=== PATIENT | female | born 1960 | race Caucasian/White ===

== ENCOUNTER 2017-06-14 17:52 | Emergency (ER) | payer BC ==
[~2017-06-14 17:52] MED LIST: ISOVUE-370 76%-LOCM 1 ML ONE
[2017-06-14 19:26] LABS: #Lymphocytes 1.7 thou/uL (1.20-3.40); #Monocytes 0.9 thou/uL (0.11-0.59); %Basophils 0.4 % (0.0-1.0); %Eosinophils 0.1 % (0.0-10.0); %Lymphocytes 14.3 % (21.0-51.0); %Monocytes 7.6 % (0.0-10.0); Hematocrit 40.7 % (36.0-47.0); Mean Platelet Volume 7.1 fL (7.4-10.4); Red Blood Cell (RBC) Count 4.29 mill/uL (4.20-5.40); White Blood Cell (WBC) Count 11.6 thou/uL (4.8-10.8)
[2017-06-14 19:49] LABS: ALT (SGPT) 9 U/L (8-55); AST (SGOT) 18 U/L (5-34); Alkaline Phosphatase 105 U/L (40-150); Anion Gap 13 mmol/L (10-20); BUN (Urea Nitrogen) 23 mg/dL (9.8-20.1); Bilirubin, Total 0.7 mg/dL (0.2-1.2); Calc. Creatinine Clearance 0 mL/min (70-130); Calcium 10.2 mg/dL (7.8-10.44); Carbon Dioxide 29 mmol/L (22-29); Chloride 104 mmol/L (98-107); Estimated GFR-MDRD 60; Globulin 2.8 g/dL (2.4-3.5)
--- NOTE | 2017-06-14 22:07 | ULT ---
RIGHT LOWER EXTREMITY VENOUS DUPLEX EXAM: 06/14/17 HISTORY: Patient is status post fall two weeks ago with edema and bruising and calf pain. Calf pain is new to day. Real time color doppler evaluation of the right lower extremity was performed from groin to calf. Th is includes evaluation of the common femoral, superficial and profunda femoral, saphenous, popliteal and trifurcation veins. This shows a patent deep venous system with normal compressibility and augm entation. In the calf region, there is a complex cystic collection measuring approximately 5 cm in l ength probably related to hematoma related to injury. IMPRESSION: No evidence of DVT. POS: [facility]
[2017-06-14 23:16] LABS: PTT 24.6 SEC (22.9-36.1); Prothrombin Time 12.8 SEC (12.0-14.7)
--- NOTE | 2017-06-15 08:41 | CT ---
PRELIMINARY REPORT/[facility]/EMERGENCY AFTER HOURS PROCEDURE: EXAM: CT Right Lower Extremity With Intravenous Contrast EXAM DATE/TIME: Exam ordered 06/15/2017 12:48 AM CLINICAL HISTORY: 57 years old, female; Injury or trauma; Fall; Initial encounter; Abrasion; Knee and lower leg and fo ot; Right; Patient HX: 57 y/o female, HX fibromyalgia, dyslipidemia, HTN, presents with right knee h ematoma S/P fall 2 weeks ago while on a cruise ship. Pt reports she fell down the last 2 steps and d irectly landed on right knee. Ambulatory after the fall and weight bearing, but large bruise has enl arged over the past 2 weeks. Pt is on abx that were called in by her doctor a few days ago. She has allergies to multiple antibiotics. ; Additional info: Iv contrast per ordering doctor TECHNIQUE: Axial computed tomography images of the right lower extremity with intravenous contrast. Coronal reformatted images were created and reviewed. COMPARISON: No relevant prior studies available. FINDINGS: Bones/joints: No fracture. No dislocation. Soft tissues: 5 cm collection of fluid in the prepatellar subcutaneous tissue without rim enhancemen t. This could be resolving hematoma, abscess, or seroma. 14 cm craniocaudal by 9 cm transverse by 2 cm anteroposterior fluid collection in the deep subcutaneous tissue of the anterior lower leg, without rim enhancement, which could be resolving hematoma, abscess, or seroma. No soft tissue gas. IMPRESSION: There are 2 fluid collections in the soft tissues of the lower extremity, one prepatellar, and one i n the anterior lower leg. Given the history of trauma and lack of rim enhancement, these most likely represent resolving hematomas; however, abscess cannot be excluded. Thank you for allowing us to participate in the care of your patient. Dictated and Authenticated by: Jasvir Amezquita MD 06/15/2017 1:34 AM Central Time ([place] \T\ [place]) FINAL REPORT RIGHT LOWER EXTREMITY CT: HISTORY: Trauma. COMPARISON: None. FINDINGS/IMPRESSION: Findings and impression are concordant with the preliminary report. There is focal hemorrhage withi n both the subcutaneous prepatellar bursa and the subcutaneous infrapatellar bursa. Abscess is felt less likely. Aspiration may be beneficial in this patient. In addition, there appears to be eithe r an ossified lateral tibial spine versus an old avulsion fracture which is well corticated. POS: [facility]
== END 2017-06-15 02:30 | disposition home or self-care (01) ==
LOC: ERS 17:52
DX: S80.01XA Contusion of right knee, initial encounter (principal); E78.5 Hyperlipidemia, unspecified; F32.9 Major depressive disorder, single episode, unspecified; I10 Essential (primary) hypertension; Z79.82 Long term (current) use of aspirin; Z79.891 Long term (current) use of opiate analgesic; Z79.899 Other long term (current) drug therapy; W10.9XXA Fall (on) (from) unspecified stairs and steps, initial encounter
CPT/HCPCS: 36415; 80053; 85025; 85610; 85730

== ENCOUNTER 2019-05-12 13:59 | Outpatient (CLI) | payer BC ==
--- NOTE | 2019-05-12 15:22 | BD ---
EXAM: Bone densitometry using DEXA HISTORY: 59 yo female. Screening for postmenopausal osteoporosis FINDINGS: L1--bone mineral density 0.814 g/sq cm; T score -1.6 ; Z score -0.5 L2--bone mineral density 0.800 g/sq cm; T score -2.1 ; Z score -0.8 L3--bone mineral density 0.810 g/sq cm; T score -2.5 ; Z score -1.2 L4--bone mineral density 0.848 g/sq cm; T score minus 1. ; Z score -0.6 Total L1-L4--bone mineral density 0.819 g/sq cm; T score -2.1 ; Z score -0.8 Left femoral neck--bone mineral density0.701; T score -1.3 ; Z score -0.1 Total proximal left femur--bone mineral density 0.929; T score -0.1 ; Z score 0.7 The 10 year fracture risk for a major osteoporotic fracture is 6.4% and for a hip fracture is 0.4%. IMPRESSION: Osteopenia
--- NOTE | 2019-05-12 16:32 | MMO ---
Bilateral MAMMO Bilat Diag DDI+JOHN. CLINICAL HISTORY: Patient is 59 years old and is seen for screening. VIEWS: The views performed were: bilateral craniocaudal with tomosynthesis and bilateral mediolateral oblique with tomosynthesis. FILMS COMPARED: The present examination has been compared to prior imaging studies performed at [facility] on 05/12/2019, and at [facility] on 05/17/2006, 06/02/2007 and 08/13/2008. This study has been interpreted with the assistance of computer-aided detection. MAMMOGRAM FINDINGS: There are scattered fibroglandular densities. 2.5 cm mass with pleomorphic calcifications upper outer right breast. Skin retraction. Ultrasound reveals hypoechoic mass at 10 oclock. Highly suspicious for malignancy. In the left breast, there are no suspicious masses, calcifications or areas of architectural distortion. IMPRESSION: FINDING IN THE RIGHT BREAST IS HIGHLY SUGGESTIVE OF MALIGNANCY. BIOPSY IS RECOMMENDED. THE RESULTS OF THIS EXAM WERE SENT TO THE PATIENT. ACR BI-RADS Category 5 - Highly suggestive of malignancy - appropriate action should be taken MAMMOGRAPHY NOTE: 1. A negative mammogram report should not delay a biopsy if a dominant of clinically suspicious mass is present. 2. Approximately 10% to 15% of breast cancers are not detected by mammography. 3. Adenosis and dense breasts may obscure an underlying neoplasm. Reported by: JOSH FRANCIS MD Electonically Signed: [id number]
--- NOTE | 2019-05-12 17:07 | ULT ---
ULTRASOUND RIGHT BREAST: 05/12/19 INDICATIONS: Ultrasound performed to assess a mass seen on mammogram. There is a hypoechoic mass 10 o'clock right breast which measures 1.4 to 2.0 cm. Findings are highly suspicious of malignancy. Recommend biopsy for confirmation of diagnosis. IMPRESSION: BIRADS 5: Highly Suggestive of Malignancy - Appropriate Action Should Be Taken Requires biopsy or surgical treatment Dr. Jose G Gonzalez paged for notification at time of dictation. POS: OFF
--- NOTE | 2019-05-13 11:34 | MMO ---
Right Breast MAMMO Unilat Diag DDI RT. CLINICAL HISTORY: Patient is 59 years old and is seen for diagnostic exam. The patient has no family history of breast cancer. The patient has no personal history of cancer. The patient has a history of right Ultrasound Guided Core Biopsy in April,. VIEWS: The views performed were: right craniocaudal and right mediolateral oblique. FILMS COMPARED: The present examination has been compared to prior imaging studies performed at [facility] on 05/12/2019, and at [facility] on 06/02/2007 and 08/13/2008. This study has been interpreted with the assistance of computer-aided detection. MAMMOGRAM FINDINGS: There are scattered fibroglandular densities. There is a new irregular mass with associated biopsy clip seen in the right breast. IMPRESSION: NEW MASS IN THE RIGHT BREAST IS HIGHLY SUGGESTIVE OF MALIGNANCY. BIOPSY IS RECOMMENDED. THE RESULTS OF THIS EXAM WERE SENT TO THE PATIENT. ACR BI-RADS Category 5 - Highly suggestive of malignancy - appropriate action should be taken MAMMOGRAPHY NOTE: 1. A negative mammogram report should not delay a biopsy if a dominant of clinically suspicious mass is present. 2. Approximately 10% to 15% of breast cancers are not detected by mammography. 3. Adenosis and dense breasts may obscure an underlying neoplasm. Reported by: CATALINA CASTILLO MD Electonically Signed: [id number]
--- NOTE | 2019-05-13 12:23 | ULT ---
Ultrasound-guided right breast mass biopsy INDICATION: Suspicious mass within the right breast 10 o'clock position. TECHNIQUE: Informed consent was obtained. Preprocedural ultrasound was performed of the right breast identifying a suspicious mass in the right breast 10 o'clock position 1 cm from the nipple. Site overlying this region was prepped and draped in usual sterile fashion. Buffered 1% lidocaine was admi nistered overlying subcutaneous tissues. A small incision was made. Under ultrasound guidance, five separate core biopsy samples were obtained of the mass lesion. A biopsy clip was placed within the ma ss. Pressure was held at the biopsy site following the procedure. Patient tolerated the biopsy without difficulty. IMPRESSION: BI-RADS category 5. Highly suggestive of malignancy-appropriate action should be taken. P atient is status post ultrasound guided core biopsy of the mass lesion. Awaiting pathology results Transcribed Date/Time: 05/13/2019 12:38 PM
== END 2019-05-12 14:00 | disposition home or self-care (01) ==
LOC: BICMAMMO 13:59
PROVIDERS: ATTEND Obstetrics & Gynecology
DX: N63.11 Unspecified lump in the right breast, upper outer quadrant (principal); M81.0 Age-related osteoporosis without current pathological fracture; M85.859 Other specified disorders of bone density and structure, unspecified thigh
CPT/HCPCS: 19083; 77063; 77066; 77067; 77080; G0279

== ENCOUNTER 2019-05-13 10:40 | Outpatient (CLI) | payer BC | END 2019-05-13 10:41 | disposition home or self-care (01) | LOC: BICULT 10:40 | PROVIDERS: ATTEND Obstetrics & Gynecology | DX: N64.59 Other signs and symptoms in breast (principal); R92.8 Other abnormal and inconclusive findings on diagnostic imaging of breast; C50.411 Malignant neoplasm of upper-outer quadrant of right female breast | CPT/HCPCS: 88305; 88341; 88342 ==

== ENCOUNTER 2019-06-02 20:30 | Outpatient (CLI) | payer BC | END 2019-06-02 20:31 | disposition home or self-care (01) | LOC: SLEEPLAB 20:30 | PROVIDERS: ATTEND Specialist | DX: G47.33 Obstructive sleep apnea (adult) (pediatric) (principal); R53.83 Other fatigue | CPT/HCPCS: 95811 ==

== ENCOUNTER 2019-07-02 07:46 | Outpatient (CLI) | payer BC ==
[2019-07-02 12:07] LABS: #Eosinphils 0.1 thou/uL (0.0-0.7); #Lymphocytes 1.2 thou/uL (1.20-3.40); #Monocytes 0.5 thou/uL (0.11-0.59); #Neutrophils 3.5 thou/uL (1.40-6.50); %Basophils 0.7 % (0.0-1.0); %Eosinophils 1.4 % (0.0-10.0); %Lymphocytes 22.9 % (21.0-51.0); %Monocytes 9.2 % (0.0-10.0); %Neutrophils 65.8 % (42.0-75.0); Hemoglobin 13.8 g/dL (12.0-16.0); Mean Corpuscular HGB CONC 33.8 g/dL (32.0-36.0); Mean Corpuscular Hemoglobin 30.4 pg (27.0-31.0); Mean Corpuscular Volume 90.1 fL (78.0-98.0); Platelet Count 263 thou/uL (130-400); RBC Distribution Width 12.6 % (11.5-14.5); Red Blood Cell (RBC) Count 4.54 mill/uL (4.20-5.40); White Blood Cell (WBC) Count 5.3 thou/uL (4.8-10.8)
[2019-07-02 12:35] LABS: ALT (SGPT) 11 U/L (8-55); AST (SGOT) 25 U/L (5-34); Albumin 4.4 g/dL (3.5-5.0); Alkaline Phosphatase 98 U/L (40-110); Anion Gap 13 mmol/L (10-20); BUN (Urea Nitrogen) 17 mg/dL (9.8-20.1); Bilirubin, Total 0.6 mg/dL (0.2-1.2); Calc. Creatinine Clearance 0 mL/min (70-130); Calcium 9.8 mg/dL (7.8-10.44); Carbon Dioxide 26 mmol/L (22-29); Chloride 105 mmol/L (98-107); Estimated GFR-MDRD 47; Globulin 2.4 g/dL (2.4-3.5); Glucose 98 mg/dL (70-105); Potassium 3.8 mmol/L (3.5-5.1); Protein, Total 6.8 g/dL (6.0-8.3); Sodium 140 mmol/L (136-145)
--- NOTE | 2019-07-02 17:33 | EKG ---
Test Reason : Blood Pressure : / mmHG Vent. Rate : 067 BPM Atrial Rate : 067 BPM P-R Int : 176 ms QRS Dur : 086 ms QT Int : 414 ms P-R-T Axes : 036 044 -07 degrees QTc Int : 437 ms Normal sinus rhythm Anterior infarct , age undetermined T wave abnormality, consider inferior ischemia Abnormal ECG When compared with ECG of 26-FEB-2016 10:21, (Unconfirmed) Anterior infarct is now Present T wave inversion now evident in Inferior leads Nonspecific T wave abnormality now evident in Anterior leads Confirmed by DR. Rajni WHIPPLE ([id number]) on 07/02/2019 5:33:22 PM Referred By: MARIEL Confirmed By:DR. Rajni WHIPPLE
== END 2019-07-02 07:47 | disposition home or self-care (01) ==
LOC: LABBT 07:46
PROVIDERS: ATTEND Surgery
DX: Z01.818 Encounter for other preprocedural examination (principal); C50.919 Malignant neoplasm of unspecified site of unspecified female breast
CPT/HCPCS: 80053; 85025; 93005; 93010

== ENCOUNTER 2019-07-02 08:11 | Outpatient (CLI) | payer BC ==
--- NOTE | 2019-07-02 10:10 | PET ---
Nuclear medicine FDG PET/CT: (Positron emission tomography and computed tomography) DATE: 07/02/2019 HISTORY: ICD-10: C 50.411 malignant neoplasm of the upper outer quadrant of right female breast. Metastatic adenocarcinoma. COMPARISON: None available. Order states "patient will hand carry disc of previous images to give to tech to give 2 radiologist" However, the patient did not bring the disc. TECHNIQUE: IV injection of F-18 fluorodeoxyglucose (FDG) dose: 10.9 mCi. PET scan and attenuation correction CT performed from skull base to proximal thighs. FINDINGS: SUV (standard uptake values) numbers given are maximum SUVs. QCLR used. Approximately 2.5 x 2 cm mass in right breast slightly lateral to the nipple has SUV 8.2. This could represent residual primary tumor or postsurgical changes. There are several enlarged right axillary lymph nodes. The most posterior lymph node has SUV 2.4. Slightly medial to that another lymph node has SUV 2.4. Right subpectoral lymph node has SUV 1.7. There are no other foci of abnormally increased uptake in the rest of the chest, neck, abdomen, pelvi s, or skeleton. No major pathology identified on nondiagnostic, attenuation correction CT images. IMPRESSION: 1) evidence for right breast cancer. 2) multiple enlarged right axillary lymph nodes. Maximum SUV is 2.4, below threshold of 3.0. Indeterm inate. 3) no evidence of distant metastasis.
== END 2019-07-02 08:12 | disposition home or self-care (01) ==
LOC: PET 08:11
PROVIDERS: ATTEND Internal Medicine Hematology & Oncology
DX: C50.411 Malignant neoplasm of upper-outer quadrant of right female breast (principal); R59.0 Localized enlarged lymph nodes
CPT/HCPCS: 78815; 80053; 85025; 93005; A9552

== ENCOUNTER 2019-07-08 06:10 | Day surgery (SDC) | payer BC ==
[2019-07-02 11:17] VITALS: BMI 39.9
[2019-07-08] MEDS ORDERED: Fentanyl 100 MCG/2 ML VIAL ONE (06:50)
[2019-07-08] MEDS ORDERED: Lidocaine 2% PF 5 ML VIAL ONE (06:52)
[2019-07-08] MEDS ORDERED: Bupivacaine HCl 0.5%/Epinephrine 1:200,000/PF 30 ml Vial ONE (06:52)
--- NOTE | 2019-07-08 08:52 | RAD ---
Chest AP view INDICATION: Mediport placement COMPARISON: Chest 2 views dated May 10, 2008 FINDINGS: Lungs:The lungs are clear Cardiac silhouette:The cardiomediastinal silhouette appears within normal limits. Pulmonary vasculature:Normal Pleural spaces:No pleural effusion or pneumothorax is demonstrated. Upper abdomen:No abnormality seen. Osseous structures: No acute osseous abnormality. Additional findings:There has been an interval ACDF involving C5-C7. There is a new left subclavian c hest wall port that projects in the expected position. IMPRESSION: New left subclavian chest wall port. No pneumothorax. No acute cardiopulmonary abnormalit y.
[2019-07-08] MEDS ORDERED: PROPOFOL 200 MG/20 ML VIAL ONE (09:33)
[2019-07-08] MEDS ORDERED: Lidocaine 1% PF 5 ML VIAL ONE (09:33)
[2019-07-08] MEDS ORDERED: Ondansetron PF 4 MG/2 ML Vial ONE (09:33)
--- NOTE | 2019-07-08 09:48 | HP ---
CHIEF COMPLAINT: Right breast cancer. HISTORY OF PRESENT ILLNESS: The patient is a 59-year-old female, who noticed a dimple in the upper outer right breast. Mammogram showed a suspicious 2.5-cm mass. She had a core biopsy showing infiltrating ductal carcinoma. No family history of breast cancer. She is here for MediPort placement. PAST MEDICAL HISTORY: Significant for seasonal allergies, hypertension, and arthritis. PAST SURGICAL HISTORY: Tonsillectomy, D and C, back surgery, and sinus surgery. MEDICATIONS: 1. EpiPen. 2. Tramadol. 3. Meloxicam. 4. Naltrexone. 5. Aspirin. 6. Verapamil. 7. Losartan. 8. Amlodipine. 9. Crestor. 10. Nefazodone. 11. Metaxalone. 12. Torsemide. 13. Cymbalta. FAMILY HISTORY: Hypertension. SOCIAL HISTORY: . No tobacco or alcohol. ALLERGIES: SHE HAS ALLERGIES TO CLINDAMYCIN, CIPRO, SULFA, TOBRAMYCIN, LASIX, LYRICA, STADOL, ERYTHROMYCIN, AND ADHESIVES. PHYSICAL EXAMINATION: VITAL SIGNS: Height 65, weight 239, and body mass index 39.8. GENERAL: Well-developed, well-nourished female, in no apparent distress. HEENT: Unremarkable. LUNGS: Clear. HEART: Regular rate and rhythm. There is bruising over the central right breast, dimpling of the nipple upper outer, vague mass palpable. No palpable lymph nodes. ABDOMEN: Soft and nontender. Good bowel sounds. No palpable masses or hernias. EXTREMITIES: Good pulses. No pedal edema. ASSESSMENT: Right breast cancer. PLAN: MediPort placement. CONSENT: I have discussed planned procedure as well as risk of bleeding, infection, pneumothorax. She understands and gives informed consent. Job ID: [id number]
--- NOTE | 2019-07-08 10:09 | OP ---
DATE OF PROCEDURE: 07/08/2019 PREOPERATIVE DIAGNOSIS: Right breast cancer. PROCEDURE PERFORMED: MediPort placement. INDICATIONS: A 59-year-old female with metastatic breast cancer, needs perioperative or adjuvant chemotherapy. FINDINGS: Very obese upper chest, placed in left subclavian. DESCRIPTION OF PROCEDURE: After informed consent was obtained, the patient was taken to the operating room, given general mask anesthesia. Her chest and neck were prepped and draped in usual fashion. Local anesthesia infiltrated subcutaneously and deep. An introducer needle was inserted in the left subclavian with good backflow of venous blood, J-wire threaded easily. Fluoroscopy showed the wire in the superior vena cava, skin and subcu anesthetized and a pocket was created on the upper chest wall. The tunneling device was used to tunnel the catheter between the 2 incisions. It was connected to the MediPort. The MediPort was then sutured to the chest wall with interrupted 2-0 Prolene suture. The system was flushed with heparinized saline. The catheter was cut. The Peel-Away introducer inserted over the wire. The wire was removed. The catheter inserted through the Peel-Away introducer. The Peel-Away introducer removed. Fluoroscopy showed good placement in the superior vena cava. The subcu was reapproximated with interrupted 3-0 Vicryl. The skin closed with a running subcuticular 4-0 Rapide. Dermabond applied. The port was accessed with a Abdi needle. Good backflow of venous blood flushed with heparinized saline and a sterile bandage applied as the Cancer Center had requested the port remained accessed. Job ID: [id number]
== END 2019-07-08 10:11 | disposition home or self-care (01) ==
LOC: SDC 06:10
PROVIDERS: ATTEND Surgery
PROC: 05H633Z Insertion of Infusion Device into Left Subclavian Vein, Percutaneous Approach (ICD-10-PCS; principal; 2019-07-08)
DX: C50.911 Malignant neoplasm of unspecified site of right female breast (principal); I10 Essential (primary) hypertension; M19.90 Unspecified osteoarthritis, unspecified site; Z79.82 Long term (current) use of aspirin; Z79.899 Other long term (current) drug therapy; Z88.1 Allergy status to other antibiotic agents; Z88.2 Allergy status to sulfonamides; Z88.5 Allergy status to narcotic agent; Z88.8 Allergy status to other drugs, medicaments and biological substances; Z91.048 Other nonmedicinal substance allergy status
CPT/HCPCS: 71045; 80053; 82248; 83615; 84100; 84550; C1788; J0670; J0690; J1642; J2001; J2405; J2704; J3010

== ENCOUNTER 2019-07-17 10:20 | Day surgery (SDC) | payer BC ==
[~2019-07-17 10:20] MED LIST changes: -ISOVUE-370 76%-LOCM 1 ML ONE; +PROPOFOL 200 MG/20 ML VIAL ONE
[2019-07-17] MEDS ORDERED: Bupivacaine 0.25% HCL 30 ML VIAL ONE (10:35)
[2019-07-17] MEDS ORDERED: Lidocaine 1% w/Epinephrine 1:100K 20 ML VIAL ONE (10:35)
[2019-07-17] MEDS ORDERED: Fentanyl 100 MCG/2 ML VIAL ONE (11:02)
[2019-07-17 11:15] LABS: Hemoglobin 12.8 g/dL (12.0-16.0); Mean Corpuscular HGB CONC 34.2 g/dL (32.0-36.0); Mean Corpuscular Hemoglobin 30.4 pg (27.0-31.0); Mean Corpuscular Volume 88.9 fL (78.0-98.0); Mean Platelet Volume 8.6 fL (7.4-10.4); Platelet Count 139 thou/uL (130-400); White Blood Cell (WBC) Count 14.7 thou/uL (4.8-10.8)
[2019-07-17 11:31] LABS: Band 23 % (5-11); Lymphocytes 2 % (21-51); MDiff Complete? YES; Metamyelocyte 8 % (0-0); Monocytes 6 % (0-10); Myelocyte 5 % (0-0); Neutrophil 54 % (42-75); Platelet Morphology Comment Appears Adequate; RBC Morphology Normal; Reactive Lymphocytes 2 % (0-10); Toxic Granulation SLIGHT
--- NOTE | 2019-07-17 14:52 | OP ---
DATE OF PROCEDURE: 07/17/2019 PREOPERATIVE DIAGNOSIS: Infected MediPort. PROCEDURE PERFORMED: MediPort removal. INDICATIONS: This is a 59-year-old female, who recently had a MediPort placed for chemotherapy for breast cancer. She has had progressive swelling, pain, redness, and leukocytosis. FINDINGS: About 10 mL of yellow purulent fluid, MediPort floating around in it. DESCRIPTION OF PROCEDURE: After informed consent was obtained, the patient was taken to the operating room and given general mask anesthesia, placed in the supine position. Her chest was prepped and draped in usual fashion. An incision was made through the previous incision releasing purulent fluid. This was sent for culture and sensitivity and Gram stain. The MediPort was found. The sutures were removed. The MediPort removed. The purulent fluid removed from the cavity. The area was irrigated. A 3-0 Vicryl suture was used to occlude the bleeding tract. Hemostasis was assured. The wound was packed with Betadine gauze and covered by sterile dry gauze. The patient tolerated the procedure well, transferred to Recovery in good condition. Sponge and needle count verified correct x2. Job ID: [id number]
== END 2019-07-17 15:05 | disposition home or self-care (01) ==
LOC: SDC 10:20
PROVIDERS: ATTEND Surgery
PROC: 0JPT3WZ Removal of Totally Implantable Vascular Access Device from Trunk Subcutaneous Tissue and Fascia, Percutaneous Approach (ICD-10-PCS; principal; 2019-07-17)
DX: T80.212A Local infection due to central venous catheter, initial encounter (principal); B95.61 Methicillin susceptible Staphylococcus aureus infection as the cause of diseases classified elsewhere; C50.919 Malignant neoplasm of unspecified site of unspecified female breast; J45.909 Unspecified asthma, uncomplicated; I10 Essential (primary) hypertension; M19.90 Unspecified osteoarthritis, unspecified site; Z86.73 Personal history of transient ischemic attack (TIA), and cerebral infarction without residual deficits; Z88.1 Allergy status to other antibiotic agents; Z88.2 Allergy status to sulfonamides; Z88.8 Allergy status to other drugs, medicaments and biological substances; Z91.048 Other nonmedicinal substance allergy status
CPT/HCPCS: 85025; 87070; 87077; 87186; 87205; J0690; J2704; J3010; S0020

== ENCOUNTER 2019-07-30 11:08 | Outpatient (CLI) | payer BC ==
--- NOTE | 2019-07-30 12:19 | CT ---
CT ANGIOGRAM CHEST: 07/30/2019 HISTORY: Shortness of breath. Upper chest and back pain with cough. COMPARISON: None. TECHNIQUE: Axial CT imaging at 2.5 mm intervals through the chest with IV contrast using CT angiogram protocol w ith coronal and sagittal 3D reformatted imaging. FINDINGS: There is a partially visualized wound within the superiorly imaged left chest wall, anterior to the l eft pectoralis musculature. The left axillary vein, the left subclavian vein, and the brachiocephalic vein appear expanded and are ill defined, concerning for extensive deep venous thromb osis. There is an enlarged subpectoral lymph node on the left, on image 21, measuring 1.4 cm. There are a few mildly enlarged axillary and subpectoral nodes on the right, measuring up to 1.0 cm and 1.3 cm, respectively. There are enlarged lymph nodes in the prevascular space measuring up to 1.0 cm. Enlarged right paratracheal lymph node noted, measuring 1.1 cm. The imaged upper abdomen appears grossly unremarkable. No pleural, pericardial, or mediastinal fluid is noted. There is a spiculated mass within the right breast on axial image 40, measuring 1.9 cm, consistent wi th the patient's history of right breast cancer. There is a filling defect within a segmental branch, supplying the superior segment of the left lower lobe, consistent with a nonocclusive acute pulmonary embolism. There is a nonspecific pleural-based mass-like opacity within the right upper lobe, measuring 1.2 cm in craniocaudal dimension, new when compared to a PET scan performed on 07/02/2019. The configuration of this abnormality makes malignancy a possibility but the timeframe when compared to t he recent PET scan and would be atypical. Thus this could potentially be on the basis of an infectious process. Short-term follow-up imaging of the chest following treatment is thus advised. There is a granuloma within the posterolateral lingula. Mild areas of posterior pleural thickening ar e noted within the left lower lobe. Review of the osseous structures demonstrates incompletely imaged cervical spine fusion hardware. IMPRESSION: 1. Findings suggesting a nonocclusive segmental pulmonary embolism supplying the superior segment of the left lower lobe. 2. Expansion of the brachiocephalic vein, left subclavian vein and left axillary vein, concerning for extensive deep venous thrombosis. 3. New nonspecific pleural-based lesion within the right lung apex. Configuration suggests the possib ility of malignancy versus infection. Please see above discussion. Short-term follow-up imaging of the chest following treatment advised. The findings related to DVT and pulmonary embolism were called to Dr. Coley at 12:18 p.m. on 2018. CODE CR CODE T Transcribed Date/Time: 07/30/2019 12:38 PM
--- NOTE | 2019-07-30 14:29 | ULT ---
LEFT UPPER EXTREMITY VENOUS DOPPLER ULTRASOUND: INDICATIONS: History of breast cancer and concern for DVT of the left upper extremity. COMPARISON: CTA of the chest dated 07/30/2019. TECHNIQUE: Hernandez-scale, color Doppler and spectral Doppler images were obtained of the left internal jugular vein , left axillary vein, left brachial vein, left basilic vein, left cephalic vein and left radial and ulnar veins. FINDINGS: Left subclavian vein was not assessed due to the presence of a large bandage overlying a port removal site. There is occlusive thrombus within the visualized left internal jugular vein, left axillary vein, proximal left brachial vein and left basilic vein. There is slow flow present within a dilated left cephalic vein without evidence of intraluminal thrombus. There is normal compression and flow within the left radial and ulnar veins. IMPRESSION: Occlusive thrombus within the left internal jugular vein, left axillary vein, proximal left brachial vein and left basilic vein. Findings were called to Dr. Coley's answering service at 2:25 p.m. on 07/30/2019. CODE CR Transcribed Date/Time: 07/30/2019 2:38 PM
[2019-07-30] MEDS ORDERED: Iopamidol 370 76% 100 ML VIAL ONE (14:54)
== END 2019-07-30 11:09 | disposition home or self-care (01) ==
LOC: CT 11:08 → ULT 11:09
PROVIDERS: ATTEND Internal Medicine Hematology & Oncology
DX: C50.411 Malignant neoplasm of upper-outer quadrant of right female breast (principal); M79.602 Pain in left arm; I82.90 Acute embolism and thrombosis of unspecified vein; R06.02 Shortness of breath; R60.9 Edema, unspecified; I26.99 Other pulmonary embolism without acute cor pulmonale; I87.8 Other specified disorders of veins
CPT/HCPCS: 71275; 80053; 82248; 83615; 84100; 84550; Q9967

== ENCOUNTER → 2019-11-23 | Day surgery (SDC) | payer BC ==
[~2019-11-23] MED LIST changes: +Heparin 1,000 UNITS/ML VIAL ONE; -PROPOFOL 200 MG/20 ML VIAL ONE
--- NOTE | 2019-11-23 11:02 | SPC ---
PROCEDURE: Ultrasound-guided venous access of the left upper extremity basilic and brachial veins with attempted PICC line placement. PROVIDED CLINICAL HISTORY: Right breast cancer. Patient needs central venous catheter in place for chemotherapy treatment. COMPARISON: None TECHNIQUE: After informed consent was obtained, the patient was placed on the angiography table in the supine po sition. Left upper extremity was meticulously prepped and draped in usual sterile fashion. An appropriate access site was determined with ultrasound guidance. Skin and subcutaneous tissues overly ing the left upper extremity basilic vein were infiltrated with buffered 1% lidocaine for local anesthesia. The left upper extremity basilic vein was accessed utilizing micropuncture technique. A 0 .018 inch guidewire was advanced, but the guidewire was unable to be advanced distal to the level of the axillary vein. As result, the skin and subcutaneous tissues overlying the left upper extremity brachial vein were infiltrated with buffered 1% lidocaine for local anesthesia. The left brachial vein was accessed utilizing ultrasound guidance and a 21-gauge needle. A 0.018 inch guidewire was adv anced to the level of the axillary vein. The guidewire was unable to be manipulated into the subclavian vein suggesting occlusion at the level of the left subclavian vein. Patient provides histo ry of prior left subclavian Mediport catheter and prior DVT in the left upper extremity as well as prior infection secondary to port placement. Inability to advance guidewire into the central veins was discussed with Dr. Coley. Given that the catheter was unable to be placed within the central veins, the guidewire was removed, and hemostasis was achieved with direct pressure. Dry sterile dressing was placed at puncture sites. The patient tolerated the procedure well and without immediate complication. IMPRESSION: 1. Findings most suggestive of occlusion of the left subclavian vein as a guidewire was unable to be manipulated into the central veins. Given that a guidewire and catheter were unable to be manipulated into the central veins for administration of chemotherapy, the guidewire was removed. Samir carey were discussed with Dr. Coley.
== END ==
LOC: SPEC 08:42
PROVIDERS: ATTEND Internal Medicine Hematology & Oncology
DX: C50.411 Malignant neoplasm of upper-outer quadrant of right female breast (principal); Z88.1 Allergy status to other antibiotic agents; Z88.2 Allergy status to sulfonamides; Z88.8 Allergy status to other drugs, medicaments and biological substances; Z91.048 Other nonmedicinal substance allergy status
CPT/HCPCS: 36569; C1751; J1644

== ENCOUNTER 2019-11-24 10:33 | Outpatient (CLI) | payer BC ==
--- NOTE | 2019-11-24 15:35 | PET ---
Radionucleotide PET scan with CT attenuation correction HISTORY: Malignant neoplasm upper outer quadrant right breast. Restaging. COMPARISON: 07/02/2019. FINDINGS: Physiologic uptake of radiotracer present throughout the enteric system and along each urin greg tract. Interval postoperative changes with right mastectomy and axillary lymph node dissection. Residual upt trupti at the axillary postoperative bed maximum SUV 3.2. No hypermetabolic adenopathy is evident. No abnormal activity of the mediastinum, left breast or axilla. The area of subpleural nodularity at the right lung apex on interval CT arteriogram chest has nearly completely resolved on the CT images. No abnormal uptake. Very mild uptake associated with shallow subcutaneous ill-defined areas of nodularity along the anter ior abdominal wall with the appearance of injection sites. Nondiagnostic CT attenuation correction images show evidence of healed granulomatous disease of the c hest. There is bovine origin of the great vessels at the aortic arch. Degenerative changes throughout the lumbar spine. Diverticula arise from the colon without adjacent inflammation. IMPRESSION : Status post right mastectomy with removal of the breast lesion and hypermetabolic axillary adenopathy .. No evidence of residual or recurrent neoplasm.
== END 2019-11-24 10:34 | disposition home or self-care (01) ==
LOC: PET 10:33
PROVIDERS: ATTEND Internal Medicine Hematology & Oncology
DX: C50.919 Malignant neoplasm of unspecified site of unspecified female breast (principal); R59.0 Localized enlarged lymph nodes; Z90.11 Acquired absence of right breast and nipple
CPT/HCPCS: 78815; A9552

== ENCOUNTER 2020-03-11 15:41 | Inpatient (IN) | payer BC, OTHER ==
[2020-03-11 16:15] LABS: #Lymphocytes 0.2 thou/uL (1.20-3.40); #Monocytes 0.1 thou/uL (0.11-0.59); #Neutrophils 6.4 thou/uL (1.40-6.50); %Eosinophils 0.2 % (0.0-10.0); %Lymphocytes 3.5 % (21.0-51.0); %Monocytes 1.9 % (0.0-10.0); %Neutrophils 94.4 % (42.0-75.0); Hemoglobin 13.8 g/dL (12.0-16.0); Mean Corpuscular HGB CONC 33.5 g/dL (32.0-36.0); Mean Corpuscular Hemoglobin 32.4 pg (27.0-31.0); Mean Corpuscular Volume 96.8 fL (78.0-98.0); RBC Distribution Width 13.7 % (11.5-14.5); Red Blood Cell (RBC) Count 4.26 mill/uL (4.20-5.40); White Blood Cell (WBC) Count 6.7 thou/uL (4.8-10.8)
[2020-03-11 16:30] LABS: ALT (SGPT) 12 U/L (8-55); AST (SGOT) 26 U/L (5-34); Albumin 3.5 g/dL (3.5-5.0); Alkaline Phosphatase 78 U/L (40-110); Anion Gap 13 mmol/L (10-20); BUN (Urea Nitrogen) 9 mg/dL (9.8-20.1); Bilirubin, Total 0.3 mg/dL (0.2-1.2); Calc. Creatinine Clearance 0 mL/min (70-130); Calcium 10.2 mg/dL (7.8-10.44); Carbon Dioxide 27 mmol/L (22-29); Chloride 100 mmol/L (98-107); Estimated GFR-MDRD 82; Globulin 3.1 g/dL (2.4-3.5); Glucose 141 mg/dL (70-105); Potassium 3.9 mmol/L (3.5-5.1); Protein, Total 6.6 g/dL (6.0-8.3); Sodium 136 mmol/L (136-145)
[2020-03-11 16:32] LABS: MDiff Complete? YES; Mean Platelet Volume 7.7 fL (7.4-10.4); Platelet Count 116 thou/uL (130-400); Platelet Morphology Comment Appears Decreased; Polychromasia SLIGHT = 2-3 cells (100X) (0-2/hpf)
--- NOTE | 2020-03-11 16:52 | RAD ---
EXAM: CHEST ONE VIEW: 03/11/20 HISTORY: Dyspnea, shortness of breath. Cough. COMPARISON: CT angiogram of chest, 03/10/20. Fairly extensive bilateral alveolar and ground glass opacity changes as well as some minimal linear c hanges noted in the left mid and lower lung zone and right lower lung zone. These changes appear pote ntially slightly more dense and more marked than on yesterday's CT scan. Findings are certainly consi stent with that of bilateral COVID pneumonia. Surgical clips in the right axilla. IMPRESSION: Evidence for bilateral COVID pneumonia. Possibly slightly more dense than on yesterday's study, a CT. POS: RRE
[2020-03-11] MEDS ORDERED: Cefepime 2 GM VIAL ONE (17:00)
[2020-03-11 17:05] LABS: CKMB 0.4 ng/mL (0-6.6)
[2020-03-11 17:20] LABS: SARS-CoV-2 NAA Rapid Test DETECTED (NotDetected)
[2020-03-11 17:36] LABS: Bacteria/HPF None Seen HPF (None Seen); Bilirubin Negative (Negative); Blood, Urine Negative (Negative); Clarity Extra Turbid (Clear); Glucose, Urine (Dipstick) 150 mg/dL (Negative); Ketone, Urine Negative (Negative); Leukocyte Negative Leu/uL (Negative); Nitrite Negative (Negative); Protein, Urine (Dipstick) 100 mg/dL (Neg-Trace); RBC/HPF 0-3 HPF (0-3); Specific Gravity, Urine 1.026 (1.002-1.036); Squamous Epithelial 0-3 HPF (0-3); Urobilinogen Normal mg/dL (Less than 2); WBC/HPF 0-3 HPF (0-3); pH, Urine 7.5 (5.0-9.0)
[2020-03-11] MEDS ORDERED: PROVENTIL INHALER 6.7 G (200 INHALATIONS) INH PRN (17:56)
[2020-03-11] MEDS ORDERED: Lidocaine 5% Patch TD PRN (17:56)
[2020-03-11] MEDS ORDERED: Mometasone 200 MCG/Formoterol 5 MCG 120 PUFF INHALER INH PRN (17:56)
[2020-03-11] MEDS ORDERED: Dexamethasone 4 MG TAB PO SCH (18:00)
[2020-03-11 18:06] LABS: Prothrombin Time 12.9 sec (12.0-14.7)
[2020-03-11 18:07] LABS: D-Dimer Test 3.26 *mcg/mL (0.27-0.43)
[2020-03-11 18:12] LABS: ALT (SGPT) 12 U/L (8-55); AST (SGOT) 29 U/L (5-34); Albumin 3.5 g/dL (3.5-5.0); Alkaline Phosphatase 81 U/L (40-110); Bilirubin, Direct 0.2 mg/dL (0.1-0.3); Bilirubin, Total 0.3 mg/dL (0.2-1.2); CRP (Inflammatory) 31.43 mg/dL (= or < 0.5)
[2020-03-11 19:59] LABS: Lactic Acid 1.1 mmol/L (0.5-2.2)
[2020-03-11 20:08] LABS: Troponin I 0.195 ng/mL (< 0.028)
--- NOTE | 2020-03-11 21:16 | HP ---
CHIEF COMPLAINT: Shortness of breath. HISTORY OF PRESENT ILLNESS: The patient is a 60-year-old female with past medical history of breast cancer, hypertension, hyperlipidemia, and fibromyalgia, who presented to the hospital with complaints of worsening shortness of breath over the past week. The patient also reported fever and chills. In the ER, rapid COVID test was positive. She was found to be saturating in the low 70s on room air. The patient was placed on high-flow nasal cannula to achieve adequate oxygen saturations. REVIEW OF SYSTEMS: Negative except as noted in HPI. PAST MEDICAL HISTORY: CVA, hypertension, PE, hyperlipidemia, fibromyalgia, and breast cancer. PAST SURGICAL HISTORY: Mastectomy, adenoidectomy, hysterectomy, tonsillectomy, and cervical disk surgery. SOCIAL HISTORY: The patient drinks occasionally. Denies illicit drug use or smoking. FAMILY HISTORY: Unremarkable and unrelated to her current presentation. PHYSICAL EXAMINATION: GENERAL: The patient is alert and oriented x3. She appears to be in respiratory distress. HEENT: Head is normocephalic and atraumatic. Extraocular muscles are intact. NECK: Supple. CHEST: Auscultation revealed crackles bilaterally. CARDIOVASCULAR: Revealed tachycardia with regular rhythm. ABDOMEN: Soft, nontender, and nondistended. NEUROLOGIC: Nonfocal. ASSESSMENT: 1. Acute respiratory failure with hypoxia. 2. COVID-19 pneumonia. 3. Hypertension. 4. Hyperlipidemia. 5. History of cerebrovascular accident. 6. History of pulmonary embolism. PLAN: The patient will be admitted to telemetry. She will be started on dexamethasone 6 mg orally daily and on remdesivir. Her LFTs and kidney function are within normal limits. This was discussed with Dr. Nickerson. The patient will also be started on anticoagulation with Eliquis 5 mg orally twice daily. Check D-dimer, INR, ferritin, and C-reactive protein. Job ID: [id number]
[2020-03-11 23:25] LABS: Troponin I 0.155 ng/mL (< 0.028)
[2020-03-12] MEDS: DULoxetine 60 MG CAP PO SCH ×3 (00:36→20:03)
[2020-03-12] MEDS: Rosuvastatin 20 MG TAB PO SCH ×2 (00:36→20:03)
[2020-03-12] MEDS: Apixaban 5 MG TAB PO SCH ×3 (00:36→20:03)
[2020-03-12] MEDS: traMADol HCl 50 MG TAB PO SCH ×2 (00:41→20:03)
[2020-03-12] MEDS: Losartan 25 MG TAB PO SCH ×2 (02:48→20:04)
[2020-03-12] MEDS: Torsemide 20 MG TAB PO SCH ×2 (02:48→20:03)
[2020-03-12 04:10] LABS: ALT (SGPT) 11 U/L (8-55); AST (SGOT) 25 U/L (5-34); Albumin 3.1 g/dL (3.5-5.0); Alkaline Phosphatase 71 U/L (40-110); Anion Gap 13 mmol/L (10-20); BUN (Urea Nitrogen) 9 mg/dL (9.8-20.1); Bilirubin, Direct 0.1 mg/dL (0.1-0.3); Bilirubin, Total 0.2 mg/dL (0.2-1.2); Calc. Creatinine Clearance 140 mL/min (70-130); Calcium 9.7 mg/dL (7.8-10.44); Carbon Dioxide 23 mmol/L (22-29); Chloride 104 mmol/L (98-107); Estimated GFR-MDRD 90; Glucose 187 mg/dL (70-105); Potassium 3.7 mmol/L (3.5-5.1); Sodium 136 mmol/L (136-145)
[2020-03-12 04:20] LABS: #Lymphocytes 0.1 thou/uL (1.20-3.40); #Monocytes 0.1 thou/uL (0.11-0.59); #Neutrophils 4.5 thou/uL (1.40-6.50); %Eosinophils 0.4 % (0.0-10.0); %Lymphocytes 2.4 % (21.0-51.0); %Monocytes 1.7 % (0.0-10.0); %Neutrophils 95.5 % (42.0-75.0); Hemoglobin 12.8 g/dL (12.0-16.0); Mean Corpuscular HGB CONC 33.2 g/dL (32.0-36.0); Mean Corpuscular Hemoglobin 32.2 pg (27.0-31.0); Mean Corpuscular Volume 96.9 fL (78.0-98.0); Mean Platelet Volume 7.6 fL (7.4-10.4); Platelet Count 103 thou/uL (130-400); RBC Distribution Width 13.6 % (11.5-14.5); Red Blood Cell (RBC) Count 3.96 mill/uL (4.20-5.40); White Blood Cell (WBC) Count 4.8 thou/uL (4.8-10.8)
[2020-03-12] MEDS ORDERED: REMDESIVIR (EUA) 200 MG in Sodium Chloride 0.9% 250 ML 210 ML IV SCH (08:00)
[2020-03-12] MEDS: Dexamethasone 4 MG TAB PO SCH (09:58)
[2020-03-12] MEDS: Cholecalciferol 1,000 UNITS (25 MCG) TAB PO SCH (09:59)
[2020-03-12] MEDS: Modafinil 100 MG TAB PO SCH ×2 (09:59→10:45)
[2020-03-12] MEDS: Multivitamin W/ Minerals 1 TAB PO SCH (10:00)
[2020-03-12] MEDS: Amlodipine 5 MG TAB PO SCH (10:00)
[2020-03-12] MEDS: Aspirin 81 mg Enteric Coated Tablet PO SCH (10:00)
--- NOTE | 2020-03-12 12:58 | PDOC.HOSPP ---
- Subjective Encounter Date: 03/12/20 Encounter Time: 11:45 Subjective: sob is better on oxygen no chest pain or palp - Objective Vital Signs & Weight: Vital Signs (12 hours) Temp Pulse Ox 03/12/20 08:00 99 03/12/20 04:00 99.6 F Weight Weight 216 lb 11.2 oz Most Recent Monitor Data Heart Rate from ECG 84 NIBP 177/106 NIBP BP-Mean 129 Respiration from ECG 24 SpO2 95 Result Diagrams: 03/12/20 03:22 03/12/20 03:22 Hospitalist ROS - Medication Medications: Active Medications Generic Name Dose Route Start Last Admin Trade Name Freq PRN Reason Stop Dose Admin Amlodipine Besylate 5 mg 03/12/20 09:00 03/12/20 10:00 Norvasc PO 5 mg DAILY IGGY Administration Apixaban 5 mg 03/11/20 21:00 03/12/20 10:00 Eliquis PO 5 mg BID IGGY Administration Aspirin 81 mg 03/12/20 09:00 03/12/20 10:00 Ecotrin PO 81 mg DAILY IGGY Administration Cholecalciferol 5,000 units 03/12/20 09:00 03/12/20 09:59 Vitamin D3 PO 5,000 units DAILY IGGY Administration Dexamethasone 6 mg 03/12/20 08:00 03/12/20 09:58 Decadron PO 6 mg QAM-WM IGGY Administration Duloxetine HCl 60 mg 03/11/20 21:00 03/12/20 10:00 Cymbalta PO 60 mg BID IGGY Administration Iron/Minerals/Multivitamins 1 tab 03/12/20 09:00 03/12/20 10:00 Theragran M PO 1 tab DAILY IGGY Administration Losartan Potassium 100 mg 03/11/20 21:00 03/12/20 02:48 Cozaar PO Not Given HS IGGY Modafinil 200 mg 03/12/20 09:00 03/12/20 10:45 Provigil PO Not Given DAILY IGGY Rosuvastatin Calcium 20 mg 03/11/20 21:00 03/12/20 00:36 Crestor PO 20 mg HS IGGY Administration Torsemide 20 mg 03/11/20 21:00 03/12/20 02:48 Demadex PO Not Given HS IGGY Tramadol HCl 100 mg 03/11/20 21:00 03/12/20 00:41 Ultram PO 100 mg HS IGGY Administration Verapamil HCl 240 mg 03/11/20 21:00 03/12/20 12:45 Calan Sr PO 240 mg HS IGGY Administration - Exam General Appearance: awake alert Eye: PERRL, anicteric sclera ENT: no oropharyngeal lesions, moist mucosa Neck: supple, no JVD Heart: RRR, no murmur Respiratory: no wheezes, no rales, rhonchi Gastrointestinal: soft, non-tender, non-distended, normal bowel sounds Extremities: no cyanosis, no edema Neurological: cranial nerve grossly intact, no focal deficits Psychiatric: normal affect, A&O x 3 Hosp A/P (1) Acute respiratory failure with hypoxia Code(s): J96.01 - ACUTE RESPIRATORY FAILURE WITH HYPOXIA Status: Acute (2) Pneumonia due to COVID-19 virus Code(s): U07.1 - COVID-19; J12.89 - OTHER VIRAL PNEUMONIA Status: Acute (3) H/O malignant neoplasm of breast Code(s): Z85.3 - PERSONAL HISTORY OF MALIGNANT NEOPLASM OF BREAST Status: Acute (4) Immunosuppressed status Code(s): D89.9 - DISORDER INVOLVING THE IMMUNE MECHANISM, UNSPECIFIED Status: Acute (5) DM type 2 (diabetes mellitus, type 2) Status: Chronic Qualifiers: Diabetes mellitus avionics electrical engineer insulin use: without detention use (6) Obesity (BMI 30-39.9) Code(s): E66.9 - OBESITY, UNSPECIFIED Status: Chronic (7) Dyslipidemia Code(s): E78.5 - HYPERLIPIDEMIA, UNSPECIFIED Status: Chronic (8) HTN (hypertension) Code(s): I10 - ESSENTIAL (PRIMARY) HYPERTENSION Status: Chronic Qualifiers: Hypertension type: essential hypertension Qualified Code(s): I10 - Essential (primary) hypertension - Plan is on high flow oxygen, dexamethasone, remdesivir, zithromax and cefepime continue eliquis, asp, crestor, cymbalta, cozaar, torsemide, verpamil, naltrexone and nefazodone finished her radiation treatment for right br cancer last ( and Vianca) prognosis guarded given her immunosuppresed status and multiple med issues along with polypharmacy hemostable
--- NOTE | 2020-03-12 19:13 | CON ---
DATE OF CONSULTATION: HISTORY OF PRESENT ILLNESS: Shanta Servin is a 60-year-old female, who was admitted with respiratory failure secondary to coronavirus pneumonia. She was seen yesterday at an urgent care. tested for the virus, when she was found to be very hypoxic and was transferred here. She is now in the MICU on high-flow 50 L, 50%, sats are 90%. Nonsmoker. On arrival, non-rebreather sats were 95% in the ER. Blood pressure was 160/105, temperature 101.4 axillary. She states she has never smoked. No prior history of TB, pneumonia, or bronchial asthma. was tested a week ago, which is negative. PAST MEDICAL HISTORY: Pertinent for breast cancer, received treatment a couple of months ago. History apparently of hypertension, depression, and sleep apnea apparently. PREVIOUS SURGERIES: UP3 surgery; mastectomy, right; hysterectomy; tonsillectomy; ablation; sinus surgery; previous CVA. HOME MEDICATIONS: Have included HFA inhaler, nefazodone 300 twice a day, Xopenex inhaler, naltrexone 50 a day, Symbicort inhaler, torsemide 20, Crestor 20, skelaxin, Losartan 100, amlodipine 5, Xarelto 10, anastrozole 1, Provigil 200, verapamil 240, Cymbalta 60, tramadol 100. REVIEW OF SYSTEMS: Otherwise, negative. PHYSICAL EXAMINATION: VITAL SIGNS: Sats 93% on a high-flow, blood pressure 180/100, pulse 130, respiratory rate 18. CHEST: No wheezing, no crackles. CARDIAC: Normal S1 and S2. No gallops. ABDOMEN: No masses. LABORATORY DATA: White count 4000 and platelet count is 103, probably post chemo. Lytes are normal. normal. X-ray shows bilateral infiltrates. CT shows the above described peripheral pneumonia. ASSESSMENT: Coronavirus positive bronchopneumonia, respiratory failure, breast cancer. I agree with remdesivir and started Zithromax, Maxipime, and steroids. She has multiple allergies; Cipro, clindamycin, erythromycin, Lasix, sulfa, and tobramycin. We will continue home medication. We will follow. Consultation note, 70 minutes, 50% in direct patient care. Job ID: [id number]
[2020-03-12] MEDS: Cefepime 1 GM in Sodium Chloride 0.9% 100 ML IVPB SCH (20:02)
[2020-03-12] MEDS: Azithromycin 500 MG in Sodium Chloride 0.9% 250 ML 250 ML IVPB SCH (21:47)
[2020-03-12] MEDS ORDERED: NEFAZODONE HCL PO SCH (23:00)
[2020-03-13 04:10] LABS: ALT (SGPT) 14 U/L (8-55); AST (SGOT) 29 U/L (5-34); Alkaline Phosphatase 71 U/L (40-110); Anion Gap 14 mmol/L (10-20); BUN (Urea Nitrogen) 16 mg/dL (9.8-20.1); Bilirubin, Direct 0.2 mg/dL (0.1-0.3); Bilirubin, Total 0.2 mg/dL (0.2-1.2); Calc. Creatinine Clearance 140 mL/min (70-130); Calcium 9.9 mg/dL (7.8-10.44); Carbon Dioxide 22 mmol/L (22-29); Chloride 105 mmol/L (98-107); Estimated GFR-MDRD 90; Glucose 195 mg/dL (70-105); Protein, Total 5.9 g/dL (6.0-8.3); Sodium 137 mmol/L (136-145)
[2020-03-13 05:30] LABS: Band 12 % (5-11); Hemoglobin 12.8 g/dL (12.0-16.0); Lymphocytes 3 % (21-51); MDiff Complete? YES; Mean Corpuscular HGB CONC 32.8 g/dL (32.0-36.0); Mean Corpuscular Hemoglobin 33.1 pg (27.0-31.0); Mean Platelet Volume 8.5 fL (7.4-10.4); Monocytes 1 % (0-10); Neutrophil 84 % (42-75); Platelet Count 110 thou/uL (130-400); Platelet Morphology Comment Appears Decreased; RBC Distribution Width 13.8 % (11.5-14.5); Red Blood Cell (RBC) Count 3.87 mill/uL (4.20-5.40); White Blood Cell (WBC) Count 4.8 thou/uL (4.8-10.8)
[2020-03-13] MEDS: Cefepime 1 GM in Sodium Chloride 0.9% 100 ML IVPB SCH ×2 (08:31→20:58)
[2020-03-13] MEDS: Aspirin 81 mg Enteric Coated Tablet PO SCH (08:32)
[2020-03-13] MEDS: Cholecalciferol 1,000 UNITS (25 MCG) TAB PO SCH (08:32)
[2020-03-13] MEDS: Multivitamin W/ Minerals 1 TAB PO SCH (08:32)
[2020-03-13] MEDS: DULoxetine 60 MG CAP PO SCH ×2 (08:32→20:59)
[2020-03-13] MEDS: Amlodipine 5 MG TAB PO SCH (08:33)
[2020-03-13] MEDS: Apixaban 5 MG TAB PO SCH ×2 (08:33→20:59)
[2020-03-13] MEDS: Dexamethasone 4 MG TAB PO SCH (08:42)
[2020-03-13] MEDS: REMDESIVIR (EUA) 100 MG in Sodium Chloride 0.9% 250 ML 230 ML IV SCH (09:30)
[2020-03-13] MEDS: NEFAZODONE HCL PO SCH ×2 (09:30→21:01)
[2020-03-13] MEDS: Modafinil 100 MG TAB PO SCH (09:30)
--- NOTE | 2020-03-13 11:32 | PDOC.HOSPP ---
- Subjective Encounter Date: 03/13/20 Encounter Time: 10:45 Subjective: no sob on high flow, is lying to lateral side no chest pain or palp feels better, is eating well - Objective Vital Signs & Weight: Vital Signs (12 hours) Temp 03/13/20 04:41 98.1 F Weight Weight 216 lb 11.2 oz Most Recent Monitor Data Heart Rate from ECG 61 NIBP 127/82 NIBP BP-Mean 97 Respiration from ECG 14 SpO2 98 I&O: 03/12/20 03/13/20 03/14/20 06:59 06:59 06:59 Output Total 1200 Balance -1200 Result Diagrams: 03/13/20 03:37 03/13/20 03:37 Hospitalist ROS - Medication Medications: Active Medications Generic Name Dose Route Start Last Admin Trade Name Freq PRN Reason Stop Dose Admin Amlodipine Besylate 5 mg 03/12/20 09:00 03/13/20 08:33 Norvasc PO 5 mg DAILY IGGY Administration Apixaban 5 mg 03/11/20 21:00 03/13/20 08:33 Eliquis PO 5 mg BID IGGY Administration Aspirin 81 mg 03/12/20 09:00 03/13/20 08:32 Ecotrin PO 81 mg DAILY IGGY Administration Cholecalciferol 5,000 units 03/12/20 09:00 03/13/20 08:32 Vitamin D3 PO 5,000 units DAILY IGGY Administration Duloxetine HCl 60 mg 03/11/20 21:00 03/13/20 08:32 Cymbalta PO 60 mg BID IGGY Administration REMDESIVIR (EUA) 100 mg/ 230 mls @ 230 mls/hr 03/13/20 09:00 03/13/20 09:30 Sodium Chloride IV 03/16/20 09:59 230 mls 0900 IGGY Administration Azithromycin 500 mg/ Sodium 250 mls @ 250 mls/hr 03/12/20 20:00 03/12/20 21: 47 Chloride IVPB 250 mls 2000 IGGY Administration Cefepime HCl 1 gm/ Sodium 100 mls @ 200 mls/hr 03/12/20 21:00 03/13/20 08:31 Chloride IVPB 100 mls Q12HR IGGY Administration Iron/Minerals/Multivitamins 1 tab 03/12/20 09:00 03/13/20 08:32 Theragran M PO 1 tab DAILY IGGY Administration Losartan Potassium 100 mg 07/17/20 21:00 03/12/20 20:04 Cozaar PO 100 mg HS IGGY Administration Modafinil 200 mg 03/12/20 09:00 03/13/20 09:30 Provigil PO 200 mg DAILY IGGY Administration (Nefazodone Hcl [ 300 each 03/13/20 09:00 03/13/20 09:30 Nefazodone Hcl] 150 PO 300 each Mg) Tab BID IGGY Administration Rosuvastatin Calcium 20 mg 03/11/20 21:00 03/12/20 20:03 Crestor PO 20 mg HS IGGY Administration Torsemide 20 mg 03/11/20 21:00 03/12/20 20:03 Demadex PO 20 mg HS IGGY Administration Tramadol HCl 100 mg 03/11/20 21:00 03/12/20 20:03 Ultram PO 100 mg HS IGGY Administration Verapamil HCl 240 mg 03/11/20 21:00 03/12/20 12:45 Calan Sr PO 240 mg HS IGGY Administration - Exam General Appearance: awake alert Eye: PERRL, anicteric sclera ENT: no oropharyngeal lesions, dry oral mucosa Neck: supple, no JVD Heart: RRR, no murmur Respiratory: no wheezes, no rales, rhonchi Gastrointestinal: soft, non-tender, non-distended, normal bowel sounds Extremities: no cyanosis, no edema Neurological: cranial nerve grossly intact, no focal deficits Psychiatric: normal affect, A&O x 3 Hosp A/P (1) Acute respiratory failure with hypoxia Code(s): J96.01 - ACUTE RESPIRATORY FAILURE WITH HYPOXIA Status: Acute (2) Pneumonia due to COVID-19 virus Code(s): U07.1 - COVID-19; J12.89 - OTHER VIRAL PNEUMONIA Status: Acute (3) H/O malignant neoplasm of breast Code(s): Z85.3 - PERSONAL HISTORY OF MALIGNANT NEOPLASM OF BREAST Status: Acute (4) Immunosuppressed status Code(s): D89.9 - DISORDER INVOLVING THE IMMUNE MECHANISM, UNSPECIFIED Status: Acute (5) DM type 2 (diabetes mellitus, type 2) Status: Chronic Qualifiers: Diabetes mellitus intermediate school teacher insulin use: without intermediate school teacher use (6) Obesity (BMI 30-39.9) Code(s): E66.9 - OBESITY, UNSPECIFIED Status: Chronic (7) Dyslipidemia Code(s): E78.5 - HYPERLIPIDEMIA, UNSPECIFIED Status: Chronic (8) HTN (hypertension) Code(s): I10 - ESSENTIAL (PRIMARY) HYPERTENSION Status: Chronic Qualifiers: Hypertension type: essential hypertension Qualified Code(s): I10 - Essential (primary) hypertension - Plan is on high flow oxygen, dexamethasone, remdesivir, zithromax and cefepime, may dc either zithromax or doxy if ok with pulmonary. continue eliquis, asp, crestor, cymbalta, cozaar, torsemide, verpamil, naltrexone and nefazodone finished her radiation treatment for right br cancer last ( and Vianca) prognosis guarded given her immunosuppresed status and multiple med issues along with polypharmacy hemostable may be a candidate for convalescent plasma given her immunosuppresed status?
[2020-03-13] MEDS: Azithromycin 500 MG in Sodium Chloride 0.9% 250 ML 250 ML IVPB SCH (20:58)
[2020-03-13] MEDS: methylPREDNISolone Sod Succ 40 MG VIAL IVP SCH (20:58)
[2020-03-13] MEDS: Torsemide 20 MG TAB PO SCH (20:58)
[2020-03-13] MEDS: Doxycycline 100 MG CAP PO SCH (20:59)
[2020-03-13] MEDS: Rosuvastatin 20 MG TAB PO SCH (20:59)
[2020-03-13] MEDS: Losartan 25 MG TAB PO SCH (21:00)
[2020-03-13] MEDS: traMADol HCl 50 MG TAB PO SCH (21:00)
[2020-03-14 04:24] LABS: #Lymphocytes 0.1 thou/uL (1.20-3.40); #Monocytes 0.1 thou/uL (0.11-0.59); #Neutrophils 3.2 thou/uL (1.40-6.50); %Eosinophils 0.1 % (0.0-10.0); %Lymphocytes 2.1 % (21.0-51.0); %Monocytes 2.6 % (0.0-10.0); %Neutrophils 95.3 % (42.0-75.0); Hemoglobin 11.7 g/dL (12.0-16.0); Mean Corpuscular HGB CONC 32.9 g/dL (32.0-36.0); Mean Corpuscular Hemoglobin 31.9 pg (27.0-31.0); Mean Platelet Volume 7.7 fL (7.4-10.4); Platelet Count 117 thou/uL (130-400); RBC Distribution Width 13.7 % (11.5-14.5); Red Blood Cell (RBC) Count 3.65 mill/uL (4.20-5.40); White Blood Cell (WBC) Count 3.4 thou/uL (4.8-10.8)
[2020-03-14 05:14] LABS: ALT (SGPT) 16 U/L (8-55); AST (SGOT) 30 U/L (5-34); Alkaline Phosphatase 68 U/L (40-110); Anion Gap 14 mmol/L (10-20); BUN (Urea Nitrogen) 24 mg/dL (9.8-20.1); Bilirubin, Direct 0.1 mg/dL (0.1-0.3); Bilirubin, Total Less than 0.2 mg/dL (0.2-1.2); Calc. Creatinine Clearance 124 mL/min (70-130); Calcium 9.6 mg/dL (7.8-10.44); Carbon Dioxide 20 mmol/L (22-29); Chloride 107 mmol/L (98-107); Estimated GFR-MDRD 78; Glucose 294 mg/dL (70-105); Protein, Total 5.6 g/dL (6.0-8.3); Sodium 137 mmol/L (136-145)
--- NOTE | 2020-03-14 07:54 | RAD ---
EXAM: Single view of the chest HISTORY: Pneumonia COMPARISON: 03/11/2020 FINDINGS: Single view of the chest shows a normal sized cardiomediastinal silhouette. There is near c omplete opacification of the left thorax which represents an infiltrate and collapse of the left lung. Degenerative changes are seen in the spine. IMPRESSION: Worsening of left-sided pneumonia
[2020-03-14] MEDS: Cholecalciferol 1,000 UNITS (25 MCG) TAB PO SCH (09:33)
[2020-03-14] MEDS: Multivitamin W/ Minerals 1 TAB PO SCH (09:34)
[2020-03-14] MEDS: Amlodipine 5 MG TAB PO SCH (09:34)
[2020-03-14] MEDS: DULoxetine 60 MG CAP PO SCH ×2 (09:34→20:47)
[2020-03-14] MEDS: Aspirin 81 mg Enteric Coated Tablet PO SCH (09:34)
[2020-03-14] MEDS: Doxycycline 100 MG CAP PO SCH ×2 (09:34→20:45)
[2020-03-14] MEDS: Cefepime 1 GM in Sodium Chloride 0.9% 100 ML IVPB SCH ×2 (09:36→20:44)
[2020-03-14] MEDS: methylPREDNISolone Sod Succ 40 MG VIAL IVP SCH ×2 (09:37→20:45)
[2020-03-14] MEDS: NEFAZODONE HCL PO SCH ×2 (09:39→20:48)
[2020-03-14] MEDS ORDERED: PROVENTIL INHALER 6.7 G (200 INHALATIONS) INH SCH (09:45)
[2020-03-14] MEDS: REMDESIVIR (EUA) 100 MG in Sodium Chloride 0.9% 250 ML 230 ML IV SCH (09:45)
[2020-03-14] MEDS: Apixaban 5 MG TAB PO SCH ×2 (09:46→20:47)
[2020-03-14] MEDS: Modafinil 100 MG TAB PO SCH (09:51)
--- NOTE | 2020-03-14 09:57 | PDOC.HOSPP ---
- Subjective Encounter Date: 03/14/20 Encounter Time: 11:00 Subjective: Patient without events overnight. Alternating needing high flow O2 and Bipap. - Objective Vital Signs & Weight: Vital Signs (12 hours) Temp Pulse Ox 03/14/20 04:00 98.0 F 03/14/20 02:00 99 03/14/20 01:45 99.2 F 03/14/20 01:00 99.0 F 03/14/20 00:50 99.2 F 03/13/20 23:26 98.2 F Weight Weight 216 lb 11.2 oz Most Recent Monitor Data Heart Rate from ECG 71 NIBP 113/74 NIBP BP-Mean 87 Respiration from ECG 23 SpO2 99 I&O: 03/13/20 03/14/20 03/15/20 06:59 06:59 06:59 Intake Total 1550 Output Total 1200 1300 Balance -1200 250 Result Diagrams: 03/14/20 03:22 03/14/20 03:22 Hospitalist ROS - Review of Systems Constitutional: denies: fever, chills Respiratory: reports: shortness of breath. denies: cough Cardiovascular: denies: chest pain - Medication Medications: Active Medications Generic Name Dose Route Start Last Admin Trade Name Freq PRN Reason Stop Dose Admin Amlodipine Besylate 5 mg 03/12/20 09:00 03/14/20 09:34 Norvasc PO 5 mg DAILY IGGY Administration Apixaban 5 mg 03/11/20 21:00 03/14/20 09:46 Eliquis PO 5 mg BID IGGY Administration Aspirin 81 mg 03/12/20 09:00 03/14/20 09:34 Ecotrin PO 81 mg DAILY IGGY Administration Cholecalciferol 5,000 units 03/12/20 09:00 03/14/20 09:33 Vitamin D3 PO 5,000 units DAILY IGGY Administration Doxycycline Hyclate 100 mg 03/13/20 21:00 03/14/20 09:34 Vibramycin PO 03/23/20 21:01 100 mg BID IGGY Administration Duloxetine HCl 60 mg 03/11/20 21:00 03/14/20 09:34 Cymbalta PO 60 mg BID IGGY Administration REMDESIVIR (EUA) 100 mg/ 230 mls @ 230 mls/hr 03/13/20 09:00 03/14/20 09:45 Sodium Chloride IV 03/16/20 09:59 230 mls 0900 IGGY Administration Azithromycin 500 mg/ Sodium 250 mls @ 250 mls/hr 03/12/20 20:00 03/13/20 20: 58 Chloride IVPB 250 mls 2000 IGGY Administration Cefepime HCl 1 gm/ Sodium 100 mls @ 200 mls/hr 03/12/20 21:00 03/14/20 09:36 Chloride IVPB 100 mls Q12HR IGGY Administration Iron/Minerals/Multivitamins 1 tab 03/12/20 09:00 03/14/20 09:34 Theragran M PO 1 tab DAILY IGGY Administration Losartan Potassium 100 mg 03/11/20 21:00 03/13/20 21:00 Cozaar PO 100 mg HS IGGY Administration Methylprednisolone Sodium Succinate 40 mg 03/13/20 21:00 03/14/20 09:37 Solu-Medrol IVP 40 mg BID IGGY Administration Modafinil 200 mg 03/12/20 09:00 03/14/20 09:51 Provigil PO 200 mg DAILY IGGY Administration (Nefazodone Hcl [ 300 each 03/13/20 09:00 03/14/20 09:39 Nefazodone Hcl] 150 PO 300 each Mg) Tab BID IGGY Administration Rosuvastatin Calcium 20 mg 03/11/20 21:00 03/13/20 20:59 Crestor PO 20 mg HS IGGY Administration Torsemide 20 mg 03/11/20 21:00 03/13/20 20:58 Demadex PO 20 mg HS IGGY Administration Tramadol HCl 100 mg 03/11/20 21:00 03/13/20 21:00 Ultram PO 100 mg HS IGGY Administration Verapamil HCl 240 mg 03/11/20 21:00 03/13/20 20:59 Calan Sr PO 240 mg HS IGGY Administration - Exam General Appearance: NAD, awake alert ENT: moist mucosa ENT - other findings: on High flow O2 Heart: RRR, no murmur, no gallops, no rubs Respiratory: CTAB, no wheezes, no rales, no ronchi Gastrointestinal: soft, non-tender, non-distended, normal bowel sounds Psychiatric: normal affect, normal behavior Hosp A/P (1) Pneumonia due to COVID-19 virus Code(s): U07.1 - COVID-19; J12.89 - OTHER VIRAL PNEUMONIA Status: Acute (2) Acute respiratory failure with hypoxia Code(s): J96.01 - ACUTE RESPIRATORY FAILURE WITH HYPOXIA Status: Acute (3) H/O malignant neoplasm of breast Code(s): Z85.3 - PERSONAL HISTORY OF MALIGNANT NEOPLASM OF BREAST Status: Acute (4) Immunosuppressed status Code(s): D89.9 - DISORDER INVOLVING THE IMMUNE MECHANISM, UNSPECIFIED Status: Acute (5) DM type 2 (diabetes mellitus, type 2) Status: Chronic Qualifiers: Diabetes mellitus alf insulin use: without alf use (6) Obesity (BMI 30-39.9) Code(s): E66.9 - OBESITY, UNSPECIFIED Status: Chronic (7) Dyslipidemia Code(s): E78.5 - HYPERLIPIDEMIA, UNSPECIFIED Status: Chronic (8) HTN (hypertension) Code(s): I10 - ESSENTIAL (PRIMARY) HYPERTENSION Status: Chronic Qualifiers: Hypertension type: essential hypertension Qualified Code(s): I10 - Essential (primary) hypertension - Plan is on high flow oxygen, dexamethasone, remdesivir, zithromax and cefepime, may dc either zithromax or doxy if ok with pulmonary. continue eliquis, asp, crestor, cymbalta, cozaar, torsemide, verpamil, naltrexone and nefazodone finished her radiation treatment for right br cancer last ( and Vianca) prognosis guarded given her immunosuppresed status and multiple med issues along with polypharmacy hemostable may be a candidate for convalescent plasma given her immunosuppresed status?
--- NOTE | 2020-03-14 10:14 | PRG ---
DATE OF SERVICE: 03/14/2020 OBJECTIVE: VITAL SIGNS: This morning, she is on high-flow 70%, sats are barely 87% to 88%, blood pressure 137/74, pulse 80. CHEST: Rhonchi and crackles, left greater than right. CARDIAC: Normal S1 and S2. No gallops. ABDOMEN: No masses. LABORATORY DATA: White count 3000, H and H of 11 and 35, platelet count is 117. Creatinine is normal. Lytes are normal. Glucose 294. X-ray shows opacification of left lung, question whether she has atelectatic changes. ASSESSMENT: Hernandez positive pneumonia, respiratory failure, breast cancer, left lung atelectasis. PLAN: Scheduled breathing treatments. She is on remdesivir. She received plasma, Eliquis, doxycycline, and Pepcid. Probably undergo CT of the chest tomorrow. We will follow. Job ID: [id number]
[2020-03-14] MEDS: Albuterol 200 PUFF (6.7GM INHALER) INH SCH ×2 (13:00→19:00)
[2020-03-14] MEDS: Mometasone 200 MCG/Formoterol 5 MCG 120 PUFF INHALER INH SCH (16:30)
[2020-03-14] MEDS: Azithromycin 500 MG in Sodium Chloride 0.9% 250 ML 250 ML IVPB SCH (20:44)
[2020-03-14] MEDS: Famotidine/PF 20 mg/2ml Vial SLOW IVP SCH (20:46)
[2020-03-14] MEDS: traMADol HCl 50 MG TAB PO SCH (20:47)
[2020-03-14] MEDS: Losartan 25 MG TAB PO SCH (20:47)
[2020-03-14] MEDS: Rosuvastatin 20 MG TAB PO SCH (20:47)
[2020-03-14] MEDS: Torsemide 20 MG TAB PO SCH (20:48)
[2020-03-15] MEDS: Albuterol 200 PUFF (6.7GM INHALER) INH SCH ×5 (02:52→23:59)
[2020-03-15 04:03] LABS: #Lymphocytes 0.1 thou/uL (1.20-3.40); #Monocytes 0.1 thou/uL (0.11-0.59); #Neutrophils 4.3 thou/uL (1.40-6.50); %Basophils 0.2 % (0.0-1.0); %Eosinophils 0.5 % (0.0-10.0); %Lymphocytes 1.5 % (21.0-51.0); %Monocytes 1.9 % (0.0-10.0); %Neutrophils 95.9 % (42.0-75.0); Hemoglobin 12.7 g/dL (12.0-16.0); Mean Corpuscular HGB CONC 34.4 g/dL (32.0-36.0); Mean Corpuscular Hemoglobin 33.5 pg (27.0-31.0); Mean Corpuscular Volume 97.4 fL (78.0-98.0); Mean Platelet Volume 7.7 fL (7.4-10.4); Platelet Count 125 thou/uL (130-400); RBC Distribution Width 13.5 % (11.5-14.5); Red Blood Cell (RBC) Count 3.79 mill/uL (4.20-5.40); White Blood Cell (WBC) Count 4.4 thou/uL (4.8-10.8)
[2020-03-15 04:52] LABS: ALT (SGPT) 15 U/L (8-55); AST (SGOT) 19 U/L (5-34); Alkaline Phosphatase 74 U/L (40-110); Anion Gap 13 mmol/L (10-20); BUN (Urea Nitrogen) 29 mg/dL (9.8-20.1); Bilirubin, Direct 0.1 mg/dL (0.1-0.3); Bilirubin, Total 0.2 mg/dL (0.2-1.2); Calc. Creatinine Clearance 108 mL/min (70-130); Calcium 9.8 mg/dL (7.8-10.44); Carbon Dioxide 22 mmol/L (22-29); Chloride 107 mmol/L (98-107); Estimated GFR-MDRD 67; Glucose 374 mg/dL (70-105); Protein, Total 5.6 g/dL (6.0-8.3); Sodium 138 mmol/L (136-145)
[2020-03-15] MEDS: Mometasone 200 MCG/Formoterol 5 MCG 120 PUFF INHALER INH SCH ×2 (06:20→18:43)
[2020-03-15] MEDS: Amlodipine 5 MG TAB PO SCH (09:58)
[2020-03-15] MEDS: Apixaban 5 MG TAB PO SCH ×2 (09:58→20:29)
[2020-03-15] MEDS: Aspirin 81 mg Enteric Coated Tablet PO SCH (09:59)
[2020-03-15] MEDS: Cefepime 1 GM in Sodium Chloride 0.9% 100 ML IVPB SCH ×2 (09:59→20:28)
[2020-03-15] MEDS: DULoxetine 60 MG CAP PO SCH ×2 (10:00→20:30)
[2020-03-15] MEDS: Doxycycline 100 MG CAP PO SCH ×2 (10:00→20:30)
[2020-03-15] MEDS: Multivitamin W/ Minerals 1 TAB PO SCH (10:00)
[2020-03-15] MEDS: Famotidine/PF 20 mg/2ml Vial SLOW IVP SCH ×2 (10:00→20:28)
[2020-03-15] MEDS: Cholecalciferol 1,000 UNITS (25 MCG) TAB PO SCH (10:00)
[2020-03-15] MEDS: methylPREDNISolone Sod Succ 40 MG VIAL IVP SCH ×2 (10:01→20:28)
[2020-03-15] MEDS: NEFAZODONE HCL PO SCH ×2 (10:03→20:30)
[2020-03-15] MEDS: Modafinil 100 MG TAB PO SCH (10:16)
--- NOTE | 2020-03-15 12:04 | PRG ---
DATE OF SERVICE: 03/15/2020 Shanta Servin is a 60-year-old female whose pulse is 53, blood pressure 101/75, saturations 90% . Chest decreased breath sounds. No wheezing. Cardiac normal S1, S2. No gallops. Left lung atelectasis, coronavirus positive pneumonia, COPD. She is on doxycycline, steroids, Provigil, verapamil. Repeat x-ray to assess whether she needs a CT. Continue supportive care. They may want to notify Oncology that she is in the hospital. Job ID: [id number]
[2020-03-15] MEDS: REMDESIVIR (EUA) 100 MG in Sodium Chloride 0.9% 250 ML 230 ML IV SCH (12:57)
--- NOTE | 2020-03-15 14:02 | PDOC.HOSPP ---
- Subjective Encounter Date: 03/15/20 Encounter Time: 11:00 Subjective: Patient with no change in SOB. Still on high flow O2 NC. - Objective Vital Signs & Weight: Vital Signs (12 hours) Temp Pulse Resp Pulse Ox 03/15/20 09:58 53 L 03/15/20 08:00 98.2 F 99 03/15/20 04:00 97.6 F 03/15/20 03:58 60 17 100 Weight Weight 216 lb 11.2 oz Most Recent Monitor Data Heart Rate from ECG 74 NIBP 144/101 NIBP BP-Mean 115 Respiration from ECG 22 SpO2 96 I&O: 03/14/20 03/15/20 03/16/20 06:59 06:59 06:59 Intake Total 1550 1070 950 Output Total 1300 1400 550 Balance 250 -330 400 Result Diagrams: 03/15/20 03:54 03/15/20 03:54 Additional Labs: Accuchecks 03/12/20 03/12/20 22:14 21:09 POC Glucose 205 H 215 H Hospitalist ROS - Review of Systems Constitutional: denies: fever, chills Respiratory: reports: shortness of breath. denies: cough Cardiovascular: denies: chest pain, palpitations Gastrointestinal: denies: nausea, vomiting, abdominal pain - Medication Medications: Active Medications Generic Name Dose Route Start Last Admin Trade Name Freq PRN Reason Stop Dose Admin Albuterol Sulfate 2 puff 03/14/20 13:00 03/15/20 10:17 Proventil Hfa INH 2 puff [id number] IGGY Administration Amlodipine Besylate 5 mg 03/12/20 09:00 03/15/20 09:58 Norvasc PO Not Given DAILY IGGY Apixaban 5 mg 03/11/20 21:00 03/15/20 09:58 Eliquis PO 5 mg BID IGGY Administration Aspirin 81 mg 03/12/20 09:00 03/15/20 09:59 Ecotrin PO 81 mg DAILY IGGY Administration Cholecalciferol 5,000 units 03/12/20 09:00 03/15/20 10:00 Vitamin D3 PO 5,000 units DAILY IGGY Administration Doxycycline Hyclate 100 mg 03/13/20 21:00 03/15/20 10:00 Vibramycin PO 03/23/20 21:01 100 mg BID IGGY Administration Duloxetine HCl 60 mg 03/11/20 21:00 03/15/20 10:00 Cymbalta PO 60 mg BID IGGY Administration Famotidine 20 mg 03/14/20 21:00 03/15/20 10:00 Pepcid SLOW IVP 20 mg BID IGGY Administration REMDESIVIR (EUA) 100 mg/ 230 mls @ 230 mls/hr 03/13/20 09:00 03/15/20 12:57 Sodium Chloride IV 03/16/20 09:59 230 mls 0900 IGGY Administration Azithromycin 500 mg/ Sodium 250 mls @ 250 mls/hr 03/12/20 20:00 03/14/20 20: 44 Chloride IVPB 250 mls 2000 IGGY Administration Cefepime HCl 1 gm/ Sodium 100 mls @ 200 mls/hr 03/12/20 21:00 03/15/20 09:59 Chloride IVPB 100 mls Q12HR IGGY Administration Iron/Minerals/Multivitamins 1 tab 03/12/20 09:00 03/15/20 10:00 Theragran M PO 1 tab DAILY IGGY Administration Losartan Potassium 100 mg 03/11/20 21:00 03/14/20 20:47 Cozaar PO 100 mg HS IGGY Administration Methylprednisolone Sodium Succinate 40 mg 03/13/20 21:00 03/15/20 10:01 Solu-Medrol IVP 40 mg BID IGGY Administration Modafinil 200 mg 03/12/20 09:00 03/15/20 10:16 Provigil PO 200 mg DAILY IGGY Administration Mometasone Furoate/Formoterol Fumar 2 puff 03/14/20 18:30 03/15/20 06:20 Dulera 200 Mcg/5 Mcg Inhaler INH 2 puff BID-RT IGGY Administration (Nefazodone Hcl [ 300 each 03/13/20 09:00 03/15/20 10:03 Nefazodone Hcl] 150 PO 300 each Mg) Tab BID IGGY Administration Rosuvastatin Calcium 20 mg 03/11/20 21:00 03/14/20 20:47 Crestor PO 20 mg HS IGGY Administration Torsemide 20 mg 03/11/20 21:00 03/14/20 20:48 Demadex PO Not Given HS IGGY Tramadol HCl 100 mg 03/11/20 21:00 03/14/20 20:47 Ultram PO 100 mg HS IGGY Administration Verapamil HCl 240 mg 03/11/20 21:00 03/14/20 20:46 Calan Sr PO 240 mg HS IGGY Administration - Exam General Appearance: NAD, awake alert ENT: moist mucosa Heart: RRR, no murmur, no gallops, no rubs Respiratory: CTAB, no wheezes, no rales, no ronchi Gastrointestinal: soft, non-tender, non-distended, normal bowel sounds Psychiatric: normal affect, normal behavior, A&O x 3 Hosp A/P (1) Pneumonia due to COVID-19 virus Code(s): U07.1 - COVID-19; J12.89 - OTHER VIRAL PNEUMONIA Status: Acute (2) Acute respiratory failure with hypoxia Code(s): J96.01 - ACUTE RESPIRATORY FAILURE WITH HYPOXIA Status: Acute (3) H/O malignant neoplasm of breast Code(s): Z85.3 - PERSONAL HISTORY OF MALIGNANT NEOPLASM OF BREAST Status: Acute (4) Immunosuppressed status Code(s): D89.9 - DISORDER INVOLVING THE IMMUNE MECHANISM, UNSPECIFIED Status: Acute (5) DM type 2 (diabetes mellitus, type 2) Status: Chronic Qualifiers: Diabetes mellitus nursing home insulin use: without nursing home use (6) Obesity (BMI 30-39.9) Code(s): E66.9 - OBESITY, UNSPECIFIED Status: Chronic (7) Dyslipidemia Code(s): E78.5 - HYPERLIPIDEMIA, UNSPECIFIED Status: Chronic (8) HTN (hypertension) Code(s): I10 - ESSENTIAL (PRIMARY) HYPERTENSION Status: Chronic Qualifiers: Hypertension type: essential hypertension Qualified Code(s): I10 - Essential (primary) hypertension - Plan is on high flow oxygen, dexamethasone, remdesivir, zithromax and cefepime, may dc either zithromax or doxy if ok with pulmonary. continue eliquis, asp, crestor, cymbalta, cozaar, torsemide, verpamil, naltrexone and nefazodone finished her radiation treatment for right br cancer last ( and Vianca) prognosis guarded given her immunosuppresed status and multiple med issues along with polypharmacy hemostable
[2020-03-15] MEDS: Azithromycin 500 MG in Sodium Chloride 0.9% 250 ML 250 ML IVPB SCH (20:28)
[2020-03-15] MEDS: Torsemide 20 MG TAB PO SCH (20:29)
[2020-03-15] MEDS: Rosuvastatin 20 MG TAB PO SCH (20:29)
[2020-03-15] MEDS: Losartan 25 MG TAB PO SCH (20:29)
[2020-03-15] MEDS: traMADol HCl 50 MG TAB PO SCH (20:30)
[2020-03-16 03:59] LABS: #Lymphocytes 0.1 thou/uL (1.20-3.40); #Monocytes 0.1 thou/uL (0.11-0.59); #Neutrophils 5.5 thou/uL (1.40-6.50); %Basophils 0.1 % (0.0-1.0); %Eosinophils 0.1 % (0.0-10.0); %Monocytes 1.7 % (0.0-10.0); %Neutrophils 97.1 % (42.0-75.0); Hemoglobin 12.8 g/dL (12.0-16.0); Mean Corpuscular HGB CONC 33.8 g/dL (32.0-36.0); Mean Corpuscular Hemoglobin 32.5 pg (27.0-31.0); Mean Corpuscular Volume 96.3 fL (78.0-98.0); Mean Platelet Volume 8.2 fL (7.4-10.4); Platelet Count 128 thou/uL (130-400); RBC Distribution Width 13.5 % (11.5-14.5); Red Blood Cell (RBC) Count 3.92 mill/uL (4.20-5.40); White Blood Cell (WBC) Count 5.7 thou/uL (4.8-10.8)
[2020-03-16 04:21] LABS: ALT (SGPT) 15 U/L (8-55); AST (SGOT) 17 U/L (5-34); Albumin 3.2 g/dL (3.5-5.0); Alkaline Phosphatase 91 U/L (40-110); Anion Gap 14 mmol/L (10-20); BUN (Urea Nitrogen) 30 mg/dL (9.8-20.1); Bilirubin, Direct 0.1 mg/dL (0.1-0.3); Bilirubin, Total 0.2 mg/dL (0.2-1.2); Calc. Creatinine Clearance 95 mL/min (70-130); Carbon Dioxide 22 mmol/L (22-29); Chloride 105 mmol/L (98-107); Estimated GFR-MDRD 57; Glucose 454 mg/dL (70-105); Protein, Total 5.7 g/dL (6.0-8.3); Sodium 137 mmol/L (136-145)
[2020-03-16] MEDS: Mometasone 200 MCG/Formoterol 5 MCG 120 PUFF INHALER INH SCH ×2 (05:54→20:51)
[2020-03-16] MEDS: Albuterol 200 PUFF (6.7GM INHALER) INH SCH ×3 (05:54→20:51)
--- NOTE | 2020-03-16 07:55 | RAD ---
EXAM: Single view of the chest HISTORY: Covid pneumonia COMPARISON: 03/14/2020 FINDINGS: Single view of the chest shows an enlarged but stable cardiomediastinal silhouette. Severe opacification of the left thorax is again seen. No pleural effusion is seen. The bones are unremarkable IMPRESSION: Left sided pneumonia
[2020-03-16] MEDS: Cholecalciferol 1,000 UNITS (25 MCG) TAB PO SCH (08:20)
[2020-03-16] MEDS: Amlodipine 5 MG TAB PO SCH (08:20)
[2020-03-16] MEDS: Apixaban 5 MG TAB PO SCH ×2 (08:20→20:50)
[2020-03-16] MEDS: Aspirin 81 mg Enteric Coated Tablet PO SCH (08:20)
[2020-03-16] MEDS: Multivitamin W/ Minerals 1 TAB PO SCH (08:21)
[2020-03-16] MEDS: NEFAZODONE HCL PO SCH ×2 (08:21→20:52)
[2020-03-16] MEDS: DULoxetine 60 MG CAP PO SCH ×2 (08:21→20:51)
[2020-03-16] MEDS: Doxycycline 100 MG CAP PO SCH ×2 (08:21→20:51)
--- NOTE | 2020-03-16 08:54 | PDOC.HOSPP ---
- Subjective Encounter Date: 03/16/20 Encounter Time: 11:00 Subjective: Patient with possibly mild improvement in her SOB. She is currently on BiPAP and it is making her breathing comfortable and keeping O2 sats up. - Objective Vital Signs & Weight: Vital Signs (12 hours) Temp Pulse Resp BP Pulse Ox 03/16/20 08:20 68 128/73 03/16/20 04:10 98.4 F 03/16/20 01:08 74 28 H 100 03/15/20 23:59 98.1 F Weight Weight 216 lb 11.2 oz Most Recent Monitor Data Heart Rate from ECG 66 NIBP 122/77 NIBP BP-Mean 92 Respiration from ECG 25 SpO2 97 I&O: 03/15/20 03/16/20 03/17/20 06:59 06:59 06:59 Intake Total 1070 2620 Output Total 1400 4100 Balance -330 -1480 Result Diagrams: 03/16/20 03:10 03/16/20 03:10 Hospitalist ROS - Review of Systems Constitutional: denies: fever, chills Respiratory: reports: shortness of breath. denies: cough Cardiovascular: denies: chest pain, palpitations Gastrointestinal: denies: nausea, vomiting, abdominal pain - Medication Medications: Active Medications Generic Name Dose Route Start Last Admin Trade Name Freq PRN Reason Stop Dose Admin Albuterol Sulfate 2 puff 03/14/20 13:00 03/16/20 05:54 Proventil Hfa INH 2 puff [id number] IGGY Administration Amlodipine Besylate 5 mg 03/12/20 09:00 03/16/20 08:20 Norvasc PO 5 mg DAILY IGGY Administration Apixaban 5 mg 03/11/20 21:00 03/16/20 08:20 Eliquis PO 5 mg BID IGGY Administration Aspirin 81 mg 03/12/20 09:00 03/16/20 08:20 Ecotrin PO 81 mg DAILY IGGY Administration Cholecalciferol 5,000 units 03/12/20 09:00 03/16/20 08:20 Vitamin D3 PO 5,000 units DAILY IGGY Administration Doxycycline Hyclate 100 mg 03/13/20 21:00 03/16/20 08:21 Vibramycin PO 03/23/20 21:01 100 mg BID IGGY Administration Duloxetine HCl 60 mg 03/11/20 21:00 03/16/20 08:21 Cymbalta PO 60 mg BID IGGY Administration Famotidine 20 mg 03/14/20 21:00 03/15/20 20:28 Pepcid SLOW IVP 20 mg BID IGGY Administration REMDESIVIR (EUA) 100 mg/ 230 mls @ 230 mls/hr 03/13/20 09:00 03/15/20 12:57 Sodium Chloride IV 03/16/20 09:59 230 mls 0900 IGGY Administration Azithromycin 500 mg/ Sodium 250 mls @ 250 mls/hr 03/12/20 20:00 03/15/20 20: 28 Chloride IVPB 250 mls 2000 IGGY Administration Cefepime HCl 1 gm/ Sodium 100 mls @ 200 mls/hr 03/12/20 21:00 03/15/20 20:28 Chloride IVPB 100 mls Q12HR IGGY Administration Iron/Minerals/Multivitamins 1 tab 03/12/20 09:00 03/16/20 08:21 Theragran M PO 1 tab DAILY IGGY Administration Losartan Potassium 100 mg 03/11/20 21:00 03/15/20 20:29 Cozaar PO 100 mg HS IGGY Administration Methylprednisolone Sodium Succinate 40 mg 03/13/20 21:00 03/15/20 20:28 Solu-Medrol IVP 40 mg BID IGGY Administration Modafinil 200 mg 03/12/20 09:00 03/15/20 10:16 Provigil PO 200 mg DAILY IGGY Administration Mometasone Furoate/Formoterol Fumar 2 puff 03/14/20 18:30 03/16/20 05:54 Dulera 200 Mcg/5 Mcg Inhaler INH 2 puff BID-RT IGGY Administration (Nefazodone Hcl [ 300 each 03/13/20 09:00 03/16/20 08:21 Nefazodone Hcl] 150 PO 300 each Mg) Tab BID IGGY Administration Rosuvastatin Calcium 20 mg 03/11/20 21:00 03/15/20 20:29 Crestor PO 20 mg HS IGGY Administration Torsemide 20 mg 03/11/20 21:00 03/15/20 20:29 Demadex PO Not Given HS IGGY Tramadol HCl 100 mg 03/11/20 21:00 03/15/20 20:30 Ultram PO 100 mg HS IGGY Administration Verapamil HCl 240 mg 03/11/20 21:00 03/15/20 20:29 Calan Sr PO 240 mg HS IGGY Administration - Exam General Appearance: NAD, awake alert ENT: moist mucosa ENT - other findings: on Bipap mask Heart: RRR, no murmur, no gallops, no rubs Respiratory: CTAB, no wheezes, no rales, no ronchi Gastrointestinal: soft, non-tender, non-distended, normal bowel sounds Psychiatric: normal affect, normal behavior, A&O x 3 Hosp A/P (1) Pneumonia due to COVID-19 virus Code(s): U07.1 - COVID-19; J12.89 - OTHER VIRAL PNEUMONIA Status: Acute (2) Acute respiratory failure with hypoxia Code(s): J96.01 - ACUTE RESPIRATORY FAILURE WITH HYPOXIA Status: Acute (3) H/O malignant neoplasm of breast Code(s): Z85.3 - PERSONAL HISTORY OF MALIGNANT NEOPLASM OF BREAST Status: Acute (4) Immunosuppressed status Code(s): D89.9 - DISORDER INVOLVING THE IMMUNE MECHANISM, UNSPECIFIED Status: Acute (5) DM type 2 (diabetes mellitus, type 2) Status: Chronic Qualifiers: Diabetes mellitus snf insulin use: without tank terminal gauger use (6) Obesity (BMI 30-39.9) Code(s): E66.9 - OBESITY, UNSPECIFIED Status: Chronic (7) Dyslipidemia Code(s): E78.5 - HYPERLIPIDEMIA, UNSPECIFIED Status: Chronic (8) HTN (hypertension) Code(s): I10 - ESSENTIAL (PRIMARY) HYPERTENSION Status: Chronic Qualifiers: Hypertension type: essential hypertension Qualified Code(s): I10 - Essential (primary) hypertension (9) Postmenopausal bleeding Code(s): N95.0 - POSTMENOPAUSAL BLEEDING Status: Acute - Plan is on high flow oxygen/ Bipap on and off, dexamethasone, remdesivir, zithromax and cefepime, may dc either zithromax or doxy if ok with pulmonary. continue eliquis, asp, crestor, cymbalta, cozaar, torsemide, verpamil, naltrexone and nefazodone finished her radiation treatment for right br cancer last before admit ( and Vianca) prognosis guarded given her immunosuppresed status and multiple med issues along with polypharmacy hemostable
[2020-03-16] MEDS: Modafinil 100 MG TAB PO SCH (09:50)
--- NOTE | 2020-03-16 10:45 | PRG ---
DATE OF SERVICE: SUBJECTIVE: Shanta Servin is a 60-year-old female, who is doing better. She is on high-flow. OBJECTIVE: VITAL SIGNS: respiratory rate 18 . She is off the BiPAP. LABORATORY DATA: X-ray looks much improved. Left-sided densities, infiltrates, improved. Lab is remarkable for glucose 454. ASSESSMENT AND PLAN: Respiratory failure, bennett positive pneumonia, breast cancer, blood sugars markedly elevated. I am going to decrease the steroids. Otherwise, we are going to continue present treatment. Hopefully, once we get her down to low-flow O2, she can be discharged home. In the meantime, continue antibiotics. She is to receive remdesivir and plasma. Job ID: [id number]
[2020-03-16] MEDS ORDERED: REMDESIVIR (EUA) 100 MG in Sodium Chloride 0.9% 250 ML 230 ML IV SCH (12:00)
--- NOTE | 2020-03-16 14:47 | RAD ---
EXAM: Single view of the chest HISTORY: Central line placement COMPARISON: 03/16/2020 at 5:37 AM FINDINGS: Single view of the chest shows an enlarged but stable cardiomediastinal silhouette. There is a right subclavian central venous catheter with its tip in the superior vena cava. No pneumothorax is seen. Stable opacity is seen in the left thorax. Degenerative and postsurgical calzada es are seen in the spine. IMPRESSION: Status post central line placement without evidence of complication.
[2020-03-16] MEDS: Cefepime 1 GM in Sodium Chloride 0.9% 100 ML IVPB SCH (15:56)
[2020-03-16] MEDS: methylPREDNISolone Sod Succ 40 MG VIAL IVP SCH ×2 (15:57→20:49)
[2020-03-16] MEDS: Famotidine/PF 20 mg/2ml Vial SLOW IVP SCH ×2 (15:57→20:50)
[2020-03-16] MEDS: REMDESIVIR (EUA) 100 MG in Sodium Chloride 0.9% 250 ML 230 ML IV SCH (15:58)
[2020-03-16] MEDS: Rosuvastatin 20 MG TAB PO SCH (20:50)
[2020-03-16] MEDS: Losartan 25 MG TAB PO SCH (20:50)
[2020-03-16] MEDS: traMADol HCl 50 MG TAB PO SCH (20:52)
[2020-03-16] MEDS: Torsemide 20 MG TAB PO SCH (20:52)
[2020-03-17] MEDS: Albuterol 200 PUFF (6.7GM INHALER) INH SCH ×4 (00:10→19:23)
[2020-03-17] MEDS: Mometasone 200 MCG/Formoterol 5 MCG 120 PUFF INHALER INH SCH ×2 (06:23→19:23)
[2020-03-17] MEDS ORDERED: Dextrose 50% Abboject 50 ML SYRINGE SLOW IVP PRN (08:46)
[2020-03-17] MEDS ORDERED: Dextrose 5% in Water 1,000 ML IV PRN (08:46)
--- NOTE | 2020-03-17 08:47 | PDOC.HOSPP ---
- Subjective Encounter Date: 03/17/20 Encounter Time: 11:00 Subjective: Patient feeling slightly better. Wearing Bipap when she sleeps only. - Objective Vital Signs & Weight: Vital Signs (12 hours) Temp Pulse Resp Pulse Ox 03/17/20 04:15 97.4 F L 03/17/20 00:10 97.4 F L 58 L 24 H 100 Weight Weight 216 lb 11.2 oz Most Recent Monitor Data Heart Rate from ECG 61 NIBP 125/74 NIBP BP-Mean 91 Respiration from ECG 0 SpO2 96 I&O: 03/16/20 03/17/20 03/18/20 06:59 06:59 06:59 Intake Total 2620 1350 Output Total 4100 2900 Balance -1480 -1550 Result Diagrams: 03/16/20 03:10 03/16/20 03:10 Hospitalist ROS - Review of Systems Constitutional: denies: fever, chills ENT: reports: throat pain Respiratory: reports: cough, shortness of breath, SOB with excertion Cardiovascular: denies: chest pain, palpitations Gastrointestinal: denies: nausea, vomiting, abdominal pain - Medication Medications: Active Medications Generic Name Dose Route Start Last Admin Trade Name Freq PRN Reason Stop Dose Admin Albuterol Sulfate 2 puff 03/14/20 13:00 03/17/20 06:23 Proventil Hfa INH 2 puff [id number] IGGY Administration Amlodipine Besylate 5 mg 03/12/20 09:00 03/16/20 08:20 Norvasc PO 5 mg DAILY IGGY Administration Apixaban 5 mg 03/11/20 21:00 03/16/20 20:50 Eliquis PO 5 mg BID IGGY Administration Aspirin 81 mg 03/12/20 09:00 03/16/20 08:20 Ecotrin PO 81 mg DAILY IGGY Administration Cholecalciferol 5,000 units 03/12/20 09:00 03/16/20 08:20 Vitamin D3 PO 5,000 units DAILY IGGY Administration Doxycycline Hyclate 100 mg 03/13/20 21:00 03/16/20 20:51 Vibramycin PO 03/23/20 21:01 100 mg BID IGGY Administration Duloxetine HCl 60 mg 03/11/20 21:00 03/16/20 20:51 Cymbalta PO 60 mg BID IGGY Administration Iron/Minerals/Multivitamins 1 tab 03/12/20 09:00 03/16/20 08:21 Theragran M PO 1 tab DAILY IGGY Administration Losartan Potassium 100 mg 03/11/20 21:00 03/16/20 20:50 Cozaar PO 100 mg HS IGGY Administration Methylprednisolone Sodium Succinate 40 mg 03/16/20 21:00 03/16/20 20:49 Solu-Medrol IVP 40 mg 2100 IGGY Administration Modafinil 200 mg 03/12/20 09:00 03/16/20 09:50 Provigil PO 200 mg DAILY IGGY Administration Mometasone Furoate/Formoterol Fumar 2 puff 03/14/20 18:30 03/17/20 06:23 Dulera 200 Mcg/5 Mcg Inhaler INH 2 puff BID-RT IGGY Administration (Nefazodone Hcl [ 300 each 03/13/20 09:00 03/16/20 20:52 Nefazodone Hcl] 150 PO 300 each Mg) Tab BID IGGY Administration Rosuvastatin Calcium 20 mg 03/11/20 21:00 03/16/20 20:50 Crestor PO 20 mg HS IGGY Administration Torsemide 20 mg 03/11/20 21:00 03/16/20 20:52 Demadex PO Not Given HS IGGY Tramadol HCl 100 mg 03/11/20 21:00 03/16/20 20:52 Ultram PO 100 mg HS GIGY Administration Verapamil HCl 240 mg 03/11/20 21:00 03/16/20 20:51 Calan Sr PO 240 mg HS IGGY Administration - Exam General Appearance: NAD, awake alert ENT: moist mucosa Heart: RRR, no murmur, no gallops, no rubs Respiratory: CTAB, no wheezes, no rales, no ronchi Gastrointestinal: soft, non-tender, non-distended, normal bowel sounds Psychiatric: normal affect, normal behavior, A&O x 3 Hosp A/P (1) Pneumonia due to COVID-19 virus Code(s): U07.1 - COVID-19; J12.89 - OTHER VIRAL PNEUMONIA Status: Acute (2) Acute respiratory failure with hypoxia Code(s): J96.01 - ACUTE RESPIRATORY FAILURE WITH HYPOXIA Status: Acute (3) H/O malignant neoplasm of breast Code(s): Z85.3 - PERSONAL HISTORY OF MALIGNANT NEOPLASM OF BREAST Status: Acute (4) Immunosuppressed status Code(s): D89.9 - DISORDER INVOLVING THE IMMUNE MECHANISM, UNSPECIFIED Status: Acute (5) DM type 2 (diabetes mellitus, type 2) Status: Chronic Qualifiers: Diabetes mellitus termite control service representative insulin use: without half-way use (6) Obesity (BMI 30-39.9) Code(s): E66.9 - OBESITY, UNSPECIFIED Status: Chronic (7) Dyslipidemia Code(s): E78.5 - HYPERLIPIDEMIA, UNSPECIFIED Status: Chronic (8) HTN (hypertension) Code(s): I10 - ESSENTIAL (PRIMARY) HYPERTENSION Status: Chronic Qualifiers: Hypertension type: essential hypertension Qualified Code(s): I10 - Essential (primary) hypertension (9) Postmenopausal bleeding Code(s): N95.0 - POSTMENOPAUSAL BLEEDING Status: Acute - Plan is on high flow oxygen/ Bipap on and off, finished remdesivir and convalescent plasma, weaning steroids, on doxycycline abx Blood sugars very elevated on the steroids, will add Lantus, SSI, FSBS qachs continue gela finished her radiation treatment for right br cancer last before admit ( and Vianca) prognosis guarded given her immunosuppresed status and multiple med issues along with polypharmacy hemostable
[2020-03-17] MEDS ORDERED: Insulin Glargine 10 UNITS in Pre-Filled Syringe 1 EACH SC SCH (09:00)
[2020-03-17] MEDS ORDERED: Insulin Glargine 20 UNITS in Pre-Filled Syringe 1 EACH SC SCH (09:00)
[2020-03-17] MEDS: Apixaban 5 MG TAB PO SCH ×2 (09:11→19:53)
[2020-03-17] MEDS: Cholecalciferol 1,000 UNITS (25 MCG) TAB PO SCH (09:11)
[2020-03-17] MEDS: DULoxetine 60 MG CAP PO SCH ×2 (09:11→19:52)
[2020-03-17] MEDS: Aspirin 81 mg Enteric Coated Tablet PO SCH (09:11)
[2020-03-17] MEDS: Famotidine 20 MG TAB PO SCH ×2 (09:12→19:53)
[2020-03-17] MEDS: Multivitamin W/ Minerals 1 TAB PO SCH (09:12)
[2020-03-17] MEDS: Doxycycline 100 MG CAP PO SCH ×2 (09:12→19:52)
[2020-03-17] MEDS: NEFAZODONE HCL PO SCH ×2 (09:12→19:54)
[2020-03-17] MEDS: Amlodipine 5 MG TAB PO SCH (09:12)
[2020-03-17] MEDS: Modafinil 100 MG TAB PO SCH (09:12)
--- NOTE | 2020-03-17 10:38 | OP ---
DATE OF PROCEDURE: 03/16/2020 PREOPERATIVE DIAGNOSES: 1. COVID illness. 2. Need of IV access. 3. Poor IV access. 4. History of mastectomy, right, and radiation therapy. POSTOPERATIVE DIAGNOSES: 1. COVID illness. 2. Need of IV access. 3. Poor IV access. 4. History of mastectomy, right, and radiation therapy. PROCEDURE PERFORMED: Right subclavian vein triple-lumen catheter. ANESTHESIA: 1% Xylocaine. DESCRIPTION OF PROCEDURE: With the patient at bedside in her room, COVID precautions undertaken, right paraclavicular area was prepared with ChloraPrep and draped in routine fashion. Trocar catheter cannulated in the subclavian vein, J-wire threaded, trocar catheter removed. Skin site enlarged sharply. Seldinger technique used to place a triple-lumen catheter, removing the J-wire, securing the catheter with 3-0 silk. Sterile dressing applied. Each port aspirated blood and flushed with saline solution. Job ID: [id number]
--- NOTE | 2020-03-17 11:13 | PRG ---
DATE OF SERVICE: SUBJECTIVE: Shanta Servin is a 60-year-old female, still on high-flow, still requiring BiPAP at nighttime. OBJECTIVE: VITAL SIGNS: Pulse is 61, blood pressure 120/75, sats are 93%, respirations 18. GENERAL: She is sitting on the side of the bed. CHEST: No wheezing. No crackles. CARDIAC: Normal S1, S2. No gallops. ABDOMEN: No masses. ASSESSMENT: 1. Breast carcinoma, mastectomy, radiation. 2. Coronavirus positive pneumonia, respiratory failure. X-ray is showing extensive left-sided infiltrate, though it has improved. PLAN: She received convalescent plasma. She remains on doxycycline, steroids. We will continue to follow. Job ID: [id number]
[2020-03-17] MEDS ORDERED: Cepastat Lozenges 1 LOZ PO PRN (11:15)
[2020-03-17] MEDS: HumaLOG 300 UNITS/3 ML VIAL SC PRN ×2 (17:41→19:54)
[2020-03-17] MEDS: methylPREDNISolone Sod Succ 40 MG VIAL IVP SCH (19:51)
[2020-03-17] MEDS: Losartan 25 MG TAB PO SCH (19:52)
[2020-03-17] MEDS: Torsemide 20 MG TAB PO SCH ×2 (19:52→20:42)
[2020-03-17] MEDS: Rosuvastatin 20 MG TAB PO SCH (19:52)
[2020-03-17] MEDS: traMADol HCl 50 MG TAB PO SCH (19:53)
[2020-03-18] MEDS: Albuterol 200 PUFF (6.7GM INHALER) INH SCH ×4 (01:32→20:53)
[2020-03-18 03:18] LABS: #Lymphocytes 0.1 thou/uL (1.20-3.40); #Monocytes 0.1 thou/uL (0.11-0.59); #Neutrophils 5.9 thou/uL (1.40-6.50); %Eosinophils 0.2 % (0.0-10.0); %Lymphocytes 0.9 % (21.0-51.0); %Monocytes 0.9 % (0.0-10.0); Hemoglobin 12.2 g/dL (12.0-16.0); Mean Corpuscular HGB CONC 34.1 g/dL (32.0-36.0); Mean Corpuscular Hemoglobin 32.6 pg (27.0-31.0); Mean Corpuscular Volume 95.6 fL (78.0-98.0); Mean Platelet Volume 8.3 fL (7.4-10.4); Platelet Count 118 thou/uL (130-400); RBC Distribution Width 13.4 % (11.5-14.5); Red Blood Cell (RBC) Count 3.74 mill/uL (4.20-5.40)
[2020-03-18 03:35] LABS: Anion Gap 10 mmol/L (10-20); BUN (Urea Nitrogen) 22 mg/dL (9.8-20.1); Calc. Creatinine Clearance 127 mL/min (70-130); Calcium 9.5 mg/dL (7.8-10.44); Carbon Dioxide 28 mmol/L (22-29); Chloride 102 mmol/L (98-107); Estimated GFR-MDRD 80; Glucose 345 mg/dL (70-105); Potassium 4.3 mmol/L (3.5-5.1); Sodium 136 mmol/L (136-145)
[2020-03-18 03:38] LABS: Hemoglobin A1c 7.1 % (4.0-6.0)
[2020-03-18] MEDS: HumaLOG 300 UNITS/3 ML VIAL SC PRN ×4 (05:48→20:54)
[2020-03-18] MEDS: Mometasone 200 MCG/Formoterol 5 MCG 120 PUFF INHALER INH SCH ×2 (06:03→20:26)
--- NOTE | 2020-03-18 07:52 | PDOC.HOSPP ---
- Subjective Encounter Date: 03/18/20 Encounter Time: 10:00 Subjective: Patient reports some improvement in breathing. Still using Bipap most of the time, though does well on the high flow NC while eating. - Objective Vital Signs & Weight: Vital Signs (12 hours) Temp Pulse Ox 03/18/20 03:08 97.9 F 03/18/20 01:00 100 03/18/20 00:00 97.8 F 03/17/20 20:13 98.7 F 03/17/20 20:00 94 L Weight Weight 216 lb 11.2 oz Most Recent Monitor Data Heart Rate from ECG 66 NIBP 121/79 NIBP BP-Mean 93 Respiration from ECG 20 SpO2 92 I&O: 03/17/20 03/18/20 03/19/20 06:59 06:59 06:59 Intake Total 1350 240 Output Total 2900 2400 Balance -1550 -2160 Result Diagrams: 03/18/20 03:00 03/18/20 03:00 Additional Labs: Accuchecks 03/18/20 03/17/20 03/17/20 05:59 20:08 17:47 POC Glucose 202 H 375 H 310 H 03/17/20 09:43 POC Glucose 300 H Hospitalist ROS - Review of Systems Constitutional: denies: fever, chills Respiratory: reports: cough, SOB with excertion. denies: shortness of breath Cardiovascular: denies: chest pain, palpitations Gastrointestinal: denies: nausea, vomiting - Medication Medications: Active Medications Generic Name Dose Route Start Last Admin Trade Name Freq PRN Reason Stop Dose Admin Albuterol Sulfate 2 puff 03/14/20 13:00 03/18/20 06:05 Proventil Hfa INH 2 puff [id number] IGGY Administration Amlodipine Besylate 5 mg 03/12/20 09:00 03/17/20 09:12 Norvasc PO 5 mg DAILY IGGY Administration Apixaban 5 mg 03/11/20 21:00 03/17/20 19:53 Eliquis PO 5 mg BID IGGY Administration Aspirin 81 mg 03/12/20 09:00 03/17/20 09:11 Ecotrin PO 81 mg DAILY IGGY Administration Cholecalciferol 5,000 units 03/12/20 09:00 03/17/20 09:11 Vitamin D3 PO 5,000 units DAILY IGGY Administration Doxycycline Hyclate 100 mg 03/13/20 21:00 03/17/20 19:52 Vibramycin PO 03/23/20 21:01 100 mg BID IGGY Administration Duloxetine HCl 60 mg 03/11/20 21:00 03/17/20 19:52 Cymbalta PO 60 mg BID IGGY Administration Famotidine 20 mg 03/17/20 09:00 03/17/20 19:53 Pepcid PO 20 mg BID IGGY Administration Insulin Glargine 10 units/ 0.1 mls @ 0 mls/hr 03/17/20 09:00 03/17/20 09:24 Miscellaneous Medication SC 0.1 mls QAM IGGY Administration Insulin Human Lispro 0 units 03/17/20 08:46 03/18/20 05:48 Humalog SC 3 unit .MILD SLIDING SCALE PRN Administration Mild Correctional Scale Insulin Human Lispro 0 units 03/17/20 08:46 03/17/20 19:54 Humalog SC 5 unit .BEDTIME SLIDING SC PRN Administration Bedtime Correctional Scale Iron/Minerals/Multivitamins 1 tab 03/12/20 09:00 03/17/20 09:12 Theragran M PO 1 tab DAILY IGGY Administration Losartan Potassium 100 mg 03/11/20 21:00 03/17/20 19:52 Cozaar PO 100 mg HS IGGY Administration Methylprednisolone Sodium Succinate 40 mg 03/16/20 21:00 03/17/20 19:51 Solu-Medrol IVP 40 mg 2100 IGGY Administration Modafinil 200 mg 03/12/20 09:00 03/17/20 09:12 Provigil PO 200 mg DAILY IGGY Administration Mometasone Furoate/Formoterol Fumar 2 puff 03/14/20 18:30 03/18/20 06:03 Dulera 200 Mcg/5 Mcg Inhaler INH 2 puff BID-RT IGGY Administration (Nefazodone Hcl [ 300 each 03/13/20 09:00 03/17/20 19:54 Nefazodone Hcl] 150 PO 300 each Mg) Tab BID IGGY Administration Rosuvastatin Calcium 20 mg 03/11/20 21:00 03/17/20 19:52 Crestor PO 20 mg HS IGGY Administration Torsemide 20 mg 03/11/20 21:00 03/17/20 20:42 Demadex PO Not Given HS IGGY Tramadol HCl 100 mg 03/11/20 21:00 03/17/20 19:53 Ultram PO 100 mg HS IGGY Administration Verapamil HCl 240 mg 03/11/20 21:00 03/17/20 19:53 Calan Sr PO 240 mg HS IGGY Administration - Exam General Appearance: NAD, awake alert ENT: moist mucosa Heart: RRR, no murmur, no gallops, no rubs Respiratory: CTAB, no wheezes, no rales, no ronchi Gastrointestinal: soft, non-tender, non-distended, normal bowel sounds Psychiatric: normal affect, normal behavior, A&O x 3 Hosp A/P (1) Pneumonia due to COVID-19 virus Code(s): U07.1 - COVID-19; J12.89 - OTHER VIRAL PNEUMONIA Status: Acute (2) Acute respiratory failure with hypoxia Code(s): J96.01 - ACUTE RESPIRATORY FAILURE WITH HYPOXIA Status: Acute (3) H/O malignant neoplasm of breast Code(s): Z85.3 - PERSONAL HISTORY OF MALIGNANT NEOPLASM OF BREAST Status: Acute (4) Immunosuppressed status Code(s): D89.9 - DISORDER INVOLVING THE IMMUNE MECHANISM, UNSPECIFIED Status: Acute (5) DM type 2 (diabetes mellitus, type 2) Status: Chronic Qualifiers: Diabetes mellitus shelter insulin use: without marine oil terminal superintendent use (6) Obesity (BMI 30-39.9) Code(s): E66.9 - OBESITY, UNSPECIFIED Status: Chronic (7) Dyslipidemia Code(s): E78.5 - HYPERLIPIDEMIA, UNSPECIFIED Status: Chronic (8) HTN (hypertension) Code(s): I10 - ESSENTIAL (PRIMARY) HYPERTENSION Status: Chronic Qualifiers: Hypertension type: essential hypertension Qualified Code(s): I10 - Essential (primary) hypertension (9) Postmenopausal bleeding Code(s): N95.0 - POSTMENOPAUSAL BLEEDING Status: Acute - Plan is on high flow oxygen/ Bipap on and off, finished remdesivir and convalescent plasma, weaning steroids, on doxycycline abx Blood sugars very elevated on the steroids, will add Lantus, SSI, FSBS qachs HbA1c 7.1. Patient likely has underlying undiagnosed diabetes mellitus. Will need to f/u with her PCP about this on discharge. Sajan ren finished her radiation treatment for right br cancer last thursday before admit ( and Vianca) prognosis guarded given her immunosuppresed status and multiple med issues along with polypharmacy hemostable
[2020-03-18] MEDS: DULoxetine 60 MG CAP PO SCH ×2 (09:18→20:28)
[2020-03-18] MEDS: Doxycycline 100 MG CAP PO SCH ×2 (09:18→20:28)
[2020-03-18] MEDS: Famotidine 20 MG TAB PO SCH ×2 (09:19→20:28)
[2020-03-18] MEDS: Cholecalciferol 1,000 UNITS (25 MCG) TAB PO SCH (09:19)
[2020-03-18] MEDS: Apixaban 5 MG TAB PO SCH ×2 (09:19→20:27)
[2020-03-18] MEDS: Aspirin 81 mg Enteric Coated Tablet PO SCH (09:19)
[2020-03-18] MEDS: Amlodipine 5 MG TAB PO SCH (09:19)
[2020-03-18] MEDS: Multivitamin W/ Minerals 1 TAB PO SCH (09:20)
[2020-03-18] MEDS: Insulin Glargine 15 UNITS in Pre-Filled Syringe 1 EACH SC SCH (09:20)
[2020-03-18] MEDS: Modafinil 100 MG TAB PO SCH (09:20)
[2020-03-18] MEDS: NEFAZODONE HCL PO SCH ×2 (09:23→20:29)
--- NOTE | 2020-03-18 09:41 | PRG ---
DATE OF SERVICE: SUBJECTIVE: This morning, she is better. She is less short of breath. OBJECTIVE: VITAL SIGNS: Temperature 98, pulse 56, blood pressure sats are 93%. CHEST: No wheezing. No crackles. CARDIAC: Normal S1, S2. No gallops. ABDOMEN: No masses. LABORATORY DATA: White count is normal. H and H unremarkable. Lytes unremarkable. ASSESSMENT AND PLAN: Hernandez positive pneumonia, respiratory failure, breast cancer. Once we are down to low-flow O2, she can be discharged home. In the meantime, continue present treatment. Job ID: [id number]
[2020-03-18] MEDS: Losartan 25 MG TAB PO SCH (20:28)
[2020-03-18] MEDS: methylPREDNISolone Sod Succ 40 MG VIAL IVP SCH (20:29)
[2020-03-18] MEDS: Rosuvastatin 20 MG TAB PO SCH (20:30)
[2020-03-18] MEDS: traMADol HCl 50 MG TAB PO SCH (20:30)
[2020-03-18] MEDS: Torsemide 20 MG TAB PO SCH (20:53)
[2020-03-19] MEDS: Albuterol 200 PUFF (6.7GM INHALER) INH SCH ×4 (02:00→18:05)
[2020-03-19] MEDS: Mometasone 200 MCG/Formoterol 5 MCG 120 PUFF INHALER INH SCH ×2 (06:05→18:05)
[2020-03-19] MEDS: HumaLOG 300 UNITS/3 ML VIAL SC PRN ×3 (06:14→20:30)
--- NOTE | 2020-03-19 08:14 | PDOC.HOSPP ---
- Subjective Encounter Date: 03/19/20 (f/u covid pneumonia) Encounter Time: 08:12 Subjective: Pt reports her breathing is comfortable on the bipap. Some cough that is productive. When off bipap, is on high flow oxygen. Denies n/v/abd pain. Reports passing flatus but no bm in a few days. - Objective Vital Signs & Weight: Vital Signs (12 hours) Temp 03/19/20 03:59 98.7 F 03/19/20 00:00 97.6 F Weight Weight 216 lb 11.2 oz Most Recent Monitor Data Heart Rate from ECG 70 NIBP 179/81 NIBP BP-Mean 113 Respiration from ECG 17 SpO2 92 I&O: 03/18/20 03/19/20 03/20/20 06:59 06:59 06:59 Intake Total 240 1090 Output Total 2400 900 Balance -2160 190 Result Diagrams: 03/19/20 13:45 03/19/20 09:28 Additional Labs: Accuchecks 03/19/20 03/18/20 03/18/20 06:15 20:43 15:50 POC Glucose 288 H 371 H 313 H 03/18/20 10:30 POC Glucose 244 H EKG Reviewed by me: Yes (tele- sinus 70's) Hospitalist ROS - Medication Medications: Active Medications Generic Name Dose Route Start Last Admin Trade Name Freq PRN Reason Stop Dose Admin Albuterol Sulfate 2 puff 03/14/20 13:00 03/19/20 06:05 Proventil Hfa INH 2 puff [id number] IGGY Administration Amlodipine Besylate 5 mg 03/12/20 09:00 03/18/20 09:19 Norvasc PO 5 mg DAILY IGGY Administration Apixaban 5 mg 03/11/20 21:00 03/18/20 20:27 Eliquis PO 5 mg BID IGGY Administration Aspirin 81 mg 03/12/20 09:00 03/18/20 09:19 Ecotrin PO 81 mg DAILY IGGY Administration Cholecalciferol 5,000 units 03/12/20 09:00 03/18/20 09:19 Vitamin D3 PO 5,000 units DAILY IGGY Administration Doxycycline Hyclate 100 mg 03/13/20 21:00 03/18/20 20:28 Vibramycin PO 03/23/20 21:01 100 mg BID IGGY Administration Duloxetine HCl 60 mg 03/11/20 21:00 03/18/20 20:28 Cymbalta PO 60 mg BID IGGY Administration Famotidine 20 mg 03/17/20 09:00 03/18/20 20:28 Pepcid PO 20 mg BID IGGY Administration Insulin Glargine 15 units/ 0.15 mls @ 0 mls/hr 03/18/20 09:00 03/18/20 09:20 Miscellaneous Medication SC 0.15 mls QAM IGGY Administration Insulin Human Lispro 0 units 03/17/20 08:46 03/19/20 06:14 Humalog SC 4 unit .MILD SLIDING SCALE PRN Administration Mild Correctional Scale Insulin Human Lispro 0 units 03/17/20 08:46 03/18/20 20:54 Humalog SC 5 unit .BEDTIME SLIDING SC PRN Administration Bedtime Correctional Scale Iron/Minerals/Multivitamins 1 tab 03/12/20 09:00 03/18/20 09:20 Theragran M PO 1 tab DAILY IGGY Administration Losartan Potassium 100 mg 03/11/20 21:00 03/18/20 20:28 Cozaar PO 100 mg HS IGGY Administration Methylprednisolone Sodium Succinate 40 mg 03/16/20 21:00 03/18/20 20:29 Solu-Medrol IVP 40 mg 2100 IGGY Administration Modafinil 200 mg 03/12/20 09:00 03/18/20 09:20 Provigil PO 200 mg DAILY IGGY Administration Mometasone Furoate/Formoterol Fumar 2 puff 03/14/20 18:30 03/19/20 06:05 Dulera 200 Mcg/5 Mcg Inhaler INH 2 puff BID-RT IGGY Administration (Nefazodone Hcl [ 300 each 03/13/20 09:00 03/18/20 20:29 Nefazodone Hcl] 150 PO 300 each Mg) Tab BID IGGY Administration Rosuvastatin Calcium 20 mg 03/11/20 21:00 03/18/20 20:30 Crestor PO 20 mg HS IGGY Administration Torsemide 20 mg 03/11/20 21:00 03/18/20 20:53 Demadex PO Not Given HS IGGY Tramadol HCl 100 mg 03/11/20 21:00 03/18/20 20:30 Ultram PO 100 mg HS IGGY Administration Verapamil HCl 240 mg 03/11/20 21:00 03/18/20 20:30 Calan Sr PO 240 mg HS IGGY Administration - Exam General Appearance: NAD Heart: RRR, no murmur Respiratory: no wheezes, no rales, no ronchi Respiratory - other findings: good air movement with bipap Gastrointestinal: soft, non-tender, non-distended, normal bowel sounds Extremities: no cyanosis, no clubbing, no edema Psychiatric: normal affect Hosp A/P (1) Pneumonia due to COVID-19 virus Code(s): U07.1 - COVID-19; J12.89 - OTHER VIRAL PNEUMONIA Status: Acute (2) Acute respiratory failure with hypoxia Code(s): J96.01 - ACUTE RESPIRATORY FAILURE WITH HYPOXIA Status: Acute (3) H/O malignant neoplasm of breast Code(s): Z85.3 - PERSONAL HISTORY OF MALIGNANT NEOPLASM OF BREAST Status: Chronic (4) DM type 2 (diabetes mellitus, type 2) Status: Chronic Qualifiers: Diabetes mellitus chcf insulin use: without configuration manager use (5) Dyslipidemia Code(s): E78.5 - HYPERLIPIDEMIA, UNSPECIFIED Status: Chronic (6) HTN (hypertension) Code(s): I10 - ESSENTIAL (PRIMARY) HYPERTENSION Status: Chronic Qualifiers: Hypertension type: essential hypertension Qualified Code(s): I10 - Essential (primary) hypertension - Plan ARF with hypoxia secondary to COVID pneumonia - appreciate Pulm management - on steroids, antibiotics, inhalers - HF and bipap prn -> wean as tolerated - recheck inflammatory markers today - to compare with March 11 DM - not optimally controlled - add lantus 10 units HS - continue AM lantus and SSI bp - well controlled add prn bowel meds - pt reports her current pattern of bm's is normal for her. dvt prophy - eliquis gi prophy - famotidine due to steroids pt remains at high risk in current condition reviewed plan of care with patient, no questions or further needs at end of eval.
[2020-03-19] MEDS ORDERED: Senokot S 8.6-50 MG TAB PO PRN (08:36)
[2020-03-19] MEDS ORDERED: Polyethylene Glycol 3350 17 GM Packet PO PRN (08:36)
[2020-03-19] MEDS: Apixaban 5 MG TAB PO SCH ×2 (09:08→20:27)
[2020-03-19] MEDS: Amlodipine 5 MG TAB PO SCH (09:08)
[2020-03-19] MEDS: Aspirin 81 mg Enteric Coated Tablet PO SCH (09:08)
[2020-03-19] MEDS: Cholecalciferol 1,000 UNITS (25 MCG) TAB PO SCH (09:08)
[2020-03-19] MEDS: DULoxetine 60 MG CAP PO SCH ×2 (09:09→20:27)
[2020-03-19] MEDS: Multivitamin W/ Minerals 1 TAB PO SCH (09:09)
[2020-03-19] MEDS: Insulin Glargine 15 UNITS in Pre-Filled Syringe 1 EACH SC SCH (09:09)
[2020-03-19] MEDS: Famotidine 20 MG TAB PO SCH ×2 (09:09→20:27)
[2020-03-19] MEDS: Modafinil 100 MG TAB PO SCH (09:09)
[2020-03-19] MEDS: Doxycycline 100 MG CAP PO SCH ×2 (09:09→20:27)
[2020-03-19] MEDS: NEFAZODONE HCL PO SCH ×2 (09:11→20:28)
[2020-03-19 10:01] LABS: Anion Gap 11 mmol/L (10-20); BUN (Urea Nitrogen) 20 mg/dL (9.8-20.1); Calc. Creatinine Clearance 136 mL/min (70-130); Calcium 9.8 mg/dL (7.8-10.44); Carbon Dioxide 28 mmol/L (22-29); Chloride 104 mmol/L (98-107); Estimated GFR-MDRD 87; Glucose 236 mg/dL (70-105); Potassium 4.1 mmol/L (3.5-5.1); Sodium 139 mmol/L (136-145)
--- NOTE | 2020-03-19 12:22 | PRG ---
DATE OF SERVICE: 03/19/2020 SUBJECTIVE: The patient is awake, alert, but continuing to need BiPAP and high-flow oxygen. OBJECTIVE: VITAL SIGNS: On exam, temperature 97.7, pulse 70, blood pressure 122/77, O2 saturation 91%. 24-hour intake 1900, output 900. HEENT: Unremarkable. NECK: No adenopathy or JVD. LUNGS: Inspiratory crackles. CARDIAC: S1, S2 regular. ABDOMEN: Soft. EXTREMITIES: No edema. LABORATORY DATA: Sodium 139, potassium 4.1, chloride 104, CO2 of 28, BUN 20, creatinine 0.6, and glucose 236. Ferritin is 594, which is slightly decreased compared to one week ago. C-reactive protein is 7.73, which is down significantly from one week ago. ASSESSMENT: 1. COVID-19 pneumonia with acute hypoxic respiratory failure. 2. Breast cancer. PLAN: 1. Continue slow attempts to wean off BiPAP and high-flow oxygen. 2. Continue anticoagulation, inhaled steroids, and IV steroids. Job ID: [id number]
[2020-03-19 14:00] LABS: #Lymphocytes 0.1 thou/uL (1.20-3.40); #Monocytes 0.1 thou/uL (0.11-0.59); #Neutrophils 7.1 thou/uL (1.40-6.50); %Eosinophils 0.1 % (0.0-10.0); %Lymphocytes 1.3 % (21.0-51.0); %Monocytes 0.9 % (0.0-10.0); %Neutrophils 97.6 % (42.0-75.0); Hemoglobin 12.7 g/dL (12.0-16.0); Mean Corpuscular HGB CONC 33.1 g/dL (32.0-36.0); Mean Corpuscular Hemoglobin 31.6 pg (27.0-31.0); Mean Corpuscular Volume 95.3 fL (78.0-98.0); Mean Platelet Volume 8.6 fL (7.4-10.4); Platelet Count 123 thou/uL (130-400); RBC Distribution Width 13.4 % (11.5-14.5); Red Blood Cell (RBC) Count 4.03 mill/uL (4.20-5.40); White Blood Cell (WBC) Count 7.3 thou/uL (4.8-10.8)
[2020-03-19] MEDS: methylPREDNISolone Sod Succ 40 MG VIAL IVP SCH (20:28)
[2020-03-19] MEDS: Losartan 25 MG TAB PO SCH (20:28)
[2020-03-19] MEDS: traMADol HCl 50 MG TAB PO SCH (20:29)
[2020-03-19] MEDS: Rosuvastatin 20 MG TAB PO SCH (20:29)
[2020-03-19] MEDS: Torsemide 20 MG TAB PO SCH (20:29)
[2020-03-19] MEDS ORDERED: Insulin Glargine 10 UNITS in Pre-Filled Syringe 1 EACH SC SCH (21:00)
[2020-03-20] MEDS: Albuterol 200 PUFF (6.7GM INHALER) INH SCH ×3 (02:46→18:36)
[2020-03-20] MEDS: Mometasone 200 MCG/Formoterol 5 MCG 120 PUFF INHALER INH SCH (06:10)
[2020-03-20] MEDS: HumaLOG 300 UNITS/3 ML VIAL SC PRN ×3 (06:31→18:37)
--- NOTE | 2020-03-20 08:36 | PDOC.HOSPP ---
- Subjective Encounter Date: 03/20/20 (f/u COVID pneumonia) Encounter Time: 08:34 Subjective: Pt reports feeling stronger yesterday than before - able to sit up without support. States her legs feel weak, breathing is more comfortable. She has an area of muscle pain on her back - chronic intermittent issue. She denies any other new sx. - Objective Vital Signs & Weight: Vital Signs (12 hours) Temp Pulse Ox 03/20/20 07:51 93 L 03/20/20 04:00 98.0 F 03/20/20 00:00 98.3 F Weight Weight 216 lb 11.2 oz Most Recent Monitor Data Heart Rate from ECG 70 NIBP 117/82 NIBP BP-Mean 93 Respiration from ECG 16 SpO2 93 I&O: 03/19/20 03/20/20 03/21/20 06:59 06:59 06:59 Intake Total 1090 960 Output Total 900 3200 Balance 190 -2240 Result Diagrams: 03/19/20 13:45 03/19/20 09:28 Additional Labs: Accuchecks 03/20/20 03/19/20 03/19/20 06:18 20:41 17:04 POC Glucose 374 H 315 H 248 H EKG Reviewed by me: Yes (tele - sinus, no alarms) Hospitalist ROS - Medication Medications: Active Medications Generic Name Dose Route Start Last Admin Trade Name Freq PRN Reason Stop Dose Admin Albuterol Sulfate 2 puff 03/14/20 13:00 03/20/20 06:10 Proventil Hfa INH 2 puff [id number] IGGY Administration Amlodipine Besylate 5 mg 03/12/20 09:00 03/19/20 09:08 Norvasc PO 5 mg DAILY IGGY Administration Apixaban 5 mg 03/11/20 21:00 03/19/20 20:27 Eliquis PO 5 mg BID IGGY Administration Aspirin 81 mg 03/12/20 09:00 03/19/20 09:08 Ecotrin PO 81 mg DAILY IGGY Administration Cholecalciferol 5,000 units 03/12/20 09:00 03/19/20 09:08 Vitamin D3 PO 5,000 units DAILY IGGY Administration Doxycycline Hyclate 100 mg 03/13/20 21:00 03/19/20 20:27 Vibramycin PO 03/23/20 21:01 100 mg BID IGGY Administration Duloxetine HCl 60 mg 03/11/20 21:00 03/19/20 20:27 Cymbalta PO 60 mg BID IGGY Administration Famotidine 20 mg 03/17/20 09:00 03/19/20 20:27 Pepcid PO 20 mg BID IGGY Administration Insulin Glargine 10 units/ 0.1 mls @ 0 mls/hr 03/19/20 21:00 03/19/20 21:51 Miscellaneous Medication SC 0.1 mls HS IGGY Administration Insulin Human Lispro 0 units 03/17/20 08:46 03/20/20 06:31 Humalog SC 6 unit .MILD SLIDING SCALE PRN Administration Mild Correctional Scale Insulin Human Lispro 0 units 03/17/20 08:46 03/19/20 20:30 Humalog SC 4 unit .BEDTIME SLIDING SC PRN Administration Bedtime Correctional Scale Iron/Minerals/Multivitamins 1 tab 03/12/20 09:00 03/19/20 09:09 Theragran M PO 1 tab DAILY IGGY Administration Losartan Potassium 100 mg 03/11/20 21:00 03/19/20 20:28 Cozaar PO 100 mg HS IGGY Administration Methylprednisolone Sodium Succinate 40 mg 03/16/20 21:00 03/19/20 20:28 Solu-Medrol IVP 40 mg 2100 IGGY Administration Modafinil 200 mg 03/12/20 09:00 03/19/20 09:09 Provigil PO 200 mg DAILY IGGY Administration Mometasone Furoate/Formoterol Fumar 2 puff 03/14/20 18:30 03/20/20 06:10 Dulera 200 Mcg/5 Mcg Inhaler INH 2 puff BID-RT IGGY Administration (Nefazodone Hcl [ 300 each 03/13/20 09:00 03/19/20 20:28 Nefazodone Hcl] 150 PO 300 each Mg) Tab BID IGGY Administration Rosuvastatin Calcium 20 mg 03/11/20 21:00 03/19/20 20:29 Crestor PO 20 mg HS IGGY Administration Torsemide 20 mg 03/11/20 21:00 03/19/20 20:29 Demadex PO 20 mg HS IGGY Administration Tramadol HCl 100 mg 03/11/20 21:00 03/19/20 20:29 Ultram PO 100 mg HS IGGY Administration Verapamil HCl 240 mg 03/11/20 21:00 07/25/20 20:29 Calan Sr PO 240 mg HS IGGY Administration - Exam General Appearance: NAD Heart: RRR, no murmur Respiratory: no wheezes, no rales, no ronchi Respiratory - other findings: good air movement with bipap on Gastrointestinal: soft, non-tender, non-distended, normal bowel sounds Extremities: no cyanosis, no clubbing, no edema Psychiatric: normal affect Hosp A/P (1) Pneumonia due to COVID-19 virus Code(s): U07.1 - COVID-19; J12.89 - OTHER VIRAL PNEUMONIA Status: Acute (2) Acute respiratory failure with hypoxia Code(s): J96.01 - ACUTE RESPIRATORY FAILURE WITH HYPOXIA Status: Acute (3) H/O malignant neoplasm of breast Code(s): Z85.3 - PERSONAL HISTORY OF MALIGNANT NEOPLASM OF BREAST Status: Chronic (4) DM type 2 (diabetes mellitus, type 2) Status: Chronic Qualifiers: Diabetes mellitus retirement insulin use: without manager of warehouse use (5) Dyslipidemia Code(s): E78.5 - HYPERLIPIDEMIA, UNSPECIFIED Status: Chronic (6) HTN (hypertension) Code(s): I10 - ESSENTIAL (PRIMARY) HYPERTENSION Status: Chronic Qualifiers: Hypertension type: essential hypertension Qualified Code(s): I10 - Essential (primary) hypertension - Plan ARF with hypoxia secondary to COVID pneumonia - appreciate Pulm management - on steroids, antibiotics, inhalers - HF and bipap prn -> wean as tolerated - inflammatory markers checked yesterday - ferritin and CRP are lower, d-dimer is higher DM - not optimally controlled - lantus 10 units added last night. Will increase AM lantus to 25 units bp - well controlled continue prn bowel meds - pt reports her current pattern of bm's is normal for her. PT/OT consults to work on strength - placed yesterday, RN to confirm they will see the patient today. dvt prophy - eliquis gi prophy - famotidine due to steroids pt remains at high risk in current condition reviewed plan of care with patient, no questions or further needs at end of eval.
[2020-03-20] MEDS: Amlodipine 5 MG TAB PO SCH (10:07)
[2020-03-20] MEDS: Cholecalciferol 1,000 UNITS (25 MCG) TAB PO SCH (10:08)
[2020-03-20] MEDS: Apixaban 5 MG TAB PO SCH ×2 (10:08→20:24)
[2020-03-20] MEDS: Aspirin 81 mg Enteric Coated Tablet PO SCH (10:08)
[2020-03-20] MEDS: Multivitamin W/ Minerals 1 TAB PO SCH (10:09)
[2020-03-20] MEDS: Insulin Glargine 25 UNITS in Pre-Filled Syringe 1 EACH SC SCH (10:09)
[2020-03-20] MEDS: DULoxetine 60 MG CAP PO SCH ×2 (10:09→20:24)
[2020-03-20] MEDS: Modafinil 100 MG TAB PO SCH (10:09)
[2020-03-20] MEDS: Doxycycline 100 MG CAP PO SCH ×2 (10:09→20:24)
[2020-03-20] MEDS: Famotidine 20 MG TAB PO SCH ×2 (10:09→20:25)
[2020-03-20] MEDS: NEFAZODONE HCL PO SCH ×2 (10:10→20:27)
--- NOTE | 2020-03-20 12:11 | PRG ---
DATE OF SERVICE: 03/20/2020 SUBJECTIVE: Ms. Servin continues to require high-flow nasal cannula alternating with BiPAP. She is in very good spirits. OBJECTIVE: GENERAL: On exam, temperature is 98, pulse 82, blood pressure 115/75. 24-hour intake 960, output 3200. HEENT: Unremarkable. NECK: No JVD. LUNGS: Respiratory crackles. CARDIAC: S1 and S2. Regular. ABDOMEN: Soft. EXTREMITIES: No edema. LABORATORY DATA: Blood sugars are running in the 200s to 300s. ASSESSMENT: 1. COVID-19 pneumonia with acute hypoxic respiratory failure. 2. Elevated blood sugars secondary to steroids. 3. Breast cancer. PLAN: 1. Continue the high-flow oxygen alternating with BiPAP. 2. Continue low-dose steroids. 3. Continue anticoagulation. Job ID: [id number]
[2020-03-20] MEDS: Rosuvastatin 20 MG TAB PO SCH (20:24)
[2020-03-20] MEDS: Losartan 25 MG TAB PO SCH (20:25)
[2020-03-20] MEDS: traMADol HCl 50 MG TAB PO SCH (20:26)
[2020-03-20] MEDS: Insulin Glargine 20 UNITS in Pre-Filled Syringe SC SCH (20:27)
[2020-03-20] MEDS: methylPREDNISolone Sod Succ 40 MG VIAL IVP SCH (20:27)
[2020-03-21] MEDS: Torsemide 20 MG TAB PO SCH ×2 (01:23→21:07)
[2020-03-21] MEDS: Albuterol 200 PUFF (6.7GM INHALER) INH SCH ×5 (01:42→18:21)
[2020-03-21] MEDS: Mometasone 200 MCG/Formoterol 5 MCG 120 PUFF INHALER INH SCH ×3 (01:42→18:21)
[2020-03-21] MEDS: HumaLOG 300 UNITS/3 ML VIAL SC PRN ×2 (06:22→14:14)
[2020-03-21 07:02] LABS: Anion Gap 10 mmol/L (10-20); BUN (Urea Nitrogen) 24 mg/dL (9.8-20.1); Calc. Creatinine Clearance 138 mL/min (70-130); Calcium 9.8 mg/dL (7.8-10.44); Carbon Dioxide 33 mmol/L (22-29); Chloride 99 mmol/L (98-107); Estimated GFR-MDRD 89; Glucose 282 mg/dL (70-105); Sodium 138 mmol/L (136-145)
--- NOTE | 2020-03-21 09:37 | PRG ---
DATE OF SERVICE: 03/21/2020 OBJECTIVE: VITAL SIGNS: This morning temperature 98, blood pressure 121/79, saturations are 90%, respirations 18. She is afebrile. She has been on high-flow most of the time. CHEST: No wheezing. No crackles. CARDIAC: Normal S1 and S2. No gallops. ABDOMEN: No masses. IMPRESSION: Respiratory failure, bennett positive pneumonia, breast cancer. PLAN: Decrease oxygen requirement. However, switch over to some low-dose prednisone. Hopefully, once saturation remains adequate, she can be discharged home. We will follow. Job ID: [id number]
[2020-03-21] MEDS: Doxycycline 100 MG CAP PO SCH ×2 (10:34→21:05)
[2020-03-21] MEDS: Cholecalciferol 1,000 UNITS (25 MCG) TAB PO SCH (10:34)
[2020-03-21] MEDS: Famotidine 20 MG TAB PO SCH ×2 (10:34→21:05)
[2020-03-21] MEDS: Apixaban 5 MG TAB PO SCH ×2 (10:35→21:06)
[2020-03-21] MEDS: Multivitamin W/ Minerals 1 TAB PO SCH (10:35)
[2020-03-21] MEDS: Amlodipine 5 MG TAB PO SCH (10:35)
[2020-03-21] MEDS: Insulin Glargine 25 UNITS in Pre-Filled Syringe 1 EACH SC SCH (10:35)
[2020-03-21] MEDS: DULoxetine 60 MG CAP PO SCH ×2 (10:35→21:05)
[2020-03-21] MEDS: Aspirin 81 mg Enteric Coated Tablet PO SCH (10:35)
[2020-03-21] MEDS: NEFAZODONE HCL PO SCH ×2 (10:36→21:07)
[2020-03-21] MEDS: Modafinil 100 MG TAB PO SCH (10:36)
--- NOTE | 2020-03-21 17:30 | PDOC.HOSPP ---
- Subjective Encounter Date: 03/21/20 (f/u resp failure) Encounter Time: 17:26 Subjective: Ms. Servin has been hospitalized since March 11 for covid pneumonia. She has been managed with a course of remdesivir, and is currently on antibiotics, steroids, bipap'high flow oxygen. Pt is without complaints - reports she was sitting up for about 4 hours with high flow oxygen on. SHe is back in bed with bipap. She denies any n/v/abd pain. She denies any chest pain or new concerns. - Objective Vital Signs & Weight: Vital Signs (12 hours) Pulse Pulse Ox 03/21/20 15:42 97 03/21/20 10:35 82 Weight Weight 216 lb 11.2 oz Most Recent Monitor Data Heart Rate from ECG 57 NIBP 121/79 NIBP BP-Mean 93 Respiration from ECG 17 SpO2 97 I&O: 03/20/20 03/21/20 03/22/20 06:59 06:59 06:59 Intake Total 960 480 Output Total 3200 1000 Balance -2240 -520 Result Diagrams: 03/19/20 13:45 03/21/20 06:10 Additional Labs: Accuchecks 03/21/20 03/21/20 03/20/20 13:32 06:15 20:38 POC Glucose 249 H 294 H 305 H 03/20/20 17:56 POC Glucose 264 H Hospitalist ROS - Medication Medications: Active Medications Generic Name Dose Route Start Last Admin Trade Name Freq PRN Reason Stop Dose Admin Albuterol Sulfate 2 puff 03/14/20 13:00 03/21/20 14:15 Proventil Hfa INH 2 puff [id number] IGGY Administration Amlodipine Besylate 5 mg 03/12/20 09:00 03/21/20 10:35 Norvasc PO 5 mg DAILY IGGY Administration Apixaban 5 mg 03/11/20 21:00 03/21/20 10:35 Eliquis PO 5 mg BID IGGY Administration Aspirin 81 mg 03/12/20 09:00 03/21/20 10:35 Ecotrin PO 81 mg DAILY IGGY Administration Cholecalciferol 5,000 units 03/12/20 09:00 03/21/20 10:34 Vitamin D3 PO 5,000 units DAILY IGGY Administration Doxycycline Hyclate 100 mg 03/13/20 21:00 03/21/20 10:34 Vibramycin PO 03/23/20 21:01 100 mg BID IGGY Administration Duloxetine HCl 60 mg 03/11/20 21:00 03/21/20 10:35 Cymbalta PO 60 mg BID IGGY Administration Famotidine 20 mg 03/17/20 09:00 03/21/20 10:34 Pepcid PO 20 mg BID IGGY Administration Insulin Glargine 25 units/ 0.25 mls @ 0 mls/hr 03/20/20 09:00 03/21/20 10:35 Miscellaneous Medication SC 0.25 mls QAM IGGY Administration Insulin Glargine 20 units/ 0.2 mls @ 0 mls/hr 03/20/20 21:00 03/20/20 20:27 Miscellaneous Medication SC 0.2 mls HS IGGY Administration Insulin Human Lispro 0 units 03/17/20 08:46 03/21/20 14:14 Humalog SC 3 unit .MILD SLIDING SCALE PRN Administration Mild Correctional Scale Insulin Human Lispro 0 units 03/17/20 08:46 03/19/20 20:30 Humalog SC 4 unit .BEDTIME SLIDING SC PRN Administration Bedtime Correctional Scale Iron/Minerals/Multivitamins 1 tab 03/12/20 09:00 03/21/20 10:35 Theragran M PO 1 tab DAILY IGGY Administration Losartan Potassium 100 mg 03/11/20 21:00 03/20/20 20:25 Cozaar PO 100 mg HS IGGY Administration Modafinil 200 mg 03/12/20 09:00 03/21/20 10:36 Provigil PO 200 mg DAILY IGGY Administration Mometasone Furoate/Formoterol Fumar 2 puff 03/14/20 18:30 03/21/20 06:21 Dulera 200 Mcg/5 Mcg Inhaler INH 2 puff BID-RT IGGY Administration (Nefazodone Hcl [ 300 each 03/13/20 09:00 03/21/20 10:36 Nefazodone Hcl] 150 PO 300 each Mg) Tab BID IGGY Administration Rosuvastatin Calcium 20 mg 03/11/20 21:00 03/20/20 20:24 Crestor PO 20 mg HS IGGY Administration Torsemide 20 mg 03/11/20 21:00 03/21/20 01:23 Demadex PO Not Given HS IGGY Tramadol HCl 100 mg 03/11/20 21:00 03/20/20 20:26 Ultram PO 100 mg HS IGGY Administration Verapamil HCl 240 mg 03/11/20 21:00 03/20/20 20:25 Calan Sr PO 240 mg HS IGGY Administration - Exam General Appearance: NAD Heart: RRR, no murmur Respiratory: no wheezes, no rales, no ronchi Respiratory - other findings: good air movement with bipap in place Gastrointestinal: soft, non-tender, non-distended, normal bowel sounds Extremities: no cyanosis, no clubbing, no edema Psychiatric: normal affect Hosp A/P (1) Pneumonia due to COVID-19 virus Code(s): U07.1 - COVID-19; J12.89 - OTHER VIRAL PNEUMONIA Status: Acute (2) Acute respiratory failure with hypoxia Code(s): J96.01 - ACUTE RESPIRATORY FAILURE WITH HYPOXIA Status: Acute (3) H/O malignant neoplasm of breast Code(s): Z85.3 - PERSONAL HISTORY OF MALIGNANT NEOPLASM OF BREAST Status: Chronic (4) DM type 2 (diabetes mellitus, type 2) Status: Chronic Qualifiers: Diabetes mellitus skilled nursing insulin use: without skilled nursing use (5) Dyslipidemia Code(s): E78.5 - HYPERLIPIDEMIA, UNSPECIFIED Status: Chronic (6) HTN (hypertension) Code(s): I10 - ESSENTIAL (PRIMARY) HYPERTENSION Status: Chronic Qualifiers: Hypertension type: essential hypertension Qualified Code(s): I10 - Essential (primary) hypertension - Plan ARF with hypoxia secondary to COVID pneumonia - appreciate Pulm management - on antibiotics and inhalers, steroids changed to prednisone starting tomorrow - HF and bipap prn -> wean as tolerated - inflammatory markers checked 2 days ago - ferritin/crp lower, d-dimer higher DM - not optimally controlled - with lowered and additional lantus started last night, will hold on additional changes. Blood sugars improved today and are in the 200's. Continue to titrate medications bp - well controlled - some lower bp's overnight. Will lower the amlodipine and add hold parameters. continue prn bowel meds PT/OT dvt prophy - eliquis gi prophy - famotidine due to steroids pt remains at high risk in current condition reviewed plan of care with patient, no questions or further needs at end of eval.
[2020-03-21] MEDS: Nystatin 500,000 UNITS/5 ML UDCUP SSW SCH (21:05)
[2020-03-21] MEDS: Insulin Glargine 20 UNITS in Pre-Filled Syringe SC SCH (21:05)
[2020-03-21] MEDS: Rosuvastatin 20 MG TAB PO SCH (21:05)
[2020-03-21] MEDS: traMADol HCl 50 MG TAB PO SCH (21:06)
[2020-03-21] MEDS: Losartan 25 MG TAB PO SCH (21:06)
[2020-03-22] MEDS: Albuterol 200 PUFF (6.7GM INHALER) INH SCH ×4 (00:48→19:48)
--- NOTE | 2020-03-22 08:01 | RAD ---
EXAM: Single view of the chest HISTORY: Covid positive COMPARISON: 03/16/2020 FINDINGS: Single view of the chest shows an enlarged but stable cardiomediastinal silhouette. The ce ntral line is unchanged in position. Foot. Bibasilar infiltrates. This appears worse in the left lung compared to the prior radiograph. The bones are unremarkable IMPRESSION: Worsening multifocal infiltrates
[2020-03-22] MEDS: Insulin Glargine 25 UNITS in Pre-Filled Syringe 1 EACH SC SCH (10:01)
[2020-03-22] MEDS: Cholecalciferol 1,000 UNITS (25 MCG) TAB PO SCH (10:03)
[2020-03-22] MEDS: DULoxetine 60 MG CAP PO SCH ×2 (10:03→19:49)
[2020-03-22] MEDS: Doxycycline 100 MG CAP PO SCH ×2 (10:03→19:48)
[2020-03-22] MEDS: Aspirin 81 mg Enteric Coated Tablet PO SCH (10:06)
[2020-03-22] MEDS: Apixaban 5 MG TAB PO SCH ×2 (10:06→19:50)
[2020-03-22] MEDS: predniSONE 20 MG TAB PO SCH (10:06)
[2020-03-22] MEDS: NEFAZODONE HCL PO SCH ×2 (10:07→19:50)
[2020-03-22] MEDS: Nystatin 500,000 UNITS/5 ML UDCUP SSW SCH ×4 (10:07→19:49)
[2020-03-22] MEDS: Multivitamin W/ Minerals 1 TAB PO SCH (10:07)
[2020-03-22] MEDS: Famotidine 20 MG TAB PO SCH ×2 (10:07→19:49)
[2020-03-22] MEDS: Mometasone 200 MCG/Formoterol 5 MCG 120 PUFF INHALER INH SCH ×2 (10:20→17:46)
[2020-03-22] MEDS: Modafinil 100 MG TAB PO SCH (10:20)
--- NOTE | 2020-03-22 11:29 | PRG ---
DATE OF SERVICE: 03/22/2020 SUBJECTIVE: Shanta Servin remains in the MICU. She is still short of breath. She is requiring her BiPAP treatment. OBJECTIVE: VITAL SIGNS: Temperature 97, blood pressure 94/64, pulse 80, and respirations 18. CHEST: Mild crackles. CARDIAC: Normal S1 and S2. No gallops. ABDOMEN: No masses. LABORATORY DATA: X-ray still shows extensive left-sided infiltrate. IMPRESSION AND PLAN: Respiratory failure, bennett positive pneumonia, breast cancer. Trying to downsize her oxygen requirements, surgically discharge home and we will continue steroids and doxycycline. PT. Job ID: [id number]
[2020-03-22 12:17] LABS: Anion Gap 14 mmol/L (10-20); BUN (Urea Nitrogen) 17 mg/dL (9.8-20.1); CRP (Inflammatory) 16.07 mg/dL (= or < 0.5); Calc. Creatinine Clearance 132 mL/min (70-130); Calcium 9.3 mg/dL (7.8-10.44); Carbon Dioxide 27 mmol/L (22-29); Chloride 102 mmol/L (98-107); Estimated GFR-MDRD 84; Glucose 252 mg/dL (70-105); Potassium 3.6 mmol/L (3.5-5.1); Sodium 139 mmol/L (136-145)
--- NOTE | 2020-03-22 16:06 | PDOC.HOSPP ---
- Subjective Encounter Date: 03/22/20 Subjective: The patient is complaining of worsening shortness of breath. - Objective Vital Signs & Weight: Vital Signs (12 hours) Temp Pulse Ox 03/22/20 11:00 98.2 F 03/22/20 08:00 94 L Weight Admit Weight 216 lb 11.2 oz Weight 216 lb 11.2 oz Most Recent Monitor Data Heart Rate from ECG 112 NIBP 120/74 NIBP BP-Mean 89 Respiration from ECG 18 SpO2 87 I&O: 03/21/20 03/22/20 03/23/20 06:59 06:59 06:59 Intake Total 480 1220 Output Total 1000 Balance -520 1220 Result Diagrams: 03/19/20 13:45 03/22/20 11:43 Additional Labs: Accuchecks 03/22/20 03/21/20 03/21/20 09:16 21:53 17:45 POC Glucose 147 H 323 H 266 H Hospitalist ROS - Medication Medications: Active Medications Generic Name Dose Route Start Last Admin Trade Name Freq PRN Reason Stop Dose Admin Albuterol Sulfate 2 puff 03/14/20 13:00 03/22/20 14:23 Proventil Hfa INH 2 puff [id number] IGGY Administration Apixaban 5 mg 03/11/20 21:00 03/22/20 10:06 Eliquis PO 5 mg BID IGGY Administration Aspirin 81 mg 03/12/20 09:00 03/22/20 10:06 Ecotrin PO 81 mg DAILY IGGY Administration Cholecalciferol 5,000 units 03/12/20 09:00 03/22/20 10:03 Vitamin D3 PO 5,000 units DAILY IGGY Administration Doxycycline Hyclate 100 mg 03/13/20 21:00 03/22/20 10:03 Vibramycin PO 03/23/20 21:01 100 mg BID IGGY Administration Duloxetine HCl 60 mg 03/11/20 21:00 03/22/20 10:03 Cymbalta PO 60 mg BID IGGY Administration Famotidine 20 mg 03/17/20 09:00 03/22/20 10:07 Pepcid PO 20 mg BID IGGY Administration Insulin Glargine 25 units/ 0.25 mls @ 0 mls/hr 03/20/20 09:00 03/22/20 10:01 Miscellaneous Medication SC 0.25 mls QAM IGGY Administration Insulin Glargine 20 units/ 0.2 mls @ 0 mls/hr 03/20/20 21:00 03/21/20 21:05 Miscellaneous Medication SC 0.2 mls HS IGGY Administration Insulin Human Lispro 0 units 03/17/20 08:46 03/21/20 14:14 Humalog SC 3 unit .MILD SLIDING SCALE PRN Administration Mild Correctional Scale Insulin Human Lispro 0 units 03/17/20 08:46 03/19/20 20:30 Humalog SC 4 unit .BEDTIME SLIDING SC PRN Administration Bedtime Correctional Scale Iron/Minerals/Multivitamins 1 tab 03/12/20 09:00 03/22/20 10:07 Theragran M PO 1 tab DAILY IGGY Administration Losartan Potassium 100 mg 03/11/20 21:00 03/21/20 21:06 Cozaar PO 100 mg HS IGGY Administration Modafinil 200 mg 03/12/20 09:00 03/22/20 10:20 Provigil PO 200 mg DAILY IGGY Administration Mometasone Furoate/Formoterol Fumar 2 puff 03/14/20 18:30 03/22/20 10:20 Dulera 200 Mcg/5 Mcg Inhaler INH 2 puff BID-RT IGGY Administration Nystatin 500,000 units 03/21/20 21:00 03/22/20 14:24 Mycostatin SSW 500,000 units QID IGGY Administration (Nefazodone Hcl [ 300 each 03/13/20 09:00 03/22/20 10:07 Nefazodone Hcl] 150 PO 300 each Mg) Tab BID IGGY Administration Prednisone 20 mg 03/22/20 08:00 03/22/20 10:06 Prednisone PO 20 mg QAM-WM IGGY Administration Rosuvastatin Calcium 20 mg 03/11/20 21:00 03/21/20 21:05 Crestor PO 20 mg HS IGGY Administration Torsemide 20 mg 03/11/20 21:00 03/21/20 21:07 Demadex PO Not Given HS IGGY Verapamil HCl 240 mg 03/11/20 21:00 03/21/20 21:06 Calan Sr PO 240 mg HS IGGY Administration - Exam General Appearance: awake alert ENT: normocephalic atraumatic Heart - other findings: Regular tachycardia Respiratory: normal chest expansion, tachypneic Neurological: cranial nerve grossly intact, no focal deficits Hosp A/P - Plan Hosp A/P (1) Pneumonia due to COVID-19 virus Code(s): U07.1 - COVID-19; J12.89 - OTHER VIRAL PNEUMONIA Status: Acute (2) Acute respiratory failure with hypoxia Code(s): J96.01 - ACUTE RESPIRATORY FAILURE WITH HYPOXIA Status: Acute (3) H/O malignant neoplasm of breast Code(s): Z85.3 - PERSONAL HISTORY OF MALIGNANT NEOPLASM OF BREAST Status: Chronic (4) DM type 2 (diabetes mellitus, type 2) Status: Chronic Qualifiers: Diabetes mellitus alf insulin use: without alf use (5) Dyslipidemia Code(s): E78.5 - HYPERLIPIDEMIA, UNSPECIFIED Status: Chronic (6) HTN (hypertension) Code(s): I10 - ESSENTIAL (PRIMARY) HYPERTENSION Status: Chronic Qualifiers: Hypertension type: essential hypertension Qualified Code(s): I10 - Essential (primary) hypertension - Plan 03/21: ARF with hypoxia secondary to COVID pneumonia - appreciate Pulm management - on antibiotics and inhalers, steroids changed to prednisone starting tomorrow - HF and bipap prn -> wean as tolerated - inflammatory markers checked 2 days ago - ferritin/crp lower, d-dimer higher DM - not optimally controlled - with lowered and additional lantus started last night, will hold on additional changes. Blood sugars improved today and are in the 200's. Continue to titrate medications bp - well controlled - some lower bp's overnight. Will lower the amlodipine and add hold parameters. continue prn bowel meds PT/OT dvt prophy - eliquis gi prophy - famotidine due to steroids pt remains at high risk in current condition reviewed plan of care with patient, no questions or further needs at end of eval. 03/22: Patient remains hypoxic. She is currently requiring FiO2 of 60% to achieve saturation in the low 90s. Chest x-ray showing worsening bilateral infiltrates. Continue bronchodilators, antibiotics, and steroids. Pulmonology on board.
[2020-03-22] MEDS: HumaLOG 300 UNITS/3 ML VIAL SC PRN (17:43)
[2020-03-22] MEDS: Insulin Glargine 20 UNITS in Pre-Filled Syringe SC SCH (19:48)
[2020-03-22] MEDS: Losartan 25 MG TAB PO SCH (19:49)
[2020-03-22] MEDS: Rosuvastatin 20 MG TAB PO SCH (19:49)
[2020-03-22] MEDS: Torsemide 20 MG TAB PO SCH (19:50)
[2020-03-23] MEDS: Albuterol 200 PUFF (6.7GM INHALER) INH SCH ×4 (00:23→21:10)
[2020-03-23 04:50] LABS: #Lymphocytes 0.1 thou/uL (1.20-3.40); #Monocytes 0.1 thou/uL (0.11-0.59); #Neutrophils 6.5 thou/uL (1.40-6.50); %Eosinophils 0.3 % (0.0-10.0); %Lymphocytes 1.4 % (21.0-51.0); %Monocytes 1.1 % (0.0-10.0); %Neutrophils 97.2 % (42.0-75.0); Hemoglobin 11.7 g/dL (12.0-16.0); Mean Corpuscular HGB CONC 32.2 g/dL (32.0-36.0); Mean Corpuscular Hemoglobin 30.8 pg (27.0-31.0); Mean Corpuscular Volume 95.7 fL (78.0-98.0); Platelet Count 123 thou/uL (130-400); RBC Distribution Width 13.3 % (11.5-14.5); Red Blood Cell (RBC) Count 3.79 mill/uL (4.20-5.40); White Blood Cell (WBC) Count 6.7 thou/uL (4.8-10.8)
[2020-03-23 05:05] LABS: Anion Gap 10 mmol/L (10-20); BUN (Urea Nitrogen) 15 mg/dL (9.8-20.1); Calc. Creatinine Clearance 157 mL/min (70-130); Calcium 9.3 mg/dL (7.8-10.44); Carbon Dioxide 28 mmol/L (22-29); Chloride 104 mmol/L (98-107); Estimated GFR-MDRD Greater than 90; Glucose 173 mg/dL (70-105); Potassium 3.7 mmol/L (3.5-5.1); Sodium 138 mmol/L (136-145)
[2020-03-23] MEDS: Mometasone 200 MCG/Formoterol 5 MCG 120 PUFF INHALER INH SCH ×2 (06:26→21:10)
--- NOTE | 2020-03-23 09:22 | PRG ---
DATE OF SERVICE: 03/23/2020 SUBJECTIVE: Shanta Servin remains in the ICU. OBJECTIVE: VITAL SIGNS: High-flow sats are , blood pressure 110/70, and pulse rate 80. CHEST: Crackle, rhonchi. CARDIAC: Normal S1 and S2. ABDOMEN: No mass. LABORATORY DATA: White count 6000, the left shift. D-dimer is elevated. C-reactive protein is 16. IMPRESSION: Coronavirus positive pneumonia with persistent left-sided infiltrate. PLAN: I am going to add gram-negative antibiotic for presumed hospital-acquired infection. Otherwise, continue steroids, supportive care. Job ID: [id number]
[2020-03-23] MEDS: Modafinil 100 MG TAB PO SCH (10:28)
[2020-03-23] MEDS: Multivitamin W/ Minerals 1 TAB PO SCH (10:29)
[2020-03-23] MEDS: Doxycycline 100 MG CAP PO SCH ×2 (10:30→21:11)
[2020-03-23] MEDS: Cholecalciferol 1,000 UNITS (25 MCG) TAB PO SCH (10:30)
[2020-03-23] MEDS: Nystatin 500,000 UNITS/5 ML UDCUP SSW SCH ×4 (10:31→21:11)
[2020-03-23] MEDS: predniSONE 20 MG TAB PO SCH (10:31)
[2020-03-23] MEDS: Aspirin 81 mg Enteric Coated Tablet PO SCH (10:31)
[2020-03-23] MEDS: Famotidine 20 MG TAB PO SCH ×2 (10:31→21:11)
[2020-03-23] MEDS: Apixaban 5 MG TAB PO SCH ×2 (10:31→21:12)
[2020-03-23] MEDS: DULoxetine 60 MG CAP PO SCH ×2 (10:31→21:11)
[2020-03-23] MEDS: Insulin Glargine 25 UNITS in Pre-Filled Syringe 1 EACH SC SCH (10:33)
[2020-03-23] MEDS: NEFAZODONE HCL PO SCH ×2 (10:33→21:10)
--- NOTE | 2020-03-23 13:39 | PDOC.HOSPP ---
- Subjective Encounter Date: 03/23/20 Subjective: The patient is still complaining of shortness of breath and cough. She is requiring the same amount of oxygen as yesterday. She stated that she was able to mobilize more in the bed today. She is requesting to work with physical therapy. - Objective Vital Signs & Weight: Vital Signs (12 hours) Temp 03/23/20 10:00 98.3 F 03/23/20 04:00 98.3 F Weight Admit Weight 216 lb 11.2 oz Weight 216 lb 11.2 oz Most Recent Monitor Data Heart Rate from ECG 98 NIBP 110/69 NIBP BP-Mean 82 Respiration from ECG 35 SpO2 94 I&O: 03/22/20 03/23/20 03/24/20 06:59 06:59 06:59 Intake Total 1220 1440 Output Total 1050 Balance 1220 390 Result Diagrams: 03/23/20 04:25 03/23/20 04:25 Additional Labs: Accuchecks 03/23/20 03/22/20 03/22/20 06:36 19:59 16:08 POC Glucose 132 H 264 H 228 H Hospitalist ROS - Medication Medications: Active Medications Generic Name Dose Route Start Last Admin Trade Name Freq PRN Reason Stop Dose Admin Albuterol Sulfate 2 puff 03/14/20 13:00 03/23/20 06:26 Proventil Hfa INH 2 puff [id number] IGGY Administration Apixaban 5 mg 03/11/20 21:00 03/23/20 10:31 Eliquis PO 5 mg BID IGGY Administration Aspirin 81 mg 03/12/20 09:00 03/23/20 10:31 Ecotrin PO 81 mg DAILY IGGY Administration Cholecalciferol 5,000 units 03/12/20 09:00 03/23/20 10:30 Vitamin D3 PO 5,000 units DAILY IGGY Administration Doxycycline Hyclate 100 mg 03/13/20 21:00 03/23/20 10:30 Vibramycin PO 03/23/20 21:01 100 mg BID IGGY Administration Duloxetine HCl 60 mg 03/11/20 21:00 03/23/20 10:31 Cymbalta PO 60 mg BID IGGY Administration Famotidine 20 mg 03/17/20 09:00 03/23/20 10:31 Pepcid PO 20 mg BID IGGY Administration Insulin Glargine 25 units/ 0.25 mls @ 0 mls/hr 03/20/20 09:00 03/23/20 10:33 Miscellaneous Medication SC 0.25 mls QAM IGGY Administration Insulin Glargine 20 units/ 0.2 mls @ 0 mls/hr 03/20/20 21:00 03/22/20 19:48 Miscellaneous Medication SC 0.2 mls HS IGGY Administration Insulin Human Lispro 0 units 03/17/20 08:46 03/22/20 17:43 Humalog SC 3 unit .MILD SLIDING SCALE PRN Administration Mild Correctional Scale Insulin Human Lispro 0 units 03/17/20 08:46 03/19/20 20:30 Humalog SC 4 unit .BEDTIME SLIDING SC PRN Administration Bedtime Correctional Scale Iron/Minerals/Multivitamins 1 tab 03/12/20 09:00 03/23/20 10:29 Theragran M PO 1 tab DAILY IGGY Administration Losartan Potassium 100 mg 03/11/20 21:00 03/22/20 19:49 Cozaar PO 100 mg HS IGGY Administration Modafinil 200 mg 03/12/20 09:00 03/23/20 10:28 Provigil PO 200 mg DAILY IGGY Administration Mometasone Furoate/Formoterol Fumar 2 puff 03/14/20 18:30 03/23/20 06:26 Dulera 200 Mcg/5 Mcg Inhaler INH 2 puff BID-RT IGGY Administration Nystatin 500,000 units 03/21/20 21:00 03/23/20 10:31 Mycostatin SSW 500,000 units QID IGGY Administration (Nefazodone Hcl [ 300 each 03/13/20 09:00 03/23/20 10:33 Nefazodone Hcl] 150 PO 300 each Mg) Tab BID IGGY Administration Prednisone 20 mg 03/22/20 08:00 03/23/20 10:31 Prednisone PO 20 mg QAM-WM IGGY Administration Rosuvastatin Calcium 20 mg 03/11/20 21:00 03/22/20 19:49 Crestor PO 20 mg HS IGGY Administration Sodium Chloride 10 ml 03/23/20 09:00 03/23/20 10:31 Flush - Normal Saline IVF 10 ml Q12HR IGGY Administration Torsemide 20 mg 03/11/20 21:00 03/22/20 19:50 Demadex PO Not Given HS IGGY Verapamil HCl 240 mg 03/11/20 21:00 03/22/20 19:49 Calan Sr PO 240 mg HS IGGY Administration - Exam General Appearance: awake alert ENT: normocephalic atraumatic Neck: supple Heart: RRR Respiratory: normal chest expansion, no tachypnea Extremities: no cyanosis Neurological: cranial nerve grossly intact, no focal deficits Hosp A/P - Plan Hosp A/P (1) Pneumonia due to COVID-19 virus Code(s): U07.1 - COVID-19; J12.89 - OTHER VIRAL PNEUMONIA Status: Acute (2) Acute respiratory failure with hypoxia Code(s): J96.01 - ACUTE RESPIRATORY FAILURE WITH HYPOXIA Status: Acute (3) H/O malignant neoplasm of breast Code(s): Z85.3 - PERSONAL HISTORY OF MALIGNANT NEOPLASM OF BREAST Status: Chronic (4) DM type 2 (diabetes mellitus, type 2) Status: Chronic Qualifiers: Diabetes mellitus long term care phlebotomist insulin use: without shelter use (5) Dyslipidemia Code(s): E78.5 - HYPERLIPIDEMIA, UNSPECIFIED Status: Chronic (6) HTN (hypertension) Code(s): I10 - ESSENTIAL (PRIMARY) HYPERTENSION Status: Chronic Qualifiers: Hypertension type: essential hypertension Qualified Code(s): I10 - Essential (primary) hypertension - Plan 03/21: ARF with hypoxia secondary to COVID pneumonia - appreciate Pulm management - on antibiotics and inhalers, steroids changed to prednisone starting tomorrow - HF and bipap prn -> wean as tolerated - inflammatory markers checked 2 days ago - ferritin/crp lower, d-dimer higher DM - not optimally controlled - with lowered and additional lantus started last night, will hold on additional changes. Blood sugars improved today and are in the 200's. Continue to titrate medications bp - well controlled - some lower bp's overnight. Will lower the amlodipine and add hold parameters. continue prn bowel meds PT/OT dvt prophy - eliquis gi prophy - famotidine due to steroids pt remains at high risk in current condition reviewed plan of care with patient, no questions or further needs at end of eval. 03/22: Patient remains hypoxic. She is currently requiring FiO2 of 60% to achieve saturation in the low 90s. Chest x-ray showing worsening bilateral infiltrates. Continue bronchodilators, antibiotics, and steroids. Pulmonology on board. 03/23: Continue supplemental oxygen with high flow nasal cannula and BiPAP as needed. Broad-spectrum antibiotics added by pulmonology to follow for suspected bacterial infection given the worsening infiltrates on chest x-ray. Otherwise continue corticosteroids and nebulizer treatments. PT and OT evaluation and treatment.
[2020-03-23] MEDS ORDERED: Meropenem 1 GM in Sodium Chloride 0.9% 100 ML IVPB SCH (14:00)
[2020-03-23] MEDS: MEROPENEM 1 GM/50 ML 1 GM in Premix Bag 1 BAG IVPB SCH ×2 (17:32→22:00)
[2020-03-23] MEDS: Rosuvastatin 20 MG TAB PO SCH (21:11)
[2020-03-23] MEDS: Losartan 25 MG TAB PO SCH (21:11)
[2020-03-23] MEDS: Torsemide 20 MG TAB PO SCH (21:13)
[2020-03-23] MEDS: Insulin Glargine 20 UNITS in Pre-Filled Syringe SC SCH (21:13)
[2020-03-24] MEDS: MEROPENEM 1 GM/50 ML 1 GM in Premix Bag 1 BAG IVPB SCH ×3 (00:52→17:06)
[2020-03-24] MEDS: Albuterol 200 PUFF (6.7GM INHALER) INH SCH ×4 (01:27→17:09)
[2020-03-24 03:39] LABS: #Lymphocytes 0.2 thou/uL (1.20-3.40); #Neutrophils 7.2 thou/uL (1.40-6.50); %Eosinophils 0.3 % (0.0-10.0); %Monocytes 0.4 % (0.0-10.0); %Neutrophils 97.3 % (42.0-75.0); Hemoglobin 12.9 g/dL (12.0-16.0); Mean Corpuscular Hemoglobin 31.2 pg (27.0-31.0); Mean Corpuscular Volume 94.7 fL (78.0-98.0); Mean Platelet Volume 8.7 fL (7.4-10.4); Platelet Count 156 thou/uL (130-400); RBC Distribution Width 13.6 % (11.5-14.5); Red Blood Cell (RBC) Count 4.12 mill/uL (4.20-5.40); White Blood Cell (WBC) Count 7.4 thou/uL (4.8-10.8)
[2020-03-24 04:01] LABS: Anion Gap 13 mmol/L (10-20); BUN (Urea Nitrogen) 14 mg/dL (9.8-20.1); Calc. Creatinine Clearance 149 mL/min (70-130); Calcium 10.3 mg/dL (7.8-10.44); Carbon Dioxide 33 mmol/L (22-29); Chloride 98 mmol/L (98-107); Estimated GFR-MDRD Greater than 90; Glucose 130 mg/dL (70-105); Potassium 3.1 mmol/L (3.5-5.1); Sodium 141 mmol/L (136-145)
[2020-03-24] MEDS: Mometasone 200 MCG/Formoterol 5 MCG 120 PUFF INHALER INH SCH ×2 (07:00→17:07)
[2020-03-24] MEDS: Insulin Glargine 25 UNITS in Pre-Filled Syringe 1 EACH SC SCH (08:55)
[2020-03-24] MEDS: Modafinil 100 MG TAB PO SCH (08:55)
[2020-03-24] MEDS: Famotidine 20 MG TAB PO SCH ×2 (08:56→20:54)
[2020-03-24] MEDS: Apixaban 5 MG TAB PO SCH ×2 (08:56→20:54)
[2020-03-24] MEDS: Multivitamin W/ Minerals 1 TAB PO SCH (08:56)
[2020-03-24] MEDS: Cholecalciferol 1,000 UNITS (25 MCG) TAB PO SCH (08:56)
[2020-03-24] MEDS: Aspirin 81 mg Enteric Coated Tablet PO SCH (08:57)
[2020-03-24] MEDS: DULoxetine 60 MG CAP PO SCH ×2 (08:57→20:54)
[2020-03-24] MEDS: NEFAZODONE HCL PO SCH ×2 (08:57→20:55)
[2020-03-24] MEDS: predniSONE 20 MG TAB PO SCH (08:57)
[2020-03-24] MEDS: Nystatin 500,000 UNITS/5 ML UDCUP SSW SCH ×4 (08:57→20:55)
--- NOTE | 2020-03-24 09:57 | PRG ---
DATE OF SERVICE: 03/24/2020 SUBJECTIVE: This morning, she is on high-flow. She is awake, responsive. FiO2 of 65%, flow rate is 60. OBJECTIVE: VITAL SIGNS: Sats are %, blood pressure 118/81, pulse , respiratory rate 18. CHEST: Rhonchi, crackles. CARDIAC: Normal S1. ABDOMEN: No masses. ASSESSMENT: I added meropenem yesterday because of the persistent left-sided infiltrate. Hernandez positive pneumonia, breast cancer, and respiratory failure. PLAN: Day 13 in the hospital. Continue present treatment, steroids. Hopefully, once able to downsize her O2, we may be able to send her home. She has underlying sleep apnea, on CPAP at nighttime. Job ID: [id number]
[2020-03-24] MEDS: Losartan 25 MG TAB PO SCH (20:54)
[2020-03-24] MEDS: Torsemide 20 MG TAB PO SCH (20:54)
[2020-03-24] MEDS: Rosuvastatin 20 MG TAB PO SCH (20:55)
[2020-03-24] MEDS: Insulin Glargine 20 UNITS in Pre-Filled Syringe SC SCH (20:55)
--- NOTE | 2020-03-24 21:18 | PDOC.HOSPP ---
- Subjective Encounter Date: 03/24/20 Subjective: The patient still complaining of shortness of breath and cough. Her oxygen requirement did not change since yesterday. - Objective Vital Signs & Weight: Vital Signs (12 hours) Temp 03/24/20 15:37 96.9 F L 03/24/20 12:00 98.7 F Weight Admit Weight 216 lb 11.2 oz Weight 201 lb 11.2 oz Most Recent Monitor Data Heart Rate from ECG 108 NIBP 104/74 NIBP BP-Mean 84 Respiration from ECG 26 SpO2 92 I&O: 03/23/20 03/24/20 03/25/20 06:59 06:59 06:59 Intake Total 1440 600 790 Output Total 1050 3150 550 Balance 390 -2550 240 Result Diagrams: 03/24/20 03:30 03/24/20 03:30 Additional Labs: Accuchecks 03/24/20 03/24/20 03/24/20 17:11 11:41 06:09 POC Glucose 154 H 185 H 87 03/23/20 21:25 POC Glucose 168 H Hospitalist ROS - Medication Medications: Active Medications Generic Name Dose Route Start Last Admin Trade Name Freq PRN Reason Stop Dose Admin Albuterol Sulfate 2 puff 03/14/20 13:00 03/24/20 17:09 Proventil Hfa INH 2 puff [id number] IGGY Administration Apixaban 5 mg 03/11/20 21:00 03/24/20 20:54 Eliquis PO 5 mg BID IGGY Administration Aspirin 81 mg 03/12/20 09:00 03/24/20 08:57 Ecotrin PO 81 mg DAILY IGGY Administration Cholecalciferol 5,000 units 03/12/20 09:00 03/24/20 08:56 Vitamin D3 PO 5,000 units DAILY IGGY Administration Duloxetine HCl 60 mg 03/11/20 21:00 03/24/20 20:54 Cymbalta PO 60 mg BID IGGY Administration Famotidine 20 mg 03/17/20 09:00 03/24/20 20:54 Pepcid PO 20 mg BID IGGY Administration Insulin Glargine 25 units/ 0.25 mls @ 0 mls/hr 03/20/20 09:00 03/24/20 08:55 Miscellaneous Medication SC 0.25 mls QAM IGGY Administration Insulin Glargine 20 units/ 0.2 mls @ 0 mls/hr 03/20/20 21:00 03/24/20 20:55 Miscellaneous Medication SC 0.2 mls HS IGGY Administration Meropenem 1 gm/ Device 50 mls @ 100 mls/hr 03/24/20 01:00 03/24/20 17:06 IVPB 50 mls 0100,0900,1700 IGGY Administration Insulin Human Lispro 0 units 03/17/20 08:46 03/22/20 17:43 Humalog SC 3 unit .MILD SLIDING SCALE PRN Administration Mild Correctional Scale Insulin Human Lispro 0 units 03/17/20 08:46 03/19/20 20:30 Humalog SC 4 unit .BEDTIME SLIDING SC PRN Administration Bedtime Correctional Scale Iron/Minerals/Multivitamins 1 tab 03/12/20 09:00 03/24/20 08:56 Theragran M PO 1 tab DAILY IGGY Administration Losartan Potassium 100 mg 03/11/20 21:00 03/24/20 20:54 Cozaar PO 100 mg HS IGGY Administration Modafinil 200 mg 03/12/20 09:00 03/24/20 08:55 Provigil PO 200 mg DAILY IGGY Administration Mometasone Furoate/Formoterol Fumar 2 puff 03/14/20 18:30 03/24/20 17:07 Dulera 200 Mcg/5 Mcg Inhaler INH 2 puff BID-RT IGGY Administration Nystatin 500,000 units 03/21/20 21:00 03/24/20 20:55 Mycostatin SSW 500,000 units QID IGGY Administration (Nefazodone Hcl [ 300 each 03/13/20 09:00 03/24/20 20:55 Nefazodone Hcl] 150 PO 300 each Mg) Tab BID IGGY Administration Prednisone 20 mg 03/22/20 08:00 03/24/20 08:57 Prednisone PO 20 mg QAM-WM IGGY Administration Rosuvastatin Calcium 20 mg 03/11/20 21:00 03/24/20 20:55 Crestor PO 20 mg HS IGGY Administration Sodium Chloride 10 ml 03/23/20 09:00 03/24/20 20:56 Flush - Normal Saline IVF 10 ml Q12HR IGGY Administration Torsemide 20 mg 03/11/20 21:00 03/24/20 20:54 Demadex PO 20 mg HS GIGY Administration Verapamil HCl 240 mg 03/11/20 21:00 03/24/20 20:54 Calan Sr PO 240 mg HS IGGY Administration - Exam General Appearance: awake alert ENT: normocephalic atraumatic Neck: supple Respiratory: normal chest expansion, no tachypnea Gastrointestinal: soft Neurological: cranial nerve grossly intact, no focal deficits Hosp A/P - Plan Hosp A/P (1) Pneumonia due to COVID-19 virus Code(s): U07.1 - COVID-19; J12.89 - OTHER VIRAL PNEUMONIA Status: Acute (2) Acute respiratory failure with hypoxia Code(s): J96.01 - ACUTE RESPIRATORY FAILURE WITH HYPOXIA Status: Acute (3) H/O malignant neoplasm of breast Code(s): Z85.3 - PERSONAL HISTORY OF MALIGNANT NEOPLASM OF BREAST Status: Chronic (4) DM type 2 (diabetes mellitus, type 2) Status: Chronic Qualifiers: Diabetes mellitus joint terminal attack controller insulin use: without joint terminal attack controller use (5) Dyslipidemia Code(s): E78.5 - HYPERLIPIDEMIA, UNSPECIFIED Status: Chronic (6) HTN (hypertension) Code(s): I10 - ESSENTIAL (PRIMARY) HYPERTENSION Status: Chronic Qualifiers: Hypertension type: essential hypertension Qualified Code(s): I10 - Essential (primary) hypertension - Plan 03/21: ARF with hypoxia secondary to COVID pneumonia - appreciate Pulm management - on antibiotics and inhalers, steroids changed to prednisone starting tomorrow - HF and bipap prn -> wean as tolerated - inflammatory markers checked 2 days ago - ferritin/crp lower, d-dimer higher DM - not optimally controlled - with lowered and additional lantus started last night, will hold on additional changes. Blood sugars improved today and are in the 200's. Continue to titrate medications bp - well controlled - some lower bp's overnight. Will lower the amlodipine and add hold parameters. continue prn bowel meds PT/OT dvt prophy - eliquis gi prophy - famotidine due to steroids pt remains at high risk in current condition reviewed plan of care with patient, no questions or further needs at end of eval. 03/22: Patient remains hypoxic. She is currently requiring FiO2 of 60% to achieve saturation in the low 90s. Chest x-ray showing worsening bilateral infiltrates. Continue bronchodilators, antibiotics, and steroids. Pulmonology on board. 03/23: Continue supplemental oxygen with high flow nasal cannula and BiPAP as needed. Broad-spectrum antibiotics added by pulmonology to follow for suspected bacterial infection given the worsening infiltrates on chest x-ray. Otherwise continue corticosteroids and nebulizer treatments. PT and OT evaluation and treatment. 03/24: The patient reported worsening shortness of breath earlier this morning that has improved through the day. She is still requiring a lot of oxygen. We will continue to try to wean her off high flow nasal cannula as tolerated. She is motivated to work with PT today. Remains on corticosteroids and antibiotics. Pulmonology following.
[2020-03-25] MEDS: MEROPENEM 1 GM/50 ML 1 GM in Premix Bag 1 BAG IVPB SCH ×3 (00:19→17:32)
[2020-03-25] MEDS: Albuterol 200 PUFF (6.7GM INHALER) INH SCH ×4 (00:20→17:33)
[2020-03-25] MEDS: Mometasone 200 MCG/Formoterol 5 MCG 120 PUFF INHALER INH SCH ×2 (06:10→17:32)
[2020-03-25] MEDS: Insulin Glargine 25 UNITS in Pre-Filled Syringe 1 EACH SC SCH (09:19)
[2020-03-25] MEDS: Nystatin 500,000 UNITS/5 ML UDCUP SSW SCH ×4 (09:19→20:38)
[2020-03-25] MEDS: Cholecalciferol 1,000 UNITS (25 MCG) TAB PO SCH (09:20)
[2020-03-25] MEDS: DULoxetine 60 MG CAP PO SCH ×2 (09:20→20:40)
[2020-03-25] MEDS: Famotidine 20 MG TAB PO SCH ×2 (09:21→20:39)
[2020-03-25] MEDS: predniSONE 20 MG TAB PO SCH (09:21)
[2020-03-25] MEDS: Multivitamin W/ Minerals 1 TAB PO SCH (09:21)
[2020-03-25] MEDS: Aspirin 81 mg Enteric Coated Tablet PO SCH (09:21)
[2020-03-25] MEDS: Apixaban 5 MG TAB PO SCH ×2 (09:21→20:42)
[2020-03-25] MEDS: NEFAZODONE HCL PO SCH ×2 (09:22→20:41)
[2020-03-25] MEDS: Modafinil 100 MG TAB PO SCH (09:25)
--- NOTE | 2020-03-25 10:13 | PRG ---
DATE OF SERVICE: SUBJECTIVE: This morning, she is awake, alert, and responsive. She is on high-flow, sats are 98% at nighttime. She is on home BiPAP. OBJECTIVE: VITAL SIGNS: Pulse 98, blood pressure 95/68, respiratory rate 18. CHEST: No wheezing. No crackles. CARDIAC: Normal S1, S2. ABDOMEN: No masses. IMPRESSION: 1. Respiratory failure. 2. Breast cancer, metastatic. 3. Hernandez positive pneumonia. I have added meropenem to her regime since she was having worsening pulmonary infiltrates. Her white count is only 7000 though. Her chemistry profile was unremarkable. Glucose 128. Continue prednisone. Continue antibiotics, supportive care. We will follow. Job ID: [id number]
[2020-03-25] MEDS: HumaLOG 300 UNITS/3 ML VIAL SC PRN (17:34)
--- NOTE | 2020-03-25 18:38 | PDOC.HOSPP ---
- Subjective Encounter Date: 03/25/20 Subjective: 60 years old female admitted to the hospital for pneumonia and hypoxia due to COVID-19. The patient's respiratory status appears to be worsening. She is requiring over 70% FiO2 to maintain saturations of 90 to 92%. She is complaining of productive cough and shortness of breath. - Objective Vital Signs & Weight: Vital Signs (12 hours) Temp Pulse Ox 03/25/20 12:00 98.5 F 03/25/20 08:00 98.4 F 03/25/20 07:35 94 L Weight Admit Weight 216 lb 11.2 oz Weight 199 lb 12.8 oz Most Recent Monitor Data Heart Rate from ECG 90 NIBP 82/64 NIBP BP-Mean 70 Respiration from ECG 28 SpO2 95 I&O: 03/24/20 03/25/20 03/26/20 06:59 06:59 06:59 Intake Total 600 1140 Output Total 3150 1850 Balance -2550 -710 Result Diagrams: 03/24/20 03:30 03/24/20 03:30 Additional Labs: Accuchecks 03/25/20 03/25/20 03/24/20 13:06 05:43 21:06 POC Glucose 289 H 128 H 276 H 03/24/20 17:11 POC Glucose 154 H Hospitalist ROS - Medication Medications: Active Medications Generic Name Dose Route Start Last Admin Trade Name Freq PRN Reason Stop Dose Admin Albuterol Sulfate 2 puff 03/14/20 13:00 03/25/20 17:33 Proventil Hfa INH 2 puff [id number] IGGY Administration Apixaban 5 mg 03/11/20 21:00 03/25/20 09:21 Eliquis PO 5 mg BID IGGY Administration Aspirin 81 mg 03/12/20 09:00 03/25/20 09:21 Ecotrin PO 81 mg DAILY IGGY Administration Cholecalciferol 5,000 units 03/12/20 09:00 03/25/20 09:20 Vitamin D3 PO 5,000 units DAILY IGGY Administration Duloxetine HCl 60 mg 03/11/20 21:00 03/25/20 09:20 Cymbalta PO 60 mg BID IGGY Administration Famotidine 20 mg 03/17/20 09:00 03/25/20 09:21 Pepcid PO 20 mg BID IGGY Administration Insulin Glargine 25 units/ 0.25 mls @ 0 mls/hr 03/20/20 09:00 03/25/20 09:19 Miscellaneous Medication SC 0.25 mls QAM IGGY Administration Insulin Glargine 20 units/ 0.2 mls @ 0 mls/hr 03/20/20 21:00 03/24/20 20:55 Miscellaneous Medication SC 0.2 mls HS IGGY Administration Meropenem 1 gm/ Device 50 mls @ 100 mls/hr 03/24/20 01:00 03/25/20 17:32 IVPB 50 mls 0100,0900,1700 IGGY Administration Insulin Human Lispro 0 units 03/17/20 08:46 03/25/20 17:34 Humalog SC 3 unit .MILD SLIDING SCALE PRN Administration Mild Correctional Scale Insulin Human Lispro 0 units 03/17/20 08:46 03/19/20 20:30 Humalog SC 4 unit .BEDTIME SLIDING SC PRN Administration Bedtime Correctional Scale Iron/Minerals/Multivitamins 1 tab 03/12/20 09:00 03/25/20 09:21 Theragran M PO 1 tab DAILY IGGY Administration Losartan Potassium 100 mg 03/11/20 21:00 03/24/20 20:54 Cozaar PO 100 mg HS IGGY Administration Modafinil 200 mg 03/12/20 09:00 03/25/20 09:25 Provigil PO 200 mg DAILY IGGY Administration Mometasone Furoate/Formoterol Fumar 2 puff 03/14/20 18:30 03/25/20 17:32 Dulera 200 Mcg/5 Mcg Inhaler INH 2 puff BID-RT IGGY Administration Nystatin 500,000 units 03/21/20 21:00 03/25/20 17:32 Mycostatin SSW 500,000 units QID IGGY Administration (Nefazodone Hcl [ 300 each 03/13/20 09:00 03/25/20 09:22 Nefazodone Hcl] 150 PO 300 each Mg) Tab BID IGGY Administration Prednisone 20 mg 03/22/20 08:00 03/25/20 09:21 Prednisone PO 20 mg QAM-WM IGGY Administration Rosuvastatin Calcium 20 mg 03/11/20 21:00 03/24/20 20:55 Crestor PO 20 mg HS IGGY Administration Sodium Chloride 10 ml 03/23/20 09:00 07/31/20 09:19 Flush - Normal Saline IVF 10 ml Q12HR IGGY Administration Torsemide 20 mg 03/11/20 21:00 03/24/20 20:54 Demadex PO 20 mg HS IGGY Administration Verapamil HCl 240 mg 03/11/20 21:00 03/24/20 20:54 Calan Sr PO 240 mg HS IGGY Administration - Exam General Appearance: awake alert, ill appearing ENT: normocephalic atraumatic Neck: supple, no JVD Heart: RRR Respiratory: normal chest expansion, tachypneic Neurological: cranial nerve grossly intact, no focal deficits Hosp A/P - Plan Hosp A/P (1) Pneumonia due to COVID-19 virus Code(s): U07.1 - COVID-19; J12.89 - OTHER VIRAL PNEUMONIA Status: Acute (2) Acute respiratory failure with hypoxia Code(s): J96.01 - ACUTE RESPIRATORY FAILURE WITH HYPOXIA Status: Acute (3) H/O malignant neoplasm of breast Code(s): Z85.3 - PERSONAL HISTORY OF MALIGNANT NEOPLASM OF BREAST Status: Chronic (4) DM type 2 (diabetes mellitus, type 2) Status: Chronic Qualifiers: Diabetes mellitus halfway insulin use: without long term care social worker use (5) Dyslipidemia Code(s): E78.5 - HYPERLIPIDEMIA, UNSPECIFIED Status: Chronic (6) HTN (hypertension) Code(s): I10 - ESSENTIAL (PRIMARY) HYPERTENSION Status: Chronic Qualifiers: Hypertension type: essential hypertension Qualified Code(s): I10 - Essential (primary) hypertension - Plan The patient with multiple comorbidities leading to severe COVID-19 infection. Worsening shortness of breath and increased oxygen requirement. She is on corticosteroids and antibiotics. Continue to titrate high flow nasal cannula to achieve oxygen saturation of 90% or greater. She is on Eliquis for anticoagulation. Pulmonology following.
[2020-03-25] MEDS: Rosuvastatin 20 MG TAB PO SCH (20:39)
[2020-03-25] MEDS: Losartan 25 MG TAB PO SCH (20:39)
[2020-03-25] MEDS: Torsemide 20 MG TAB PO SCH (20:39)
[2020-03-25] MEDS: Insulin Glargine 20 UNITS in Pre-Filled Syringe SC SCH (20:41)
[2020-03-26] MEDS: MEROPENEM 1 GM/50 ML 1 GM in Premix Bag 1 BAG IVPB SCH ×3 (00:26→17:02)
[2020-03-26] MEDS: Albuterol 200 PUFF (6.7GM INHALER) INH SCH ×4 (00:26→17:03)
[2020-03-26] MEDS: Mometasone 200 MCG/Formoterol 5 MCG 120 PUFF INHALER INH SCH ×2 (08:28→17:02)
[2020-03-26] MEDS: Aspirin 81 mg Enteric Coated Tablet PO SCH (08:28)
[2020-03-26] MEDS: Modafinil 100 MG TAB PO SCH (08:28)
[2020-03-26] MEDS: Insulin Glargine 25 UNITS in Pre-Filled Syringe 1 EACH SC SCH (08:29)
[2020-03-26] MEDS: Cholecalciferol 1,000 UNITS (25 MCG) TAB PO SCH (08:29)
[2020-03-26] MEDS: Nystatin 500,000 UNITS/5 ML UDCUP SSW SCH ×4 (08:32→19:59)
[2020-03-26] MEDS: Apixaban 5 MG TAB PO SCH ×2 (08:33→20:00)
[2020-03-26] MEDS: DULoxetine 60 MG CAP PO SCH ×2 (08:33→20:00)
[2020-03-26] MEDS: predniSONE 20 MG TAB PO SCH (08:33)
[2020-03-26] MEDS: Multivitamin W/ Minerals 1 TAB PO SCH (08:33)
[2020-03-26] MEDS: Famotidine 20 MG TAB PO SCH ×2 (08:34→20:00)
[2020-03-26] MEDS: NEFAZODONE HCL PO SCH ×2 (08:35→20:00)
[2020-03-26] MEDS ORDERED: Loperamide HCl 2 MG CAP PO PRN (09:01)
[2020-03-26] MEDS ORDERED: Bisacodyl 10 MG SUPP PR PRN (09:01)
[2020-03-26] MEDS ORDERED: Ondansetron PF 4 MG/2 ML Vial IVP PRN (09:01)
[2020-03-26] MEDS ORDERED: Metoclopramide HCl 10 MG/2 ML VIAL IVP PRN (09:01)
[2020-03-26] MEDS ORDERED: Calcium Carbonate 500 MG ChewTAB PO PRN (09:01)
[2020-03-26] MEDS ORDERED: Ondansetron ODT 4 MG TAB PO PRN (09:01)
[2020-03-26] MEDS ORDERED: Sodium Chloride 0.65% Nasal 44 ML BOT EA NARE PRN (09:01)
[2020-03-26] MEDS ORDERED: Loratadine 10 MG TAB PO PRN (09:01)
[2020-03-26] MEDS: Benzonatate 100 MG CAP PO PRN ×2 (10:22→20:19)
[2020-03-26] MEDS: Anastrozole 1 MG TAB PO SCH (10:22)
--- NOTE | 2020-03-26 12:34 | PDOC.HOSPP ---
- Subjective Encounter Date: 03/26/20 Encounter Time: 10:00 Subjective: Patient seen and examined bedside today, patient is on high flow oxygen, patient is not able to talk in full sentence without getting cough, - Objective Vital Signs & Weight: Vital Signs (12 hours) Temp Pulse Ox 03/26/20 12:00 98.8 F 03/26/20 08:00 98.7 F 03/26/20 07:30 92 L 03/26/20 04:00 98.7 F Weight Admit Weight 216 lb 11.2 oz Weight 198 lb 14.4 oz Most Recent Monitor Data Heart Rate from ECG 96 NIBP 109/78 NIBP BP-Mean 88 Respiration from ECG 26 SpO2 91 I&O: 03/25/20 03/26/20 03/27/20 06:59 06:59 06:59 Intake Total 1140 1280 Output Total 1850 1600 Balance -710 -320 Result Diagrams: 03/24/20 03:30 03/24/20 03:30 Additional Labs: Accuchecks 03/26/20 03/25/20 03/25/20 05:16 20:52 17:50 POC Glucose 119 H 170 H 226 H 03/25/20 13:06 POC Glucose 289 H Radiology Reviewed by me: Yes (All radiological investigations reviewed) EKG Reviewed by me: Yes Hospitalist ROS - Review of Systems Constitutional: reports: weakness, malaise. denies: fever, chills, sweats, other ENT: denies: ear pain, ear discharge, nose pain, nose discharge, nose congestion , mouth pain, mouth swelling, throat pain, throat swelling, other Respiratory: reports: cough, shortness of breath, SOB with excertion. denies: dry, hemoptysis, pleuritic pain, sputum, wheezing, other Cardiovascular: denies: chest pain, palpitations, orthopnea, paroxysmal noc. dyspnea, edema, light headedness, other Gastrointestinal: denies: nausea, vomiting, abdominal pain, diarrhea, constipation, melena, hematochezia, other Genitourinary: denies: dysuria, frequency, incontinence, hematuria, retention, other Musculoskeletal: denies: neck pain, shoulder pain, arm pain, back pain, hand pain, leg pain, foot pain, other Skin: denies: rash, lesions, isaak, bruising, other - Medication Medications: Active Medications Generic Name Dose Route Start Last Admin Trade Name Freq PRN Reason Stop Dose Admin Albuterol Sulfate 2 puff 03/14/20 13:00 03/26/20 11:52 Proventil Hfa INH 2 puff [id number] IGGY Administration Anastrozole 1 mg 03/26/20 09:00 03/26/20 10:22 Arimidex PO 1 mg DAILY IGGY Administration Apixaban 5 mg 03/11/20 21:00 03/26/20 08:33 Eliquis PO 5 mg BID IGGY Administration Aspirin 81 mg 03/12/20 09:00 03/26/20 08:28 Ecotrin PO 81 mg DAILY IGGY Administration Benzonatate 100 mg 03/26/20 09:01 03/26/20 10:22 Tessalon PO 100 mg Q6H PRN Administration Cough Cholecalciferol 5,000 units 03/12/20 09:00 03/26/20 08:29 Vitamin D3 PO 5,000 units DAILY IGGY Administration Duloxetine HCl 60 mg 03/11/20 21:00 03/26/20 08:33 Cymbalta PO 60 mg BID IGGY Administration Famotidine 20 mg 03/17/20 09:00 03/26/20 08:34 Pepcid PO 20 mg BID IGGY Administration Insulin Glargine 25 units/ 0.25 mls @ 0 mls/hr 03/20/20 09:00 03/26/20 08:29 Miscellaneous Medication SC 0.25 mls QAM IGGY Administration Insulin Glargine 20 units/ 0.2 mls @ 0 mls/hr 03/20/20 21:00 03/25/20 20:41 Miscellaneous Medication SC 0.2 mls HS IGGY Administration Meropenem 1 gm/ Device 50 mls @ 100 mls/hr 03/24/20 01:00 03/26/20 08:34 IVPB 50 mls 0100,0900,1700 IGGY Administration Insulin Human Lispro 0 units 03/17/20 08:46 03/19/20 20:30 Humalog SC 4 unit .BEDTIME SLIDING SC PRN Administration Bedtime Correctional Scale Iron/Minerals/Multivitamins 1 tab 03/12/20 09:00 03/26/20 08:33 Theragran M PO 1 tab DAILY IGGY Administration Losartan Potassium 100 mg 03/11/20 21:00 03/25/20 20:39 Cozaar PO 100 mg HS IGGY Administration Modafinil 200 mg 03/12/20 09:00 03/26/20 08:28 Provigil PO 200 mg DAILY IGGY Administration Mometasone Furoate/Formoterol Fumar 2 puff 03/14/20 18:30 03/26/20 08:28 Dulera 200 Mcg/5 Mcg Inhaler INH 2 puff BID-RT IGGY Administration Nystatin 500,000 units 03/21/20 21:00 03/26/20 11:52 Mycostatin SSW 500,000 units QID IGGY Administration (Nefazodone Hcl [ 300 each 03/13/20 09:00 03/26/20 08:35 Nefazodone Hcl] 150 PO 300 each Mg) Tab BID IGGY Administration Prednisone 20 mg 03/22/20 08:00 03/26/20 08:33 Prednisone PO 20 mg QAM-WM IGGY Administration Rosuvastatin Calcium 20 mg 03/11/20 21:00 03/25/20 20:39 Crestor PO 20 mg HS IGGY Administration Sodium Chloride 10 ml 03/23/20 09:00 03/26/20 08:35 Flush - Normal Saline IVF 10 ml Q12HR IGGY Administration Sodium Chloride 10 ml 03/23/20 08:52 03/26/20 00:26 Flush - Normal Saline IVF 10 ml PRN PRN Administration Saline Flush Torsemide 20 mg 03/11/20 21:00 03/25/20 20:39 Demadex PO 20 mg HS IGGY Administration Verapamil HCl 240 mg 03/11/20 21:00 03/25/20 20:39 Calan Sr PO 240 mg HS IGGY Administration - Exam General Appearance: NAD, awake alert Eye: PERRL, anicteric sclera ENT: normocephalic atraumatic, no oropharyngeal lesions Neck: supple, symmetric, no JVD, no thyromegaly Heart: RRR, no murmur, no gallops, no rubs Respiratory: tachypneic Respiratory - other findings: Coarse breath sounds at base, reduced air entry at base, Gastrointestinal: soft, non-tender, non-distended, normal bowel sounds Gastrointestinal - other findings: Obesity noted Extremities: no cyanosis, no clubbing, no edema Skin: normal turgor, no lesions Neurological: no focal deficits Musculoskeletal: normal tone, normal strength Psychiatric: normal affect, normal behavior Hosp A/P - Plan old records reviewed/req, continue antibiotics, respiratory therapy Assessment Acute respiratory failure with hypoxia due to COVID-19 infection Viral pneumonia due to COVID-19 infection COVID-19 infection Thrombocytopenia and leukopenia due to COVID-19 infection improved Obesity with BMI 33 Hypertension Asthma/COPD Anxiety and depression Chronic anticoagulation Dyslipidemia History of right breast cancer History of pulmonary embolism Plan Patient is still requiring high flow oxygen and BiPAP, Continue empiric meropenem Blood sugars are controlled with current dose of Lantus Continue Eliquis Continue medication as ordered Tomorrow we will repeat labs including inflammatory marker
--- NOTE | 2020-03-26 14:44 | PRG ---
DATE OF SERVICE: 03/26/2020 SUBJECTIVE: Shanta Servin was on BiPAP when seen by me this morning. There has been no change overall in her clinical condition. We will continue to alternate between BiPAP and high-flow. Oximetry is in the low 90s with FiO2 in the 70% range. OBJECTIVE: VITAL SIGNS: heart rate is 100. LUNGS: Unchanged. HEART: Unchanged. ABDOMEN: Unchanged. IMPRESSION: COVID pneumonia. PLAN: Continue supportive care. Job ID: [id number]
[2020-03-26] MEDS: Rosuvastatin 20 MG TAB PO SCH (20:00)
[2020-03-26] MEDS: Torsemide 20 MG TAB PO SCH (20:00)
[2020-03-26] MEDS: Insulin Glargine 20 UNITS in Pre-Filled Syringe SC SCH (20:01)
[2020-03-27] MEDS: MEROPENEM 1 GM/50 ML 1 GM in Premix Bag 1 BAG IVPB SCH ×3 (01:13→17:17)
[2020-03-27] MEDS: Diabetic Tussin 200 MG/10 ML UDCUP PO PRN ×2 (01:50→09:40)
[2020-03-27] MEDS ORDERED: Fentanyl 100 MCG/2 ML VIAL SLOW IVP PRN (01:56)
[2020-03-27] MEDS ORDERED: Lorazepam 2 MG/ML VIAL SLOW IVP PRN (02:05)
[2020-03-27] MEDS: Albuterol 200 PUFF (6.7GM INHALER) INH SCH ×4 (02:48→17:18)
[2020-03-27 03:43] LABS: #Eosinphils 0.1 thou/uL (0.0-0.7); #Lymphocytes 0.2 thou/uL (1.20-3.40); #Monocytes 0.2 thou/uL (0.11-0.59); #Neutrophils 9.9 thou/uL (1.40-6.50); %Basophils 0.1 % (0.0-1.0); %Eosinophils 0.5 % (0.0-10.0); %Lymphocytes 1.9 % (21.0-51.0); %Monocytes 1.8 % (0.0-10.0); %Neutrophils 95.6 % (42.0-75.0); Hemoglobin 14.1 g/dL (12.0-16.0); Mean Corpuscular HGB CONC 32.9 g/dL (32.0-36.0); Mean Corpuscular Hemoglobin 30.9 pg (27.0-31.0); Mean Corpuscular Volume 94.1 fL (78.0-98.0); Mean Platelet Volume 8.6 fL (7.4-10.4); Platelet Count 245 thou/uL (130-400); RBC Distribution Width 13.4 % (11.5-14.5); Red Blood Cell (RBC) Count 4.56 mill/uL (4.20-5.40); White Blood Cell (WBC) Count 10.4 thou/uL (4.8-10.8)
[2020-03-27 04:11] LABS: ALT (SGPT) 36 U/L (8-55); AST (SGOT) 46 U/L (5-34); Alkaline Phosphatase 140 U/L (40-110); BUN (Urea Nitrogen) 26 mg/dL (9.8-20.1); Bilirubin, Total 0.5 mg/dL (0.2-1.2); CRP (Inflammatory) 27.52 mg/dL (= or < 0.5); Calc. Creatinine Clearance 103 mL/min (70-130); Calcium 10.3 mg/dL (7.8-10.44); Estimated GFR-MDRD 69; Globulin 4.1 g/dL (2.4-3.5); Glucose 140 mg/dL (70-105); Protein, Total 7.1 g/dL (6.0-8.3)
[2020-03-27 04:27] LABS: Chloride 92 mmol/L (98-107); Sodium 140 mmol/L (136-145)
[2020-03-27 04:30] LABS: Anion Gap 18 mmol/L (10-20); Carbon Dioxide 33 mmol/L (22-29)
[2020-03-27 04:37] LABS: Potassium 2.8 mmol/L (3.5-5.1)
[2020-03-27] MEDS ORDERED: Electrolyte Replacement Protoc 1 EACH EACH IVPB PRN (04:54)
[2020-03-27] MEDS: Potassium Chloride 40 MEQ in Sodium Chloride 0.9% 250 ML 250 ML IVPB SCH ×2 (05:24→09:51)
[2020-03-27] MEDS: Morphine 2 MG/ML VIAL SLOW IVP PRN ×2 (05:27→23:18)
[2020-03-27] MEDS: Mometasone 200 MCG/Formoterol 5 MCG 120 PUFF INHALER INH SCH ×2 (05:52→17:18)
[2020-03-27] MEDS ORDERED: Magnesium 2 GM/50 ML 2 GM in Premix Bag 1 BAG IVPB SCH (08:00)
[2020-03-27] MEDS ORDERED: Potassium Chloride 20 MEQ TAB PO SCH ×2 (08:00→09:15)
[2020-03-27] MEDS ORDERED: Electrolyte Replacement Protocol FS PRN (08:00)
[2020-03-27] MEDS: Nystatin 500,000 UNITS/5 ML UDCUP SSW SCH ×4 (09:38→20:18)
[2020-03-27] MEDS: Multivitamin W/ Minerals 1 TAB PO SCH (09:38)
[2020-03-27] MEDS: Anastrozole 1 MG TAB PO SCH (09:38)
[2020-03-27] MEDS: Apixaban 5 MG TAB PO SCH ×2 (09:38→20:18)
[2020-03-27] MEDS: DULoxetine 60 MG CAP PO SCH ×2 (09:38→20:18)
[2020-03-27] MEDS: predniSONE 20 MG TAB PO SCH (09:39)
[2020-03-27] MEDS: Cholecalciferol 1,000 UNITS (25 MCG) TAB PO SCH (09:39)
[2020-03-27] MEDS: Modafinil 100 MG TAB PO SCH (09:39)
[2020-03-27] MEDS: Insulin Glargine 25 UNITS in Pre-Filled Syringe 1 EACH SC SCH (09:40)
[2020-03-27] MEDS: Aspirin 81 mg Enteric Coated Tablet PO SCH (09:40)
[2020-03-27] MEDS: Famotidine 20 MG TAB PO SCH ×2 (09:40→20:18)
[2020-03-27] MEDS: NEFAZODONE HCL PO SCH ×2 (09:41→20:19)
[2020-03-27] MEDS: Benzonatate 100 MG CAP PO PRN ×2 (10:30→20:18)
--- NOTE | 2020-03-27 12:17 | PDOC.HOSPP ---
- Subjective Encounter Date: 03/27/20 Encounter Time: 10:00 Subjective: This morning patient is on BiPAP, patient is still short of breath, no fever, patient has dry cough while talking. - Objective Vital Signs & Weight: Vital Signs (12 hours) Pulse Ox 03/27/20 07:35 96 03/27/20 04:31 92 L Weight Admit Weight 216 lb 11.2 oz Weight 200 lb 1 oz Most Recent Monitor Data Heart Rate from ECG 102 NIBP 112/66 NIBP BP-Mean 81 Respiration from ECG 20 SpO2 98 I&O: 03/26/20 03/27/20 03/28/20 06:59 06:59 06:59 Intake Total 1280 1040 Output Total 1600 1800 Balance -320 -760 Result Diagrams: 03/27/20 03:30 03/27/20 03:30 Additional Labs: Accuchecks 03/27/20 03/26/20 03/26/20 05:36 20:12 12:01 POC Glucose 116 H 252 H 92 EKG Reviewed by me: Yes Hospitalist ROS - Review of Systems Constitutional: reports: weakness, malaise ENT: denies: ear pain, ear discharge, nose pain, nose discharge, nose congestion , mouth pain, mouth swelling, throat pain, throat swelling, other Respiratory: reports: cough, dry, shortness of breath, SOB with excertion. denies: hemoptysis, pleuritic pain, sputum, wheezing, other Cardiovascular: denies: chest pain, palpitations, orthopnea, paroxysmal noc. dyspnea, edema, light headedness, other Gastrointestinal: denies: nausea, vomiting, abdominal pain, diarrhea, constipation, melena, hematochezia, other Genitourinary: denies: dysuria, frequency, incontinence, hematuria, retention, other Musculoskeletal: denies: neck pain, shoulder pain, arm pain, back pain, hand pain, leg pain, foot pain, other - Medication Medications: Active Medications Generic Name Dose Route Start Last Admin Trade Name Freq PRN Reason Stop Dose Admin Albuterol Sulfate 2 puff 03/14/20 13:00 03/27/20 09:35 Proventil Hfa INH 2 puff [id number] IGGY Administration Anastrozole 1 mg 03/26/20 09:00 03/27/20 09:38 Arimidex PO 1 mg DAILY IGGY Administration Apixaban 5 mg 03/11/20 21:00 03/27/20 09:38 Eliquis PO 5 mg BID IGGY Administration Aspirin 81 mg 03/12/20 09:00 03/27/20 09:40 Ecotrin PO 81 mg DAILY IGGY Administration Benzonatate 100 mg 03/26/20 09:01 03/26/20 20:19 Tessalon PO 100 mg Q6H PRN Administration Cough Cholecalciferol 5,000 units 03/12/20 09:00 03/27/20 09:39 Vitamin D3 PO 5,000 units DAILY IGGY Administration Duloxetine HCl 60 mg 03/11/20 21:00 03/27/20 09:38 Cymbalta PO 60 mg BID IGGY Administration Famotidine 20 mg 03/17/20 09:00 03/27/20 09:40 Pepcid PO 20 mg BID IGGY Administration Fentanyl 25 mcg 03/27/20 01:56 03/27/20 02:00 Sublimaze SLOW IVP 03/28/20 01:57 25 mcg ONE PRN Administration Moderate Pain (4-6) Guaifenesin 200 mg 03/26/20 09:01 03/27/20 09:40 Robitussin Sf PO 200 mg Q4H PRN Administration Cough Insulin Glargine 25 units/ 0.25 mls @ 0 mls/hr 03/20/20 09:00 03/27/20 09:40 Miscellaneous Medication SC 0.25 mls QAM IGGY Administration Insulin Glargine 20 units/ 0.2 mls @ 0 mls/hr 03/20/20 21:00 03/26/20 20:01 Miscellaneous Medication SC 0.2 mls HS IGGY Administration Meropenem 1 gm/ Device 50 mls @ 100 mls/hr 03/24/20 01:00 03/27/20 09:38 IVPB 50 mls 0100,0900,1700 IGGY Administration Potassium Chloride 40 meq/ 270 mls @ 67.5 mls/hr 03/27/20 05:00 03/27/20 09: 51 Sodium Chloride IVPB 03/27/20 12:59 270 mls Q4H IGGY Administration Insulin Human Lispro 0 units 03/17/20 08:46 03/19/20 20:30 Humalog SC 4 unit .BEDTIME SLIDING SC PRN Administration Bedtime Correctional Scale Iron/Minerals/Multivitamins 1 tab 03/12/20 09:00 03/27/20 09:38 Theragran M PO 1 tab DAILY IGGY Administration Lorazepam 1 mg 03/27/20 02:05 03/27/20 02:16 Ativan SLOW IVP 03/28/20 02:06 1 mg ONE PRN Administration Anxiety/Agitation Modafinil 200 mg 03/12/20 09:00 03/27/20 09:39 Provigil PO 200 mg DAILY IGGY Administration Mometasone Furoate/Formoterol Fumar 2 puff 03/14/20 18:30 03/27/20 05:52 Dulera 200 Mcg/5 Mcg Inhaler INH Not Given BID-RT IGGY Morphine Sulfate 2 mg 03/27/20 04:34 03/27/20 05:27 Morphine SLOW IVP 2 mg Q4H PRN Administration Anxiety Nystatin 500,000 units 03/21/20 21:00 03/27/20 09:38 Mycostatin SSW 500,000 units QID IGGY Administration (Nefazodone Hcl [ 300 each 03/13/20 09:00 03/27/20 09:41 Nefazodone Hcl] 150 PO 300 each Mg) Tab BID IGGY Administration Prednisone 20 mg 03/22/20 08:00 03/27/20 09:39 Prednisone PO 20 mg QAM-WM IGGY Administration Rosuvastatin Calcium 20 mg 03/11/20 21:00 03/26/20 20:00 Crestor PO 20 mg HS IGGY Administration Sodium Chloride 10 ml 03/23/20 09:00 03/27/20 09:41 Flush - Normal Saline IVF 10 ml Q12HR IGGY Administration Sodium Chloride 10 ml 03/23/20 08:52 03/26/20 00:26 Flush - Normal Saline IVF 10 ml PRN PRN Administration Saline Flush Torsemide 20 mg 03/11/20 21:00 03/26/20 20:00 Demadex PO 20 mg HS IGGY Administration - Exam General Appearance: NAD, awake alert Eye: PERRL, anicteric sclera ENT: normocephalic atraumatic, no oropharyngeal lesions Neck: supple, symmetric, no JVD Heart: RRR, no murmur, no gallops Respiratory: no wheezes, no rales, no ronchi Respiratory - other findings: Coarse breath sounds at base Gastrointestinal: soft, non-tender, non-distended, normal bowel sounds Extremities: no cyanosis, no clubbing Skin: normal turgor, no lesions Neurological: no focal deficits Musculoskeletal: normal tone, normal strength Psychiatric: normal affect, normal behavior Hosp A/P - Plan old records reviewed/req, continue antibiotics, respiratory therapy Assessment Acute respiratory failure with hypoxia due to COVID-19 infection Viral pneumonia due to COVID-19 infection COVID-19 infection Thrombocytopenia and leukopenia due to COVID-19 infection improved Obesity with BMI 33 Hypertension Asthma/COPD Anxiety and depression Chronic anticoagulation Dyslipidemia History of right breast cancer History of pulmonary embolism Plan We will repeat chest x-ray tomorrow Continue BiPAP oxygen as tolerated Continue meropenem Today we will replace potassium We will repeat labs tomorrow Continue Eliquis As patient does not have any improvement over last several days we will ask pulmonology if there is any role of repeat convalescent plasma
[2020-03-27] MEDS: Torsemide 20 MG TAB PO SCH (20:18)
[2020-03-27] MEDS: Rosuvastatin 20 MG TAB PO SCH (20:18)
[2020-03-27] MEDS: Insulin Glargine 20 UNITS in Pre-Filled Syringe SC SCH (20:19)
[2020-03-28] MEDS: MEROPENEM 1 GM/50 ML 1 GM in Premix Bag 1 BAG IVPB SCH ×3 (01:20→16:39)
[2020-03-28] MEDS: Albuterol 200 PUFF (6.7GM INHALER) INH SCH ×4 (01:21→20:52)
[2020-03-28] MEDS: Morphine 2 MG/ML VIAL SLOW IVP PRN ×2 (03:38→11:31)
[2020-03-28 03:59] LABS: #Lymphocytes 0.2 thou/uL (1.20-3.40); #Monocytes 0.2 thou/uL (0.11-0.59); #Neutrophils 9.1 thou/uL (1.40-6.50); %Eosinophils 0.5 % (0.0-10.0); %Lymphocytes 2.1 % (21.0-51.0); %Monocytes 2.2 % (0.0-10.0); %Neutrophils 95.3 % (42.0-75.0); Hemoglobin 12.5 g/dL (12.0-16.0); Mean Corpuscular HGB CONC 33.3 g/dL (32.0-36.0); Mean Corpuscular Hemoglobin 31.5 pg (27.0-31.0); Mean Corpuscular Volume 94.5 fL (78.0-98.0); Mean Platelet Volume 8.2 fL (7.4-10.4); Platelet Count 243 thou/uL (130-400); RBC Distribution Width 13.6 % (11.5-14.5); Red Blood Cell (RBC) Count 3.97 mill/uL (4.20-5.40); White Blood Cell (WBC) Count 9.5 thou/uL (4.8-10.8)
[2020-03-28 04:11] LABS: Phosphorus 2.5 mg/dL (2.3-4.7)
[2020-03-28] MEDS: Benzonatate 100 MG CAP PO PRN ×3 (04:22→20:59)
[2020-03-28 04:25] LABS: ALT (SGPT) 34 U/L (8-55); AST (SGOT) 44 U/L (5-34); Albumin 2.9 g/dL (3.5-5.0); Alkaline Phosphatase 127 U/L (40-110); BUN (Urea Nitrogen) 24 mg/dL (9.8-20.1); Bilirubin, Total 0.3 mg/dL (0.2-1.2); Calc. Creatinine Clearance 126 mL/min (70-130); Calcium 10.1 mg/dL (7.8-10.44); Estimated GFR-MDRD 87; Globulin 3.8 g/dL (2.4-3.5); Glucose 72 mg/dL (70-105); Magnesium 2.3 mg/dL (1.6-2.6); Protein, Total 6.7 g/dL (6.0-8.3)
[2020-03-28 04:36] LABS: Anion Gap 18 mmol/L (10-20); Carbon Dioxide 33 mmol/L (22-29); Chloride 93 mmol/L (98-107); Potassium 3.1 mmol/L (3.5-5.1); Sodium 141 mmol/L (136-145)
[2020-03-28] MEDS ORDERED: Potassium Chloride 20 MEQ TAB PO SCH ×2 (04:45→06:45)
[2020-03-28] MEDS: Mometasone 200 MCG/Formoterol 5 MCG 120 PUFF INHALER INH SCH ×2 (05:30→18:23)
--- NOTE | 2020-03-28 06:28 | PRG ---
DATE OF SERVICE: 03/27/2020 SUBJECTIVE: Shanta continues on BiPAP. Her hemodynamics remain stable. OBJECTIVE: LUNGS: Unchanged. HEART: Unchanged. ABDOMEN: Unchanged. LABORATORY DATA: White count is 10.4, hemoglobin 14.1, and platelets 245. Electrolytes are unremarkable. ASSESSMENT AND PLAN: She is 2 weeks into her hospitalization. Inflammatory markers are still markedly elevated. Continue supportive care. Job ID: [id number]
--- NOTE | 2020-03-28 08:21 | RAD ---
RADIOGRAPH CHEST 1 VIEW: DATE: 03/28/2020 TIME: 5:07 AM HISTORY: 60 year old female COVID-19 positive. Follow-up infiltrates COMPARISON: 03/22/2020 FINDINGS: Severe alveolar infiltrates throughout the left lung, except for relative sparing of left apex. Dense opacification of right lung base and mid lung field appears worse with shallower inspiration on the current study compared to previous. Entire right upper lobe is relatively spared. No pneumothorax . Right subclavian central venous catheter remains. Multiple right axillary surgical clips are again noted. ACDF hardware in C-spine. Allowing for significant inspirational differences, there is p robably no major interval change. IMPRESSION: Severe left-sided infiltrates consistent with pneumonia, no major interval change
[2020-03-28] MEDS: Famotidine 20 MG TAB PO SCH ×2 (11:20→20:52)
[2020-03-28] MEDS: DULoxetine 60 MG CAP PO SCH ×2 (11:20→20:52)
[2020-03-28] MEDS: Apixaban 5 MG TAB PO SCH ×2 (11:20→20:52)
[2020-03-28] MEDS: Aspirin 81 mg Enteric Coated Tablet PO SCH (11:20)
[2020-03-28] MEDS: Multivitamin W/ Minerals 1 TAB PO SCH (11:20)
[2020-03-28] MEDS: Cholecalciferol 1,000 UNITS (25 MCG) TAB PO SCH (11:21)
[2020-03-28] MEDS: Modafinil 100 MG TAB PO SCH (11:21)
[2020-03-28] MEDS: Anastrozole 1 MG TAB PO SCH (11:21)
[2020-03-28] MEDS: Insulin Glargine 25 UNITS in Pre-Filled Syringe 1 EACH SC SCH (11:22)
[2020-03-28] MEDS: Nystatin 500,000 UNITS/5 ML UDCUP SSW SCH ×4 (11:22→20:51)
[2020-03-28] MEDS: NEFAZODONE HCL PO SCH ×2 (11:22→20:56)
--- NOTE | 2020-03-28 11:29 | PRG ---
DATE OF SERVICE: 03/28/2020 SUBJECTIVE: Shanta Servin is a 60-year-old female who is progressively getting worse. She is still on high-flow, FiO2 68%, 60 rate, OBJECTIVE: VITAL SIGNS: Sats 93%, blood pressure 139/59, pulse 84, respirations 24. CHEST: No wheezing. No crackles. CARDIAC: Normal S1, S2. No gallops. ABDOMEN: No masses. LABORATORY DATA: D-dimer is decreased. Lytes were improved. Her white count is down. X-ray still shows impressive left-sided infiltrate. ASSESSMENT: Respiratory failure, coronavirus positive pneumonia, history of breast cancer, and history of sleep apnea. PLAN: At this stage not much to offer. She is still on steroids, antibiotics. Supportive care. Prognosis remains guarded. Job ID: [id number]
--- NOTE | 2020-03-28 11:30 | PDOC.HOSPP ---
- Subjective Encounter Date: 03/28/20 Encounter Time: 09:50 Subjective: Patient is still on high flow oxygen, no overnight event, no new complaint, - Objective Vital Signs & Weight: Vital Signs (12 hours) Pulse Resp Pulse Ox 03/28/20 05:30 89 24 H 93 L 03/28/20 04:27 92 L 03/28/20 04:22 94 L 03/28/20 03:03 95 03/28/20 02:46 95 Weight Admit Weight 216 lb 11.2 oz Weight 196 lb 2 oz Most Recent Monitor Data Heart Rate from ECG 108 NIBP 115/89 NIBP BP-Mean 97 Respiration from ECG 24 SpO2 88 I&O: 03/27/20 03/28/20 03/29/20 06:59 06:59 06:59 Intake Total 1040 1350 Output Total 1800 1800 Balance -760 -450 Result Diagrams: 03/28/20 03:30 03/28/20 03:30 Additional Labs: Accuchecks 03/28/20 03/27/20 03/27/20 05:19 20:31 18:17 POC Glucose 71 172 H 141 H 03/27/20 11:24 POC Glucose 95 Radiology Reviewed by me: Yes (Chest x-ray reviewed) EKG Reviewed by me: Yes Hospitalist ROS - Review of Systems Constitutional: reports: weakness. denies: fever, chills, sweats, malaise, other ENT: denies: ear pain, ear discharge, nose pain, nose discharge, nose congestion , mouth pain, mouth swelling, throat pain, throat swelling, other Respiratory: reports: cough, shortness of breath, SOB with excertion. denies: dry, hemoptysis, pleuritic pain, sputum, wheezing, other Cardiovascular: denies: chest pain, palpitations, orthopnea, paroxysmal noc. dyspnea, edema, light headedness, other Gastrointestinal: denies: nausea, vomiting, abdominal pain, diarrhea, constipation, melena, hematochezia, other Genitourinary: denies: dysuria, frequency, incontinence, hematuria, retention, other Musculoskeletal: denies: neck pain, shoulder pain, arm pain, back pain, hand pain, leg pain, foot pain, other - Medication Medications: Active Medications Generic Name Dose Route Start Last Admin Trade Name Freq PRN Reason Stop Dose Admin Albuterol Sulfate 2 puff 03/14/20 13:00 03/28/20 11:22 Proventil Hfa INH 2 puff [id number] IGGY Administration Anastrozole 1 mg 03/26/20 09:00 03/28/20 11:21 Arimidex PO 1 mg DAILY IGGY Administration Apixaban 5 mg 03/11/20 21:00 03/28/20 11:20 Eliquis PO 5 mg BID IGGY Administration Aspirin 81 mg 03/12/20 09:00 03/28/20 11:20 Ecotrin PO 81 mg DAILY IGGY Administration Benzonatate 100 mg 03/26/20 09:01 03/28/20 04:22 Tessalon PO 100 mg Q6H PRN Administration Cough Cholecalciferol 5,000 units 03/12/20 09:00 03/28/20 11:21 Vitamin D3 PO 5,000 units DAILY IGGY Administration Duloxetine HCl 60 mg 03/11/20 21:00 03/28/20 11:20 Cymbalta PO 60 mg BID IGGY Administration Famotidine 20 mg 03/17/20 09:00 03/28/20 11:20 Pepcid PO 20 mg BID IGGY Administration Guaifenesin 200 mg 03/26/20 09:01 03/27/20 09:40 Robitussin Sf PO 200 mg Q4H PRN Administration Cough Insulin Glargine 25 units/ 0.25 mls @ 0 mls/hr 03/20/20 09:00 03/28/20 11:22 Miscellaneous Medication SC 0.25 mls QAM IGGY Administration Insulin Glargine 20 units/ 0.2 mls @ 0 mls/hr 03/20/20 21:00 03/27/20 20:19 Miscellaneous Medication SC 0.2 mls HS IGGY Administration Meropenem 1 gm/ Device 50 mls @ 100 mls/hr 03/24/20 01:00 03/28/20 11:21 IVPB 50 mls 0100,0900,1700 IGGY Administration Insulin Human Lispro 0 units 03/17/20 08:46 03/19/20 20:30 Humalog SC 4 unit .BEDTIME SLIDING SC PRN Administration Bedtime Correctional Scale Iron/Minerals/Multivitamins 1 tab 03/12/20 09:00 03/28/20 11:20 Theragran M PO 1 tab DAILY IGGY Administration Modafinil 200 mg 03/12/20 09:00 03/28/20 11:21 Provigil PO 200 mg DAILY IGGY Administration Mometasone Furoate/Formoterol Fumar 2 puff 03/14/20 18:30 03/28/20 05:30 Dulera 200 Mcg/5 Mcg Inhaler INH 2 puff BID-RT IGGY Administration Morphine Sulfate 2 mg 03/27/20 04:34 03/28/20 03:38 Morphine SLOW IVP 2 mg Q4H PRN Administration Anxiety Nystatin 500,000 units 03/21/20 21:00 03/28/20 11:22 Mycostatin SSW 500,000 units QID IGGY Administration (Nefazodone Hcl [ 300 each 03/13/20 09:00 03/28/20 11:22 Nefazodone Hcl] 150 PO 300 each Mg) Tab BID IGGY Administration Prednisone 20 mg 03/22/20 08:00 03/27/20 09:39 Prednisone PO 20 mg QAM-WM IGGY Administration Rosuvastatin Calcium 20 mg 03/11/20 21:00 03/27/20 20:18 Crestor PO 20 mg HS IGGY Administration Sodium Chloride 10 ml 03/23/20 09:00 03/28/20 11:22 Flush - Normal Saline IVF 10 ml Q12HR IGGY Administration Sodium Chloride 10 ml 03/23/20 08:52 03/27/20 23:19 Flush - Normal Saline IVF 10 ml PRN PRN Administration Saline Flush Torsemide 20 mg 03/11/20 21:00 03/27/20 20:18 Demadex PO 20 mg HS IGGY Administration - Exam General Appearance: NAD, awake alert Eye: PERRL, anicteric sclera ENT: normocephalic atraumatic, no oropharyngeal lesions Neck: supple, symmetric, no JVD Heart: RRR, no murmur, no gallops, no rubs Respiratory: no wheezes, no ronchi Respiratory - other findings: Few basilar rales noted predominantly on the left side Gastrointestinal: soft, non-tender, non-distended, normal bowel sounds Extremities: no cyanosis, no clubbing Skin: normal turgor, no lesions Neurological: no focal deficits Musculoskeletal: normal tone, normal strength Psychiatric: normal affect, normal behavior Hosp A/P - Plan old records reviewed/req, continue antibiotics, respiratory therapy Assessment Acute respiratory failure with hypoxia due to COVID-19 infection Viral pneumonia due to COVID-19 infection COVID-19 infection Thrombocytopenia and leukopenia due to COVID-19 infection improved Obesity with BMI 33 Hypertension Asthma/COPD Anxiety and depression Chronic anticoagulation Dyslipidemia History of right breast cancer History of pulmonary embolism Plan Chest x-ray reviewed and still has severe infiltration on the left side, continue meropenem Continue BiPAP as tolerated Wean off oxygen as tolerated Potassium replaced Continue Eliquis
[2020-03-28] MEDS: predniSONE 20 MG TAB PO SCH (11:31)
[2020-03-28] MEDS: Rosuvastatin 20 MG TAB PO SCH (20:52)
[2020-03-28] MEDS: Torsemide 20 MG TAB PO SCH (20:53)
[2020-03-28] MEDS: Insulin Glargine 20 UNITS in Pre-Filled Syringe SC SCH (20:54)
[2020-03-29] MEDS: MEROPENEM 1 GM/50 ML 1 GM in Premix Bag 1 BAG IVPB SCH ×2 (00:06→09:26)
[2020-03-29] MEDS: Albuterol 200 PUFF (6.7GM INHALER) INH SCH ×3 (00:09→14:32)
[2020-03-29] MEDS: Benzonatate 100 MG CAP PO PRN (04:24)
[2020-03-29] MEDS: Mometasone 200 MCG/Formoterol 5 MCG 120 PUFF INHALER INH SCH ×2 (06:28→23:12)
[2020-03-29] MEDS: Modafinil 100 MG TAB PO SCH (08:19)
[2020-03-29] MEDS: NEFAZODONE HCL PO SCH ×2 (09:23→19:39)
[2020-03-29] MEDS: Nystatin 500,000 UNITS/5 ML UDCUP SSW SCH ×4 (09:24→19:38)
[2020-03-29] MEDS: predniSONE 20 MG TAB PO SCH (09:24)
[2020-03-29] MEDS: Anastrozole 1 MG TAB PO SCH (09:24)
[2020-03-29] MEDS: Apixaban 5 MG TAB PO SCH ×2 (09:24→19:38)
[2020-03-29] MEDS: Cholecalciferol 1,000 UNITS (25 MCG) TAB PO SCH (09:24)
[2020-03-29] MEDS: Aspirin 81 mg Enteric Coated Tablet PO SCH (09:25)
[2020-03-29] MEDS: Insulin Glargine 25 UNITS in Pre-Filled Syringe 1 EACH SC SCH (09:25)
[2020-03-29] MEDS: Famotidine 20 MG TAB PO SCH ×2 (09:25→19:38)
[2020-03-29] MEDS: Multivitamin W/ Minerals 1 TAB PO SCH (09:25)
[2020-03-29] MEDS: DULoxetine 60 MG CAP PO SCH ×2 (09:30→19:38)
--- NOTE | 2020-03-29 10:33 | PDOC.HOSPP ---
- Subjective Encounter Date: 03/29/20 Encounter Time: 09:40 Subjective: Patient seen and examined bedside today, no overnight event, no new complaint, overall patient is doing better, - Objective Vital Signs & Weight: Vital Signs (12 hours) Temp Pulse Ox 03/29/20 08:14 92 L 03/29/20 08:00 93 L 03/29/20 06:20 98.2 F 03/29/20 05:45 98.5 F 03/29/20 04:00 98.7 F 03/29/20 00:00 98.1 F Weight Admit Weight 216 lb 11.2 oz Weight 199 lb Most Recent Monitor Data Heart Rate from ECG 97 NIBP 113/83 NIBP BP-Mean 93 Respiration from ECG 19 SpO2 86 I&O: 03/28/20 03/29/20 03/30/20 06:59 06:59 06:59 Intake Total 1350 1040 Output Total 1800 1600 Balance -450 -560 Result Diagrams: 03/28/20 03:30 03/28/20 03:30 Additional Labs: Accuchecks 03/29/20 03/28/20 03/28/20 06:02 21:08 11:46 POC Glucose 106 248 H 120 H EKG Reviewed by me: Yes Hospitalist ROS - Review of Systems Constitutional: reports: weakness. denies: fever, chills, sweats, malaise, other Respiratory: reports: cough, shortness of breath. denies: dry, hemoptysis, SOB with excertion, pleuritic pain, sputum, wheezing, other Cardiovascular: denies: chest pain, palpitations, orthopnea, paroxysmal noc. dyspnea, edema, light headedness, other Gastrointestinal: denies: nausea, vomiting, abdominal pain, diarrhea, constipation, melena, hematochezia, other Genitourinary: denies: dysuria, frequency, incontinence, hematuria, retention, other Musculoskeletal: denies: neck pain, shoulder pain, arm pain, back pain, hand pain, leg pain, foot pain, other - Medication Medications: Active Medications Generic Name Dose Route Start Last Admin Trade Name Freq PRN Reason Stop Dose Admin Albuterol Sulfate 2 puff 03/14/20 13:00 03/29/20 06:28 Proventil Hfa INH Not Given [id number] IGGY Anastrozole 1 mg 03/26/20 09:00 03/29/20 09:24 Arimidex PO 1 mg DAILY IGGY Administration Apixaban 5 mg 03/11/20 21:00 03/29/20 09:24 Eliquis PO 5 mg BID IGGY Administration Aspirin 81 mg 03/12/20 09:00 03/29/20 09:25 Ecotrin PO 81 mg DAILY IGGY Administration Benzonatate 100 mg 03/26/20 09:01 03/29/20 04:24 Tessalon PO 100 mg Q6H PRN Administration Cough Cholecalciferol 5,000 units 03/12/20 09:00 03/29/20 09:24 Vitamin D3 PO 5,000 units DAILY IGGY Administration Duloxetine HCl 60 mg 03/11/20 21:00 03/29/20 09:30 Cymbalta PO 60 mg BID IGGY Administration Famotidine 20 mg 03/17/20 09:00 03/29/20 09:25 Pepcid PO 20 mg BID IGGY Administration Guaifenesin 200 mg 03/26/20 09:01 03/27/20 09:40 Robitussin Sf PO 200 mg Q4H PRN Administration Cough Insulin Glargine 25 units/ 0.25 mls @ 0 mls/hr 03/20/20 09:00 03/29/20 09:25 Miscellaneous Medication SC 0.25 mls QAM IGGY Administration Insulin Glargine 20 units/ 0.2 mls @ 0 mls/hr 03/20/20 21:00 03/28/20 20:54 Miscellaneous Medication SC 0.2 mls HS IGGY Administration Meropenem 1 gm/ Device 50 mls @ 100 mls/hr 03/24/20 01:00 03/29/20 09:26 IVPB 50 mls 0100,0900,1700 IGGY Administration Insulin Human Lispro 0 units 03/17/20 08:46 03/19/20 20:30 Humalog SC 4 unit .BEDTIME SLIDING SC PRN Administration Bedtime Correctional Scale Iron/Minerals/Multivitamins 1 tab 03/12/20 09:00 03/29/20 09:25 Theragran M PO 1 tab DAILY IGGY Administration Modafinil 200 mg 03/12/20 09:00 03/29/20 08:19 Provigil PO Not Given DAILY [facility] Mometasone Furoate/Formoterol Fumar 2 puff 03/14/20 18:30 03/29/20 06:28 Dulera 200 Mcg/5 Mcg Inhaler INH Not Given BID-RT IGGY Morphine Sulfate 2 mg 03/27/20 04:34 03/28/20 11:31 Morphine SLOW IVP 2 mg Q4H PRN Administration Anxiety Nystatin 500,000 units 03/21/20 21:00 03/29/20 09:24 Mycostatin SSW 500,000 units QID IGGY Administration (Nefazodone Hcl [ 300 each 03/13/20 09:00 03/29/20 09:23 Nefazodone Hcl] 150 PO 300 each Mg) Tab BID IGGY Administration Prednisone 20 mg 03/22/20 08:00 03/29/20 09:24 Prednisone PO 20 mg QAM-WM IGGY Administration Rosuvastatin Calcium 20 mg 03/11/20 21:00 03/28/20 20:52 Crestor PO 20 mg HS IGGY Administration Sodium Chloride 10 ml 03/23/20 09:00 03/29/20 09:25 Flush - Normal Saline IVF 10 ml Q12HR IGGY Administration Sodium Chloride 10 ml 03/23/20 08:52 03/27/20 23:19 Flush - Normal Saline IVF 10 ml PRN PRN Administration Saline Flush - Exam General Appearance: NAD, awake alert Eye: PERRL, anicteric sclera ENT: normocephalic atraumatic, no oropharyngeal lesions Neck: supple, symmetric, no JVD, no thyromegaly Heart: RRR, no murmur, no gallops, no rubs Respiratory: no wheezes, no rales, no ronchi Respiratory - other findings: Reduced air entry at bases Gastrointestinal: soft, non-tender, non-distended, normal bowel sounds Extremities: no cyanosis, no clubbing Skin: normal turgor, no lesions Neurological: no focal deficits Musculoskeletal: normal tone, normal strength Psychiatric: normal affect, normal behavior Hosp A/P - Plan old records reviewed/req, continue antibiotics, respiratory therapy Assessment Acute respiratory failure with hypoxia due to COVID-19 infection Viral pneumonia due to COVID-19 infection COVID-19 infection Thrombocytopenia and leukopenia due to COVID-19 infection improved Obesity with BMI 33 Hypertension Asthma/COPD Anxiety and depression Chronic anticoagulation Dyslipidemia History of right breast cancer History of pulmonary embolism Plan Patient has received a convalescent plasma Continue meropenem Continue BiPAP as needed Wean off oxygen as tolerated Continue Eliquis
--- NOTE | 2020-03-29 10:33 | PRG ---
DATE OF SERVICE: 03/29/2020 SUBJECTIVE: A 60-year-old female remains in the MICU on high-flow rate of 60, 80%, sats are 92%, blood pressure 108/88, respiratory rate 18. CHEST: Without crackles or rhonchi. CARDIAC: Normal S1. No gallops. ABDOMEN: No mass. ASSESSMENT: Hernandez positive pneumonia, bilateral bronchopneumonia, breast cancer status post radiation and chemo. PLAN: She has a second bag of convalescent plasma. She is on broad-spectrum antibiotics, steroids. Supportive care. PT. Continue to follow. Concerned the condition not getting much better. One-half hour of critical time. Job ID: [id number]
[2020-03-29] MEDS ORDERED: PROPOFOL 200 MG/20 ML VIAL ONE (11:43)
[2020-03-29] MEDS ORDERED: Succinylcholine Chloride 20 MG/ML 10 ml SYRINGE FS ONE (11:43)
[2020-03-29] MEDS: Morphine 2 MG/ML VIAL SLOW IVP PRN (13:15)
[2020-03-29 13:21] LABS: Actual Bicarbonate (HCO3a) 32.9 mEq/L (22-28); Base Excess (BEa) 8.8 mEq/L (-2.0 to +3.0); CO2 Tension 42.9 mmHg (35.0-45.0); Calcium, Ionized (arterial) 1.28 mmol/L (1.12-1.30); Carboxyhemoglobin (COHb) 0.4 gm% (0.0-3.0); Hemoglobin (Hb) 15.4 g/dL (12.0-16.0); Potassium - ABG Lab 3.72 mmol/L (3.70-5.30)
[2020-03-29 13:25] LABS: O2 Tension (PaO2), arterial 34.9 mmHg (80.0-100.0); Puncture Site LRA
[2020-03-29 13:26] LABS: ALV-art Gradient 624.475 (0-20)
[2020-03-29] MEDS ORDERED: Lorazepam 2 MG/ML VIAL ONE (13:32)
--- NOTE | 2020-03-29 13:42 | RAD ---
EXAM: CHEST ONE VIEW: 03/29/20 HISTORY: Shortness of breath. COMPARISON: 03/28/20. FINDINGS: Again noted are extensive alveolar and ground glass opacity changes in both lungs, more prominent in the left lung and also in the right lower lobe, evidence for overall stable bilateral COVID pneumonia . IMPRESSION: Evidence for stable bilateral COVID pneumonia, worse in the left lung than the right. Continued short term follow-up. POS: OFF
[2020-03-29] MEDS ORDERED: Vecuronium Bromide 20 MG VIAL IV PRN (13:52)
[2020-03-29] MEDS ORDERED: Morphine 2 MG/ML VIAL SLOW IVP PRN (13:58)
[2020-03-29] MEDS ORDERED: DISCONTINUE PREVIOUS NARCOTIC PAIN MEDICATIONS AND BENZODIAZEPINES FS SCH (13:58)
[2020-03-29] MEDS ORDERED: Fentanyl BOLUS 250 ML IVPB PRN (13:58)
[2020-03-29] MEDS ORDERED: Propofol BOLUS 1,000 MG/100 ML VIAL IV PRN (13:58)
[2020-03-29] MEDS ORDERED: Ventilator Sedation Protocol 1 EACH FS SCH (14:00)
[2020-03-29] MEDS ORDERED: Lorazepam 2 MG/ML VIAL SLOW IVP SCH (14:00)
[2020-03-29] MEDS ORDERED: Propofol 1,000 MG/100 ML VIAL IV ONE (14:10)
[2020-03-29 14:19] LABS: SARS-CoV-2 MS2 Positive; SARS-CoV-2 N Gene Positive; SARS-CoV-2 S Gene Positive; SARS-CoV-2 by NAA DETECTED (NotDetected); SARS-CoV-2 orf1ab Positive
--- NOTE | 2020-03-29 14:26 | PDOC.PALPN ---
Palliative Progress Note - Subjective On Bipap, respiratory distress. Attempted to discuss with patient and . Subsequent intubation. Unable to fully address ROS secondary to respiratory compromise and increase in lethargy - Objective Vital Signs: Vital Signs - Most Recent Temp Pulse Resp BP Pulse Ox 97.9 F 89 24 H 102/77 92 L 03/29/20 12:00 03/28/20 05:30 03/28/20 05:30 03/28/20 14:45 03/29/20 08:14 - Physical Exam Constitutional: ill appearing, moderate distress HEENT: EOMI, moist MMs, sclera anicteric Respiratory: accessory muscle use, diminished lung sound, labored respirations Deviation from normal: Tachycardic Gastrointestinal: soft, non-tender, positive bowel sounds Deviation from normal: obese Genitourinary: incontinent Deviation from normal: Mottled extremitites Neurology: moves all 4 limbs Deviation from normal: cool, pallor Psychiatric: A&O x 3 Deviation from normal: However as assessment and conversation progressed became lethargic - Assessment (1) Palliative care encounter Code(s): Z51.5 - ENCOUNTER FOR PALLIATIVE CARE Current Visit: Yes Status: Acute (2) Acute respiratory failure with hypoxia Code(s): J96.01 - ACUTE RESPIRATORY FAILURE WITH HYPOXIA Current Visit: Yes Status: Acute (3) Pneumonia due to COVID-19 virus Code(s): U07.1 - COVID-19; J12.89 - OTHER VIRAL PNEUMONIA Current Visit: Yes Status: Acute (4) H/O malignant neoplasm of breast Code(s): Z85.3 - PERSONAL HISTORY OF MALIGNANT NEOPLASM OF BREAST Current Visit: Yes Status: Chronic (5) Obesity (BMI 30-39.9) Code(s): E66.9 - OBESITY, UNSPECIFIED Current Visit: Yes Status: Chronic - Plan Plan: Lengthy conversation with patient and via phone. Reviewed respiratory decline. Patient initially expressed she did not desire to be intubated, however wanted her to be in agreement. Patient became lethargic and not longer decisional, elected to seek intubation with hopes of meaningful recovery. Emotional support offered. Ativan for increase in anxiety. Spiritual care consult place, communicated with [place]. Communicated with Dr Reynoso. [35] minutes spent on this encounter with >50% of the time in counseling and coordination of care. - ROS Non Response: due to mental status
--- NOTE | 2020-03-29 14:26 | PRG ---
DATE OF SERVICE: 03/29/2020 SUBJECTIVE: This is a one-half hour of critical care time on this 60-year-old female, who this afternoon became progressively worse. At 1316 hours today, her PO2 was 34, pCO2 was 42, pH 7.50, on a BiPAP 100%. X-ray shows bilateral infiltrates worsening, very hypoxic very anxious. I spoke to her at length, who is unclear whether she wants to be intubated. We went into check with the patient in the room. We told that she needs to be intubated. She is 60 years old. I spoke to her oncologist yesterday, who thinks the breast cancer is in remission. Therefore, we are going to intubate her, in prone position. Continue steroids, broad-spectrum antibiotics. The patient is agreed to be intubated. OBJECTIVE: VITAL SIGNS: Pulse was 120, saturations were 78 on 100%, respirations 30. CHEST: Rhonchi and crackles. No wheezing. CARDIAC: Sinus tach. ABDOMEN: Soft. IMPRESSION: Progressive respiratory failure, bennett positive pneumonia, history of breast cancer in remission, major anxiety. She will be intubated, will be proning, on steroids and antibiotics. Supportive care. Prognosis is guarded. I told the we will give her several days before we make any additional decisions regarding her care. This is one-half hour of critical time. Job ID: [id number]
[2020-03-29] MEDS ORDERED: Vecuronium 10 MG VIAL ONE ×3 (14:55→22:46)
--- NOTE | 2020-03-29 14:55 | RAD ---
CHEST 1 VIEW: HISTORY: Intubated patient. COMPARISON: Radiograph same day. FINDINGS: The patient is rotated to the left. Endotracheal tube tip is above the level of the clavicles. Multifocal airspace opacities are similar. Enteric tube tip below the diaphragm out of the field of view. Right subclavian central venous catheter tip projects over the right atrium. IMPRESSION: Satisfactory location of the endotracheal tube. POS: [facility]
[2020-03-29 15:03] LABS: Actual Bicarbonate (HCO3a) 27.6 mEq/L (22-28); Base Excess (BEa) 5.6 mEq/L (-2.0 to +3.0); Calcium, Ionized (arterial) 1.19 mmol/L (1.12-1.30); Carboxyhemoglobin (COHb) 0.1 gm% (0.0-3.0); Hemoglobin (Hb) 14.1 g/dL (12.0-16.0)
[2020-03-29 15:04] LABS: O2 Tension (PaO2), arterial 53.5 mmHg (80.0-100.0); pH, Arterial 7.55 (7.35-7.45)
[2020-03-29] MEDS: fentaNYL Citrate/PF 2,000 MCG in Sodium Chloride 0.9% 60 ML IV SCH (16:57)
[2020-03-29] MEDS: Propofol 1,000 MG/100 ML VIAL IV PRN (17:09)
[2020-03-29] MEDS: methylPREDNISolone Sod Succ/PF 125 MG/2 ML VIAL IVP SCH ×2 (17:10→22:49)
[2020-03-29] MEDS: Meropenem 1 GM in Sodium Chloride 0.9% 100 ML IVPB SCH ×2 (17:10→22:48)
[2020-03-29] MEDS: Rosuvastatin 20 MG TAB PO SCH (19:38)
[2020-03-29] MEDS: Insulin Glargine 20 UNITS in Pre-Filled Syringe SC SCH (21:44)
[2020-03-29] MEDS ORDERED: Sterile Water 0 ML ONE (22:16)
[2020-03-30] MEDS: Vecuronium 10 MG VIAL IV PRN ×4 (01:57→22:25)
[2020-03-30] MEDS: Propofol 1,000 MG/100 ML VIAL IV PRN ×5 (01:59→23:57)
[2020-03-30] MEDS: methylPREDNISolone Sod Succ/PF 125 MG/2 ML VIAL IVP SCH ×4 (04:52→22:25)
[2020-03-30 05:18] LABS: #Lymphocytes 0.1 thou/uL (1.20-3.40); #Monocytes 0.1 thou/uL (0.11-0.59); #Neutrophils 9.1 thou/uL (1.40-6.50); %Basophils 0.2 % (0.0-1.0); %Eosinophils 0.5 % (0.0-10.0); %Lymphocytes 1.2 % (21.0-51.0); %Monocytes 0.9 % (0.0-10.0); %Neutrophils 97.3 % (42.0-75.0); Hemoglobin 12.6 g/dL (12.0-16.0); Mean Corpuscular HGB CONC 31.5 g/dL (32.0-36.0); Mean Corpuscular Hemoglobin 30.1 pg (27.0-31.0); Mean Corpuscular Volume 95.5 fL (78.0-98.0); Mean Platelet Volume 8.2 fL (7.4-10.4); Platelet Count 257 thou/uL (130-400); RBC Distribution Width 13.6 % (11.5-14.5); Red Blood Cell (RBC) Count 4.18 mill/uL (4.20-5.40); White Blood Cell (WBC) Count 9.4 thou/uL (4.8-10.8)
[2020-03-30 05:33] LABS: Anion Gap 12 mmol/L (10-20); BUN (Urea Nitrogen) 35 mg/dL (9.8-20.1); Calc. Creatinine Clearance 120 mL/min (70-130); Calcium 9.9 mg/dL (7.8-10.44); Carbon Dioxide 34 mmol/L (22-29); Chloride 96 mmol/L (98-107); Estimated GFR-MDRD 84; Glucose 208 mg/dL (70-105); Potassium 3.7 mmol/L (3.5-5.1); Sodium 138 mmol/L (136-145)
[2020-03-30] MEDS: Mometasone 200 MCG/Formoterol 5 MCG 120 PUFF INHALER INH SCH ×2 (07:40→18:31)
[2020-03-30 07:46] LABS: Actual Bicarbonate (HCO3a) 32.4 mEq/L (22-28); Base Excess (BEa) 6.8 mEq/L (-2.0 to +3.0); Calcium, Ionized (arterial) 1.33 mmol/L (1.12-1.30); Carboxyhemoglobin (COHb) 0.1 gm% (0.0-3.0); Hemoglobin (Hb) 13.9 g/dL (12.0-16.0); O2 Tension (PaO2), arterial 111.3 mmHg (80.0-100.0); Potassium - ABG Lab 3.71 mmol/L (3.70-5.30); pH, Arterial 7.43 (7.35-7.45)
[2020-03-30 07:52] LABS: Puncture Site RRAD
--- NOTE | 2020-03-30 07:53 | RAD ---
EXAM: Single view of the chest HISTORY: Ventilated patient with respiratory failure COMPARISON: 03/29/2020 FINDINGS: Single view of the chest shows a normal sized cardiomediastinal silhouette. The lines and tubes are unchanged in position. There are stable multifocal infiltrates in the lungs. Degenerative and postsurgical changes are seen in the spine. IMPRESSION: Stable multifocal pneumonia
[2020-03-30] MEDS: Famotidine 20 MG TAB PO SCH ×2 (08:12→21:20)
[2020-03-30] MEDS: Aspirin 81 mg Enteric Coated Tablet PO SCH (08:12)
[2020-03-30] MEDS: Multivitamin W/ Minerals 1 TAB PO SCH (08:12)
[2020-03-30] MEDS: DULoxetine 60 MG CAP PO SCH ×2 (08:12→21:21)
[2020-03-30] MEDS: Meropenem 1 GM in Sodium Chloride 0.9% 100 ML IVPB SCH (08:14)
[2020-03-30] MEDS: Insulin Glargine 25 UNITS in Pre-Filled Syringe 1 EACH SC SCH (08:14)
[2020-03-30] MEDS: Anastrozole 1 MG TAB PO SCH (08:20)
[2020-03-30] MEDS: Nystatin 500,000 UNITS/5 ML UDCUP SSW SCH ×5 (08:20→21:19)
[2020-03-30] MEDS: Cholecalciferol 1,000 UNITS (25 MCG) TAB PO SCH (08:20)
[2020-03-30] MEDS: Apixaban 5 MG TAB PO SCH ×2 (08:20→21:19)
[2020-03-30] MEDS: NEFAZODONE HCL PO SCH ×2 (08:22→21:21)
[2020-03-30] MEDS: Modafinil 100 MG TAB PO SCH (09:21)
--- NOTE | 2020-03-30 10:27 | PRG ---
DATE OF SERVICE: 03/30/2020 SUBJECTIVE: A 60-year-old female, who was intubated yesterday. Progressive respiratory failure, vented, sedated, paralyzed in prone position. OBJECTIVE: VITAL SIGNS: Pulse 82, blood pressure 109/78, sats 90%, respiratory rate 18, I's and O's consistently even. CHEST: No wheezing. No crackles. CARDIAC: Normal S1, S2. No gallops. ABDOMEN: No masses. LABORATORY DATA: White count 9,000, H and H 12 and 39, platelet count 57. PO2 of 111, pCO2 of 50, pH 7.43, rate of 28, 80% bilevel. Lytes are normal. Bicarb is 34. Her BNP was only 44.6 yesterday. ASSESSMENT: Respiratory failure, bennett positive pneumonia, history of breast cancer in remission, hypercoagulable state. She is on Eliquis, nutrition, PT, supportive care. We will continue prone position for 16 hours, supine position for 8 hours. Over the next several days until she improves otherwise, neb treatment, supportive care, PT, broad-spectrum antibiotics. She received a second dose of convalescent plasma. Prognosis remains guarded. One-half hour of critical time. Job ID: [id number]
[2020-03-30] MEDS: Sodium Chloride 0.9% 1,000 ML IV SCH ×3 (11:15→18:00)
[2020-03-30] MEDS: HumaLOG 300 UNITS/3 ML VIAL SC PRN ×5 (13:06→22:20)
[2020-03-30] MEDS: Lorazepam 2 MG/ML VIAL SLOW IVP PRN (14:53)
[2020-03-30] MEDS: MEROPENEM 1 GM/50 ML 1 GM in Premix Bag 1 BAG IVPB SCH ×2 (16:16→23:58)
--- NOTE | 2020-03-30 17:34 | PDOC.EVN ---
Event Note - Event Note Event Note: Non billable note only, limited visitation secondary to PPE shortage. Intubated , sedated, in prone position. COVID PNA. On appropriate medical therapy. Intubated 03/29/2020. Prognosis guarded.
[2020-03-30] MEDS: Rosuvastatin 20 MG TAB PO SCH (21:19)
[2020-03-30] MEDS: Insulin Glargine 20 UNITS in Pre-Filled Syringe SC SCH (21:22)
[2020-03-30] MEDS ORDERED: Sterile Water 0 ML ONE (22:24)
[2020-03-30] MEDS ORDERED: Sterile Water 10 ML ONE (22:27)
[2020-03-31 04:22] LABS: #Lymphocytes 0.2 thou/uL (1.20-3.40); #Monocytes 0.1 thou/uL (0.11-0.59); #Neutrophils 9.9 thou/uL (1.40-6.50); %Eosinophils 0.3 % (0.0-10.0); %Lymphocytes 1.8 % (21.0-51.0); %Monocytes 1.3 % (0.0-10.0); %Neutrophils 96.6 % (42.0-75.0); Hemoglobin 11.9 g/dL (12.0-16.0); Mean Corpuscular HGB CONC 32.8 g/dL (32.0-36.0); Mean Corpuscular Hemoglobin 30.9 pg (27.0-31.0); Mean Corpuscular Volume 94.1 fL (78.0-98.0); Mean Platelet Volume 8.2 fL (7.4-10.4); Platelet Count 235 thou/uL (130-400); RBC Distribution Width 13.4 % (11.5-14.5); Red Blood Cell (RBC) Count 3.85 mill/uL (4.20-5.40); White Blood Cell (WBC) Count 10.3 thou/uL (4.8-10.8)
[2020-03-31 04:37] LABS: Anion Gap 9 mmol/L (10-20); BUN (Urea Nitrogen) 29 mg/dL (9.8-20.1); Calc. Creatinine Clearance 124 mL/min (70-130); Calcium 10.2 mg/dL (7.8-10.44); Carbon Dioxide 35 mmol/L (22-29); Chloride 97 mmol/L (98-107); Estimated GFR-MDRD 87; Glucose 209 mg/dL (70-105); Potassium 3.6 mmol/L (3.5-5.1); Sodium 137 mmol/L (136-145)
[2020-03-31] MEDS: Propofol 1,000 MG/100 ML VIAL IV PRN ×4 (05:38→16:48)
[2020-03-31] MEDS: methylPREDNISolone Sod Succ/PF 125 MG/2 ML VIAL IVP SCH ×4 (05:39→23:04)
[2020-03-31] MEDS: Sodium Chloride 0.9% 1,000 ML IV SCH ×2 (06:07→08:44)
[2020-03-31] MEDS: Lorazepam 2 MG/ML VIAL SLOW IVP PRN ×2 (06:11→08:42)
[2020-03-31] MEDS: Mometasone 200 MCG/Formoterol 5 MCG 120 PUFF INHALER INH SCH ×2 (07:26→19:34)
[2020-03-31 08:18] LABS: Actual Bicarbonate (HCO3a) 27.6 mEq/L (22-28); Analyzer IN Cardio OR; Base Excess (BEa) 3.6 mEq/L (-2.0 to +3.0); CO2 Tension 39.4 mmHg (35.0-45.0); Calcium, Ionized (arterial) 1.33 mmol/L (1.12-1.30); Carboxyhemoglobin (COHb) 1.2 gm% (0.0-3.0); Hemoglobin (Hb) 14.3 g/dL (12.0-16.0); O2 Tension (PaO2), arterial 77.4 mmHg (80.0-100.0); Potassium - ABG Lab 3.62 mmol/L (3.70-5.30); pH, Arterial 7.46 (7.35-7.45)
--- NOTE | 2020-03-31 08:18 | PDOC.PALPN ---
Palliative Progress Note - Subjective Proned, intubated, sedated. - Objective Vital Signs: Vital Signs - Most Recent Temp Pulse Resp BP Pulse Ox 97.5 F L 70 16 104/79 94 L 03/30/20 20:00 03/31/20 07:27 03/31/20 06:00 03/31/20 07:27 03/31/20 00:38 - Physical Exam Constitutional: ill appearing HEENT: moist MMs, sclera anicteric Respiratory: no wheezing, diminished lung sound Deviation from normal: mechanical ventilation Cardiovascular: RRR Gastrointestinal: incontinent Deviation from normal: obese Genitourinary: carrillo catheter Musculoskeletal: edema present, diffuse muscle atrophy Neurology: no focal deficits Deviation from normal: sedated Skin: no lesions, no rash Deviation from normal: mottled lower extremities Deviation from normal: encephalopathic, sedated - Assessment (1) Palliative care encounter Code(s): Z51.5 - ENCOUNTER FOR PALLIATIVE CARE Current Visit: Yes Status: Acute (2) Acute respiratory failure with hypoxia Code(s): J96.01 - ACUTE RESPIRATORY FAILURE WITH HYPOXIA Current Visit: Yes Status: Acute (3) Pneumonia due to COVID-19 virus Code(s): U07.1 - COVID-19; J12.89 - OTHER VIRAL PNEUMONIA Current Visit: Yes Status: Acute (4) H/O malignant neoplasm of breast Code(s): Z85.3 - PERSONAL HISTORY OF MALIGNANT NEOPLASM OF BREAST Current Visit: Yes Status: Chronic (5) Obesity (BMI 30-39.9) Code(s): E66.9 - OBESITY, UNSPECIFIED Current Visit: Yes Status: Chronic - Plan Plan: Palliative care continues to provide supportive care. Communicated with patient , reviewed need for intubation. Initiated conversation in relation to revisiting DNAR status, in the event aggressive cardiac measures would be indicated while intubated. Will continue to have conversations in relation to status, prognosis, and revisit Goal of Care and resuscitation status depending on patient response to therapies and treatments. Emotional support and therapeutic listening to . Spiritual care also seeing. [25] minutes spent on this encounter with >50% of the time in counseling and coordination of care. - ROS Non Response: due to endotracheal tube, due to mental status
[2020-03-31 08:32] LABS: Puncture Site LR
[2020-03-31] MEDS: Aspirin 81 mg Enteric Coated Tablet PO SCH (08:41)
[2020-03-31] MEDS: DULoxetine 60 MG CAP PO SCH ×2 (08:41→20:35)
[2020-03-31] MEDS: Nystatin 500,000 UNITS/5 ML UDCUP SSW SCH ×4 (08:41→20:34)
[2020-03-31] MEDS: Insulin Glargine 25 UNITS in Pre-Filled Syringe 1 EACH SC SCH (08:41)
[2020-03-31] MEDS: Multivitamin W/ Minerals 1 TAB PO SCH (08:41)
[2020-03-31] MEDS: Apixaban 5 MG TAB PO SCH ×2 (08:42→20:35)
[2020-03-31] MEDS: Famotidine 20 MG TAB PO SCH ×2 (08:42→20:34)
[2020-03-31] MEDS: Anastrozole 1 MG TAB PO SCH (08:42)
[2020-03-31] MEDS: Cholecalciferol 1,000 UNITS (25 MCG) TAB PO SCH (08:42)
[2020-03-31] MEDS: MEROPENEM 1 GM/50 ML 1 GM in Premix Bag 1 BAG IVPB SCH ×2 (08:44→16:50)
[2020-03-31] MEDS: NEFAZODONE HCL PO SCH ×2 (08:45→20:34)
--- NOTE | 2020-03-31 09:13 | RAD ---
PORTABLE CHEST: Date: 03/31/2020 HISTORY: COVID-positive pneumonia follow-up. COMPARISON: Prior day's study. FINDINGS: Endotracheal and NG tubes are in satisfactory position. NG tubes are in satisfactory position. Right subclavian line is unchanged in position. Parenchymal infiltrates are stable. IMPRESSION: Stable exam. POS: OFF
[2020-03-31] MEDS: Modafinil 100 MG TAB PO SCH (10:24)
--- NOTE | 2020-03-31 13:30 | PRG ---
DATE OF SERVICE: 03/31/2020 SUBJECTIVE: Shanta Servin this morning, remains intubated in the vent, prone position. OBJECTIVE: VITAL SIGNS: Pulse 80, blood pressure 130/80, saturations are 98% on a PEEP of 10, 70%, respiratory rate 16. Her I's and O's have been even. CHEST: No wheezing. No crackles. CARDIAC: Normal S1 and S2. No gallops. ABDOMEN: No masses. LABORATORY DATA: White count 10,000, H and H are 11.9 and 36, platelet count is normal. PO2 of 77, pCO2 of 39, pH 7.46. Creatinine and BUN are normal. Glucose 209. ASSESSMENT: 1. Respiratory failure. 2. Hernandez positive pneumonia. 3. History of breast cancer. 4. Deconditioning. PLAN: I will discontinue the prone position today. Continue all supportive care, PT, nutrition, antibiotics, steroids. CRITICAL CARE TIME: One-half hour of critical care time. Job ID: [id number]
[2020-03-31] MEDS: Vecuronium 10 MG VIAL IV PRN ×2 (13:31→23:04)
--- NOTE | 2020-03-31 14:38 | PDOC.EVN ---
Event Note - Event Note Event Note: Non billable note only. Patient seen from distance to preserve PPE supplies. Called patients , time was given for questions, all answered in detail. Add Infectious disease consultation. Reviewed medications, agree with current therapy. Continue Eliquis, steroids, and antibiotics for maximum medical therapy. Prognosis guarded.
[2020-03-31] MEDS: HumaLOG 300 UNITS/3 ML VIAL SC PRN ×2 (17:45→21:25)
[2020-03-31] MEDS: Insulin Glargine 20 UNITS in Pre-Filled Syringe SC SCH (20:34)
[2020-03-31] MEDS: Rosuvastatin 20 MG TAB PO SCH (20:35)
[2020-04-01] MEDS: MEROPENEM 1 GM/50 ML 1 GM in Premix Bag 1 BAG IVPB SCH ×3 (00:14→16:43)
[2020-04-01] MEDS: fentaNYL Citrate/PF 2,000 MCG in Sodium Chloride 0.9% 60 ML IV SCH ×2 (00:15→18:19)
[2020-04-01] MEDS: Sodium Chloride 0.9% 1,000 ML IV SCH ×3 (02:19→22:48)
[2020-04-01] MEDS: Propofol 1,000 MG/100 ML VIAL IV PRN ×4 (02:23→22:18)
[2020-04-01] MEDS: Lorazepam 2 MG/ML VIAL SLOW IVP PRN (04:04)
[2020-04-01 04:33] LABS: #Lymphocytes 0.2 thou/uL (1.20-3.40); #Monocytes 0.2 thou/uL (0.11-0.59); #Neutrophils 10.2 thou/uL (1.40-6.50); %Eosinophils 0.4 % (0.0-10.0); %Lymphocytes 1.6 % (21.0-51.0); Hemoglobin 11.7 g/dL (12.0-16.0); Mean Corpuscular HGB CONC 32.9 g/dL (32.0-36.0); Mean Corpuscular Hemoglobin 30.9 pg (27.0-31.0); Mean Corpuscular Volume 94.1 fL (78.0-98.0); Mean Platelet Volume 8.5 fL (7.4-10.4); Platelet Count 223 thou/uL (130-400); RBC Distribution Width 13.2 % (11.5-14.5); Red Blood Cell (RBC) Count 3.78 mill/uL (4.20-5.40); White Blood Cell (WBC) Count 10.7 thou/uL (4.8-10.8)
[2020-04-01 04:51] LABS: Anion Gap 11 mmol/L (10-20); BUN (Urea Nitrogen) 28 mg/dL (9.8-20.1); Calc. Creatinine Clearance 131 mL/min (70-130); Calcium 10.1 mg/dL (7.8-10.44); Carbon Dioxide 32 mmol/L (22-29); Chloride 97 mmol/L (98-107); Estimated GFR-MDRD 89; Glucose 228 mg/dL (70-105); Potassium 3.8 mmol/L (3.5-5.1); Sodium 136 mmol/L (136-145)
[2020-04-01] MEDS: methylPREDNISolone Sod Succ/PF 125 MG/2 ML VIAL IVP SCH ×3 (05:23→18:19)
[2020-04-01] MEDS: HumaLOG 300 UNITS/3 ML VIAL SC PRN ×4 (05:30→21:36)
[2020-04-01] MEDS: Mometasone 200 MCG/Formoterol 5 MCG 120 PUFF INHALER INH SCH ×2 (07:08→19:04)
[2020-04-01 07:47] LABS: Actual Bicarbonate (HCO3a) 29.3 mEq/L (22-28); Analyzer IN Cardio ER; Base Excess (BEa) 4.6 mEq/L (-2.0 to +3.0); CO2 Tension 43.4 mmHg (35.0-45.0); Calcium, Ionized (arterial) 1.34 mmol/L (1.12-1.30); Carboxyhemoglobin (COHb) 0.3 gm% (0.0-3.0); Hemoglobin (Hb) 14.1 g/dL (12.0-16.0); O2 Tension (PaO2), arterial 73.4 mmHg (80.0-100.0); Potassium - ABG Lab 3.82 mmol/L (3.70-5.30); pH, Arterial 7.45 (7.35-7.45)
--- NOTE | 2020-04-01 07:50 | RAD ---
EXAM: Single view of the chest HISTORY: Ventilated patient with respiratory failure COMPARISON: 03/31/2020 FINDINGS: Single view of the chest shows a normal sized cardiomediastinal silhouette. The lines and tubes are unchanged in position. Stable multifocal infiltrates are seen in the lungs. The bones are unremarkable IMPRESSION: Stable multifocal pneumonia
[2020-04-01 08:14] LABS: Puncture Site RBRACH
[2020-04-01] MEDS ORDERED: Budesonide 0.25 MG/2 ML NEB ONE (09:03)
[2020-04-01] MEDS: Anastrozole 1 MG TAB PO SCH (09:10)
[2020-04-01] MEDS: Nystatin 500,000 UNITS/5 ML UDCUP SSW SCH ×4 (09:10→20:56)
[2020-04-01] MEDS: Multivitamin W/ Minerals 1 TAB PO SCH (09:11)
[2020-04-01] MEDS: DULoxetine 60 MG CAP PO SCH ×2 (09:11→20:56)
[2020-04-01] MEDS: Insulin Glargine 25 UNITS in Pre-Filled Syringe 1 EACH SC SCH (09:11)
[2020-04-01] MEDS: Apixaban 5 MG TAB PO SCH ×2 (09:11→20:55)
[2020-04-01] MEDS: Famotidine 20 MG TAB PO SCH ×2 (09:11→20:56)
[2020-04-01] MEDS: NEFAZODONE HCL PO SCH ×2 (09:12→20:58)
[2020-04-01] MEDS: Aspirin 81 mg Enteric Coated Tablet PO SCH (09:46)
[2020-04-01] MEDS: Cholecalciferol 1,000 UNITS (25 MCG) TAB PO SCH (09:46)
[2020-04-01] MEDS: Modafinil 100 MG TAB PO SCH (09:48)
--- NOTE | 2020-04-01 09:48 | PRG ---
DATE OF SERVICE: 04/01/2020 HISTORY: A 60-year-old female, who remains in the ICU, intubated in the vent. She is somewhat better. No longer during the prone position. PHYSICAL EXAMINATION: VITAL SIGNS: Pulse 87, blood pressure 180/80, saturations 90% on 40% and PEEP of 10. I's and O's have been consistently even. CHEST: No wheezing. No crackles. CARDIAC: Normal S1 and S2. LABORATORY DATA: Unremarkable. PO2 of 73 and pCO2 . Lytes are normal. Renal function still looks good. X-ray still looks bilateral infiltrates, left greater than right. ASSESSMENT: Respiratory failure, acute respiratory distress syndrome, bennett positive pneumonia, history of breast cancer in apparently remission, probably superimposed hospital pneumonia, though cultures are negative. Continue anticoagulation, antibiotic, and steroids. Start decreasing steroids in the next several days. Minimize sedation. One-half hour of critical care time. Job ID: [id number]
--- NOTE | 2020-04-01 11:41 | CON ---
DATE OF CONSULTATION: 04/01/2020 REASON FOR CONSULTATION: COVID pneumonia. HISTORY OF PRESENT ILLNESS: A 60-year-old patient, who has a history of hyperlipidemia, hypertension, breast cancer in remission, and prior CVA, who was admitted on March 11 because of worsening dyspnea, cough, and fever. She had been sick for about one week before the admission, but the symptoms worsened three or four days prior to the admitting date. She had some pleuritic chest pain, not much sputum production. The initial findings included BP 160/105, pulse 122, respirations 40, temperature 101.4, and O2 saturations were 94. On the exam, the patient appeared unwell, in distress. She was alert and oriented. The lung exam showed clear to auscultation lung sounds. Heart exam showed tachycardia, but no other findings of significance. The abdomen was nontender and not distended. Initial findings; white cell count 6.7, hemoglobin 13.8, platelets 116,000, and 94% neutrophils. D-dimer was 3.26. Initial chemistry demonstrated a sodium 136 and creatinine 0.73. Liver profile was normal. Albumin 3.5. Urinalysis was essentially normal except for some proteinuria. She had a COVID RNA PCR positive on March 11. Initial imaging from March 11 demonstrated extensive bilateral alveolar and ground-glass opacity changes and similar findings on CT scan as well. She was given cefepime, inhalers, mometasone/formoterol, Decadron, Remdesivir, and Eliquis. Among other medications, she was given torsemide as well. She was managed with high- flow nasal cannula O2 until March 29 and after that, she had to be intubated and has been intubated since. Just completed Remdesivir and at the moment, she is receiving inhalers, Eliquis, Dulcolax, Tessalon, dextrose, fentanyl, and sedatives. She is now in a prone position. She is receiving a flow of 60 L/minute of oxygen and she has a PEEP of 10 and she is maintaining O2 saturations ranging from 94 to 100. The latest chest x-ray demonstrated diffuse bilateral infiltrates, more prominent on the left side, but also present on the right side. The is interested in trying this new experimental product, which we discussed below and I think that is the main intent of the consult to see if I can offer any other alternates to management including this new experimental product. She has not had diarrhea. She has Gallego catheter in place. PAST MEDICAL HISTORY: Includes 1. Breast cancer in remission. She had a PET scan done in October 2019 and that showed no evidence of residual or recurrent neoplasm. 2. History of hypertension. 3. Hyperlipidemia. 4. Prior CVA. 5. Fibromyalgia. 6. Pulmonary embolism. PAST SURGICAL HISTORY: 1. Mastectomy. 2. Adenoidectomy. 3. Hysterectomy. 4. Tonsillectomy. 5. Cervical disk surgery. SOCIAL HISTORY: She is a never smoker. . FAMILY HISTORY: Noncontributory. MEDICATIONS: Medications had been listed above. PHYSICAL EXAMINATION: CURRENT VITAL SIGNS: T-max is 98.2, BP was 86/66, heart rate 86, respiratory rate 21, and O2 saturation 96 with a FiO2 of 40. The delivery method is mechanical ventilator. SKIN: Shows an area of blistering under the chin in the anterior neck area. There is no evidence of inflammatory changes. The base of the area is pink and there are no abnormalities. She has a right-sided subclavian central line catheter with no inflammatory changes noticeable. Gallego catheter. HEENT: The pupils are mildly constricted as expected. Orotracheal intubation. LUNGS: Symmetric coarse breath sounds. HEART: S1 and S2. Regular rate. No S3 or S4. ABDOMEN: Soft, not distended or tender. No ascites. No bladder distention. EXTREMITIES: Extremities seem to be well perfused. Pulses 1+ in dorsalis pedis. Some edema in the extremities. No joint inflammatory activity noted. The exam is not feasible due to sedation. LABORATORY DATA: The latest values and labs, the white cell count is 5.7, hemoglobin 12.8, platelets 120, and 97% neutrophils. The D-dimer went up to 14 on March 19 and now is down to 2.89. The last pH of 7.46, pCO2 of 39, and pO2 of 77 and the last chemistry profile demonstrated sodium 136, creatinine 0.68, CO2 of 32, glucose 194, and calcium 10.1. The last C-reactive protein was 27 on March 27. The last ferritin was 2500 on March 27. Urinalysis normal. Microbiology with 2 sets of blood cultures on admission, which are no growth in 5 days. Urine culture, no growth at 48 hours on admission as well. ASSESSMENT: 1. Hypertension and breast cancer in remission after mastectomy and treatment. Last PET scan was in October this year with no recurrent disease noticeable. 2. COVID-19 infection. This is 26th day following the onset of symptoms, she has been treated with Remdesivir and Decadron and has required mechanical ventilation for the past many days, prone positioning. She has diffuse bilateral pulmonary infiltrates. The O2 requirements had decreased somewhat of late down from 60 to 40. She has been diuresed as well. DISCUSSION: The patient has reached the phase where there is not any more viral replication. The longest viral replication has been identified even in the very sick patients at 21 days following the onset of symptoms. So right now, we are dealing with the aftermath of the whole process with diffuse alveolar damage, angiogenesis, microthrombi, and possibly some element of fibrosis as well has been identified frequently in those severe cases. Some patients develop so much lung parenchymal destruction that they have required lung transplantation particularly young once. There is a new experimental medication, which is an analogue of vasoactive intestinal peptide, which two different companies are using, two different products of the same, naturally existing protein or peptide to administer to patient's with ARDS associated with COVID. This product has been used in ARDS or tried in ARDS in the past with an inconsistent results. The idea is because the VIP or vasoactive intestinal peptide affects the type 2 pneumocytes and potentially it could increase production of surfactant that might improve the ventilatory results of those patients with severe illness. It has been administered to a number of patients. There are two or three trials ongoing. One has enrolled about 160 patients and the other about 200 patients and the expected time of completion of trial is at the end of the year. It has also been used in an expanded protocol regimen for the patients that are not eligible to participate in the trials and there has been some excitement because of some anecdotal reports of "miracle cures" associated with this administration. We have always to be very careful with anecdotal reports and I cannot overemphasize the fact that numerous products have been tried over the decades or centuries in an anecdotal circumstance, which have been proven not to be effective later on when proper randomized control trials were implemented, the results showed that actually there was no efficacy. I am willing to try to contact the company to try to obtain the drug and evidently if she were to participate in the study, only one of the studies would probably allow her to be admitted, the other one she is too sick for the study. I think that she would be randomized, so would not necessarily be receiving the active product since the comparatory is standard care and that might be an issue with the patient's . I am not in favor of administering experimental medications, but I would not oppose trying to in view of the critical nature of this process in this lady and the fact that the mortality rate at this stage is higher than the 50%. The other issue is the high doses of corticosteroids. We will probably encourage tapering/decreasing that dosage to decrease the risk of infectious complications associated with the high-dose corticosteroids in these patients. She will be at risk for further nosocomial complications including line infection, pneumonia, and thromboembolism and she is already on proper management for those possible complications. Job ID: [id number] MTDD
--- NOTE | 2020-04-01 12:26 | PDOC.EVN ---
Event Note - Event Note Event Note: Non billable note only. Seen from a distance to preserve PPE. ID consult, recommendations appreciated. Pulm/ CC consult, recommendations appreciated. Medications and labs reviewed. On appropriate maximum medical therapy. Will continue to follow and aid as able.
[2020-04-01] MEDS: Insulin Glargine 20 UNITS in Pre-Filled Syringe SC SCH (20:54)
[2020-04-01] MEDS: Rosuvastatin 20 MG TAB PO SCH (20:55)
[2020-04-02] MEDS: MEROPENEM 1 GM/50 ML 1 GM in Premix Bag 1 BAG IVPB SCH ×4 (00:46→19:52)
[2020-04-02] MEDS: methylPREDNISolone Sod Succ/PF 125 MG/2 ML VIAL IVP SCH ×3 (00:47→13:22)
[2020-04-02] MEDS: Propofol 1,000 MG/100 ML VIAL IV PRN ×3 (05:17→19:47)
[2020-04-02] MEDS: HumaLOG 300 UNITS/3 ML VIAL SC PRN ×3 (05:41→22:15)
[2020-04-02 05:48] LABS: #Eosinphils 0.1 thou/uL (0.0-0.7); #Lymphocytes 0.2 thou/uL (1.20-3.40); #Monocytes 0.2 thou/uL (0.11-0.59); #Neutrophils 8.9 thou/uL (1.40-6.50); %Basophils 0.1 % (0.0-1.0); %Eosinophils 0.5 % (0.0-10.0); %Lymphocytes 1.7 % (21.0-51.0); %Monocytes 1.8 % (0.0-10.0); %Neutrophils 95.9 % (42.0-75.0); Hemoglobin 10.9 g/dL (12.0-16.0); Mean Corpuscular Hemoglobin 31.1 pg (27.0-31.0); Mean Corpuscular Volume 94.1 fL (78.0-98.0); Mean Platelet Volume 8.4 fL (7.4-10.4); Platelet Count 195 thou/uL (130-400); RBC Distribution Width 13.2 % (11.5-14.5); Red Blood Cell (RBC) Count 3.51 mill/uL (4.20-5.40); White Blood Cell (WBC) Count 9.3 thou/uL (4.8-10.8)
[2020-04-02 06:20] LABS: Anion Gap 8 mmol/L (10-20); BUN (Urea Nitrogen) 32 mg/dL (9.8-20.1); Calc. Creatinine Clearance 133 mL/min (70-130); Calcium 9.9 mg/dL (7.8-10.44); Carbon Dioxide 33 mmol/L (22-29); Chloride 100 mmol/L (98-107); Estimated GFR-MDRD 90; Glucose 235 mg/dL (70-105); Potassium 4.5 mmol/L (3.5-5.1); Sodium 136 mmol/L (136-145)
[2020-04-02] MEDS: Mometasone 200 MCG/Formoterol 5 MCG 120 PUFF INHALER INH SCH ×2 (07:01→18:42)
[2020-04-02 07:33] LABS: Actual Bicarbonate (HCO3a) 28.2 mEq/L (22-28); Base Excess (BEa) 2.6 mEq/L (-2.0 to +3.0); CO2 Tension 47.7 mmHg (35.0-45.0); Calcium, Ionized (arterial) 1.36 mmol/L (1.12-1.30); Carboxyhemoglobin (COHb) 0.3 gm% (0.0-3.0); Hemoglobin (Hb) 12.9 g/dL (12.0-16.0); O2 Tension (PaO2), arterial 64.4 mmHg (80.0-100.0); Potassium - ABG Lab 4.45 mmol/L (3.70-5.30); pH, Arterial 7.39 (7.35-7.45)
[2020-04-02 07:49] LABS: Puncture Site RBRACH
[2020-04-02 07:50] LABS: ALV-art Gradient 161.175 (0-20)
[2020-04-02] MEDS: DULoxetine 60 MG CAP PO SCH ×2 (11:23→19:48)
[2020-04-02] MEDS: Famotidine 20 MG TAB PO SCH ×2 (11:23→19:48)
[2020-04-02] MEDS: Aspirin 81 mg Enteric Coated Tablet PO SCH (11:23)
[2020-04-02] MEDS: Anastrozole 1 MG TAB PO SCH (11:23)
[2020-04-02] MEDS: Nystatin 500,000 UNITS/5 ML UDCUP SSW SCH ×4 (11:23→19:48)
[2020-04-02] MEDS: Multivitamin W/ Minerals 1 TAB PO SCH (11:24)
[2020-04-02] MEDS: Cholecalciferol 1,000 UNITS (25 MCG) TAB PO SCH (11:24)
[2020-04-02] MEDS: NEFAZODONE HCL PO SCH ×2 (11:24→19:49)
[2020-04-02] MEDS: Apixaban 5 MG TAB PO SCH ×2 (11:24→19:48)
[2020-04-02] MEDS: Insulin Glargine 25 UNITS in Pre-Filled Syringe 1 EACH SC SCH (11:24)
[2020-04-02] MEDS: Modafinil 100 MG TAB PO SCH (11:56)
--- NOTE | 2020-04-02 13:08 | PDOC.EVN ---
Event Note - Event Note Event Note: Non billable note. Seen from a distance to preserve PPE. On vent, sedated. Reviewed labs and imaging. Appreciate recommendations from specialists. Agree with plan of care. Will continue to follow and aid as able.
[2020-04-02] MEDS: fentaNYL Citrate/PF 2,000 MCG in Sodium Chloride 0.9% 60 ML IV SCH (13:57)
[2020-04-02] MEDS: Lorazepam 2 MG/ML VIAL SLOW IVP PRN (14:34)
--- NOTE | 2020-04-02 14:59 | PRG ---
DATE OF SERVICE: 04/02/2020 HISTORY OF PRESENT ILLNESS: She remains ventilator dependent for her COVID pneumonia. Settings this morning had included rate of 10, tidal volume 450, and oxygen 40%. I have reduced the rate from 10 to 8. We are in a very slow phase of wean. PHYSICAL EXAMINATION: VITAL SIGNS: Blood pressure 114/73, heart rate 64, saturation 99%, respiratory rate 19. GENERAL: She remains sedated and agitated when her sedation is lessened. LUNGS: Show rhonchi bilaterally. There is no wheezing. HEART: Regular rate and rhythm. ABDOMEN: Soft without organomegaly. Bowel sounds are normal. EXTREMITIES: She has trace to 1+ pretibial edema. LABORATORY DATA: White count 9300, hemoglobin is 10.9 with hematocrit 33, and platelet count 195,000. Electrolytes include sodium 136, potassium 4.5, chloride 100, CO2 of 33, BUN 32, creatinine 0.7. Blood gas; pH 7.39, CO2 of 48, PO2 of 92, bicarbonate 28. Chest x-ray shows bilateral patchy consolidations. IMPRESSION: COVID pneumonia, ventilator dependent. PLAN: We will continue current support with gradual weaning of rate and FiO2 as tolerated. At this point, she is making very, very slow progress and hopefully will continue to do so. The length of continued intubation is difficult to project. She may ultimately require tracheostomy. Critical care 30 minutes. Job ID: [id number]
[2020-04-02] MEDS: Sodium Chloride 0.9% 1,000 ML IV SCH (18:30)
[2020-04-02] MEDS: methylPREDNISolone Sod Succ 40 MG VIAL IVP SCH (18:30)
[2020-04-02] MEDS: Insulin Glargine 20 UNITS in Pre-Filled Syringe SC SCH (19:40)
[2020-04-02] MEDS: Rosuvastatin 20 MG TAB PO SCH (19:48)
[2020-04-03] MEDS: Lorazepam 2 MG/ML VIAL SLOW IVP PRN ×4 (00:43→21:12)
[2020-04-03] MEDS: methylPREDNISolone Sod Succ 40 MG VIAL IVP SCH ×5 (00:43→21:11)
[2020-04-03] MEDS: Propofol 1,000 MG/100 ML VIAL IV PRN ×4 (02:40→21:54)
[2020-04-03] MEDS: MEROPENEM 1 GM/50 ML 1 GM in Premix Bag 1 BAG IVPB SCH ×3 (04:16→21:10)
[2020-04-03] MEDS: HumaLOG 300 UNITS/3 ML VIAL SC PRN ×4 (04:35→21:53)
[2020-04-03 04:40] LABS: #Lymphocytes 0.1 thou/uL (1.20-3.40); #Monocytes 0.2 thou/uL (0.11-0.59); #Neutrophils 7.2 thou/uL (1.40-6.50); %Eosinophils 0.4 % (0.0-10.0); %Lymphocytes 1.8 % (21.0-51.0); %Monocytes 2.1 % (0.0-10.0); %Neutrophils 95.6 % (42.0-75.0); Hemoglobin 10.8 g/dL (12.0-16.0); Mean Corpuscular HGB CONC 33.2 g/dL (32.0-36.0); Mean Corpuscular Hemoglobin 31.1 pg (27.0-31.0); Mean Corpuscular Volume 93.7 fL (78.0-98.0); Mean Platelet Volume 8.3 fL (7.4-10.4); Platelet Count 178 thou/uL (130-400); RBC Distribution Width 13.2 % (11.5-14.5); Red Blood Cell (RBC) Count 3.48 mill/uL (4.20-5.40); White Blood Cell (WBC) Count 7.5 thou/uL (4.8-10.8)
[2020-04-03 05:03] LABS: Anion Gap 8 mmol/L (10-20); BUN (Urea Nitrogen) 29 mg/dL (9.8-20.1); Calc. Creatinine Clearance 156 mL/min (70-130); Calcium 9.6 mg/dL (7.8-10.44); Carbon Dioxide 33 mmol/L (22-29); Chloride 100 mmol/L (98-107); Estimated GFR-MDRD Greater than 90; Glucose 223 mg/dL (70-105); Potassium 4.6 mmol/L (3.5-5.1); Sodium 136 mmol/L (136-145)
[2020-04-03] MEDS: fentaNYL Citrate/PF 2,000 MCG in Sodium Chloride 0.9% 60 ML IV SCH ×2 (07:00→23:35)
[2020-04-03] MEDS: Mometasone 200 MCG/Formoterol 5 MCG 120 PUFF INHALER INH SCH ×2 (07:17→18:52)
[2020-04-03 07:18] LABS: Actual Bicarbonate (HCO3a) 27.6 mEq/L (22-28); Base Excess (BEa) 3.1 mEq/L (-2.0 to +3.0); CO2 Tension 42.2 mmHg (35.0-45.0); Calcium, Ionized (arterial) 1.37 mmol/L (1.12-1.30); Carboxyhemoglobin (COHb) 0.3 gm% (0.0-3.0); Hemoglobin (Hb) 12.9 g/dL (12.0-16.0); Potassium - ABG Lab 4.98 mmol/L (3.70-5.30); pH, Arterial 7.43 (7.35-7.45)
[2020-04-03 07:22] LABS: O2 Tension (PaO2), arterial 59.8 mmHg (80.0-100.0)
[2020-04-03 07:23] LABS: Puncture Site RBRACH
[2020-04-03] MEDS: Famotidine 20 MG TAB PO SCH ×2 (08:32→21:10)
[2020-04-03] MEDS: Aspirin 81 mg Enteric Coated Tablet PO SCH (08:32)
[2020-04-03] MEDS: DULoxetine 60 MG CAP PO SCH ×2 (08:32→21:10)
[2020-04-03] MEDS: Multivitamin W/ Minerals 1 TAB PO SCH (08:32)
[2020-04-03] MEDS: Cholecalciferol 1,000 UNITS (25 MCG) TAB PO SCH (08:35)
[2020-04-03] MEDS: Apixaban 5 MG TAB PO SCH ×2 (08:38→21:18)
[2020-04-03] MEDS: Anastrozole 1 MG TAB PO SCH (08:38)
[2020-04-03] MEDS: Nystatin 500,000 UNITS/5 ML UDCUP SSW SCH ×4 (08:38→21:10)
[2020-04-03] MEDS: NEFAZODONE HCL PO SCH ×2 (08:59→21:10)
[2020-04-03] MEDS: Insulin Glargine 25 UNITS in Pre-Filled Syringe 1 EACH SC SCH (08:59)
[2020-04-03] MEDS: Modafinil 100 MG TAB PO SCH (09:16)
--- NOTE | 2020-04-03 09:20 | PRG ---
DATE OF SERVICE: 04/03/2020 SUBJECTIVE: Ms. Servin continues to receive ventilatory support. Her current settings include a rate of 8, tidal volume 450, PEEP of 9, and FiO2 of 0.4. She is tolerating this well. Hemodynamically, she is stable. PHYSICAL EXAMINATION: VITAL SIGNS: Blood pressure 125/87, heart rate 61, saturations 97% on ventilator with FiO2 40%. HEENT: Negative. LUNGS: Show bilateral coarse rhonchi without wheezes. Her spontaneous volumes approximately 350. HEART: Regular rate and rhythm. ABDOMEN: Soft. There is no organomegaly. Bowel sounds are normal. EXTREMITIES: She has 1+ edema. LABORATORY DATA: White count 7500, hemoglobin is 10.8 with hematocrit of 32.6, and platelet count of 178,000. Blood gas today includes pH 7.43, CO2 42, PO2 of 60, and bicarbonate 24. Electrolytes include sodium 136, potassium 4.6, chloride 100, CO2 is 33, BUN 29, and creatinine 0.6. Chest x-ray is not obtained today. IMPRESSION: COVID pneumonia with associated respiratory failure. PLAN: She will continue with ventilatory support at current levels. If things look a little better this afternoon, we might consider a reduction in her rate; however, her tolerance is difficult to assess. Critical care 30 minutes. Job ID: [id number]
--- NOTE | 2020-04-03 11:50 | PDOC.EVN ---
Event Note - Event Note Event Note: Non billable note. Seen from a distance to preserve PPE. Overall clinically about the same. Intubated, sedated. Reviewed labs, imaging, and notes from other providers. Agree with current plan of care. Will continue to follow and aid as able.
[2020-04-03] MEDS: Sodium Chloride 0.9% 1,000 ML IV SCH (17:07)
[2020-04-03] MEDS: Rosuvastatin 20 MG TAB PO SCH (21:18)
[2020-04-03] MEDS: Insulin Glargine 20 UNITS in Pre-Filled Syringe SC SCH (21:52)
[2020-04-04 05:43] LABS: #Lymphocytes 0.1 thou/uL (1.20-3.40); #Monocytes 0.2 thou/uL (0.11-0.59); #Neutrophils 6.8 thou/uL (1.40-6.50); %Basophils 0.4 % (0.0-1.0); %Eosinophils 0.6 % (0.0-10.0); %Monocytes 3.2 % (0.0-10.0); %Neutrophils 93.9 % (42.0-75.0); Hemoglobin 10.9 g/dL (12.0-16.0); Mean Corpuscular HGB CONC 32.3 g/dL (32.0-36.0); Mean Corpuscular Hemoglobin 30.5 pg (27.0-31.0); Mean Corpuscular Volume 94.4 fL (78.0-98.0); Platelet Count 162 thou/uL (130-400); RBC Distribution Width 13.3 % (11.5-14.5); Red Blood Cell (RBC) Count 3.56 mill/uL (4.20-5.40); White Blood Cell (WBC) Count 7.2 thou/uL (4.8-10.8)
[2020-04-04] MEDS: methylPREDNISolone Sod Succ 40 MG VIAL IVP SCH ×2 (06:03→20:42)
[2020-04-04] MEDS: MEROPENEM 1 GM/50 ML 1 GM in Premix Bag 1 BAG IVPB SCH ×3 (06:03→20:41)
[2020-04-04 06:05] LABS: Anion Gap 6 mmol/L (10-20); BUN (Urea Nitrogen) 26 mg/dL (9.8-20.1); Calc. Creatinine Clearance 174 mL/min (70-130); Calcium 9.2 mg/dL (7.8-10.44); Carbon Dioxide 33 mmol/L (22-29); Chloride 101 mmol/L (98-107); Estimated GFR-MDRD Greater than 90; Glucose 233 mg/dL (70-105); Potassium 4.9 mmol/L (3.5-5.1); Sodium 135 mmol/L (136-145)
[2020-04-04 07:11] LABS: Actual Bicarbonate (HCO3a) 30.7 mEq/L (22-28); Base Excess (BEa) 5.6 mEq/L (-2.0 to +3.0); CO2 Tension 46.9 mmHg (35.0-45.0); Calcium, Ionized (arterial) 1.35 mmol/L (1.12-1.30); Carboxyhemoglobin (COHb) 0.3 gm% (0.0-3.0); Hemoglobin (Hb) 12.6 g/dL (12.0-16.0); O2 Tension (PaO2), arterial 65.2 mmHg (80.0-100.0); Potassium - ABG Lab 4.71 mmol/L (3.70-5.30); pH, Arterial 7.43 (7.35-7.45)
[2020-04-04 07:12] LABS: Puncture Site RRA
[2020-04-04 07:13] LABS: ALV-art Gradient 161.375 (0-20)
[2020-04-04] MEDS: Mometasone 200 MCG/Formoterol 5 MCG 120 PUFF INHALER INH SCH ×2 (07:13→18:47)
[2020-04-04] MEDS: Apixaban 5 MG TAB PO SCH ×2 (08:48→20:40)
[2020-04-04] MEDS: Nystatin 500,000 UNITS/5 ML UDCUP SSW SCH ×4 (08:48→20:40)
[2020-04-04] MEDS: Cholecalciferol 1,000 UNITS (25 MCG) TAB PO SCH (08:48)
[2020-04-04] MEDS: Lorazepam 2 MG/ML VIAL SLOW IVP PRN ×2 (08:48→18:56)
[2020-04-04] MEDS: Aspirin 81 mg Enteric Coated Tablet PO SCH (08:49)
[2020-04-04] MEDS: Famotidine 20 MG TAB PO SCH ×2 (08:49→20:39)
[2020-04-04] MEDS: DULoxetine 60 MG CAP PO SCH ×2 (08:49→20:39)
[2020-04-04] MEDS: Anastrozole 1 MG TAB PO SCH (08:49)
[2020-04-04] MEDS: Insulin Glargine 25 UNITS in Pre-Filled Syringe 1 EACH SC SCH (08:49)
[2020-04-04] MEDS: Multivitamin W/ Minerals 1 TAB PO SCH (08:51)
[2020-04-04] MEDS: NEFAZODONE HCL PO SCH ×2 (08:52→20:43)
[2020-04-04] MEDS: Modafinil 100 MG TAB PO SCH (09:07)
--- NOTE | 2020-04-04 09:27 | RAD ---
EXAM: Single view of the chest HISTORY: Ventilated patient with respiratory failure COMPARISON: 04/01/2020 FINDINGS: Single view of the chest shows a normal sized cardiomediastinal silhouette. The lines and tubes are unchanged in position. Stable multifocal opacities are seen in the lungs. No pleural effusion is seen. Hardware is seen in the cervical spine. IMPRESSION: Stable multifocal pneumonia
[2020-04-04] MEDS: Sodium Chloride 0.9% 1,000 ML IV SCH (09:30)
[2020-04-04] MEDS: HumaLOG 300 UNITS/3 ML VIAL SC PRN ×5 (09:45→22:27)
--- NOTE | 2020-04-04 09:52 | PRG ---
DATE OF SERVICE: 04/04/2020 SUBJECTIVE: A 60-year-old female remains intubated in the vent, sedated. OBJECTIVE: VITAL SIGNS: Pulse 76, blood pressure 100/76, sats are 96%, and respirations 17. I's and O's have been consistently positive. CHEST: No wheezing or crackles. CARDIAC: Normal S1 and S2. No gallops. ABDOMEN: No masses. LABORATORY DATA: White count 7000. PO2 of 65, pCO2 of 46, pH 7.43, rate of 8. Lytes are normal. ASSESSMENT: Hernandez positive pneumonia, prolonged hospitalization, breast cancer. Minimize sedation. Continue nutrition, PT. We will try weaning. She remains calm. This is a one-half hour of critical care time. Job ID: [id number]
--- NOTE | 2020-04-04 11:10 | PDOC.EVN ---
Event Note - Event Note Event Note: Nonbillable note only. Seen from a distance to preserve PPE. Chest x-ray with persistent bilateral pneumonia. Pulmonology is trying weaning trials. Slow progress for covert pneumonia. Overall agree with current care and management.
[2020-04-04] MEDS: Propofol 1,000 MG/100 ML VIAL IV PRN (16:36)
--- NOTE | 2020-04-04 17:50 | PRG ---
DATE OF SERVICE: SUBJECTIVE: Ms. Servin is in the ICU intubated. She is sedated. OBJECTIVE: VITAL SIGNS: Her FiO2 is 40% and she is saturating on 96 and she has been afebrile. BP is 130/80. HEENT: The pupils are constricted, sclerae white. LUNGS: Symmetric air entry. Somewhat coarse breath sounds, particularly on the left side. HEART: S1 and S2, regular rate. ABDOMEN: Soft, not distended or tender and has indwelling Gallego catheter. I's and O's have been on positive side for the past 3 or 4 days. Her weight has gone up respectively from 216 to 224 pounds. LABORATORY DATA: White cell count 7.2, hemoglobin 10.9, platelets 162. D-dimer 2.89 which is improved and sodium 135, creatinine 0.56. Her last ferritin was measured March 27, it was 2500 and CRP last measurement was March 27 as well was 27. ASSESSMENT AND DISCUSSION: Hypertension, breast cancer in remission after mastectomy and treatment, COVID-19 infection severe with requirement for intubation. This is her 29th day of illness, so at this point in time she does not have any more viable replicating virus or just dealing with the aftermath of the infection. I spoke with her regarding Aviptadil. I have not yet been contacted by the company, hoping to have a chance of administering the medication to Ms. Servin, but right now she seems to be stabilizing if not improved and the main issue is at this stage of the game, we will start dealing with the fibrosis which in some patients makes it impossible to extubate them. Luckily, she has not had any renal consequences and the heart function seems to be okay. Job ID: [id number]
[2020-04-04] MEDS: fentaNYL Citrate/PF 2,000 MCG in Sodium Chloride 0.9% 60 ML IV SCH (18:04)
[2020-04-04] MEDS: Insulin Glargine 20 UNITS in Pre-Filled Syringe SC SCH (20:40)
[2020-04-04] MEDS: Rosuvastatin 20 MG TAB PO SCH (20:43)
[2020-04-05] MEDS: Propofol 1,000 MG/100 ML VIAL IV PRN ×3 (00:18→18:00)
[2020-04-05] MEDS: HumaLOG 300 UNITS/3 ML VIAL SC PRN ×2 (03:56→10:55)
[2020-04-05 04:22] LABS: #Lymphocytes 0.2 thou/uL (1.20-3.40); #Monocytes 0.2 thou/uL (0.11-0.59); #Neutrophils 8.6 thou/uL (1.40-6.50); %Basophils 0.1 % (0.0-1.0); %Eosinophils 0.4 % (0.0-10.0); %Monocytes 2.1 % (0.0-10.0); %Neutrophils 95.4 % (42.0-75.0); Hemoglobin 11.9 g/dL (12.0-16.0); Mean Corpuscular HGB CONC 33.3 g/dL (32.0-36.0); Mean Corpuscular Hemoglobin 31.4 pg (27.0-31.0); Mean Corpuscular Volume 94.2 fL (78.0-98.0); Mean Platelet Volume 8.5 fL (7.4-10.4); Platelet Count 174 thou/uL (130-400); RBC Distribution Width 13.5 % (11.5-14.5); Red Blood Cell (RBC) Count 3.79 mill/uL (4.20-5.40)
[2020-04-05 05:00] LABS: Anion Gap 10 mmol/L (10-20); BUN (Urea Nitrogen) 26 mg/dL (9.8-20.1); Calc. Creatinine Clearance 163 mL/min (70-130); Calcium 9.3 mg/dL (7.8-10.44); Carbon Dioxide 32 mmol/L (22-29); Chloride 99 mmol/L (98-107); Estimated GFR-MDRD Greater than 90; Glucose 249 mg/dL (70-105); Potassium 4.7 mmol/L (3.5-5.1); Sodium 136 mmol/L (136-145)
[2020-04-05] MEDS: MEROPENEM 1 GM/50 ML 1 GM in Premix Bag 1 BAG IVPB SCH ×3 (05:47→21:48)
[2020-04-05] MEDS: Sodium Chloride 0.9% 1,000 ML IV SCH (05:48)
[2020-04-05 07:27] LABS: Actual Bicarbonate (HCO3a) 30.2 mEq/L (22-28); Base Excess (BEa) 5.2 mEq/L (-2.0 to +3.0); Calcium, Ionized (arterial) 1.31 mmol/L (1.12-1.30); Carboxyhemoglobin (COHb) 0.3 gm% (0.0-3.0); Hemoglobin (Hb) 11.7 g/dL (12.0-16.0); O2 Tension (PaO2), arterial 77.6 mmHg (80.0-100.0); Potassium - ABG Lab 4.55 mmol/L (3.70-5.30); pH, Arterial 7.44 (7.35-7.45)
[2020-04-05] MEDS: Lorazepam 2 MG/ML VIAL SLOW IVP PRN ×2 (07:28→12:32)
[2020-04-05 07:32] LABS: Puncture Site RRA
[2020-04-05] MEDS: Mometasone 200 MCG/Formoterol 5 MCG 120 PUFF INHALER INH SCH ×2 (07:35→19:00)
[2020-04-05] MEDS: risperiDONE 0.25 MG TAB PO SCH ×2 (09:49→21:53)
[2020-04-05] MEDS: Anastrozole 1 MG TAB PO SCH (09:49)
[2020-04-05] MEDS: Apixaban 5 MG TAB PO SCH ×2 (09:49→22:29)
[2020-04-05] MEDS: Cholecalciferol 1,000 UNITS (25 MCG) TAB PO SCH (09:49)
[2020-04-05] MEDS: Insulin Glargine 25 UNITS in Pre-Filled Syringe 1 EACH SC SCH (09:50)
[2020-04-05] MEDS: Nystatin 500,000 UNITS/5 ML UDCUP SSW SCH ×4 (09:50→21:47)
[2020-04-05] MEDS: Multivitamin W/ Minerals 1 TAB PO SCH (09:50)
[2020-04-05] MEDS: methylPREDNISolone Sod Succ 40 MG VIAL IVP SCH ×2 (09:50→21:54)
[2020-04-05] MEDS: DULoxetine 60 MG CAP PO SCH ×2 (09:50→21:47)
[2020-04-05] MEDS: Famotidine 20 MG TAB PO SCH ×2 (09:50→21:47)
[2020-04-05] MEDS: Aspirin 81 mg Enteric Coated Tablet PO SCH (09:50)
--- NOTE | 2020-04-05 11:11 | PDOC.EVN ---
Event Note - Event Note Event Note: Non billable note. Seen from a distance to preserve PPE. Reviewed labs, imaging, and notes from specialist. Patient on maximum medical therapy for COVID PNA. Agree with overall medical management.
--- NOTE | 2020-04-05 11:28 | PRG ---
DATE OF SERVICE: 04/05/2020 SUBJECTIVE: We tried to decrease her sedation yesterday, became very agitated. OBJECTIVE: VITAL SIGNS: Pulse is 79, 40%, sats are 99%, blood pressure 119/79. CHEST: No wheezing, no crackles. CARDIAC: Normal S1, S2. No masses. LABORATORY DATA: White count 9000, PO2 of 77, pCO2 of 46, pH of 7.44, rate of 8, 40%, tidal volume 450, PEEP of 9. Lytes are normal. ferritin is 1369, bicarb is 32. ASSESSMENT: Acute on chronic respiratory failure, bennett positive pneumonia, status post convalescent plasma x2, steroids, antibiotics on board. PLAN: I have added some risperidone to decrease agitation. Once we can do this, hopefully we can start weaning the vent. In the meantime, nutrition, PT, supportive care. One-half of critical care time. Job ID: [id number]
[2020-04-05] MEDS: fentaNYL Citrate/PF 2,000 MCG in Sodium Chloride 0.9% 60 ML IV SCH (12:48)
[2020-04-05] MEDS: NEFAZODONE HCL PO SCH (21:47)
[2020-04-05] MEDS: Rosuvastatin 20 MG TAB PO SCH (21:47)
[2020-04-05] MEDS: Insulin Glargine 20 UNITS in Pre-Filled Syringe SC SCH (21:48)
[2020-04-06] MEDS: Lorazepam 2 MG/ML VIAL SLOW IVP PRN ×3 (00:43→15:52)
[2020-04-06] MEDS: Sodium Chloride 0.9% 1,000 ML IV SCH ×2 (01:40→21:05)
[2020-04-06] MEDS: HumaLOG 300 UNITS/3 ML VIAL SC PRN (03:40)
[2020-04-06 04:00] LABS: #Lymphocytes 0.1 thou/uL (1.20-3.40); #Monocytes 0.2 thou/uL (0.11-0.59); #Neutrophils 6.9 thou/uL (1.40-6.50); %Eosinophils 0.4 % (0.0-10.0); %Lymphocytes 1.8 % (21.0-51.0); %Monocytes 2.3 % (0.0-10.0); %Neutrophils 95.5 % (42.0-75.0); Hemoglobin 10.8 g/dL (12.0-16.0); Mean Corpuscular HGB CONC 33.9 g/dL (32.0-36.0); Mean Corpuscular Volume 94.4 fL (78.0-98.0); Mean Platelet Volume 8.1 fL (7.4-10.4); Platelet Count 144 thou/uL (130-400); RBC Distribution Width 13.7 % (11.5-14.5); Red Blood Cell (RBC) Count 3.38 mill/uL (4.20-5.40); White Blood Cell (WBC) Count 7.3 thou/uL (4.8-10.8)
[2020-04-06 04:19] LABS: Anion Gap 8 mmol/L (10-20); BUN (Urea Nitrogen) 22 mg/dL (9.8-20.1); Calc. Creatinine Clearance 188 mL/min (70-130); Calcium 9.2 mg/dL (7.8-10.44); Carbon Dioxide 34 mmol/L (22-29); Chloride 99 mmol/L (98-107); Estimated GFR-MDRD Greater than 90; Glucose 205 mg/dL (70-105); Potassium 4.4 mmol/L (3.5-5.1); Sodium 137 mmol/L (136-145)
[2020-04-06] MEDS: Propofol 1,000 MG/100 ML VIAL IV PRN ×3 (05:12→15:55)
[2020-04-06] MEDS: MEROPENEM 1 GM/50 ML 1 GM in Premix Bag 1 BAG IVPB SCH ×3 (05:12→21:03)
[2020-04-06] MEDS: fentaNYL Citrate/PF 2,000 MCG in Sodium Chloride 0.9% 60 ML IV SCH (07:26)
[2020-04-06 08:30] LABS: Base Excess (BEa) 5.9 mEq/L (-2.0 to +3.0); CO2 Tension 47.1 mmHg (35.0-45.0); Calcium, Ionized (arterial) 1.31 mmol/L (1.12-1.30); Carboxyhemoglobin (COHb) 0.3 gm% (0.0-3.0); Hemoglobin (Hb) 11.4 g/dL (12.0-16.0); O2 Tension (PaO2), arterial 75.4 mmHg (80.0-100.0); Potassium - ABG Lab 4.42 mmol/L (3.70-5.30); pH, Arterial 7.44 (7.35-7.45)
[2020-04-06] MEDS: Mometasone 200 MCG/Formoterol 5 MCG 120 PUFF INHALER INH SCH (08:51)
--- NOTE | 2020-04-06 09:21 | PRG ---
DATE OF SERVICE: 04/06/2020 SUBJECTIVE: Shanta Servin this morning remains intubated in the vent, sedated. OBJECTIVE: VITAL SIGNS: Her temperature is 97, respirations at 12, sats are 90% on 40% FiO2, PEEP of 9, blood pressure 110/84. I's and O's have been consistently positive. CHEST: No wheezing. No crackles. CARDIAC: Normal S1, S2. No gallops. ABDOMEN: No masses. LABORATORY DATA: Unremarkable. White count is normal. Her last C-reactive protein was down to 1.8. IMPRESSION: Respiratory failure, coronavirus positive pneumonia, underlying sleep apnea, obesity, history of breast cancer, and metabolic encephalopathy. Try to minimize sedation if possible. Start weaning the vent if she tolerates it. One-half hour of critical care time. Job ID: [id number]
[2020-04-06] MEDS: Insulin Glargine 25 UNITS in Pre-Filled Syringe 1 EACH SC SCH (09:27)
[2020-04-06] MEDS: methylPREDNISolone Sod Succ 40 MG VIAL IVP SCH ×2 (09:27→21:04)
[2020-04-06] MEDS: Aspirin 81 mg Enteric Coated Tablet PO SCH (09:27)
[2020-04-06] MEDS: Famotidine 20 MG TAB PO SCH ×2 (09:28→21:04)
[2020-04-06] MEDS: DULoxetine 60 MG CAP PO SCH ×2 (09:28→21:04)
[2020-04-06] MEDS: Cholecalciferol 1,000 UNITS (25 MCG) TAB PO SCH (09:28)
[2020-04-06] MEDS: Multivitamin W/ Minerals 1 TAB PO SCH (09:28)
[2020-04-06] MEDS: Apixaban 5 MG TAB PO SCH ×2 (09:29→21:04)
[2020-04-06] MEDS: Anastrozole 1 MG TAB PO SCH (09:29)
[2020-04-06] MEDS: Nystatin 500,000 UNITS/5 ML UDCUP SSW SCH ×4 (09:29→21:04)
[2020-04-06] MEDS: risperiDONE 0.25 MG TAB PO SCH ×2 (09:32→21:04)
[2020-04-06] MEDS: NEFAZODONE HCL PO SCH ×2 (09:33→21:06)
[2020-04-06 11:44] LABS: Puncture Site LRA
[2020-04-06 11:45] LABS: ALV-art Gradient 186.575 (0-20)
--- NOTE | 2020-04-06 15:12 | PDOC.PALPN ---
Palliative Progress Note - Subjective Intubated, sedated. Restless - Objective Vital Signs: Vital Signs - Most Recent Temp Pulse Resp BP Pulse Ox 97.8 F 99 13 112/75 94 L 04/06/20 04:00 04/06/20 14:34 04/06/20 14:31 04/06/20 14:34 04/06/20 14:31 - Physical Exam Constitutional: encephalitic, ill appearing HEENT: moist MMs, sclera anicteric Respiratory: no wheezing, diminished lung sound Deviation from normal: mechanical ventilation via ET Cardiovascular: RRR Deviation from normal: Tachycardic Gastrointestinal: soft, non-tender Deviation from normal: Obese Genitourinary: carrillo catheter Musculoskeletal: edema present Neurology: no focal deficits Skin: cap refill <2 seconds Deviation from normal: Encephalopathic, resltess intermittantly - Assessment (1) Palliative care encounter Code(s): Z51.5 - ENCOUNTER FOR PALLIATIVE CARE Current Visit: Yes Status: Acute (2) Acute respiratory failure with hypoxia Code(s): J96.01 - ACUTE RESPIRATORY FAILURE WITH HYPOXIA Current Visit: Yes Status: Acute (3) Pneumonia due to COVID-19 virus Code(s): U07.1 - COVID-19; J12.89 - OTHER VIRAL PNEUMONIA Current Visit: Yes Status: Acute (4) H/O malignant neoplasm of breast Code(s): Z85.3 - PERSONAL HISTORY OF MALIGNANT NEOPLASM OF BREAST Current Visit: Yes Status: Chronic (5) Obesity (BMI 30-39.9) Code(s): E66.9 - OBESITY, UNSPECIFIED Current Visit: Yes Status: Chronic - Plan Plan: Palliative Care continues supportive care for . Emotional support and therapeutic listening. Education in relation to disease process of Covid paired with multiple morbidities. Mr Servin remains hopeful as she "just rang" the jennings from finishing chemo. Will continue to support and revisit Goal of Care with hopes of successful extubation so Mrs Servin can make decisions for her Goals Please also refer to fishing rod assembler notes in note section. [20] minutes spent on this encounter with >50% of the time in counseling and coordination of care. - ROS Non Response: due to endotracheal tube, due to mental status
--- NOTE | 2020-04-06 15:52 | PDOC.EVN ---
Event Note - Event Note Event Note: Seen from a distance to preserve PPE Remains intubated/ sedated Overall agree with medical management, appreciate recommendations from specialists Labs/ imaging reviewed
[2020-04-06] MEDS: Insulin Glargine 20 UNITS in Pre-Filled Syringe SC SCH (21:03)
[2020-04-06] MEDS: Rosuvastatin 20 MG TAB PO SCH (21:04)
[2020-04-07] MEDS: Mometasone 200 MCG/Formoterol 5 MCG 120 PUFF INHALER INH SCH ×3 (00:03→18:57)
[2020-04-07] MEDS: Propofol 1,000 MG/100 ML VIAL IV PRN ×2 (00:35→15:36)
[2020-04-07] MEDS: fentaNYL Citrate/PF 2,000 MCG in Sodium Chloride 0.9% 60 ML IV SCH (03:46)
[2020-04-07] MEDS: MEROPENEM 1 GM/50 ML 1 GM in Premix Bag 1 BAG IVPB SCH ×3 (04:47→20:26)
[2020-04-07 04:49] LABS: #Lymphocytes 0.2 thou/uL (1.20-3.40); #Monocytes 0.2 thou/uL (0.11-0.59); #Neutrophils 6.3 thou/uL (1.40-6.50); %Eosinophils 0.4 % (0.0-10.0); %Lymphocytes 2.9 % (21.0-51.0); %Monocytes 2.3 % (0.0-10.0); %Neutrophils 94.4 % (42.0-75.0); Hemoglobin 10.8 g/dL (12.0-16.0); Mean Corpuscular HGB CONC 33.5 g/dL (32.0-36.0); Mean Corpuscular Hemoglobin 31.8 pg (27.0-31.0); Mean Corpuscular Volume 94.8 fL (78.0-98.0); Mean Platelet Volume 8.6 fL (7.4-10.4); Platelet Count 142 thou/uL (130-400); RBC Distribution Width 13.9 % (11.5-14.5); White Blood Cell (WBC) Count 6.7 thou/uL (4.8-10.8)
[2020-04-07 04:59] LABS: Anion Gap 8 mmol/L (10-20); BUN (Urea Nitrogen) 21 mg/dL (9.8-20.1); Calc. Creatinine Clearance 183 mL/min (70-130); Calcium 9.2 mg/dL (7.8-10.44); Carbon Dioxide 34 mmol/L (22-29); Chloride 98 mmol/L (98-107); Estimated GFR-MDRD Greater than 90; Glucose 235 mg/dL (70-105); Potassium 4.4 mmol/L (3.5-5.1); Sodium 136 mmol/L (136-145)
[2020-04-07] MEDS: HumaLOG 300 UNITS/3 ML VIAL SC PRN ×2 (05:01→18:00)
[2020-04-07] MEDS: Lorazepam 2 MG/ML VIAL SLOW IVP PRN ×2 (05:01→19:04)
[2020-04-07 07:46] LABS: Actual Bicarbonate (HCO3a) 31.2 mEq/L (22-28); Base Excess (BEa) 6.6 mEq/L (-2.0 to +3.0); CO2 Tension 44.2 mmHg (35.0-45.0); Calcium, Ionized (arterial) 1.31 mmol/L (1.12-1.30); Carboxyhemoglobin (COHb) 0.3 gm% (0.0-3.0); Hemoglobin (Hb) 13.4 g/dL (12.0-16.0); Potassium - ABG Lab 4.22 mmol/L (3.70-5.30); pH, Arterial 7.47 (7.35-7.45)
[2020-04-07 07:50] LABS: O2 Tension (PaO2), arterial 59.8 mmHg (80.0-100.0)
[2020-04-07 07:51] LABS: Puncture Site LRA
[2020-04-07] MEDS: DULoxetine 60 MG CAP PO SCH ×2 (08:44→20:27)
[2020-04-07] MEDS: Multivitamin W/ Minerals 1 TAB PO SCH (08:44)
[2020-04-07] MEDS: Famotidine 20 MG TAB PO SCH ×2 (08:44→20:27)
[2020-04-07] MEDS: Aspirin 81 mg Enteric Coated Tablet PO SCH (08:44)
[2020-04-07] MEDS: methylPREDNISolone Sod Succ 40 MG VIAL IVP SCH ×2 (08:45→20:26)
[2020-04-07] MEDS: Insulin Glargine 25 UNITS in Pre-Filled Syringe 1 EACH SC SCH (08:45)
[2020-04-07] MEDS: Nystatin 500,000 UNITS/5 ML UDCUP SSW SCH ×4 (08:47→20:35)
[2020-04-07] MEDS: NEFAZODONE HCL PO SCH ×2 (08:48→20:26)
[2020-04-07] MEDS: Apixaban 5 MG TAB PO SCH ×2 (08:54→20:27)
[2020-04-07] MEDS: Cholecalciferol 1,000 UNITS (25 MCG) TAB PO SCH (08:55)
[2020-04-07] MEDS: Anastrozole 1 MG TAB PO SCH (08:55)
[2020-04-07] MEDS: risperiDONE 0.25 MG TAB PO SCH ×2 (08:59→20:27)
--- NOTE | 2020-04-07 11:18 | PRG ---
DATE OF SERVICE: 04/07/2020 SUBJECTIVE: Shanta Servin this morning remains intubated on the vent, sedated. She remains very agitated. OBJECTIVE: VITAL SIGNS: Pulse 90, blood pressure 124/60, saturations are 98%, respiratory rate 13. I's and O's have been consistently positive. CHEST: No wheezing. No crackles. CARDIAC: Normal S1, S2. ABDOMEN: No masses. LABORATORY DATA: White count 6, H and H 10 and 32, platelet count 142. Electrolytes are normal. Glucose 185. PO2 was 59, pCO2 44, pH 7.47. IMPRESSION: 1. Respiratory failure. 2. Hernandez positive pneumonia. 3. History of breast cancer. 4. Metabolic encephalopathy. 5. Underlying sleep apnea. PLAN: I am going to start Precedex. She is already on risperidone and Cymbalta. Slow weaning. Otherwise, she is going to need a trach and a PEG if wants all supportive care. CRITICAL CARE TIME: One-half hour of critical time. Job ID: [id number]
--- NOTE | 2020-04-07 13:02 | PDOC.EVN ---
Event Note - Event Note Event Note: Seen from a distance to preserve PPE. Slow vent weaning. She gets agitated at times, we are trying Precedex. Reviewed labs and imaging. Agree with plan of care, recommendations appreciated from specialists. She is on appropriate maximum medical therapy.
[2020-04-07] MEDS: Sodium Chloride 0.9% 1,000 ML IV SCH (20:25)
[2020-04-07] MEDS: Insulin Glargine 20 UNITS in Pre-Filled Syringe SC SCH (20:26)
[2020-04-07] MEDS: Rosuvastatin 20 MG TAB PO SCH (20:27)
[2020-04-08] MEDS: Propofol 1,000 MG/100 ML VIAL IV PRN ×4 (01:58→20:52)
[2020-04-08] MEDS: Lorazepam 2 MG/ML VIAL SLOW IVP PRN ×4 (03:55→20:34)
[2020-04-08] MEDS: MEROPENEM 1 GM/50 ML 1 GM in Premix Bag 1 BAG IVPB SCH (03:55)
[2020-04-08 04:19] LABS: #Lymphocytes 0.2 thou/uL (1.20-3.40); #Monocytes 0.2 thou/uL (0.11-0.59); #Neutrophils 8.6 thou/uL (1.40-6.50); %Eosinophils 0.4 % (0.0-10.0); %Lymphocytes 2.5 % (21.0-51.0); %Monocytes 2.5 % (0.0-10.0); %Neutrophils 94.5 % (42.0-75.0); Hemoglobin 12.4 g/dL (12.0-16.0); Mean Corpuscular Volume 94.3 fL (78.0-98.0); Mean Platelet Volume 8.3 fL (7.4-10.4); Platelet Count 142 thou/uL (130-400); RBC Distribution Width 14.1 % (11.5-14.5); Red Blood Cell (RBC) Count 3.86 mill/uL (4.20-5.40); White Blood Cell (WBC) Count 9.1 thou/uL (4.8-10.8)
[2020-04-08] MEDS: fentaNYL Citrate/PF 2,000 MCG in Sodium Chloride 0.9% 60 ML IV SCH (04:26)
[2020-04-08 04:37] LABS: Anion Gap 10 mmol/L (10-20); BUN (Urea Nitrogen) 20 mg/dL (9.8-20.1); Calc. Creatinine Clearance 189 mL/min (70-130); Calcium 9.5 mg/dL (7.8-10.44); Carbon Dioxide 34 mmol/L (22-29); Chloride 99 mmol/L (98-107); Estimated GFR-MDRD Greater than 90; Glucose 172 mg/dL (70-105); Potassium 4.1 mmol/L (3.5-5.1); Sodium 139 mmol/L (136-145)
[2020-04-08 07:06] LABS: Actual Bicarbonate (HCO3a) 33.6 mEq/L (22-28); Base Excess (BEa) 9.5 mEq/L (-2.0 to +3.0); CO2 Tension 43.9 mmHg (35.0-45.0); Calcium, Ionized (arterial) 1.27 mmol/L (1.12-1.30); Carboxyhemoglobin (COHb) 0.3 gm% (0.0-3.0); Hemoglobin (Hb) 11.5 g/dL (12.0-16.0); O2 Tension (PaO2), arterial 64.7 mmHg (80.0-100.0); Potassium - ABG Lab 4.19 mmol/L (3.70-5.30)
[2020-04-08 07:17] LABS: ALV-art Gradient 165.625 (0-20); Puncture Site RRAD
[2020-04-08] MEDS: Mometasone 200 MCG/Formoterol 5 MCG 120 PUFF INHALER INH SCH ×2 (07:18→19:16)
[2020-04-08] MEDS: methylPREDNISolone Sod Succ 40 MG VIAL IVP SCH ×2 (07:40→20:33)
[2020-04-08] MEDS: NEFAZODONE HCL PO SCH ×2 (07:40→20:33)
[2020-04-08] MEDS: Aspirin 81 mg Enteric Coated Tablet PO SCH (07:41)
[2020-04-08] MEDS: Cholecalciferol 1,000 UNITS (25 MCG) TAB PO SCH (07:42)
[2020-04-08] MEDS: Anastrozole 1 MG TAB PO SCH (07:43)
[2020-04-08] MEDS: risperiDONE 0.25 MG TAB PO SCH ×2 (07:43→20:35)
[2020-04-08] MEDS: Famotidine 20 MG TAB PO SCH ×2 (07:43→20:34)
[2020-04-08] MEDS: DULoxetine 60 MG CAP PO SCH ×2 (07:43→20:34)
[2020-04-08] MEDS: Multivitamin W/ Minerals 1 TAB PO SCH (07:43)
[2020-04-08] MEDS: Apixaban 5 MG TAB PO SCH ×2 (07:44→20:35)
[2020-04-08] MEDS ORDERED: ALPRAZolam 0.5 MG TAB PO SCH (09:30)
[2020-04-08] MEDS: HumaLOG 300 UNITS/3 ML VIAL SC PRN ×4 (09:30→21:05)
[2020-04-08] MEDS ORDERED: cloNIDine 0.1 MG TAB PO SCH (09:45)
[2020-04-08] MEDS: Insulin Glargine 25 UNITS in Pre-Filled Syringe 1 EACH SC SCH (09:49)
[2020-04-08] MEDS: Nystatin 500,000 UNITS/5 ML UDCUP SSW SCH ×4 (09:50→20:34)
--- NOTE | 2020-04-08 09:51 | PRG ---
DATE OF SERVICE: SUBJECTIVE: Shanta Servin remains in the ICU agitated, on the vent. She is on Demadex, Diprivan, and fentanyl along with risperidone 0.5 twice a day, Cymbalta 60 twice a day. Every time the sedation is decreased, she is very agitated, blood pressure goes up. OBJECTIVE: VITAL SIGNS: This morning, pulse 118, blood pressure 174/90, sats are 99%, respirations 14. CHEST: Decreased breath sounds. No wheezing. CARDIAC: Normal S1, S2. No gallops. ABDOMEN: No masses. LABORATORY DATA: White count 9000, H and H 12 and 36. PO2 of 64, pCO2 of rate of 14, 40%. Tidal volume 450, bicarb is 34. ASSESSMENT AND PLAN: Acute on chronic respiratory failure. History of breast cancer. Abnormal x-ray. She has received two rounds of plasma convalescent, steroids, antibiotics. Slow wean. wants all trach. His number is in the charge. Call him before she gets trach. I am going to give low-dose Diamox. If not weanable by next week, she is going to require a trach as per the 's wishes and eventually placement. I would re-swab her on Saturday. One-half hour of critical care time. Job ID: [id number]
[2020-04-08] MEDS: AcetaZOLAMIDE 250 MG TAB PO SCH (10:20)
[2020-04-08] MEDS: Sodium Chloride 0.9% 1,000 ML IV SCH (13:19)
--- NOTE | 2020-04-08 13:41 | PDOC.EVN ---
Event Note - Event Note Event Note: Seen from a distance to preserve PPE. Restless. Requires PRN medications to keep her calm on the vent. Not much clinical improvement with her lungs. On maximum medical therapy, appreciate recommendations from specialist. Agree with current plan of care.
[2020-04-08] MEDS: ALPRAZolam 0.5 MG TAB PO SCH ×2 (14:34→20:34)
[2020-04-08] MEDS ORDERED: Morphine 2 MG/ML VIAL SLOW IVP PRN (14:55)
[2020-04-08] MEDS ORDERED: Fentanyl BOLUS 250 ML IVPB PRN (14:56)
[2020-04-08] MEDS: hydrALAZINE 20 MG/ML VIAL SLOW IVP PRN (16:16)
--- NOTE | 2020-04-08 16:45 | PDOC.PALFU ---
Palliative Care Follow-up Note Patient to come to hospital 04/10 at 10am to see his and review plan of care, discussing Goal of Care. Communicated with Dr Berumen, Dr Reynoso, [employer] CC[employer], and Spiritual Care.
[2020-04-08] MEDS: Rosuvastatin 20 MG TAB PO SCH (20:35)
[2020-04-08] MEDS: Insulin Glargine 20 UNITS in Pre-Filled Syringe SC SCH (20:35)
[2020-04-08] MEDS: cloNIDine 0.1 MG TAB PO SCH (20:35)
[2020-04-09] MEDS: Propofol 1,000 MG/100 ML VIAL IV PRN ×3 (03:13→20:22)
[2020-04-09 03:51] LABS: #Lymphocytes 0.2 thou/uL (1.20-3.40); #Monocytes 0.2 thou/uL (0.11-0.59); #Neutrophils 5.8 thou/uL (1.40-6.50); %Eosinophils 0.2 % (0.0-10.0); %Lymphocytes 3.4 % (21.0-51.0); %Monocytes 2.6 % (0.0-10.0); %Neutrophils 93.7 % (42.0-75.0); Hemoglobin 10.7 g/dL (12.0-16.0); Mean Corpuscular Hemoglobin 31.7 pg (27.0-31.0); Mean Corpuscular Volume 93.3 fL (78.0-98.0); Mean Platelet Volume 8.4 fL (7.4-10.4); Platelet Count 128 thou/uL (130-400); Red Blood Cell (RBC) Count 3.36 mill/uL (4.20-5.40); White Blood Cell (WBC) Count 6.2 thou/uL (4.8-10.8)
[2020-04-09 04:12] LABS: Anion Gap 9 mmol/L (10-20); BUN (Urea Nitrogen) 20 mg/dL (9.8-20.1); Calc. Creatinine Clearance 197 mL/min (70-130); Calcium 8.9 mg/dL (7.8-10.44); Carbon Dioxide 32 mmol/L (22-29); Chloride 103 mmol/L (98-107); Estimated GFR-MDRD Greater than 90; Glucose 169 mg/dL (70-105); Potassium 3.3 mmol/L (3.5-5.1); Sodium 141 mmol/L (136-145)
[2020-04-09] MEDS ORDERED: Potassium Chloride 40 MEQ in Premix Bag 1 BAG IVPB SCH (04:30)
[2020-04-09] MEDS: HumaLOG 300 UNITS/3 ML VIAL SC PRN ×3 (05:25→21:17)
[2020-04-09] MEDS ORDERED: Potassium Chloride 20 MEQ TAB PO SCH (06:45)
[2020-04-09] MEDS: Mometasone 200 MCG/Formoterol 5 MCG 120 PUFF INHALER INH SCH ×2 (06:49→18:53)
[2020-04-09 07:20] LABS: Actual Bicarbonate (HCO3a) 29.5 mEq/L (22-28); Base Excess (BEa) 5.7 mEq/L (-2.0 to +3.0); Calcium, Ionized (arterial) 1.31 mmol/L (1.12-1.30); Carboxyhemoglobin (COHb) 0.3 gm% (0.0-3.0); Hemoglobin (Hb) 11.9 g/dL (12.0-16.0); O2 Tension (PaO2), arterial 71.8 mmHg (80.0-100.0); Potassium - ABG Lab 3.68 mmol/L (3.70-5.30); pH, Arterial 7.49 (7.35-7.45)
[2020-04-09 07:32] LABS: Puncture Site RRAD
[2020-04-09] MEDS: Nystatin 500,000 UNITS/5 ML UDCUP SSW SCH ×4 (08:00→20:24)
[2020-04-09] MEDS: Cholecalciferol 1,000 UNITS (25 MCG) TAB PO SCH (08:00)
[2020-04-09] MEDS: risperiDONE 0.25 MG TAB PO SCH ×2 (08:01→20:24)
[2020-04-09] MEDS: AcetaZOLAMIDE 250 MG TAB PO SCH (08:01)
[2020-04-09] MEDS: Apixaban 5 MG TAB PO SCH ×2 (08:01→20:24)
[2020-04-09] MEDS: Anastrozole 1 MG TAB PO SCH (08:01)
[2020-04-09] MEDS: DULoxetine 60 MG CAP PO SCH ×2 (08:02→20:23)
[2020-04-09] MEDS: Multivitamin W/ Minerals 1 TAB PO SCH (08:02)
[2020-04-09] MEDS: cloNIDine 0.1 MG TAB PO SCH ×2 (08:02→20:24)
[2020-04-09] MEDS: Famotidine 20 MG TAB PO SCH ×2 (08:02→20:23)
[2020-04-09] MEDS: Aspirin 81 mg Enteric Coated Tablet PO SCH (08:02)
[2020-04-09] MEDS: ALPRAZolam 0.5 MG TAB PO SCH ×3 (08:02→20:23)
[2020-04-09] MEDS: methylPREDNISolone Sod Succ 40 MG VIAL IVP SCH ×2 (08:03→20:23)
[2020-04-09] MEDS: Lorazepam 2 MG/ML VIAL SLOW IVP PRN ×4 (08:03→20:23)
[2020-04-09] MEDS: NEFAZODONE HCL PO SCH ×2 (08:04→20:21)
[2020-04-09] MEDS: fentaNYL Citrate/PF 2,000 MCG in Sodium Chloride 0.9% 60 ML IV SCH (08:11)
--- NOTE | 2020-04-09 09:03 | RAD ---
Exam: Chest one view HISTORY:Respiratory distress. Ventilated patient. Comparison: 04/04/2020 FINDINGS: Cardiac silhouette:Cardiomegaly Lines and tubes: Stable endotracheal tube, nasogastric tube and right-sided subclavian vascular ana maria ter Aorta: Unremarkable Pulmonary vessels: Normal Costophrenic angles: Clear LUNGS: Chronic lung parenchymal changes with superimposed interstitial and alveolar opacities. Pneumothorax: None Osseous abnormalities: None IMPRESSION: No significant interval change. Persistent multi focal interstitial and alveolar opacitie s. Multifocal pneumonia.
[2020-04-09] MEDS: Insulin Glargine 25 UNITS in Pre-Filled Syringe 1 EACH SC SCH (10:49)
[2020-04-09] MEDS: Sodium Chloride 0.9% 1,000 ML IV SCH (10:50)
--- NOTE | 2020-04-09 15:21 | PRG ---
DATE OF SERVICE: 04/09/2020 OBJECTIVE: VITAL SIGNS: Blood pressure is 164/92, heart rates in the 40s, respiratory rates in the teens. LUNGS: Unchanged. HEART: Unchanged. ABDOMEN: Unchanged. LABORATORY DATA: White count 6.2, hemoglobin 10.7, platelets 128. Sodium 141, potassium 3.3, chloride 103, bicarb 32, BUN 20, creatinine 0.51. PH of 7.9, CO2 of 40, PO2 of 71. Chest radiograph shows bilateral interstitial alveolar infiltrates. IMPRESSION: COVID pneumonia. She is 29 days into this hospitalization. She presented on the 11 of March with her initial diagnosis of COVID. It is highly unlikely that she is no longer infectious. Tracheostomy is being considered. Job ID: [id number]
[2020-04-09] MEDS: Rosuvastatin 20 MG TAB PO SCH (20:24)
[2020-04-09] MEDS: Insulin Glargine 20 UNITS in Pre-Filled Syringe SC SCH (20:24)
--- NOTE | 2020-04-09 20:30 | PDOC.HOSPP ---
- Subjective Subjective: Patient was seen examined at bedside. Discussed with nursing staff. Plan for family meeting next Saturday at 10 to address goal of care, possible tracheotomy - Objective Vital Signs & Weight: Vital Signs (12 hours) Temp Pulse Resp BP Pulse Ox 04/09/20 20:24 173/142 H 04/09/20 20:00 13 04/09/20 18:53 51 L 13 99 04/09/20 18:51 51 L 13 99 04/09/20 18:00 12 04/09/20 16:00 14 04/09/20 15:00 97.7 F 04/09/20 14:00 15 04/09/20 12:00 10 L 04/09/20 11:00 97.8 F 04/09/20 10:35 60 04/09/20 10:00 13 Weight Admit Weight 216 lb 11.2 oz Weight 231 lb 4.238 oz Most Recent Monitor Data Heart Rate from ECG 85 NIBP 179/121 NIBP BP-Mean 140 Respiration from ECG 13 SpO2 95 I&O: 04/08/20 04/09/20 04/10/20 06:59 06:59 06:59 Intake Total 2997.6 3012 1467 Output Total 1175 1940 1050 Balance 1822.6 1072 417 Result Diagrams: 04/09/20 03:25 04/09/20 03:25 Additional Labs: Accuchecks 04/09/20 04/09/20 04/08/20 15:22 10:58 20:47 POC Glucose 229 H 257 H 229 H 04/08/20 16:25 POC Glucose 193 H Radiology Reviewed by me: Yes EKG Reviewed by me: Yes Hospitalist ROS - Medication Medications: Active Medications Generic Name Dose Route Start Last Admin Trade Name Freq PRN Reason Stop Dose Admin Acetazolamide 250 mg 04/08/20 09:00 04/09/20 08:01 Diamox PO 250 mg DAILY IGGY Administration Albuterol/Ipratropium 3 ml 03/29/20 19:00 04/09/20 18:51 Duoneb NEB 3 ml [id number] IGGY Administration Alprazolam 0.5 mg 04/08/20 15:00 04/09/20 20:23 Xanax PO 0.5 mg TID IGGY Administration Anastrozole 1 mg 03/26/20 09:00 04/09/20 08:01 Arimidex PO 1 mg DAILY IGGY Administration Apixaban 5 mg 03/11/20 21:00 04/09/20 20:24 Eliquis PO 5 mg BID IGGY Administration Aspirin 81 mg 03/12/20 09:00 04/09/20 08:02 Ecotrin PO 81 mg DAILY IGGY Administration Benzonatate 100 mg 03/26/20 09:01 03/29/20 04:24 Tessalon PO 100 mg Q6H PRN Administration Cough Cholecalciferol 5,000 units 03/12/20 09:00 04/09/20 08:00 Vitamin D3 PO 5,000 units DAILY IGGY Administration Clonidine 0.1 mg 04/08/20 21:00 04/09/20 20:24 Catapres PO 0.1 mg BID IGGY Administration Duloxetine HCl 60 mg 03/11/20 21:00 04/09/20 20:23 Cymbalta PO 60 mg BID IGGY Administration Famotidine 20 mg 03/17/20 09:00 04/09/20 20:23 Pepcid PO 20 mg BID IGGY Administration Guaifenesin 200 mg 03/26/20 09:01 03/27/20 09:40 Robitussin Sf PO 200 mg Q4H PRN Administration Cough Hydralazine HCl 10 mg 03/26/20 09:01 04/08/20 16:16 Apresoline SLOW IVP 10 mg Q4H PRN Administration SBP > 180 and HR < 70 Insulin Glargine 25 units/ 0.25 mls @ 0 mls/hr 03/20/20 09:00 04/09/20 10:49 Miscellaneous Medication SC 0.25 mls QAM IGGY Administration Insulin Glargine 20 units/ 0.2 mls @ 0 mls/hr 03/20/20 21:00 04/09/20 20:24 Miscellaneous Medication SC 0.2 mls HS IGGY Administration Sodium Chloride 1,000 mls @ 50 mls/hr 03/30/20 10:00 04/09/20 10:50 Normal Saline 0.9% IV 1,000 mls .Q20H IGGY Administration Dexmedetomidine HCl 400 mcg/ 100 mls @ 0 mls/hr 04/07/20 09:45 04/09/20 05:25 Sodium Chloride IVPB 100 mls INF IGGY Administration Protocol Per Protocol Fentanyl Citrate 2,000 mcg/ 100 mls @ 0 mls/hr 04/08/20 15:00 04/09/20 08:11 Sodium Chloride IV 05/08/20 15:01 100 mls INF IGGY Administration Protocol Per Protocol Insulin Human Lispro 0 units 03/17/20 08:46 04/04/20 22:27 Humalog SC 2 unit .BEDTIME SLIDING SC PRN Administration Bedtime Correctional Scale Insulin Human Lispro 0 units 03/26/20 09:01 04/09/20 16:25 Humalog SC 4 unit .MODERATE SLIDING SC PRN Administration Moderate Correctional Scale Iron/Minerals/Multivitamins 1 tab 03/12/20 09:00 04/09/20 08:02 Theragran M PO 1 tab DAILY IGGY Administration Lorazepam 2 mg 04/08/20 18:12 04/09/20 20:23 Ativan SLOW IVP 2 mg Q1H PRN Administration Breakthrough agitation Methylprednisolone Sodium Succinate 40 mg 04/04/20 21:00 04/09/20 20:23 Solu-Medrol IVP 40 mg BID IGGY Administration Metoclopramide HCl 5 mg 03/26/20 09:01 04/09/20 13:41 Reglan IVP 5 mg Q4H PRN Administration Nausea Mometasone Furoate/Formoterol Fumar 2 puff 03/14/20 18:30 04/09/20 18:53 Dulera 200 Mcg/5 Mcg Inhaler INH 2 puff BID-RT IGGY Administration Nystatin 500,000 units 03/21/20 21:00 04/09/20 20:24 Mycostatin SSW 500,000 units QID IGGY Administration (Nefazodone Hcl [ 300 each 03/13/20 09:00 04/09/20 20:21 Nefazodone Hcl] 150 PO 300 each Mg) Tab BID IGGY Administration Polyethylene Glycol 17 gm 03/19/20 08:36 04/07/20 03:46 Miralax PO 17 gm DAILYPRN PRN Administration Constipation Propofol 1,000 mg 03/29/20 13:58 04/09/20 20:22 Diprivan IV 04/28/20 13:58 1,000 mg INF PRN Administration TO ACHIEVE GOAL RASS Protocol Propofol 20 mg 03/29/20 13:58 03/29/20 14:50 Diprivan Bolus IV 04/28/20 13:58 20 mg Q5MIN PRN Administration BREAKTHROUGH AGITATION Risperidone 0.5 mg 04/05/20 09:00 04/09/20 20:24 Risperidone PO 0.5 mg BID IGGY Administration Rosuvastatin Calcium 20 mg 03/11/20 21:00 04/09/20 20:24 Crestor PO 20 mg HS IGGY Administration Sodium Chloride 10 ml 03/23/20 09:00 04/09/20 20:25 Flush - Normal Saline IVF 10 ml Q12HR IGGY Administration Sodium Chloride 10 ml 03/23/20 08:52 03/27/20 23:19 Flush - Normal Saline IVF 10 ml PRN PRN Administration Saline Flush Hosp A/P - Plan - Exam General Appearance: NAD, intubated Eye: PERRL, anicteric sclera ENT: normocephalic atraumatic, no oropharyngeal lesions Neck: supple, symmetric, no JVD, no thyromegaly Heart: RRR, no murmur, no gallops, no rubs Respiratory: no wheezes, no rales, no ronchi Respiratory - other findings: Reduced air entry at bases Gastrointestinal: soft, non-tender, non-distended, normal bowel sounds Extremities: no cyanosis, no clubbing Skin: normal turgor, no lesions Neurological: sedated Musculoskeletal: normal tone, normal strength Assessment/Plan Acute respiratory failure with hypoxia due to COVID-19 infection - remains on ventilator Viral pneumonia due to COVID-19 infection COVID-19 infection -status post Remdesivir, convalescence plasma Thrombocytopenia and leukopenia due to COVID-19 infection improved Obesity with BMI 33 Hypertension Asthma/COPD Anxiety and depression Chronic anticoagulation Dyslipidemia History of right breast cancer History of pulmonary embolism - on Eliquis 04/09/20 Patient remains on mechanical support. She is now s/p Remdesivir convalescent plasma treatment. She is currently on IV steroid, and she also completed course of IV antibiotic. Repeat chest x-ray still showed persistent multifocal pneumonia. She is being considered for possible tracheotomy as she is now into her 29 days of hospital course without significant clinical improvement from her respiratory status. Cont mgt as per Miniature Model Maker. Appreciate Dr. Everett 's help. Family meeting planned next Saturday to discuss the goals of care. Cont supportive cares.
[2020-04-10] MEDS: Lorazepam 2 MG/ML VIAL SLOW IVP PRN ×3 (04:14→16:23)
[2020-04-10 04:15] LABS: #Lymphocytes 0.3 thou/uL (1.20-3.40); #Monocytes 0.2 thou/uL (0.11-0.59); #Neutrophils 5.8 thou/uL (1.40-6.50); %Basophils 0.1 % (0.0-1.0); %Eosinophils 0.2 % (0.0-10.0); %Lymphocytes 4.3 % (21.0-51.0); %Monocytes 3.6 % (0.0-10.0); %Neutrophils 91.9 % (42.0-75.0); Hemoglobin 10.5 g/dL (12.0-16.0); Mean Corpuscular HGB CONC 33.5 g/dL (32.0-36.0); Mean Corpuscular Hemoglobin 31.5 pg (27.0-31.0); Mean Platelet Volume 8.6 fL (7.4-10.4); Platelet Count 125 thou/uL (130-400); RBC Distribution Width 14.2 % (11.5-14.5); Red Blood Cell (RBC) Count 3.34 mill/uL (4.20-5.40); White Blood Cell (WBC) Count 6.3 thou/uL (4.8-10.8)
[2020-04-10 04:39] LABS: Anion Gap 10 mmol/L (10-20); BUN (Urea Nitrogen) 20 mg/dL (9.8-20.1); Calc. Creatinine Clearance 213 mL/min (70-130); Calcium 8.9 mg/dL (7.8-10.44); Carbon Dioxide 29 mmol/L (22-29); Chloride 106 mmol/L (98-107); Estimated GFR-MDRD Greater than 90; Glucose 155 mg/dL (70-105); Potassium 3.8 mmol/L (3.5-5.1); Sodium 141 mmol/L (136-145)
[2020-04-10] MEDS: HumaLOG 300 UNITS/3 ML VIAL SC PRN (05:03)
[2020-04-10] MEDS: Propofol 1,000 MG/100 ML VIAL IV PRN ×3 (05:03→20:26)
[2020-04-10] MEDS: Sodium Chloride 0.9% 1,000 ML IV SCH (05:03)
[2020-04-10] MEDS: Mometasone 200 MCG/Formoterol 5 MCG 120 PUFF INHALER INH SCH ×2 (07:00→19:03)
[2020-04-10 07:29] LABS: Actual Bicarbonate (HCO3a) 29.2 mEq/L (22-28); Base Excess (BEa) 4.3 mEq/L (-2.0 to +3.0); CO2 Tension 45.1 mmHg (35.0-45.0); Calcium, Ionized (arterial) 1.35 mmol/L (1.12-1.30); Carboxyhemoglobin (COHb) 0.3 gm% (0.0-3.0); Hemoglobin (Hb) 11.3 g/dL (12.0-16.0); O2 Tension (PaO2), arterial 93.8 mmHg (80.0-100.0); Potassium - ABG Lab 3.78 mmol/L (3.70-5.30); pH, Arterial 7.43 (7.35-7.45)
[2020-04-10 07:53] LABS: Puncture Site RRAD
[2020-04-10 07:54] LABS: ALV-art Gradient 135.025 (0-20)
[2020-04-10] MEDS: Aspirin 81 mg Enteric Coated Tablet PO SCH (08:19)
[2020-04-10] MEDS: ALPRAZolam 0.5 MG TAB PO SCH ×3 (08:19→20:32)
[2020-04-10] MEDS: cloNIDine 0.1 MG TAB PO SCH ×2 (08:19→20:33)
[2020-04-10] MEDS: Anastrozole 1 MG TAB PO SCH (08:20)
[2020-04-10] MEDS: Apixaban 5 MG TAB PO SCH ×2 (08:20→20:33)
[2020-04-10] MEDS: Cholecalciferol 1,000 UNITS (25 MCG) TAB PO SCH (08:20)
[2020-04-10] MEDS: DULoxetine 60 MG CAP PO SCH ×2 (08:20→20:32)
[2020-04-10] MEDS: Famotidine 20 MG TAB PO SCH ×2 (08:20→20:32)
[2020-04-10] MEDS: AcetaZOLAMIDE 250 MG TAB PO SCH (08:20)
[2020-04-10] MEDS: Multivitamin W/ Minerals 1 TAB PO SCH (08:20)
[2020-04-10] MEDS: NEFAZODONE HCL PO SCH ×2 (08:21→21:32)
[2020-04-10] MEDS: Nystatin 500,000 UNITS/5 ML UDCUP SSW SCH ×4 (08:21→20:33)
[2020-04-10] MEDS: methylPREDNISolone Sod Succ 40 MG VIAL IVP SCH ×2 (08:21→20:31)
[2020-04-10] MEDS: risperiDONE 0.25 MG TAB PO SCH ×2 (08:28→20:34)
[2020-04-10] MEDS: Insulin Glargine 25 UNITS in Pre-Filled Syringe 1 EACH SC SCH (08:28)
[2020-04-10] MEDS: fentaNYL Citrate/PF 2,000 MCG in Sodium Chloride 0.9% 60 ML IV SCH (08:37)
--- NOTE | 2020-04-10 15:32 | PRG ---
DATE OF SERVICE: 04/10/2020 SUBJECTIVE: Ms. Servin remains mechanically ventilated. OBJECTIVE: VITAL SIGNS: Heart rates in the 60s, respiratory rates in the teens, blood pressure 152/101. LUNGS: Coarse equal breath sounds. HEART: Regular rhythm. ABDOMEN: Soft. LABORATORY DATA: White count 6.3, hemoglobin 10.5, platelets 125. Electrolytes are normal. Creatinine is 0.47. Chest x-ray is essentially unchanged. IMPRESSION: COVID pneumonia. She has been in the hospital now 30 days. Her isolation can be discontinued. She is very tachypneic. We will decrease ventilatory support. Tracheostomy is probably the next step. Job ID: [id number]
--- NOTE | 2020-04-10 18:31 | PDOC.HOSPP ---
- Subjective Subjective: no significant changes. d/w nursing staff. remains intubated, but decr ventilatory support - Objective Vital Signs & Weight: Vital Signs (12 hours) Temp Pulse Resp BP Pulse Ox 04/10/20 14:37 113 H 04/10/20 14:00 21 H 04/10/20 13:32 67 11 L 99 04/10/20 12:00 98.6 F 18 04/10/20 10:22 119 H 04/10/20 10:00 11 L 04/10/20 08:19 195/109 H 04/10/20 08:00 97.4 F L 17 99 04/10/20 07:52 126 H Weight Admit Weight 216 lb 11.2 oz Weight 233 lb 14.567 oz Most Recent Monitor Data Heart Rate from ECG 115 NIBP 194/119 NIBP BP-Mean 144 Respiration from ECG 27 SpO2 97 I&O: 04/09/20 04/10/20 04/11/20 06:59 06:59 06:59 Intake Total 3012 2293.9 216 Output Total 1940 1885 1080 Balance 1072 408.9 -864 Result Diagrams: 04/10/20 03:40 04/10/20 03:40 Additional Labs: Accuchecks 04/10/20 04/10/20 04/09/20 16:57 12:07 20:39 POC Glucose 111 H 125 H 203 H Hospitalist ROS - Medication Medications: Active Medications Generic Name Dose Route Start Last Admin Trade Name Freq PRN Reason Stop Dose Admin Acetazolamide 250 mg 04/08/20 09:00 04/10/20 08:20 Diamox PO 250 mg DAILY IGGY Administration Albuterol/Ipratropium 3 ml 03/29/20 19:00 04/10/20 13:32 Duoneb NEB 3 ml [id number] IGGY Administration Alprazolam 0.5 mg 04/08/20 15:00 04/10/20 15:20 Xanax PO 0.5 mg TID IGGY Administration Anastrozole 1 mg 03/26/20 09:00 04/10/20 08:20 Arimidex PO 1 mg DAILY IGGY Administration Apixaban 5 mg 03/11/20 21:00 04/10/20 08:20 Eliquis PO 5 mg BID IGGY Administration Aspirin 81 mg 03/12/20 09:00 04/10/20 08:19 Ecotrin PO 81 mg DAILY IGGY Administration Benzonatate 100 mg 03/26/20 09:01 03/29/20 04:24 Tessalon PO 100 mg Q6H PRN Administration Cough Cholecalciferol 5,000 units 03/12/20 09:00 04/10/20 08:20 Vitamin D3 PO 5,000 units DAILY IGGY Administration Clonidine 0.1 mg 04/08/20 21:00 04/10/20 08:19 Catapres PO 0.1 mg BID IGGY Administration Duloxetine HCl 60 mg 03/11/20 21:00 04/10/20 08:20 Cymbalta PO 60 mg BID IGGY Administration Famotidine 20 mg 03/17/20 09:00 04/10/20 08:20 Pepcid PO 20 mg BID IGGY Administration Guaifenesin 200 mg 03/26/20 09:01 03/27/20 09:40 Robitussin Sf PO 200 mg Q4H PRN Administration Cough Hydralazine HCl 10 mg 03/26/20 09:01 04/08/20 16:16 Apresoline SLOW IVP 10 mg Q4H PRN Administration SBP > 180 and HR < 70 Insulin Glargine 25 units/ 0.25 mls @ 0 mls/hr 03/20/20 09:00 04/10/20 08:28 Miscellaneous Medication SC 0.25 mls QAM IGGY Administration Insulin Glargine 20 units/ 0.2 mls @ 0 mls/hr 03/20/20 21:00 04/09/20 20:24 Miscellaneous Medication SC 0.2 mls HS IGGY Administration Sodium Chloride 1,000 mls @ 50 mls/hr 03/30/20 10:00 04/10/20 05:03 Normal Saline 0.9% IV 1,000 mls .Q20H IGGY Administration Dexmedetomidine HCl 400 mcg/ 100 mls @ 0 mls/hr 04/07/20 09:45 04/10/20 16:22 Sodium Chloride IVPB 100 mls INF IGGY Administration Protocol Per Protocol Fentanyl Citrate 2,000 mcg/ 100 mls @ 0 mls/hr 04/08/20 15:00 04/10/20 08:37 Sodium Chloride IV 05/08/20 15:01 100 mls INF IGGY Administration Protocol Per Protocol Insulin Human Lispro 0 units 03/17/20 08:46 04/04/20 22:27 Humalog SC 2 unit .BEDTIME SLIDING SC PRN Administration Bedtime Correctional Scale Insulin Human Lispro 0 units 03/26/20 09:01 04/10/20 05:03 Humalog SC 2 unit .MODERATE SLIDING SC PRN Administration Moderate Correctional Scale Iron/Minerals/Multivitamins 1 tab 03/12/20 09:00 04/10/20 08:20 Theragran M PO 1 tab DAILY IGGY Administration Lorazepam 2 mg 04/08/20 18:12 04/10/20 16:23 Ativan SLOW IVP 2 mg Q1H PRN Administration Breakthrough agitation Methylprednisolone Sodium Succinate 40 mg 04/04/20 21:00 04/10/20 08:21 Solu-Medrol IVP 40 mg BID IGGY Administration Metoclopramide HCl 5 mg 03/26/20 09:01 04/09/20 13:41 Reglan IVP 5 mg Q4H PRN Administration Nausea Mometasone Furoate/Formoterol Fumar 2 puff 03/14/20 18:30 04/10/20 07:00 Dulera 200 Mcg/5 Mcg Inhaler INH 2 puff BID-RT IGGY Administration Nystatin 500,000 units 03/21/20 21:00 04/10/20 16:22 Mycostatin SSW 500,000 units QID IGGY Administration (Nefazodone Hcl [ 300 each 03/13/20 09:00 04/10/20 08:21 Nefazodone Hcl] 150 PO 300 each Mg) Tab BID IGGY Administration Polyethylene Glycol 17 gm 03/19/20 08:36 04/07/20 03:46 Miralax PO 17 gm DAILYPRN PRN Administration Constipation Propofol 1,000 mg 03/29/20 13:58 04/10/20 12:18 Diprivan IV 04/28/20 13:58 1,000 mg INF PRN Administration TO ACHIEVE GOAL RASS Protocol Propofol 20 mg 03/29/20 13:58 03/29/20 14:50 Diprivan Bolus IV 04/28/20 13:58 20 mg Q5MIN PRN Administration BREAKTHROUGH AGITATION Risperidone 0.5 mg 04/05/20 09:00 04/10/20 08:28 Risperidone PO 0.5 mg BID IGGY Administration Rosuvastatin Calcium 20 mg 03/11/20 21:00 04/09/20 20:24 Crestor PO 20 mg HS IGGY Administration Sodium Chloride 10 ml 03/23/20 09:00 04/10/20 08:22 Flush - Normal Saline IVF 10 ml Q12HR IGGY Administration Sodium Chloride 10 ml 03/23/20 08:52 03/27/20 23:19 Flush - Normal Saline IVF 10 ml PRN PRN Administration Saline Flush Hosp A/P - Plan - Exam General Appearance: NAD, intubated Eye: PERRL, anicteric sclera ENT: normocephalic atraumatic, no oropharyngeal lesions Neck: supple, symmetric, no JVD, no thyromegaly Heart: RRR, no murmur, no gallops, no rubs Respiratory: no wheezes, no rales, no ronchi Respiratory - other findings: Reduced air entry at bases Gastrointestinal: soft, non-tender, non-distended, normal bowel sounds Extremities: no cyanosis, no clubbing Skin: normal turgor, no lesions Neurological: sedated Musculoskeletal: normal tone, normal strength Assessment/Plan #Acute respiratory failure with hypoxia due to COVID-19 infection - remains on ventilator #Viral pneumonia due to COVID-19 infection #COVID-19 infection -status post Remdesivir, convalescence plasma #Thrombocytopenia and leukopenia due to COVID-19 infection improved #Obesity with BMI 33 #Hypertension #Asthma/COPD #Anxiety and depression #Chronic anticoagulation #Dyslipidemia #History of right breast cancer #History of pulmonary embolism - on Eliquis 04/10/20 Patient remained on mechanical ventilation, but decreased ventilatory support. Possible tracheostomy as next step per architecture intern. Cont current mgt as per Dr. Everett 04/09/20 Patient remains on mechanical support. She is now s/p Remdesivir convalescent plasma treatment. She is currently on IV steroid, and she also completed course of IV antibiotic. Repeat chest x-ray still showed persistent multifocal pneumonia. She is being considered for possible tracheotomy as she is now into her 29 days of hospital course without significant clinical improvement from her respiratory status. Cont mgt as per Capacitor Inspector. Appreciate Dr. Everett 's help. Family meeting planned next Saturday to discuss the goals of care. Cont supportive cares.
[2020-04-10] MEDS: Insulin Glargine 20 UNITS in Pre-Filled Syringe SC SCH (20:30)
[2020-04-10] MEDS: Rosuvastatin 20 MG TAB PO SCH (20:33)
[2020-04-11] MEDS: Sodium Chloride 0.9% 1,000 ML IV SCH ×2 (03:06→21:41)
[2020-04-11 04:32] LABS: #Lymphocytes 0.3 thou/uL (1.20-3.40); #Monocytes 0.1 thou/uL (0.11-0.59); #Neutrophils 8.4 thou/uL (1.40-6.50); %Basophils 0.5 % (0.0-1.0); %Eosinophils 0.2 % (0.0-10.0); %Monocytes 1.5 % (0.0-10.0); %Neutrophils 94.8 % (42.0-75.0); Hemoglobin 12.1 g/dL (12.0-16.0); Mean Corpuscular HGB CONC 33.8 g/dL (32.0-36.0); Mean Corpuscular Hemoglobin 31.8 pg (27.0-31.0); Mean Corpuscular Volume 94.1 fL (78.0-98.0); Mean Platelet Volume 8.5 fL (7.4-10.4); Platelet Count 130 thou/uL (130-400); RBC Distribution Width 14.8 % (11.5-14.5); White Blood Cell (WBC) Count 8.9 thou/uL (4.8-10.8)
[2020-04-11 04:42] LABS: Anion Gap 9 mmol/L (10-20); BUN (Urea Nitrogen) 21 mg/dL (9.8-20.1); Calc. Creatinine Clearance 188 mL/min (70-130); Calcium 9.2 mg/dL (7.8-10.44); Carbon Dioxide 30 mmol/L (22-29); Chloride 106 mmol/L (98-107); Estimated GFR-MDRD Greater than 90; Glucose 121 mg/dL (70-105); Potassium 3.8 mmol/L (3.5-5.1); Sodium 141 mmol/L (136-145)
[2020-04-11] MEDS: Propofol 1,000 MG/100 ML VIAL IV PRN ×3 (05:34→21:25)
[2020-04-11] MEDS: Mometasone 200 MCG/Formoterol 5 MCG 120 PUFF INHALER INH SCH ×2 (07:43→18:46)
[2020-04-11 08:29] LABS: Actual Bicarbonate (HCO3a) 26.3 mEq/L (22-28); Analyzer IN Cardio ER; Carboxyhemoglobin (COHb) 0.5 gm% (0.0-3.0); Hemoglobin (Hb) 11.4 g/dL (12.0-16.0); Potassium - ABG Lab 3.74 mmol/L (3.70-5.30); pH, Arterial 7.44 (7.35-7.45)
--- NOTE | 2020-04-11 08:39 | PRG ---
DATE OF SERVICE: 04/11/2020 SUBJECTIVE: Shanta Servin remains stable. OBJECTIVE: VITAL SIGNS: Heart rates in the 50s, blood pressure 147/92, respiratory rates in the teens, oximetry is 98. FiO2 is 40. LUNGS: Clear anteriorly HEART: Regular rate and rhythm. ABDOMEN: Soft. EXTREMITIES: Without edema. LABORATORY DATA: White count 8.9, hemoglobin 12.1, platelets 130. Sodium 141, potassium 3.8, chloride 106, bicarb 30, BUN 21, creatinine 0.54. IMPRESSION: COVID pneumonia. She is 31 days into her hospitalization. She did not do well with spontaneous breathing trial. She will need a trach and a PEG. Her anticoagulants need to be held for this and restarted afterwards, probably do not need to continue to do daily blood gases on her at this point. Consult has been placed for General Surgery. Job ID: [id number]
[2020-04-11] MEDS: methylPREDNISolone Sod Succ 40 MG VIAL IVP SCH ×2 (08:56→21:15)
[2020-04-11] MEDS: Cholecalciferol 1,000 UNITS (25 MCG) TAB PO SCH (08:57)
[2020-04-11 08:58] LABS: O2 Tension (PaO2), arterial 59.6 mmHg (80.0-100.0); Puncture Site LR
[2020-04-11] MEDS: Multivitamin W/ Minerals 1 TAB PO SCH (08:58)
[2020-04-11] MEDS: cloNIDine 0.1 MG TAB PO SCH ×2 (08:58→21:15)
[2020-04-11] MEDS: ALPRAZolam 0.5 MG TAB PO SCH ×3 (08:58→21:16)
[2020-04-11] MEDS: AcetaZOLAMIDE 250 MG TAB PO SCH (08:58)
[2020-04-11] MEDS: DULoxetine 60 MG CAP PO SCH ×2 (08:58→21:16)
[2020-04-11] MEDS: Aspirin 81 mg Enteric Coated Tablet PO SCH (08:59)
[2020-04-11] MEDS: Anastrozole 1 MG TAB PO SCH (08:59)
[2020-04-11] MEDS: Nystatin 500,000 UNITS/5 ML UDCUP SSW SCH ×4 (08:59→21:19)
[2020-04-11] MEDS: Famotidine 20 MG TAB PO SCH ×2 (08:59→21:15)
[2020-04-11] MEDS: NEFAZODONE HCL PO SCH ×2 (09:00→21:18)
[2020-04-11] MEDS: Insulin Glargine 25 UNITS in Pre-Filled Syringe 1 EACH SC SCH (09:04)
[2020-04-11] MEDS: risperiDONE 0.25 MG TAB PO SCH ×2 (09:04→21:15)
[2020-04-11] MEDS: HumaLOG 300 UNITS/3 ML VIAL SC PRN (10:47)
--- NOTE | 2020-04-11 14:49 | PDOC.PALPN ---
Palliative Progress Note - Subjective Mechanical ventilation, restless intermittently, does not open eyes. to bedside - Objective Vital Signs: Vital Signs - Most Recent Temp Pulse Resp BP Pulse Ox 97.9 F 130 H 32 H 163/106 H 93 L 04/11/20 12:00 04/11/20 14:37 04/11/20 14:00 04/11/20 14:37 04/11/20 12:00 - Physical Exam Constitutional: encephalitic, ill appearing HEENT: moist MMs Respiratory: no wheezing, diminished lung sound Deviation from normal: mechanical ventilation Cardiovascular: RRR Deviation from normal: intermittant tachycardia Gastrointestinal: soft, non-tender, incontinent Deviation from normal: obese Genitourinary: carrillo catheter Musculoskeletal: no cyanosis, no clubbing Deviation from normal: sedated Skin: cap refill <2 seconds, fragile Deviation from normal: sedated - Assessment (1) Palliative care encounter Code(s): Z51.5 - ENCOUNTER FOR PALLIATIVE CARE Current Visit: Yes Status: Acute (2) Acute respiratory failure with hypoxia Code(s): J96.01 - ACUTE RESPIRATORY FAILURE WITH HYPOXIA Current Visit: Yes Status: Acute (3) Pneumonia due to COVID-19 virus Code(s): U07.1 - COVID-19; J12.89 - OTHER VIRAL PNEUMONIA Current Visit: Yes Status: Acute (4) H/O malignant neoplasm of breast Code(s): Z85.3 - PERSONAL HISTORY OF MALIGNANT NEOPLASM OF BREAST Current Visit: Yes Status: Chronic (5) Obesity (BMI 30-39.9) Code(s): E66.9 - OBESITY, UNSPECIFIED Current Visit: Yes Status: Chronic - Plan Plan: to bedside. Discussed recent completion of chemo therapy for his week prior to presentation to the hospital, his current support system including his page for his on [place], his johnny and belief she will be healed. Significant johnny. Agreeable for Trach/Peg to achieve meaningful recovery. Did discuss complications and possible delays in recovery as well as rehab post Trach/Peg at [facility] prior to returning to home setting. Emotional support therapeutic listening. Communicated with Dr Hyatt [35] minutes spent on this encounter with >50% of the time in counseling and coordination of care. - ROS Non Response: due to endotracheal tube, due to mental status
--- NOTE | 2020-04-11 17:33 | PRG ---
DATE OF SERVICE: 04/11/2020 SUBJECTIVE: The patient is without major changes. She has been afebrile. She has become more tachycardic and hypertensive, more tachypneic than before. FiO2 at 40 and O2 saturations at 93, and the exam shows symmetric air entry. S1 and S2, regular rate. Abdomen is soft. LABORATORY DATA: White cell count is 8.9, hemoglobin 12, platelets 130. Creatinine 0.54. ASSESSMENT AND DISCUSSION: Hypertension; breast cancer, in remission after mastectomy and treatment; COVID-19 infection, severe within mechanical ventilation requirement. This is the 36th day of illness and is not going to be able to be extubated, so a tracheostomy and gastrostomy will be required. Consultation has been placed for Surgical intervention. Job ID: [id number]
--- NOTE | 2020-04-11 19:20 | PDOC.HOSPP ---
- Subjective Subjective: pt was seen and examined. I had a long discussion and pt's , plan is to proceed with trach and peg as pt is unable to extubate. d/w palliative team. appreciate their help - Objective Vital Signs & Weight: Vital Signs (12 hours) Temp Pulse Resp BP Pulse Ox 04/11/20 18:18 82 173/113 H 04/11/20 16:00 97.7 F 15 04/11/20 14:37 130 H 163/106 H 04/11/20 14:00 32 H 04/11/20 12:00 97.9 F 131 H 20 93 L 04/11/20 11:23 116 H 164/92 H 04/11/20 10:00 22 H 04/11/20 08:58 195/121 H 04/11/20 08:00 97.8 F 20 04/11/20 07:43 53 L 17 98 04/11/20 07:37 82 147/92 H 04/11/20 07:23 99 Weight Admit Weight 216 lb 11.2 oz Weight 231 lb 0.711 oz Most Recent Monitor Data Heart Rate from ECG 111 NIBP 187/108 NIBP BP-Mean 134 Respiration from ECG 15 SpO2 95 I&O: 04/10/20 04/11/20 04/12/20 06:59 06:59 06:59 Intake Total 2293.9 3382.6 150 Output Total 1885 2370 2550 Balance 408.9 1012.6 -2400 Result Diagrams: 04/11/20 03:50 04/11/20 03:50 Additional Labs: Accuchecks 04/11/20 04/11/20 04/10/20 17:56 10:49 20:30 POC Glucose 116 H 156 H 118 H Hospitalist ROS - Medication Medications: Active Medications Generic Name Dose Route Start Last Admin Trade Name Freq PRN Reason Stop Dose Admin Acetazolamide 250 mg 04/08/20 09:00 04/11/20 08:58 Diamox PO 250 mg DAILY IGGY Administration Albuterol/Ipratropium 3 ml 03/29/20 19:00 04/11/20 18:17 Duoneb NEB 3 ml [id number] IGGY Administration Alprazolam 0.5 mg 04/08/20 15:00 04/11/20 14:19 Xanax PO 0.5 mg TID IGGY Administration Anastrozole 1 mg 03/26/20 09:00 04/11/20 08:59 Arimidex PO 1 mg DAILY IGGY Administration Aspirin 81 mg 03/12/20 09:00 04/11/20 08:59 Ecotrin PO 81 mg DAILY IGGY Administration Benzonatate 100 mg 03/26/20 09:01 03/29/20 04:24 Tessalon PO 100 mg Q6H PRN Administration Cough Cholecalciferol 5,000 units 03/12/20 09:00 04/11/20 08:57 Vitamin D3 PO 5,000 units DAILY IGGY Administration Clonidine 0.1 mg 04/08/20 21:00 04/11/20 08:58 Catapres PO 0.1 mg BID IGGY Administration Duloxetine HCl 60 mg 03/11/20 21:00 04/11/20 08:58 Cymbalta PO 60 mg BID IGGY Administration Famotidine 20 mg 03/17/20 09:00 04/11/20 08:59 Pepcid PO 20 mg BID IGGY Administration Guaifenesin 200 mg 03/26/20 09:01 03/27/20 09:40 Robitussin Sf PO 200 mg Q4H PRN Administration Cough Hydralazine HCl 10 mg 03/26/20 09:01 04/08/20 16:16 Apresoline SLOW IVP 10 mg Q4H PRN Administration SBP > 180 and HR < 70 Insulin Glargine 25 units/ 0.25 mls @ 0 mls/hr 03/20/20 09:00 04/11/20 09:04 Miscellaneous Medication SC 0.25 mls QAM IGGY Administration Insulin Glargine 20 units/ 0.2 mls @ 0 mls/hr 03/20/20 21:00 04/10/20 20:30 Miscellaneous Medication SC 0.2 mls HS IGGY Administration Sodium Chloride 1,000 mls @ 50 mls/hr 03/30/20 10:00 04/11/20 03:06 Normal Saline 0.9% IV 1,000 mls .Q20H IGGY Administration Dexmedetomidine HCl 400 mcg/ 100 mls @ 0 mls/hr 04/07/20 09:45 04/11/20 17:54 Sodium Chloride IVPB 100 mls INF IGGY Administration Protocol Per Protocol Fentanyl Citrate 2,000 mcg/ 100 mls @ 0 mls/hr 04/08/20 15:00 04/10/20 08:37 Sodium Chloride IV 05/08/20 15:01 100 mls INF IGGY Administration Protocol Per Protocol Insulin Human Lispro 0 units 03/17/20 08:46 04/04/20 22:27 Humalog SC 2 unit .BEDTIME SLIDING SC PRN Administration Bedtime Correctional Scale Insulin Human Lispro 0 units 03/26/20 09:01 04/11/20 10:47 Humalog SC 2 unit .MODERATE SLIDING SC PRN Administration Moderate Correctional Scale Iron/Minerals/Multivitamins 1 tab 03/12/20 09:00 04/11/20 08:58 Theragran M PO 1 tab DAILY IGGY Administration Lorazepam 2 mg 04/08/20 18:12 04/10/20 16:23 Ativan SLOW IVP 2 mg Q1H PRN Administration Breakthrough agitation Methylprednisolone Sodium Succinate 40 mg 04/04/20 21:00 04/11/20 08:56 Solu-Medrol IVP 40 mg BID IGGY Administration Metoclopramide HCl 5 mg 03/26/20 09:01 04/09/20 13:41 Reglan IVP 5 mg Q4H PRN Administration Nausea Mometasone Furoate/Formoterol Fumar 2 puff 03/14/20 18:30 04/11/20 18:46 Dulera 200 Mcg/5 Mcg Inhaler INH 2 puff BID-RT IGGY Administration Nystatin 500,000 units 03/21/20 21:00 04/11/20 18:00 Mycostatin SSW 500,000 units QID IGGY Administration (Nefazodone Hcl [ 300 each 03/13/20 09:00 04/11/20 09:00 Nefazodone Hcl] 150 PO 300 each Mg) Tab BID IGGY Administration Polyethylene Glycol 17 gm 03/19/20 08:36 04/07/20 03:46 Miralax PO 17 gm DAILYPRN PRN Administration Constipation Propofol 1,000 mg 03/29/20 13:58 04/11/20 14:19 Diprivan IV 04/28/20 13:58 1,000 mg INF PRN Administration TO ACHIEVE GOAL RASS Protocol Propofol 20 mg 03/29/20 13:58 03/29/20 14:50 Diprivan Bolus IV 04/28/20 13:58 20 mg Q5MIN PRN Administration BREAKTHROUGH AGITATION Risperidone 0.5 mg 04/05/20 09:00 04/11/20 09:04 Risperidone PO 0.5 mg BID IGGY Administration Rosuvastatin Calcium 20 mg 03/11/20 21:00 04/10/20 20:33 Crestor PO 20 mg HS IGGY Administration Sodium Chloride 10 ml 03/23/20 09:00 04/11/20 09:00 Flush - Normal Saline IVF 10 ml Q12HR IGGY Administration Sodium Chloride 10 ml 03/23/20 08:52 03/27/20 23:19 Flush - Normal Saline IVF 10 ml PRN PRN Administration Saline Flush Hosp A/P - Plan - Exam General Appearance: NAD, intubated Eye: PERRL, anicteric sclera ENT: normocephalic atraumatic, no oropharyngeal lesions Neck: supple, symmetric, no JVD, no thyromegaly Heart: RRR, no murmur, no gallops, no rubs Respiratory: no wheezes, no rales, no ronchi Respiratory - other findings: Reduced air entry at bases Gastrointestinal: soft, non-tender, non-distended, normal bowel sounds Extremities: no cyanosis, no clubbing Skin: normal turgor, no lesions Neurological: sedated Musculoskeletal: normal tone, normal strength Assessment/Plan #Acute respiratory failure with hypoxia due to COVID-19 infection - remains on ventilator #Viral pneumonia due to COVID-19 infection #COVID-19 infection -status post Remdesivir, convalescence plasma #Thrombocytopenia and leukopenia due to COVID-19 infection improved #Obesity with BMI 33 #Hypertension #Asthma/COPD #Anxiety and depression #Chronic anticoagulation #Dyslipidemia #History of right breast cancer #History of pulmonary embolism - on Eliquis 04/11/20 dw pt's , updated him with pt status. Pt is now day #31 of her hospital stay. Plan for tracheotomy. appreciate specialist help. Cont supportive cares. 04/10/20 Patient remained on mechanical ventilation, but decreased ventilatory support. Possible tracheostomy as next step per customer complaint clerk. Cont current mgt as per Dr. Everett 04/09/20 Patient remains on mechanical support. She is now s/p Remdesivir convalescent plasma treatment. She is currently on IV steroid, and she also completed course of IV antibiotic. Repeat chest x-ray still showed persistent multifocal pneumonia. She is being considered for possible tracheotomy as she is now into her 29 days of hospital course without significant clinical improvement from her respiratory status. Cont mgt as per Key Bed Installer. Appreciate Dr. Everett 's help. Family meeting planned next Saturday to discuss the goals of care. Cont supportive cares.
[2020-04-11] MEDS: Lorazepam 2 MG/ML VIAL SLOW IVP PRN (20:18)
[2020-04-11] MEDS: Rosuvastatin 20 MG TAB PO SCH (21:15)
[2020-04-11] MEDS: Insulin Glargine 20 UNITS in Pre-Filled Syringe SC SCH (21:16)
--- NOTE | 2020-04-12 00:47 | CON ---
DATE OF CONSULTATION: HISTORY OF PRESENT ILLNESS: A 60-year-old female, morbidly obese, 5 feet 4 inches, 39 BMI, whom I initially saw placing a central line on admission, 03/16/2020, due to COVID illness. She has been on ventilator since being admitted, 03/11/2020. Dr. Everett has asked me to see her regarding placement of tracheostomy and PEG tube to facilitate weaning. I spoke with the patient's and he is agreeable. We will also plan a new central line as her current central line has been present since admission. ALLERGIES: CIPRO, CLINDAMYCIN, ERYTHROMYCIN, FUROSEMIDE AND MORE. SOCIAL HISTORY: Alcohol use, socially. Drug use, none. Smoking, none. PAST SURGICAL HISTORY: Mastectomy, radiation chemo, adenoidectomy, hysterectomy, tonsillectomy, cervical disk surgery. PAST MEDICAL HISTORY: Stroke, hypertension, PE, hyperlipidemia, fibromyalgia, and breast cancer. PHYSICAL EXAMINATION: GENERAL: The patient is on the ventilator. She is sedated. Height 5 feet 4 inches, 231 pounds, 39 BMI. Tube feedings are infusing. VITAL SIGNS: Heart rate 92, blood pressure 173/113, heart rate 111, blood pressure 187/108. HEAD, EARS, EYES, NOSE, AND THROAT: Unremarkable. LUNGS: Clear to auscultation. CARDIAC: Regular rate and rhythm without murmur or gallop. ABDOMEN: Soft and nontender. No scars. EXTREMITIES: Unremarkable. LABORATORY DATA: White count 8, hemoglobin 12. Basic metabolic profile; BUN 21, creatinine 0.54, sodium 141, potassium 3.8. ASSESSMENT/PLAN: Malnutrition. PLAN: 1. PEG tube placement, dysphagia expected after prolonged ventilation. 2. Tracheostomy. Risks and benefits of PEG tube placement, tracheostomy discussed with per telephone. He consents. 3. History of breast cancer. Job ID: [id number]
[2020-04-12] MEDS: HumaLOG 300 UNITS/3 ML VIAL SC PRN ×4 (03:38→21:39)
[2020-04-12] MEDS: Propofol 1,000 MG/100 ML VIAL IV PRN ×4 (03:59→21:41)
[2020-04-12 04:35] LABS: Anion Gap 9 mmol/L (10-20); BUN (Urea Nitrogen) 20 mg/dL (9.8-20.1); Calc. Creatinine Clearance 193 mL/min (70-130); Calcium 8.4 mg/dL (7.8-10.44); Carbon Dioxide 29 mmol/L (22-29); Chloride 107 mmol/L (98-107); Estimated GFR-MDRD Greater than 90; Glucose 197 mg/dL (70-105); Potassium 3.5 mmol/L (3.5-5.1); Sodium 141 mmol/L (136-145)
[2020-04-12 04:40] LABS: #Lymphocytes 0.2 thou/uL (1.20-3.40); #Monocytes 0.2 thou/uL (0.11-0.59); #Neutrophils 6.4 thou/uL (1.40-6.50); %Eosinophils 0.3 % (0.0-10.0); %Lymphocytes 3.2 % (21.0-51.0); %Monocytes 2.2 % (0.0-10.0); %Neutrophils 94.3 % (42.0-75.0); Hemoglobin 10.2 g/dL (12.0-16.0); Mean Corpuscular HGB CONC 34.2 g/dL (32.0-36.0); Mean Corpuscular Hemoglobin 32.2 pg (27.0-31.0); Mean Corpuscular Volume 94.1 fL (78.0-98.0); Mean Platelet Volume 8.1 fL (7.4-10.4); Platelet Count 111 thou/uL (130-400); Platelet Morphology Comment Appears Decreased; Red Blood Cell (RBC) Count 3.17 mill/uL (4.20-5.40); White Blood Cell (WBC) Count 6.7 thou/uL (4.8-10.8)
[2020-04-12] MEDS ORDERED: Potassium Chloride 40 MEQ in Premix Bag 1 BAG IVPB SCH (05:00)
[2020-04-12] MEDS: fentaNYL Citrate/PF 2,000 MCG in Sodium Chloride 0.9% 60 ML IV SCH (06:31)
[2020-04-12] MEDS: Mometasone 200 MCG/Formoterol 5 MCG 120 PUFF INHALER INH SCH ×2 (07:05→18:35)
[2020-04-12] MEDS: Cholecalciferol 1,000 UNITS (25 MCG) TAB PO SCH (08:41)
[2020-04-12] MEDS: DULoxetine 60 MG CAP PO SCH ×2 (08:41→21:47)
[2020-04-12] MEDS: Nystatin 500,000 UNITS/5 ML UDCUP SSW SCH ×4 (08:41→21:48)
[2020-04-12] MEDS: AcetaZOLAMIDE 250 MG TAB PO SCH (08:42)
[2020-04-12] MEDS: Anastrozole 1 MG TAB PO SCH (08:42)
[2020-04-12] MEDS: risperiDONE 0.25 MG TAB PO SCH ×2 (08:42→21:48)
[2020-04-12] MEDS: Famotidine 20 MG TAB PO SCH ×2 (08:42→21:47)
[2020-04-12] MEDS: ALPRAZolam 0.5 MG TAB PO SCH ×3 (08:42→21:49)
[2020-04-12] MEDS: Aspirin 81 mg Enteric Coated Tablet PO SCH (08:42)
[2020-04-12] MEDS: cloNIDine 0.1 MG TAB PO SCH ×3 (08:42→22:39)
[2020-04-12] MEDS: Multivitamin W/ Minerals 1 TAB PO SCH (08:42)
[2020-04-12] MEDS: methylPREDNISolone Sod Succ 40 MG VIAL IVP SCH ×2 (08:43→21:47)
[2020-04-12] MEDS: Insulin Glargine 25 UNITS in Pre-Filled Syringe 1 EACH SC SCH (08:43)
[2020-04-12] MEDS: NEFAZODONE HCL PO SCH ×2 (08:44→21:41)
[2020-04-12 11:45] LABS: Potassium 3.6 mmol/L (3.5-5.1)
--- NOTE | 2020-04-12 17:42 | PDOC.HOSPP ---
- Subjective Subjective: Patient was seen examined at bedside. No acute events overnight. No significant improvement in terms of vent mechanics. Plan for trach and PEG tomorrow as he is now into her hospital day #32. I have called and updated her on the phone with regard to patient's status all questions answered - Objective Vital Signs & Weight: Vital Signs (12 hours) Temp Pulse Resp BP Pulse Ox 04/12/20 16:00 98.1 F 14 04/12/20 14:16 76 162/111 H 04/12/20 14:00 16 04/12/20 12:00 98.3 F 12 04/12/20 10:22 65 100/61 04/12/20 10:00 12 04/12/20 08:42 180/115 H 04/12/20 08:00 99 F 24 H 97 04/12/20 07:05 86 190/115 H 04/12/20 06:00 17 Weight Admit Weight 216 lb 11.2 oz Weight 232 lb 12.93 oz Most Recent Monitor Data Heart Rate from ECG 99 NIBP 185/123 NIBP BP-Mean 143 Respiration from ECG 23 SpO2 98 I&O: 04/11/20 04/12/20 04/13/20 06:59 06:59 06:59 Intake Total 3382.6 2860.4 255 Output Total 2370 4820 1490 Balance 1012.6 -1959.6 -1235 Result Diagrams: 04/12/20 03:33 04/12/20 10:55 Additional Labs: Accuchecks 04/12/20 04/12/20 04/12/20 17:24 08:45 03:40 POC Glucose 197 H 190 H 203 H 04/11/20 04/11/20 21:23 17:56 POC Glucose 134 H 116 H Hospitalist ROS - Medication Medications: Active Medications Generic Name Dose Route Start Last Admin Trade Name Freq PRN Reason Stop Dose Admin Acetazolamide 250 mg 04/08/20 09:00 04/12/20 08:42 Diamox PO 250 mg DAILY IGGY Administration Albuterol/Ipratropium 3 ml 03/29/20 19:00 04/12/20 14:16 Duoneb NEB 3 ml [id number] IGGY Administration Alprazolam 0.5 mg 04/08/20 15:00 04/12/20 14:44 Xanax PO 0.5 mg TID IGGY Administration Anastrozole 1 mg 03/26/20 09:00 04/12/20 08:42 Arimidex PO 1 mg DAILY IGGY Administration Aspirin 81 mg 03/12/20 09:00 04/12/20 08:42 Ecotrin PO 81 mg DAILY IGGY Administration Benzonatate 100 mg 03/26/20 09:01 03/29/20 04:24 Tessalon PO 100 mg Q6H PRN Administration Cough Cholecalciferol 5,000 units 03/12/20 09:00 04/12/20 08:41 Vitamin D3 PO 5,000 units DAILY IGGY Administration Clonidine 0.1 mg 04/08/20 21:00 04/12/20 08:42 Catapres PO 0.1 mg BID IGGY Administration Duloxetine HCl 60 mg 03/11/20 21:00 04/12/20 08:41 Cymbalta PO 60 mg BID IGYG Administration Famotidine 20 mg 03/17/20 09:00 04/12/20 08:42 Pepcid PO 20 mg BID IGGY Administration Guaifenesin 200 mg 03/26/20 09:01 03/27/20 09:40 Robitussin Sf PO 200 mg Q4H PRN Administration Cough Hydralazine HCl 10 mg 03/26/20 09:01 04/08/20 16:16 Apresoline SLOW IVP 10 mg Q4H PRN Administration SBP > 180 and HR < 70 Insulin Glargine 25 units/ 0.25 mls @ 0 mls/hr 03/20/20 09:00 04/12/20 08:43 Miscellaneous Medication SC 0.25 mls QAM IGGY Administration Insulin Glargine 20 units/ 0.2 mls @ 0 mls/hr 03/20/20 21:00 04/11/20 21:16 Miscellaneous Medication SC 0.2 mls HS IGGY Administration Sodium Chloride 1,000 mls @ 50 mls/hr 03/30/20 10:00 04/11/20 21:41 Normal Saline 0.9% IV 1,000 mls .Q20H IGGY Administration Dexmedetomidine HCl 400 mcg/ 100 mls @ 0 mls/hr 04/07/20 09:45 04/12/20 13:13 Sodium Chloride IVPB 100 mls INF IGGY Administration Protocol Per Protocol Fentanyl Citrate 2,000 mcg/ 100 mls @ 0 mls/hr 04/08/20 15:00 04/12/20 06:31 Sodium Chloride IV 05/08/20 15:01 100 mls INF IGGY Administration Protocol Per Protocol Insulin Human Lispro 0 units 03/17/20 08:46 04/04/20 22:27 Humalog SC 2 unit .BEDTIME SLIDING SC PRN Administration Bedtime Correctional Scale Insulin Human Lispro 0 units 03/26/20 09:01 04/12/20 17:21 Humalog SC 2 unit .MODERATE SLIDING SC PRN Administration Moderate Correctional Scale Iron/Minerals/Multivitamins 1 tab 03/12/20 09:00 04/12/20 08:42 Theragran M PO 1 tab DAILY IGGY Administration Lorazepam 2 mg 04/08/20 18:12 04/11/20 20:18 Ativan SLOW IVP 2 mg Q1H PRN Administration Breakthrough agitation Methylprednisolone Sodium Succinate 40 mg 04/04/20 21:00 04/12/20 08:43 Solu-Medrol IVP 40 mg BID IGGY Administration Metoclopramide HCl 5 mg 03/26/20 09:01 04/09/20 13:41 Reglan IVP 5 mg Q4H PRN Administration Nausea Mometasone Furoate/Formoterol Fumar 2 puff 03/14/20 18:30 04/12/20 07:05 Dulera 200 Mcg/5 Mcg Inhaler INH 2 puff BID-RT IGGY Administration Nystatin 500,000 units 03/21/20 21:00 04/12/20 13:57 Mycostatin SSW 500,000 units QID IGGY Administration (Nefazodone Hcl [ 300 each 03/13/20 09:00 04/12/20 08:44 Nefazodone Hcl] 150 PO 300 each Mg) Tab BID IGGY Administration Polyethylene Glycol 17 gm 03/19/20 08:36 04/07/20 03:46 Miralax PO 17 gm DAILYPRN PRN Administration Constipation Propofol 1,000 mg 03/29/20 13:58 04/12/20 15:00 Diprivan IV 04/28/20 13:58 1,000 mg INF PRN Administration TO ACHIEVE GOAL RASS Protocol Propofol 20 mg 03/29/20 13:58 03/29/20 14:50 Diprivan Bolus IV 04/28/20 13:58 20 mg Q5MIN PRN Administration BREAKTHROUGH AGITATION Risperidone 0.5 mg 04/05/20 09:00 04/12/20 08:42 Risperidone PO 0.5 mg BID IGGY Administration Rosuvastatin Calcium 20 mg 03/11/20 21:00 04/11/20 21:15 Crestor PO 20 mg HS IGGY Administration Sodium Chloride 10 ml 03/23/20 09:00 04/12/20 08:44 Flush - Normal Saline IVF 10 ml Q12HR IGGY Administration Sodium Chloride 10 ml 03/23/20 08:52 03/27/20 23:19 Flush - Normal Saline IVF 10 ml PRN PRN Administration Saline Flush Hosp A/P - Plan - Exam General Appearance: NAD, intubated Eye: PERRL, anicteric sclera ENT: normocephalic atraumatic, no oropharyngeal lesions Neck: supple, symmetric, no JVD, no thyromegaly Heart: RRR, no murmur, no gallops, no rubs Respiratory: no wheezes, no rales, no ronchi Respiratory - other findings: Reduced air entry at bases Gastrointestinal: soft, non-tender, non-distended, normal bowel sounds Extremities: no cyanosis, no clubbing Skin: normal turgor, no lesions Neurological: sedated Musculoskeletal: normal tone, normal strength Assessment/Plan #Acute respiratory failure with hypoxia due to COVID-19 infection - remains on ventilator #Viral pneumonia due to COVID-19 infection #COVID-19 infection -status post Remdesivir, convalescence plasma #Thrombocytopenia and leukopenia due to COVID-19 infection improved #Obesity with BMI 33 #Hypertension #Asthma/COPD #Anxiety and depression #Chronic anticoagulation #Dyslipidemia #History of right breast cancer #History of pulmonary embolism - on Eliquis 04/12/20 Plan for PEG and trach tomorrow. I have called her and update him with regard to patient's status. Continue supportive cares and management as per specialists. 04/11/20 dw pt's , updated him with pt status. Pt is now day #31 of her hospital stay. Plan for tracheotomy. appreciate specialist help. Cont supportive cares. 04/10/20 Patient remained on mechanical ventilation, but decreased ventilatory support. Possible tracheostomy as next step per intensive care medicine specialist. Cont current mgt as per Dr. Everett 04/09/20 Patient remains on mechanical support. She is now s/p Remdesivir convalescent plasma treatment. She is currently on IV steroid, and she also completed course of IV antibiotic. Repeat chest x-ray still showed persistent multifocal pneumonia. She is being considered for possible tracheotomy as she is now into her 29 days of hospital course without significant clinical improvement from her respiratory status. Cont mgt as per Customer Care Agent. Appreciate Dr. Everett 's help. Family meeting planned next Saturday to discuss the goals of care. Cont supportive cares.
--- NOTE | 2020-04-12 17:53 | PRG ---
DATE OF SERVICE: 04/12/2020 SUBJECTIVE: Ms. Servin remains hemodynamically stable. She is tentatively on schedule for tracheostomy. OBJECTIVE: VITAL SIGNS: Blood pressure 154/99, heart rate 94, respiratory rate is 18, and oximetry is in the mid 90s. LUNGS: Unchanged. HEART: Unchanged. ABDOMEN: Unchanged. LABORATORY DATA: White count 6.7, hemoglobin 10.2, and platelets 111. Electrolytes are unremarkable. IMPRESSION: COVID pneumonia. PLAN: Tracheostomy and PEG placement. Job ID: [id number]
[2020-04-12] MEDS: Lorazepam 2 MG/ML VIAL SLOW IVP PRN ×2 (19:39→23:45)
[2020-04-12] MEDS: Sodium Chloride 0.9% 1,000 ML IV SCH (20:09)
[2020-04-12] MEDS: Insulin Glargine 20 UNITS in Pre-Filled Syringe SC SCH (21:46)
[2020-04-12] MEDS: Rosuvastatin 20 MG TAB PO SCH (21:48)
[2020-04-13] MEDS: Propofol 1,000 MG/100 ML VIAL IV PRN ×4 (03:51→23:46)
[2020-04-13 04:00] LABS: #Lymphocytes 0.2 thou/uL (1.20-3.40); #Monocytes 0.3 thou/uL (0.11-0.59); #Neutrophils 8.9 thou/uL (1.40-6.50); %Eosinophils 0.2 % (0.0-10.0); %Monocytes 2.8 % (0.0-10.0); %Neutrophils 95.1 % (42.0-75.0); Hemoglobin 10.8 g/dL (12.0-16.0); Mean Corpuscular HGB CONC 33.8 g/dL (32.0-36.0); Mean Corpuscular Hemoglobin 31.6 pg (27.0-31.0); Mean Corpuscular Volume 93.6 fL (78.0-98.0); Mean Platelet Volume 8.1 fL (7.4-10.4); Platelet Count 104 thou/uL (130-400); RBC Distribution Width 15.3 % (11.5-14.5); Red Blood Cell (RBC) Count 3.42 mill/uL (4.20-5.40); White Blood Cell (WBC) Count 9.4 thou/uL (4.8-10.8)
[2020-04-13 04:27] LABS: Anion Gap 9 mmol/L (10-20); BUN (Urea Nitrogen) 15 mg/dL (9.8-20.1); Calc. Creatinine Clearance 215 mL/min (70-130); Calcium 9.1 mg/dL (7.8-10.44); Carbon Dioxide 28 mmol/L (22-29); Chloride 107 mmol/L (98-107); Estimated GFR-MDRD Greater than 90; Glucose 143 mg/dL (70-105); Potassium 3.3 mmol/L (3.5-5.1); Sodium 141 mmol/L (136-145)
[2020-04-13] MEDS ORDERED: Potassium Chloride 40 MEQ in Premix Bag 1 BAG IVPB SCH (04:45)
[2020-04-13] MEDS ORDERED: Potassium Chloride 20 MEQ TAB PO SCH (06:45)
[2020-04-13] MEDS: Mometasone 200 MCG/Formoterol 5 MCG 120 PUFF INHALER INH SCH ×2 (06:46→18:36)
[2020-04-13] MEDS: risperiDONE 0.25 MG TAB PO SCH ×2 (08:34→20:30)
[2020-04-13] MEDS: Famotidine 20 MG TAB PO SCH ×2 (08:35→20:30)
[2020-04-13] MEDS: Aspirin 81 mg Enteric Coated Tablet PO SCH (08:35)
[2020-04-13] MEDS: AcetaZOLAMIDE 250 MG TAB PO SCH (08:35)
[2020-04-13] MEDS: Multivitamin W/ Minerals 1 TAB PO SCH (08:35)
[2020-04-13] MEDS: Cholecalciferol 1,000 UNITS (25 MCG) TAB PO SCH (08:35)
[2020-04-13] MEDS: DULoxetine 60 MG CAP PO SCH ×2 (08:35→20:31)
[2020-04-13] MEDS: Anastrozole 1 MG TAB PO SCH (08:36)
[2020-04-13] MEDS: cloNIDine 0.1 MG TAB PO SCH ×2 (08:36→20:30)
[2020-04-13] MEDS: NEFAZODONE HCL PO SCH ×2 (08:37→20:35)
[2020-04-13] MEDS: methylPREDNISolone Sod Succ 40 MG VIAL IVP SCH ×2 (08:37→20:30)
[2020-04-13] MEDS: Nystatin 500,000 UNITS/5 ML UDCUP SSW SCH ×4 (08:38→20:31)
[2020-04-13] MEDS ORDERED: Rocuronium Bromide 10 MG/ML (10ML VIAL) ONE (08:55)
[2020-04-13] MEDS ORDERED: EPHEDRINE 25 MG/5 ML SYRINGE ONE (08:55)
[2020-04-13] MEDS: ALPRAZolam 0.5 MG TAB PO SCH ×3 (10:36→20:30)
[2020-04-13] MEDS: Insulin Glargine 25 UNITS in Pre-Filled Syringe 1 EACH SC SCH (10:43)
[2020-04-13 12:15] LABS: Potassium 3.9 mmol/L (3.5-5.1)
[2020-04-13] MEDS: Albumin 25% 25 GM/100 ML BOT IVPB SCH ×2 (13:01→20:26)
[2020-04-13] MEDS ORDERED: Lidocaine 1% w/Epinephrine 1:100K 20 ML VIAL ONE (13:16)
[2020-04-13] MEDS ORDERED: Bupivacaine PF 0.5% 30 ML VIAL ONE (13:16)
[2020-04-13] MEDS ORDERED: Sodium Chloride 0.9% 30 ML ONE (13:17)
[2020-04-13] MEDS ORDERED: Midazolam HCl 2 mg/2 ml Vial ONE (13:19)
[2020-04-13] MEDS ORDERED: Phenylephrine 10 MG/ML VIAL ONE (13:19)
[2020-04-13] MEDS ORDERED: Fentanyl 100 MCG/2 ML VIAL ONE ×2 (13:19→14:18)
--- NOTE | 2020-04-13 16:00 | RAD ---
PORTABLE CHEST: 04/13/20 INDICATIONS: Central line placement. COMPARISON: 04/09/20. FINDINGS/IMPRESSION: Central line via the right subclavian was present previously and appears unchanged. A new right jugular central line has line overlying the SVC. Upper right lung is obscured. Continued infiltrate in the right lower lung and in the left perihilar and left lower lobe. Tracheost ginette device. POS: AH
[2020-04-13] MEDS: Lorazepam 2 MG/ML VIAL SLOW IVP PRN ×2 (16:04→18:39)
[2020-04-13] MEDS: Sodium Chloride 0.9% 1,000 ML IV SCH (16:43)
--- NOTE | 2020-04-13 17:49 | OP ---
DATE OF PROCEDURE: 04/13/2020 PREOPERATIVE DIAGNOSES: Respiratory failure, malnutrition, dysphagia, ventilator dependence, COVID pneumonia, COVID illness. POSTOPERATIVE DIAGNOSES: Respiratory failure, malnutrition, dysphagia, ventilator dependence, COVID pneumonia, COVID illness. PROCEDURES PERFORMED: Placement of right IJ central line. (unable to access the left subclavian, left IJ not visualized on ultrasound). #8 Shiley tracheostomy, low-pressure cuffed tube. PEG tube. ANESTHESIA: General, local 0.5% Marcaine 30 mL mixed with 1% Xylocaine with epinephrine 20 mL. DESCRIPTION OF PROCEDURE: The patient was taken to the operating room, where under general anesthesia, neck and chest and abdomen were prepared with ChloraPrep and draped in routine fashion. I attempted to access left subclavian vein, but could not. She had previous MediPort. Ultrasound used in visualizing left side of the neck and IJ not visualized. Right IJ visualized, cannulated with a trocar catheter. J-wire and catheter placed. Seldinger technique used to place a triple-lumen catheter, securing with 3-0 silk suture, sterile dressings applied. Each port aspirated of blood, flushed with saline solution, and J-wire had been removed . An incision was made above the manubrium, carried down through skin, platysma, down to the strap muscles, reflecting them laterally, gaining hemostasis with cautery, dividing the isthmus of the thyroid and below the cricoid, anterior window of the trachea excised over 2 cartilaginous rings after strap sutures of 3-0 Prolene placed. Good hemostasis noted. Her endotracheal tube removed and under direct visualization, the #8 Shiley low-pressure cuffed tube placed into the trachea, balloon inflated, connected to the ventilator. Incision closed by approximating the skin on either side with continuous suture of 3-0 Prolene, tracheostomy appliance applied, secured to the skin with 3-0 Prolene suture. Sterile dressings applied. Endoscope was placed per os under direct visualization. Using air insufflation, passed down throughout the esophagus into the stomach, noting a good indentation in left subxiphoid. A stab incision was made after placing local anesthetic. The trocar catheter introduced, visualized endoscopically within the gastric lumen, grasping the wire introduced, bringing the scope and wire out through the mouth. Wire connected to the feeding tube, which was lubricated, brought down the esophagus, secured to the abdominal wall with this device. Sterile dressing applied. Tube tailored to length and the feeding device applied. The patient tolerated the procedure well. Job ID: [id number]
--- NOTE | 2020-04-13 17:54 | PDOC.HOSPP ---
- Subjective Subjective: plan for PEG and trach today. updated pt's on the phone. has some edema , suspect third spacing from hypoalbuminemia - Objective Vital Signs & Weight: Vital Signs (12 hours) Temp Pulse Pulse Pulse Pulse Resp BP 04/13/20 15:27 82 137/89 04/13/20 12:00 98.3 F 17 04/13/20 10:18 76 108/52 L 04/13/20 10:15 64 64 57 L 04/13/20 10:00 11 L 04/13/20 08:36 122/80 04/13/20 08:00 16 04/13/20 07:00 98.8 F 04/13/20 06:48 87 177/83 H 04/13/20 06:00 15 BP BP BP Pulse Ox Pulse Ox Pulse Ox Pulse Ox 04/13/20 15:27 04/13/20 12:00 04/13/20 10:18 04/13/20 10:15 148/103 H 149/101 H 109/62 100 100 100 04/13/20 10:00 04/13/20 08:36 04/13/20 08:00 99 04/13/20 07:00 04/13/20 06:48 04/13/20 06:00 Weight Admit Weight 216 lb 11.2 oz Weight 227 lb 15.327 oz Most Recent Monitor Data Heart Rate from ECG 74 NIBP 189/110 NIBP BP-Mean 136 Respiration from ECG 16 SpO2 99 I&O: 04/12/20 04/13/20 04/14/20 06:59 06:59 06:59 Intake Total 2860.4 3012.7 200 Output Total 4820 2840 905 Balance -1959.6 172.7 -705 Result Diagrams: 04/13/20 03:30 04/13/20 11:36 Additional Labs: Accuchecks 04/13/20 04/13/20 04/12/20 16:28 10:46 21:44 POC Glucose 94 105 204 H Hospitalist ROS - Medication Medications: Active Medications Generic Name Dose Route Start Last Admin Trade Name Freq PRN Reason Stop Dose Admin Acetazolamide 250 mg 04/08/20 09:00 04/13/20 08:35 Diamox PO 250 mg DAILY IGGY Administration Albumin Human 25 gm 04/13/20 13:00 04/13/20 13:01 Albumin 25% IVPB 04/14/20 07:01 25 gm 0100,0700,1300,1900 IGGY Administration Albuterol/Ipratropium 3 ml 03/29/20 19:00 04/13/20 13:06 Duoneb NEB 3 ml [id number] IGGY Administration Alprazolam 0.5 mg 04/08/20 15:00 04/13/20 16:26 Xanax PO 0.5 mg TID IGGY Administration Anastrozole 1 mg 03/26/20 09:00 04/13/20 08:36 Arimidex PO 1 mg DAILY IGGY Administration Aspirin 81 mg 03/12/20 09:00 04/13/20 08:35 Ecotrin PO 81 mg DAILY IGGY Administration Benzonatate 100 mg 03/26/20 09:01 03/29/20 04:24 Tessalon PO 100 mg Q6H PRN Administration Cough Cholecalciferol 5,000 units 03/12/20 09:00 04/13/20 08:35 Vitamin D3 PO 5,000 units DAILY IGGY Administration Clonidine 0.1 mg 04/08/20 21:00 04/13/20 08:36 Catapres PO 0.1 mg BID IGGY Administration Duloxetine HCl 60 mg 03/11/20 21:00 04/13/20 08:35 Cymbalta PO 60 mg BID IGGY Administration Famotidine 20 mg 03/17/20 09:00 04/13/20 08:35 Pepcid PO 20 mg BID IGGY Administration Guaifenesin 200 mg 03/26/20 09:01 03/27/20 09:40 Robitussin Sf PO 200 mg Q4H PRN Administration Cough Hydralazine HCl 10 mg 03/26/20 09:01 04/08/20 16:16 Apresoline SLOW IVP 10 mg Q4H PRN Administration SBP > 180 and HR < 70 Insulin Glargine 25 units/ 0.25 mls @ 0 mls/hr 03/20/20 09:00 04/13/20 10:43 Miscellaneous Medication SC Not Given QAM IGGY Insulin Glargine 20 units/ 0.2 mls @ 0 mls/hr 03/20/20 21:00 04/12/20 21:46 Miscellaneous Medication SC 0.2 mls HS IGGY Administration Sodium Chloride 1,000 mls @ 50 mls/hr 03/30/20 10:00 04/13/20 16:43 Normal Saline 0.9% IV Not Given .Q20H IGGY Dexmedetomidine HCl 400 mcg/ 100 mls @ 0 mls/hr 04/07/20 09:45 04/13/20 12:45 Sodium Chloride IVPB 100 mls INF IGGY Administration Protocol Per Protocol Fentanyl Citrate 2,000 mcg/ 100 mls @ 0 mls/hr 04/08/20 15:00 04/12/20 06:31 Sodium Chloride IV 05/08/20 15:01 100 mls INF IGGY Administration Protocol Per Protocol Insulin Human Lispro 0 units 03/17/20 08:46 04/12/20 21:39 Humalog SC 2 unit .BEDTIME SLIDING SC PRN Administration Bedtime Correctional Scale Insulin Human Lispro 0 units 03/26/20 09:01 04/12/20 17:21 Humalog SC 2 unit .MODERATE SLIDING SC PRN Administration Moderate Correctional Scale Iron/Minerals/Multivitamins 1 tab 03/12/20 09:00 04/13/20 08:35 Theragran M PO 1 tab DAILY IGGY Administration Lorazepam 2 mg 04/08/20 18:12 04/13/20 16:04 Ativan SLOW IVP 2 mg Q1H PRN Administration Breakthrough agitation Methylprednisolone Sodium Succinate 40 mg 04/04/20 21:00 04/13/20 08:37 Solu-Medrol IVP 40 mg BID IGGY Administration Metoclopramide HCl 5 mg 03/26/20 09:01 04/09/20 13:41 Reglan IVP 5 mg Q4H PRN Administration Nausea Mometasone Furoate/Formoterol Fumar 2 puff 03/14/20 18:30 04/13/20 06:46 Dulera 200 Mcg/5 Mcg Inhaler INH 2 puff BID-RT IGGY Administration Nystatin 500,000 units 03/21/20 21:00 04/13/20 12:40 Mycostatin SSW 500,000 units QID IGGY Administration (Nefazodone Hcl [ 300 each 03/13/20 09:00 04/13/20 08:37 Nefazodone Hcl] 150 PO 300 each Mg) Tab BID IGGY Administration Polyethylene Glycol 17 gm 03/19/20 08:36 04/07/20 03:46 Miralax PO 17 gm DAILYPRN PRN Administration Constipation Propofol 1,000 mg 03/29/20 13:58 04/13/20 10:36 Diprivan IV 04/28/20 13:58 1,000 mg INF PRN Administration TO ACHIEVE GOAL RASS Protocol Propofol 20 mg 03/29/20 13:58 03/29/20 14:50 Diprivan Bolus IV 04/28/20 13:58 20 mg Q5MIN PRN Administration BREAKTHROUGH AGITATION Risperidone 0.5 mg 04/05/20 09:00 04/13/20 08:34 Risperidone PO 0.5 mg BID IGGY Administration Rosuvastatin Calcium 20 mg 03/11/20 21:00 04/12/20 21:48 Crestor PO 20 mg HS IGGY Administration Sodium Chloride 10 ml 03/23/20 09:00 04/13/20 08:38 Flush - Normal Saline IVF 10 ml Q12HR IGGY Administration Sodium Chloride 10 ml 03/23/20 08:52 03/27/20 23:19 Flush - Normal Saline IVF 10 ml PRN PRN Administration Saline Flush Hosp A/P - Plan - Exam General Appearance: NAD, intubated Eye: PERRL, anicteric sclera ENT: normocephalic atraumatic, no oropharyngeal lesions Neck: supple, symmetric, no JVD, no thyromegaly Heart: RRR, no murmur, no gallops, no rubs Respiratory: no wheezes, no rales, no ronchi Respiratory - other findings: Reduced air entry at bases Gastrointestinal: soft, non-tender, non-distended, normal bowel sounds Extremities: no cyanosis, no clubbing Skin: normal turgor, no lesions Neurological: sedated Musculoskeletal: normal tone, normal strength Assessment/Plan #Acute respiratory failure with hypoxia due to COVID-19 infection - remains on ventilator #Viral pneumonia due to COVID-19 infection #COVID-19 infection -status post Remdesivir, convalescence plasma #Thrombocytopenia and leukopenia due to COVID-19 infection improved #Obesity with BMI 33 #Hypertension #Asthma/COPD #Anxiety and depression #Chronic anticoagulation #Dyslipidemia #History of right breast cancer #History of pulmonary embolism - on Eliquis 04/13/20 Trach and Peg placement today. Updated on the phone. add some IV Albumin , may need periodic diuresis given dependence edema/third spacing. Further mgt as per machine mover. Appreciate all specialists' help. AM labs 04/12/20 Plan for PEG and trach tomorrow. I have called her and update him with regard to patient's status. Continue supportive cares and management as per specialists. 04/11/20 dw pt's , updated him with pt status. Pt is now day #31 of her hospital stay. Plan for tracheotomy. appreciate specialist help. Cont supportive cares. 04/10/20 Patient remained on mechanical ventilation, but decreased ventilatory support. Possible tracheostomy as next step per machine mover. Cont current mgt as per Dr. Everett 04/09/20 Patient remains on mechanical support. She is now s/p Remdesivir convalescent plasma treatment. She is currently on IV steroid, and she also completed course of IV antibiotic. Repeat chest x-ray still showed persistent multifocal pneumonia. She is being considered for possible tracheotomy as she is now into her 29 days of hospital course without significant clinical improvement from her respiratory status. Cont mgt as per Assistant Child Care Teacher. Appreciate Dr. Everett 's help. Family meeting planned next Saturday to discuss the goals of care. Cont supportive cares.
--- NOTE | 2020-04-13 18:59 | PRG ---
DATE OF SERVICE: 04/13/2020 SUBJECTIVE: Shanta Servin had an unremarkable night. She is in the OR for tracheostomy and PEG today. OBJECTIVE: VITAL SIGNS: Heart rate is in 80s, blood pressure 137/89. LUNGS: Otherwise unchanged. HEART: Otherwise unchanged. ABDOMEN: Otherwise unchanged. IMPRESSION: COVID pneumonia. Tracheostomy and PEG today, clinically stable. Hopefully, we can start decreasing ventilatory support in the morning. Job ID: [id number]
[2020-04-13] MEDS: Rosuvastatin 20 MG TAB PO SCH (20:30)
[2020-04-13] MEDS: hydrALAZINE 20 MG/ML VIAL SLOW IVP PRN (22:10)
[2020-04-13] MEDS: Insulin Glargine 20 UNITS in Pre-Filled Syringe SC SCH (23:39)
[2020-04-14] MEDS: fentaNYL Citrate/PF 2,000 MCG in Sodium Chloride 0.9% 60 ML IV SCH ×2 (00:55→21:10)
[2020-04-14] MEDS: Albumin 25% 25 GM/100 ML BOT IVPB SCH ×2 (00:55→06:06)
[2020-04-14 04:58] LABS: ALT (SGPT) 9 U/L (8-55); AST (SGOT) 20 U/L (5-34); Albumin 3.2 g/dL (3.5-5.0); Alkaline Phosphatase 49 U/L (40-110); Anion Gap 10 mmol/L (10-20); BUN (Urea Nitrogen) 12 mg/dL (9.8-20.1); Bilirubin, Total 0.6 mg/dL (0.2-1.2); Calc. Creatinine Clearance 210 mL/min (70-130); Calcium 9.8 mg/dL (7.8-10.44); Carbon Dioxide 27 mmol/L (22-29); Chloride 109 mmol/L (98-107); Estimated GFR-MDRD Greater than 90; Globulin 1.9 g/dL (2.4-3.5); Glucose 116 mg/dL (70-105); Protein, Total 5.1 g/dL (6.0-8.3); Sodium 143 mmol/L (136-145)
[2020-04-14 05:31] LABS: #Monocytes 0.1 thou/uL (0.11-0.59); #Neutrophils 4.6 thou/uL (1.40-6.50); %Eosinophils 0.1 % (0.0-10.0); %Monocytes 1.8 % (0.0-10.0); %Neutrophils 97.2 % (42.0-75.0); Hemoglobin 8.5 g/dL (12.0-16.0); Mean Corpuscular HGB CONC 33.6 g/dL (32.0-36.0); Mean Corpuscular Volume 95.1 fL (78.0-98.0); Mean Platelet Volume 8.2 fL (7.4-10.4); Platelet Count 75 thou/uL (130-400); Platelet Morphology Comment Appears Decreased; RBC Distribution Width 15.2 % (11.5-14.5); Red Blood Cell (RBC) Count 2.65 mill/uL (4.20-5.40); White Blood Cell (WBC) Count 4.7 thou/uL (4.8-10.8)
[2020-04-14] MEDS ORDERED: Potassium Chloride 40 MEQ in Premix Bag 1 BAG IVPB SCH (06:00)
[2020-04-14] MEDS ORDERED: Magnesium 2 GM/50 ML 2 GM in Premix Bag 1 BAG IVPB SCH (06:30)
[2020-04-14] MEDS: Mometasone 200 MCG/Formoterol 5 MCG 120 PUFF INHALER INH SCH ×2 (06:41→18:53)
[2020-04-14] MEDS: Lorazepam 2 MG/ML VIAL SLOW IVP PRN ×2 (09:14→21:18)
[2020-04-14] MEDS: cloNIDine 0.1 MG TAB PO SCH ×2 (09:32→20:10)
[2020-04-14] MEDS: Famotidine 20 MG TAB PO SCH ×2 (09:32→20:11)
[2020-04-14] MEDS: Aspirin 81 mg Enteric Coated Tablet PO SCH (09:33)
[2020-04-14] MEDS: Multivitamin W/ Minerals 1 TAB PO SCH (09:33)
[2020-04-14] MEDS: DULoxetine 60 MG CAP PO SCH ×2 (09:33→20:11)
[2020-04-14] MEDS: AcetaZOLAMIDE 250 MG TAB PO SCH (09:42)
[2020-04-14] MEDS: ALPRAZolam 0.5 MG TAB PO SCH ×3 (09:42→20:10)
[2020-04-14] MEDS: Nystatin 500,000 UNITS/5 ML UDCUP SSW SCH ×4 (09:42→20:11)
[2020-04-14] MEDS: Anastrozole 1 MG TAB PO SCH (09:42)
[2020-04-14] MEDS: methylPREDNISolone Sod Succ 40 MG VIAL IVP SCH (09:43)
[2020-04-14] MEDS: Cholecalciferol 1,000 UNITS (25 MCG) TAB PO SCH (09:44)
[2020-04-14] MEDS: Enoxaparin Sodium 60 MG/0.6 ML SYRINGE SC SCH ×2 (09:49→20:11)
[2020-04-14] MEDS: risperiDONE 0.25 MG TAB PO SCH ×2 (09:50→20:10)
[2020-04-14] MEDS: Haloperidol Lactate 5 MG/ML VIAL SLOW IVP PRN ×2 (09:50→13:52)
[2020-04-14] MEDS: Insulin Glargine 25 UNITS in Pre-Filled Syringe 1 EACH SC SCH (09:58)
[2020-04-14] MEDS: NEFAZODONE HCL PO SCH ×2 (09:59→20:11)
[2020-04-14] MEDS: Sodium Chloride 0.9% 1,000 ML IV SCH (10:05)
--- NOTE | 2020-04-14 10:05 | PRG ---
DATE OF SERVICE: 04/14/2020 SUBJECTIVE: Status post tracheostomy, PEG tube, central line placement yesterday. The patient's abdomen is soft and nontender. There are no problems related to her PEG tube placement. Her tracheostomy dressing is dry. She has some oozing about the dressing around her right IJ central line. Today, her neck is without hematoma. The dressing is relatively dry. The right subclavian line that I have ordered to be removed is still in place. I have asked her nurse to remove the central line in right subclavian as soon as possible to prevent line sepsis, this has been for several weeks. I have ordered abdominal binder to protect the PEG tube and have ordered bolus feedings to minimize tube exposure for accidental removal, which would result in peritonitis and laparotomy and add to morbidity. Bolus feedings should be maintained for 2 weeks and then if necessary, continuous nighttime feedings could be transitioned. This will give the feeding tube time to mature its tract and prevent peritonitis should it be dislodged. At this point, I will see the patient as needed. Please call if necessary. Job ID: [id number]
[2020-04-14] MEDS: HumaLOG 300 UNITS/3 ML VIAL SC PRN ×2 (10:57→16:07)
--- NOTE | 2020-04-14 17:02 | PRG ---
DATE OF SERVICE: 04/14/2020 SUBJECTIVE: Shanta Servin remains mechanically ventilated. OBJECTIVE: VITAL SIGNS: She is afebrile. Blood pressure is 112/75, heart rate is 55. LUNGS: Remarkable for coarse equal breath sounds. HEART: Regular rhythm. ABDOMEN: Soft. EXTREMITIES: Without asymmetry or edema. LABORATORY DATA: White count 4.7, hemoglobin 8.5, platelets 75. Sodium 143, potassium 3, chloride 109, bicarb 27, BUN 12, and creatinine 0.47. IMPRESSION: COVID pneumonia, status post trach and PEG. We will reinstitute her anticoagulation for now and then switch her to enteral anticoagulants probably in a few days. We will cut her steroids back to once a day. I think it is appropriate to consider transfer to an LTAC when a bed becomes available. Continue to work on weaning while she is here. Critical care time 30 min. Job ID: [id number] MTDD
--- NOTE | 2020-04-14 18:12 | PDOC.HOSPP ---
- Subjective Subjective: Status post trach and PEG. She is tolerated procedure well. Vent mechanics was adjusted by cone tender, also decrease her steroids. I have updated family member, her on the phone. product management manager is working on LTAC placement, he chose [facility] in [place] - Objective Vital Signs & Weight: Vital Signs (12 hours) Temp Pulse Pulse Pulse Resp BP BP 04/14/20 16:18 97.9 F 04/14/20 16:00 16 04/14/20 15:20 57 L 132/74 04/14/20 14:48 69 61 131/92 H 04/14/20 14:00 16 04/14/20 12:52 61 105/64 04/14/20 12:00 16 04/14/20 10:43 65 92/58 L 04/14/20 10:00 14 04/14/20 09:32 164/84 H 04/14/20 08:00 28 H 04/14/20 07:00 97.9 F 04/14/20 06:41 104 H 164/84 H BP Pulse Ox Pulse Ox Pulse Ox 04/14/20 16:18 04/14/20 16:00 04/14/20 15:20 04/14/20 14:48 104/71 97 97 04/14/20 14:00 04/14/20 12:52 04/14/20 12:00 04/14/20 10:43 04/14/20 10:00 04/14/20 09:32 04/14/20 08:00 100 04/14/20 07:00 04/14/20 06:41 Weight Admit Weight 216 lb 11.2 oz Weight 225 lb 12.054 oz Most Recent Monitor Data Heart Rate from ECG 53 NIBP 109/64 NIBP BP-Mean 79 Respiration from ECG 4 SpO2 99 I&O: 04/13/20 04/14/20 04/15/20 06:59 06:59 06:59 Intake Total 3012.7 2311.4 610 Output Total 2840 3025 1015 Balance 172.7 -713.6 -405 Result Diagrams: 04/14/20 04:25 04/14/20 04:25 Additional Labs: Accuchecks 04/14/20 04/14/20 04/14/20 15:53 10:56 04:14 POC Glucose 170 H 178 H 119 H 04/13/20 22:09 POC Glucose 124 H Hospitalist ROS - Medication Medications: Active Medications Generic Name Dose Route Start Last Admin Trade Name Freq PRN Reason Stop Dose Admin Acetazolamide 250 mg 04/08/20 09:00 04/14/20 09:42 Diamox PO 250 mg DAILY IGGY Administration Albuterol/Ipratropium 3 ml 03/29/20 19:00 04/14/20 12:51 Duoneb NEB 3 ml [id number] IGGY Administration Alprazolam 0.5 mg 04/08/20 15:00 04/14/20 14:53 Xanax PO 0.5 mg TID IGGY Administration Anastrozole 1 mg 03/26/20 09:00 04/14/20 09:42 Arimidex PO 1 mg DAILY IGGY Administration Aspirin 81 mg 03/12/20 09:00 04/14/20 09:33 Ecotrin PO 81 mg DAILY IGGY Administration Benzonatate 100 mg 03/26/20 09:01 03/29/20 04:24 Tessalon PO 100 mg Q6H PRN Administration Cough Cholecalciferol 5,000 units 03/12/20 09:00 04/14/20 09:44 Vitamin D3 PO 5,000 units DAILY [facility] Administration Clonidine 0.1 mg 04/08/20 21:00 04/14/20 09:32 Catapres PO 0.1 mg BID IGGY Administration Duloxetine HCl 60 mg 03/11/20 21:00 04/14/20 09:33 Cymbalta PO 60 mg BID IGGY Administration Enoxaparin Sodium 60 mg 04/14/20 09:00 04/14/20 09:49 Lovenox SC 60 mg 09,2099 IGGY Administration Famotidine 20 mg 03/17/20 09:00 04/14/20 09:32 Pepcid PO 20 mg BID IGGY Administration Guaifenesin 200 mg 03/26/20 09:01 03/27/20 09:40 Robitussin Sf PO 200 mg Q4H PRN Administration Cough Haloperidol Lactate 5 mg 04/14/20 08:59 04/14/20 13:52 Haldol SLOW IVP 5 mg Q4H PRN Administration Agitation Hydralazine HCl 10 mg 03/26/20 09:01 04/13/20 22:10 Apresoline SLOW IVP 10 mg Q4H PRN Administration SBP > 180 and HR < 70 Insulin Glargine 25 units/ 0.25 mls @ 0 mls/hr 03/20/20 09:00 04/14/20 09:58 Miscellaneous Medication SC Not Given QAM IGGY Insulin Glargine 20 units/ 0.2 mls @ 0 mls/hr 03/20/20 21:00 04/13/20 23:39 Miscellaneous Medication SC Not Given HS IGGY Sodium Chloride 1,000 mls @ 50 mls/hr 03/30/20 10:00 04/14/20 10:05 Normal Saline 0.9% IV 1,000 mls .Q20H IGGY Administration Dexmedetomidine HCl 400 mcg/ 100 mls @ 0 mls/hr 04/07/20 09:45 04/14/20 13:47 Sodium Chloride IVPB 100 mls INF IGGY Administration Protocol Per Protocol Fentanyl Citrate 2,000 mcg/ 100 mls @ 0 mls/hr 04/08/20 15:00 04/14/20 00:55 Sodium Chloride IV 05/08/20 15:01 100 mls INF IGGY Administration Protocol Per Protocol Insulin Human Lispro 0 units 03/17/20 08:46 04/12/20 21:39 Humalog SC 2 unit .BEDTIME SLIDING SC PRN Administration Bedtime Correctional Scale Insulin Human Lispro 0 units 03/26/20 09:01 04/14/20 16:07 Humalog SC 2 unit .MODERATE SLIDING SC PRN Administration Moderate Correctional Scale Iron/Minerals/Multivitamins 1 tab 03/12/20 09:00 04/14/20 09:33 Theragran M PO 1 tab DAILY IGGY Administration Lorazepam 2 mg 04/08/20 18:12 04/14/20 09:14 Ativan SLOW IVP 2 mg Q1H PRN Administration Breakthrough agitation Metoclopramide HCl 5 mg 03/26/20 09:01 04/09/20 13:41 Reglan IVP 5 mg Q4H PRN Administration Nausea Mometasone Furoate/Formoterol Fumar 2 puff 03/14/20 18:30 04/14/20 06:41 Dulera 200 Mcg/5 Mcg Inhaler INH 2 puff BID-RT IGGY Administration Nystatin 500,000 units 03/21/20 21:00 04/14/20 18:02 Mycostatin SSW 500,000 units QID IGGY Administration (Nefazodone Hcl [ 300 each 03/13/20 09:00 04/14/20 09:59 Nefazodone Hcl] 150 PO 300 each Mg) Tab BID IGGY Administration Polyethylene Glycol 17 gm 03/19/20 08:36 04/07/20 03:46 Miralax PO 17 gm DAILYPRN PRN Administration Constipation Risperidone 0.5 mg 04/05/20 09:00 04/14/20 09:50 Risperidone PO 0.5 mg BID IGGY Administration Rosuvastatin Calcium 20 mg 03/11/20 21:00 04/13/20 20:30 Crestor PO 20 mg HS IGGY Administration Sodium Chloride 10 ml 03/23/20 09:00 04/14/20 09:33 Flush - Normal Saline IVF 10 ml Q12HR IGGY Administration Sodium Chloride 10 ml 03/23/20 08:52 03/27/20 23:19 Flush - Normal Saline IVF 10 ml PRN PRN Administration Saline Flush Hosp A/P - Plan - Exam General Appearance: NAD, intubated Eye: PERRL, anicteric sclera ENT: normocephalic atraumatic, no oropharyngeal lesions Neck: supple, symmetric, no JVD, no thyromegaly Heart: RRR, no murmur, no gallops, no rubs Respiratory: no wheezes, no rales, no ronchi Respiratory - other findings: Reduced air entry at bases Gastrointestinal: soft, non-tender, non-distended, normal bowel sounds Extremities: no cyanosis, no clubbing Skin: normal turgor, no lesions Neurological: sedated Musculoskeletal: normal tone, normal strength Assessment/Plan #Acute respiratory failure with hypoxia due to COVID-19 infection - remains on ventilator #Viral pneumonia due to COVID-19 infection #COVID-19 infection -status post Remdesivir, convalescence plasma #Thrombocytopenia and leukopenia due to COVID-19 infection improved #Obesity with BMI 33 #Hypertension #Asthma/COPD #Anxiety and depression #Chronic anticoagulation #Dyslipidemia #History of right breast cancer #History of pulmonary embolism - on Eliquis Updated family member, pt's . Steroid tapered to daily by cone tender. CM is working on LTAC placement. Further mgt as per Dr. Everett 04/13/20 Trach and Peg placement today. Updated on the phone. add some IV Albumin , may need periodic diuresis given dependence edema/third spacing. Further mgt as per algologist. Appreciate all specialists' help. AM labs 04/12/20 Plan for PEG and trach tomorrow. I have called her and update him with regard to patient's status. Continue supportive cares and management as per specialists. 04/11/20 dw pt's , updated him with pt status. Pt is now day #31 of her hospital stay. Plan for tracheotomy. appreciate specialist help. Cont supportive cares. 04/10/20 Patient remained on mechanical ventilation, but decreased ventilatory support. Possible tracheostomy as next step per algologist. Cont current mgt as per Dr. Everett 04/09/20 Patient remains on mechanical support. She is now s/p Remdesivir convalescent plasma treatment. She is currently on IV steroid, and she also completed course of IV antibiotic. Repeat chest x-ray still showed persistent multifocal pneumonia. She is being considered for possible tracheotomy as she is now into her 29 days of hospital course without significant clinical improvement from her respiratory status. Cont mgt as per Gasoline Service Attendant. Appreciate Dr. Everett 's help. Family meeting planned next Saturday to discuss the goals of care. Cont supportive cares.
[2020-04-14] MEDS: Rosuvastatin 20 MG TAB PO SCH (20:11)
[2020-04-14] MEDS: Insulin Glargine 20 UNITS in Pre-Filled Syringe SC SCH (23:00)
[2020-04-14] MEDS ORDERED: Norepinephrine 8 MG/0.9% NS 250 ML ONE (23:53)
[2020-04-15 04:11] LABS: #Lymphocytes 0.1 thou/uL (1.20-3.40); #Monocytes 0.1 thou/uL (0.11-0.59); #Neutrophils 7.4 thou/uL (1.40-6.50); %Lymphocytes 1.4 % (21.0-51.0); %Monocytes 1.5 % (0.0-10.0); %Neutrophils 97.1 % (42.0-75.0); Hemoglobin 9.5 g/dL (12.0-16.0); Mean Corpuscular HGB CONC 33.6 g/dL (32.0-36.0); Mean Corpuscular Hemoglobin 31.8 pg (27.0-31.0); Mean Corpuscular Volume 94.5 fL (78.0-98.0); Mean Platelet Volume 9.2 fL (7.4-10.4); Platelet Count 69 thou/uL (130-400); RBC Distribution Width 15.1 % (11.5-14.5); White Blood Cell (WBC) Count 7.6 thou/uL (4.8-10.8)
[2020-04-15 04:29] LABS: Anion Gap 13 mmol/L (10-20); BUN (Urea Nitrogen) 12 mg/dL (9.8-20.1); Calc. Creatinine Clearance 208 mL/min (70-130); Calcium 10.1 mg/dL (7.8-10.44); Carbon Dioxide 26 mmol/L (22-29); Chloride 107 mmol/L (98-107); Estimated GFR-MDRD Greater than 90; Glucose 100 mg/dL (70-105); Potassium 3.3 mmol/L (3.5-5.1); Sodium 143 mmol/L (136-145)
[2020-04-15] MEDS ORDERED: Potassium Chloride 40 MEQ in Premix Bag 1 BAG IVPB SCH (05:30)
[2020-04-15] MEDS: Haloperidol Lactate 5 MG/ML VIAL SLOW IVP PRN (05:52)
[2020-04-15] MEDS: Mometasone 200 MCG/Formoterol 5 MCG 120 PUFF INHALER INH SCH ×2 (06:43→18:28)
[2020-04-15] MEDS: Sodium Chloride 0.9% 1,000 ML IV SCH ×2 (06:52→21:24)
[2020-04-15] MEDS: Lorazepam 2 MG/ML VIAL SLOW IVP PRN ×4 (06:59→21:27)
[2020-04-15] MEDS ORDERED: niCARdipine 40MG In NaCl 40 MG/200 ML BAG IVPB SCH (07:15)
[2020-04-15] MEDS ORDERED: niCARdipine 50 MG in Sodium Chloride 0.9% 250 ML 230 ML IV SCH (07:30)
--- NOTE | 2020-04-15 07:50 | PRG ---
DATE OF SERVICE: 04/15/2020 SUBJECTIVE: Gareth is quickly very agitated. When she is stimulated, her sedation is decreased. OBJECTIVE: VITAL SIGNS: Respiratory rates in the 20s, oximetry is 94%, blood pressure is 186/133 this morning, overnight her blood pressure was moderately elevated. LUNGS: Clear anteriorly. HEART: Regular rhythm. ABDOMEN: Soft. IMPRESSION: 1. Respiratory failure associated with COVID, now with a trach. 2. Uncontrolled hypertension. Cardene will be added. She is a candidate for LTAC placement. Job ID: [id number]
[2020-04-15] MEDS: Cholecalciferol 1,000 UNITS (25 MCG) TAB PO SCH (09:08)
[2020-04-15] MEDS: DULoxetine 60 MG CAP PO SCH ×2 (09:08→20:30)
[2020-04-15] MEDS: cloNIDine 0.1 MG TAB PO SCH ×2 (09:08→20:30)
[2020-04-15] MEDS: Nystatin 500,000 UNITS/5 ML UDCUP SSW SCH ×4 (09:08→20:31)
[2020-04-15] MEDS: Aspirin 81 mg Enteric Coated Tablet PO SCH (09:09)
[2020-04-15] MEDS: AcetaZOLAMIDE 250 MG TAB PO SCH (09:09)
[2020-04-15] MEDS: Enoxaparin Sodium 60 MG/0.6 ML SYRINGE SC SCH ×2 (09:09→20:31)
[2020-04-15] MEDS: Anastrozole 1 MG TAB PO SCH (09:09)
[2020-04-15] MEDS: ALPRAZolam 0.5 MG TAB PO SCH ×3 (09:09→20:30)
[2020-04-15] MEDS: methylPREDNISolone Sod Succ 40 MG VIAL IVP SCH (09:09)
[2020-04-15] MEDS: Famotidine 20 MG TAB PO SCH ×2 (09:09→20:31)
[2020-04-15] MEDS: Multivitamin W/ Minerals 1 TAB PO SCH (09:09)
[2020-04-15] MEDS: risperiDONE 0.25 MG TAB PO SCH ×2 (09:14→20:32)
[2020-04-15] MEDS: Insulin Glargine 25 UNITS in Pre-Filled Syringe 1 EACH SC SCH (10:31)
[2020-04-15] MEDS: NEFAZODONE HCL PO SCH ×2 (10:55→20:31)
[2020-04-15] MEDS: HumaLOG 300 UNITS/3 ML VIAL SC PRN ×2 (16:31→20:36)
--- NOTE | 2020-04-15 16:56 | PDOC.HOSPP ---
- Subjective Subjective: Patient was seen examined at bedside. No acute overnight. Discussed with nursing staff, reported patient quite anxious when doing tracheal care. Her blood pressure was elevated. Truant Officer added Cardene drip, but did not start as her blood pressure came down. I have climbed up based her is on the phone. Pending LTAC placement. - Objective Vital Signs & Weight: Vital Signs (12 hours) Temp Pulse Pulse Pulse Resp BP BP 04/15/20 16:00 98.5 F 17 04/15/20 14:21 100 15 04/15/20 14:00 16 04/15/20 13:26 134 H 119 H 190/107 H 04/15/20 12:00 11 L 04/15/20 10:07 127 H 04/15/20 10:00 15 04/15/20 09:08 125/78 04/15/20 08:00 99.6 F 25 H 04/15/20 07:26 04/15/20 06:43 145 H 27 H 04/15/20 06:00 28 H BP Pulse Ox Pulse Ox Pulse Ox 04/15/20 16:00 04/15/20 14:21 97 04/15/20 14:00 04/15/20 13:26 151/103 H 98 98 04/15/20 12:00 04/15/20 10:07 04/15/20 10:00 04/15/20 09:08 04/15/20 08:00 04/15/20 07:26 95 04/15/20 06:43 94 L 04/15/20 06:00 Weight Admit Weight 216 lb 11.2 oz Weight 223 lb 12.307 oz Most Recent Monitor Data Heart Rate from ECG 75 NIBP 100/53 NIBP BP-Mean 68 Respiration from ECG 20 SpO2 99 I&O: 04/14/20 04/15/20 04/16/20 06:59 06:59 06:59 Intake Total 2311.4 2819.8 680 Output Total 3025 1455 650 Balance -713.6 1364.8 30 Result Diagrams: 04/15/20 03:45 04/15/20 03:45 Additional Labs: Accuchecks 04/15/20 04/15/20 04/15/20 16:29 10:32 03:53 POC Glucose 165 H 110 100 08/20/20 22:05 POC Glucose 128 H Hospitalist ROS - Medication Medications: Active Medications Generic Name Dose Route Start Last Admin Trade Name Freq PRN Reason Stop Dose Admin Acetazolamide 250 mg 04/08/20 09:00 04/15/20 09:09 Diamox PO 250 mg DAILY IGGY Administration Albuterol/Ipratropium 3 ml 03/29/20 19:00 04/15/20 14:21 Duoneb NEB 3 ml [id number] IGGY Administration Alprazolam 0.5 mg 04/08/20 15:00 04/15/20 15:17 Xanax PO 0.5 mg TID IGGY Administration Anastrozole 1 mg 03/26/20 09:00 04/15/20 09:09 Arimidex PO 1 mg DAILY IGGY Administration Aspirin 81 mg 03/12/20 09:00 04/15/20 09:09 Ecotrin PO 81 mg DAILY IGGY Administration Benzonatate 100 mg 03/26/20 09:01 03/29/20 04:24 Tessalon PO 100 mg Q6H PRN Administration Cough Cholecalciferol 5,000 units 03/12/20 09:00 04/15/20 09:08 Vitamin D3 PO 5,000 units DAILY IGGY Administration Clonidine 0.1 mg 04/08/20 21:00 04/15/20 09:08 Catapres PO 0.1 mg BID IGGY Administration Duloxetine HCl 60 mg 03/11/20 21:00 04/15/20 09:08 Cymbalta PO 60 mg BID IGGY Administration Enoxaparin Sodium 60 mg 04/14/20 09:00 04/15/20 09:09 Lovenox SC 60 mg 0900,2100 IGGY Administration Famotidine 20 mg 03/17/20 09:00 04/15/20 09:09 Pepcid PO 20 mg BID IGGY Administration Guaifenesin 200 mg 03/26/20 09:01 03/27/20 09:40 Robitussin Sf PO 200 mg Q4H PRN Administration Cough Haloperidol Lactate 5 mg 04/14/20 08:59 04/15/20 05:52 Haldol SLOW IVP 5 mg Q4H PRN Administration Agitation Hydralazine HCl 10 mg 03/26/20 09:01 04/13/20 22:10 Apresoline SLOW IVP 10 mg Q4H PRN Administration SBP > 180 and HR < 70 Insulin Glargine 25 units/ 0.25 mls @ 0 mls/hr 03/20/20 09:00 04/15/20 10:31 Miscellaneous Medication SC Not Given QAM IGGY Insulin Glargine 20 units/ 0.2 mls @ 0 mls/hr 03/20/20 21:00 04/14/20 23:00 Miscellaneous Medication SC Not Given HS IGGY Sodium Chloride 1,000 mls @ 50 mls/hr 03/30/20 10:00 04/15/20 06:52 Normal Saline 0.9% IV Not Given .Q20H IGGY Dexmedetomidine HCl 400 mcg/ 100 mls @ 0 mls/hr 04/07/20 09:45 04/15/20 05:52 Sodium Chloride IVPB 100 mls INF IGGY Administration Protocol Per Protocol Fentanyl Citrate 2,000 mcg/ 100 mls @ 0 mls/hr 04/08/20 15:00 04/14/20 21:10 Sodium Chloride IV 05/08/20 15:01 100 mls INF IGGY Administration Protocol Per Protocol Insulin Human Lispro 0 units 03/17/20 08:46 04/12/20 21:39 Humalog SC 2 unit .BEDTIME SLIDING SC PRN Administration Bedtime Correctional Scale Insulin Human Lispro 0 units 03/26/20 09:01 04/15/20 16:31 Humalog SC 2 unit .MODERATE SLIDING SC PRN Administration Moderate Correctional Scale Iron/Minerals/Multivitamins 1 tab 03/12/20 09:00 04/15/20 09:09 Theragran M PO 1 tab DAILY IGGY Administration Lorazepam 2 mg 04/08/20 18:12 04/15/20 13:32 Ativan SLOW IVP 2 mg Q1H PRN Administration Breakthrough agitation Methylprednisolone Sodium Succinate 40 mg 04/15/20 09:00 04/15/20 09:09 Solu-Medrol IVP 40 mg DAILY IGGY Administration Metoclopramide HCl 5 mg 03/26/20 09:01 04/09/20 13:41 Reglan IVP 5 mg Q4H PRN Administration Nausea Mometasone Furoate/Formoterol Fumar 2 puff 03/14/20 18:30 04/15/20 06:43 Dulera 200 Mcg/5 Mcg Inhaler INH 2 puff BID-RT IGGY Administration Nystatin 500,000 units 03/21/20 21:00 04/15/20 14:14 Mycostatin SSW 500,000 units QID IGGY Administration (Nefazodone Hcl [ 300 each 03/13/20 09:00 04/15/20 10:55 Nefazodone Hcl] 150 PO Not Given Mg) Tab BID IGGY Polyethylene Glycol 17 gm 03/19/20 08:36 04/07/20 03:46 Miralax PO 17 gm DAILYPRN PRN Administration Constipation Risperidone 0.5 mg 04/05/20 09:00 04/15/20 09:14 Risperidone PO 0.5 mg BID IGGY Administration Rosuvastatin Calcium 20 mg 03/11/20 21:00 04/14/20 20:11 Crestor PO 20 mg HS IGGY Administration Sodium Chloride 10 ml 03/23/20 09:00 04/15/20 09:11 Flush - Normal Saline IVF 10 ml Q12HR IGGY Administration Sodium Chloride 10 ml 03/23/20 08:52 04/15/20 13:33 Flush - Normal Saline IVF 10 ml PRN PRN Administration Saline Flush Hosp A/P - Plan - Exam General Appearance: NAD, intubated - s/p trach Eye: PERRL, anicteric sclera ENT: normocephalic atraumatic, no oropharyngeal lesions Neck: supple, symmetric, no JVD, no thyromegaly - s/p trach Heart: RRR, no murmur, no gallops, no rubs Respiratory: no wheezes, no rales, no ronchi Respiratory - other findings: Reduced air entry at bases Gastrointestinal: soft, non-tender, non-distended, normal bowel sounds. s/p peg Extremities: no cyanosis, no clubbing Skin: normal turgor, no lesions Neurological: sedated Musculoskeletal: normal tone, normal strength Assessment/Plan #Acute respiratory failure with hypoxia due to COVID-19 infection - remains on ventilator, s/p trach/peg on 04/13/20 #Viral pneumonia due to COVID-19 infection #COVID-19 infection -status post Remdesivir, convalescence plasma #Thrombocytopenia and leukopenia due to COVID-19 infection - resolved #Obesity with BMI 33 #Hypertension #Asthma/COPD #Anxiety and depression #Dyslipidemia #History of right breast cancer #History of pulmonary embolism - on chronic anticoagulation with Eliquis 04/15/20 I have called and discussed with her on the phone with regard to patient 's status. No significant changes since yesterday. Her Lovenox has been resumed. Pending LTAC placement. Continue supportive cares as per tank builder helper. 04/14/20 Updated family member, pt's . Steroid tapered to daily by tank builder helper. CM is working on LTAC placement. Further mgt as per Dr. Everett 04/13/20 Trach and Peg placement today. Updated on the phone. add some IV Albumin , may need periodic diuresis given dependence edema/third spacing. Further mgt as per air cargo ground operations supervisor. Appreciate all specialists' help. AM labs 04/12/20 Plan for PEG and trach tomorrow. I have called her and update him with regard to patient's status. Continue supportive cares and management as per specialists. 04/11/20 dw pt's , updated him with pt status. Pt is now day #31 of her hospital stay. Plan for tracheotomy. appreciate specialist help. Cont supportive cares. 04/10/20 Patient remained on mechanical ventilation, but decreased ventilatory support. Possible tracheostomy as next step per air cargo ground operations supervisor. Cont current mgt as per Dr. Everett 04/09/20 Patient remains on mechanical support. She is now s/p Remdesivir convalescent plasma treatment. She is currently on IV steroid, and she also completed course of IV antibiotic. Repeat chest x-ray still showed persistent multifocal pneumonia. She is being considered for possible tracheotomy as she is now into her 29 days of hospital course without significant clinical improvement from her respiratory status. Cont mgt as per Manager Strategy. Appreciate Dr. Everett 's help. Family meeting planned next Saturday to discuss the goals of care. Cont supportive cares.
[2020-04-15] MEDS: fentaNYL Citrate/PF 2,000 MCG in Sodium Chloride 0.9% 60 ML IV SCH (18:11)
[2020-04-15] MEDS: Insulin Glargine 20 UNITS in Pre-Filled Syringe SC SCH (20:31)
[2020-04-15] MEDS: Rosuvastatin 20 MG TAB PO SCH (20:32)
[2020-04-16] MEDS: Sodium Chloride 0.9% 1,000 ML IV SCH (02:15)
[2020-04-16] MEDS: Lorazepam 2 MG/ML VIAL SLOW IVP PRN (02:43)
[2020-04-16] MEDS: HumaLOG 300 UNITS/3 ML VIAL SC PRN ×4 (04:06→21:12)
[2020-04-16 04:38] LABS: #Lymphocytes 0.1 thou/uL (1.20-3.40); #Monocytes 0.1 thou/uL (0.11-0.59); #Neutrophils 7.2 thou/uL (1.40-6.50); %Eosinophils 0.1 % (0.0-10.0); %Lymphocytes 0.8 % (21.0-51.0); %Monocytes 1.2 % (0.0-10.0); %Neutrophils 97.9 % (42.0-75.0); Hemoglobin 8.9 g/dL (12.0-16.0); Mean Corpuscular HGB CONC 31.3 g/dL (32.0-36.0); Mean Corpuscular Hemoglobin 29.6 pg (27.0-31.0); Mean Corpuscular Volume 94.5 fL (78.0-98.0); Platelet Count 77 thou/uL (130-400); RBC Distribution Width 15.5 % (11.5-14.5); Red Blood Cell (RBC) Count 3.02 mill/uL (4.20-5.40); White Blood Cell (WBC) Count 7.4 thou/uL (4.8-10.8)
[2020-04-16 04:59] LABS: Anion Gap 11 mmol/L (10-20); BUN (Urea Nitrogen) 16 mg/dL (9.8-20.1); Calc. Creatinine Clearance 183 mL/min (70-130); Calcium 9.8 mg/dL (7.8-10.44); Carbon Dioxide 24 mmol/L (22-29); Chloride 107 mmol/L (98-107); Estimated GFR-MDRD Greater than 90; Glucose 171 mg/dL (70-105); Potassium 3.4 mmol/L (3.5-5.1); Sodium 139 mmol/L (136-145)
[2020-04-16] MEDS: Mometasone 200 MCG/Formoterol 5 MCG 120 PUFF INHALER INH SCH ×2 (07:13→18:23)
--- NOTE | 2020-04-16 09:22 | PRG ---
DATE OF SERVICE: 04/16/2020 SUBJECTIVE: This patient remains on mechanical ventilation through a tracheostomy. There have been no acute change in the last 24 hours. OBJECTIVE: VITAL SIGNS: Her temperature is 99.3, pulse 74, blood sugar 91/55, and O2 saturation 99%. A 24-hour intake 2919, output 1260. HEENT: Unremarkable. NECK: She has some old bleeding around the tracheostomy site. LUNGS: Coarse breath sounds. CARDIAC: S1 and S2. Tachycardic. ABDOMEN: Soft. EXTREMITIES: Edematous. LABORATORY DATA: White blood cell count 7.4, hematocrit 28.5, and platelet count 77. Sodium 139, potassium 3.4, chloride 107, CO2 of 24, BUN 16, creatinine 0.5, and glucose 171. ASSESSMENT: 1. COVID-19 pneumonia. 2. Acute respiratory failure requiring tracheostomy. 3. Hypertension. 4. Anxiety. PLAN: 1. I will try her on pressure support 5, and see how she does without a rate. 2. Because of the persistent tachycardia, I will try her on a low-dose beta isaias. 3. LTAC referral. 4. Stop maintenance IV fluids. Job ID: [id number]
[2020-04-16] MEDS: cloNIDine 0.1 MG TAB PO SCH ×2 (09:38→21:16)
[2020-04-16] MEDS: Famotidine 20 MG TAB PO SCH ×2 (09:38→21:16)
[2020-04-16] MEDS: methylPREDNISolone Sod Succ 40 MG VIAL IVP SCH (09:38)
[2020-04-16] MEDS: Multivitamin W/ Minerals 1 TAB PO SCH (09:38)
[2020-04-16] MEDS: Aspirin 81 mg Enteric Coated Tablet PO SCH (09:38)
[2020-04-16] MEDS: DULoxetine 60 MG CAP PO SCH ×2 (09:39→21:16)
[2020-04-16] MEDS: Metoprolol Tartrate 25 MG TAB PER TUBE SCH ×2 (09:39→21:17)
[2020-04-16] MEDS: Insulin Glargine 25 UNITS in Pre-Filled Syringe 1 EACH SC SCH (09:40)
[2020-04-16] MEDS: Enoxaparin Sodium 60 MG/0.6 ML SYRINGE SC SCH (09:40)
[2020-04-16] MEDS: NEFAZODONE HCL PO SCH ×2 (09:41→21:17)
[2020-04-16] MEDS: Cholecalciferol 1,000 UNITS (25 MCG) TAB PO SCH (09:50)
[2020-04-16] MEDS: Anastrozole 1 MG TAB PO SCH (09:50)
[2020-04-16] MEDS: Nystatin 500,000 UNITS/5 ML UDCUP SSW SCH ×4 (09:51→21:17)
[2020-04-16] MEDS: AcetaZOLAMIDE 250 MG TAB PO SCH (09:51)
[2020-04-16] MEDS: risperiDONE 0.25 MG TAB PO SCH ×2 (09:59→21:16)
[2020-04-16] MEDS: ALPRAZolam 0.5 MG TAB PO SCH ×3 (10:02→21:16)
--- NOTE | 2020-04-16 11:43 | PDOC.HOSPP ---
- Subjective Encounter Date: 04/16/20 Encounter Time: 11:20 Subjective: Patient has a small leak at the trach site. RN is nearby. COVID precautions have been removed. It appears that the test was - negative 3 days ago but I do not see any result about it. Last testing for COVID noted was March, which is positive as well as March 11 also positive. - Objective Vital Signs & Weight: Vital Signs (12 hours) Temp Pulse Resp BP Pulse Ox 04/16/20 10:08 145 H 04/16/20 09:38 159/103 H 04/16/20 07:14 111 H 18 97 04/16/20 06:00 13 04/16/20 04:00 99.3 F 21 H 04/16/20 02:00 33 H 04/16/20 00:20 77 11 L 100 04/16/20 00:00 15 99 Weight Admit Weight 216 lb 11.2 oz Weight 223 lb 12.307 oz Most Recent Monitor Data Heart Rate from ECG 74 NIBP 91/55 NIBP BP-Mean 67 Respiration from ECG 15 SpO2 99 I&O: 04/15/20 04/16/20 04/17/20 06:59 06:59 06:59 Intake Total 2819.8 2919.1 Output Total 1455 1260 Balance 1364.8 1659.1 Result Diagrams: 04/16/20 04:20 04/16/20 04:20 Additional Labs: Accuchecks 04/16/20 04/16/20 04/15/20 10:10 04:09 20:35 POC Glucose 279 H 174 H 159 H 04/15/20 16:29 POC Glucose 165 H Hospitalist ROS - Medication Medications: Active Medications Generic Name Dose Route Start Last Admin Trade Name Freq PRN Reason Stop Dose Admin Acetazolamide 250 mg 04/08/20 09:00 04/16/20 09:51 Diamox PO 250 mg DAILY IGGY Administration Albuterol/Ipratropium 3 ml 03/29/20 19:00 04/16/20 07:14 Duoneb NEB 3 ml [id number] IGGY Administration Alprazolam 0.5 mg 04/08/20 15:00 04/16/20 10:02 Xanax PO 0.5 mg TID IGGY Administration Anastrozole 1 mg 03/26/20 09:00 04/16/20 09:50 Arimidex PO 1 mg DAILY IGGY Administration Aspirin 81 mg 03/12/20 09:00 04/16/20 09:38 Ecotrin PO 81 mg DAILY IGGY Administration Benzonatate 100 mg 03/26/20 09:01 03/29/20 04:24 Tessalon PO 100 mg Q6H PRN Administration Cough Bisacodyl 10 mg 03/26/20 09:01 04/16/20 10:37 Dulcolax ND 10 mg DAILYPRN PRN Administration Constipation Cholecalciferol 5,000 units 03/12/20 09:00 04/16/20 09:50 Vitamin D3 PO 5,000 units DAILY IGGY Administration Clonidine 0.1 mg 04/08/20 21:00 04/16/20 09:38 Catapres PO 0.1 mg BID IGGY Administration Duloxetine HCl 60 mg 03/11/20 21:00 04/16/20 09:39 Cymbalta PO 60 mg BID IGGY Administration Enoxaparin Sodium 60 mg 04/14/20 09:00 04/16/20 09:40 Lovenox SC 60 mg 0900,2100 IGGY Administration Famotidine 20 mg 03/17/20 09:00 04/16/20 09:38 Pepcid PO 20 mg BID IGGY Administration Guaifenesin 200 mg 03/26/20 09:01 03/27/20 09:40 Robitussin Sf PO 200 mg Q4H PRN Administration Cough Haloperidol Lactate 5 mg 04/14/20 08:59 04/15/20 05:52 Haldol SLOW IVP 5 mg Q4H PRN Administration Agitation Hydralazine HCl 10 mg 03/26/20 09:01 04/13/20 22:10 Apresoline SLOW IVP 10 mg Q4H PRN Administration SBP > 180 and HR < 70 Insulin Glargine 25 units/ 0.25 mls @ 0 mls/hr 03/20/20 09:00 04/16/20 09:40 Miscellaneous Medication SC 0.25 mls QAM IGGY Administration Insulin Glargine 20 units/ 0.2 mls @ 0 mls/hr 03/20/20 21:00 04/15/20 20:31 Miscellaneous Medication SC 0.2 mls HS IGGY Administration Dexmedetomidine HCl 400 mcg/ 100 mls @ 0 mls/hr 04/07/20 09:45 04/15/20 20:42 Sodium Chloride IVPB 100 mls INF IGGY Administration Protocol Per Protocol Fentanyl Citrate 2,000 mcg/ 100 mls @ 0 mls/hr 04/08/20 15:00 04/15/20 18:11 Sodium Chloride IV 05/08/20 15:01 100 mls INF IGGY Administration Protocol Per Protocol Insulin Human Lispro 0 units 03/17/20 08:46 04/12/20 21:39 Humalog SC 2 unit .BEDTIME SLIDING SC PRN Administration Bedtime Correctional Scale Insulin Human Lispro 0 units 03/26/20 09:01 04/16/20 10:34 Humalog SC 6 unit .MODERATE SLIDING SC PRN Administration Moderate Correctional Scale Iron/Minerals/Multivitamins 1 tab 03/12/20 09:00 04/16/20 09:38 Theragran M PO 1 tab DAILY IGGY Administration Lorazepam 2 mg 04/08/20 18:12 04/16/20 02:43 Ativan SLOW IVP 2 mg Q1H PRN Administration Breakthrough agitation Methylprednisolone Sodium Succinate 40 mg 04/15/20 09:00 04/16/20 09:38 Solu-Medrol IVP 40 mg DAILY IGGY Administration Metoclopramide HCl 5 mg 03/26/20 09:01 04/09/20 13:41 Reglan IVP 5 mg Q4H PRN Administration Nausea Metoprolol Tartrate 12.5 mg 04/16/20 09:00 04/16/20 09:39 Lopressor PER TUBE 12.5 mg BID IGGY Administration Mometasone Furoate/Formoterol Fumar 2 puff 03/14/20 18:30 04/16/20 07:13 Dulera 200 Mcg/5 Mcg Inhaler INH 2 puff BID-RT IGGY Administration Nystatin 500,000 units 03/21/20 21:00 04/16/20 09:51 Mycostatin SSW 500,000 units QID IGGY Administration (Nefazodone Hcl [ 300 each 03/13/20 09:00 04/16/20 09:41 Nefazodone Hcl] 150 PO 300 each Mg) Tab BID IGGY Administration Polyethylene Glycol 17 gm 03/19/20 08:36 04/07/20 03:46 Miralax PO 17 gm DAILYPRN PRN Administration Constipation Risperidone 0.5 mg 04/05/20 09:00 04/16/20 09:59 Risperidone PO 0.5 mg BID IGGY Administration Rosuvastatin Calcium 20 mg 03/11/20 21:00 04/15/20 20:32 Crestor PO 20 mg HS IGGY Administration Sodium Chloride 10 ml 03/23/20 09:00 04/16/20 09:53 Flush - Normal Saline IVF 10 ml Q12HR IGGY Administration Sodium Chloride 10 ml 03/23/20 08:52 04/15/20 13:33 Flush - Normal Saline IVF 10 ml PRN PRN Administration Saline Flush - Exam General Appearance: NAD, awake alert Eye: PERRL ENT: normocephalic atraumatic Neck: supple Neck - other findings: Status post trach and PEG Heart: RRR Respiratory: CTAB, normal chest expansion Gastrointestinal: soft, normal bowel sounds Neurological: no focal deficits Psychiatric: somnolent Hosp A/P - Plan #Acute respiratory failure with hypoxia due to COVID-19 infection - remains on ventilator, s/p trach/peg on 04/13/20 #Viral pneumonia due to COVID-19 infection #COVID-19 infection -status post Remdesivir, convalescence plasma #Thrombocytopenia and leukopenia due to COVID-19 infection - resolved #Obesity with BMI 33 #Hypertension #Asthma/COPD #Anxiety and depression #Dyslipidemia #History of right breast cancer #History of pulmonary embolism - on chronic anticoagulation with Eliquis -On Solu-Medrol and Lovenox -We will switch them to prednisone as well as Eliquis -Eliquis for 2-week duration. --Plan for LTAC placement.
[2020-04-16] MEDS: fentaNYL Citrate/PF 2,000 MCG in Sodium Chloride 0.9% 60 ML IV SCH (13:48)
[2020-04-16] MEDS ORDERED: Apixaban 5 MG TAB PO SCH (21:00)
[2020-04-16] MEDS: Insulin Glargine 20 UNITS in Pre-Filled Syringe SC SCH (21:15)
[2020-04-16] MEDS: Rosuvastatin 20 MG TAB PO SCH (21:16)
[2020-04-17] MEDS: HumaLOG 300 UNITS/3 ML VIAL SC PRN ×3 (04:03→15:45)
[2020-04-17 04:30] LABS: #Lymphocytes 0.1 thou/uL (1.20-3.40); #Monocytes 0.1 thou/uL (0.11-0.59); #Neutrophils 4.1 thou/uL (1.40-6.50); %Lymphocytes 1.9 % (21.0-51.0); %Monocytes 1.7 % (0.0-10.0); %Neutrophils 96.4 % (42.0-75.0); Hemoglobin 7.5 g/dL (12.0-16.0); Mean Corpuscular HGB CONC 32.8 g/dL (32.0-36.0); Mean Corpuscular Hemoglobin 31.2 pg (27.0-31.0); Mean Corpuscular Volume 95.3 fL (78.0-98.0); Mean Platelet Volume 9.1 fL (7.4-10.4); Platelet Count 64 thou/uL (130-400); RBC Distribution Width 15.3 % (11.5-14.5); Red Blood Cell (RBC) Count 2.39 mill/uL (4.20-5.40); White Blood Cell (WBC) Count 4.2 thou/uL (4.8-10.8)
[2020-04-17 04:39] LABS: Anion Gap 13 mmol/L (10-20); BUN (Urea Nitrogen) 26 mg/dL (9.8-20.1); Calc. Creatinine Clearance 156 mL/min (70-130); Calcium 9.5 mg/dL (7.8-10.44); Carbon Dioxide 24 mmol/L (22-29); Chloride 106 mmol/L (98-107); Estimated GFR-MDRD Greater than 90; Glucose 228 mg/dL (70-105); Potassium 3.8 mmol/L (3.5-5.1); Sodium 139 mmol/L (136-145)
[2020-04-17] MEDS: Mometasone 200 MCG/Formoterol 5 MCG 120 PUFF INHALER INH SCH ×2 (07:23→18:30)
[2020-04-17] MEDS ORDERED: predniSONE 20 MG TAB PO SCH (08:00)
[2020-04-17] MEDS: Multivitamin W/ Minerals 1 TAB PO SCH ×2 (08:51→08:55)
[2020-04-17] MEDS: Famotidine 20 MG TAB PO SCH ×2 (08:54→20:48)
[2020-04-17] MEDS: risperiDONE 0.25 MG TAB PO SCH ×2 (08:54→20:50)
[2020-04-17] MEDS: ALPRAZolam 0.5 MG TAB PO SCH ×4 (08:54→20:48)
[2020-04-17] MEDS: Anastrozole 1 MG TAB PO SCH (08:55)
[2020-04-17] MEDS: cloNIDine 0.1 MG TAB PO SCH ×2 (08:55→20:52)
[2020-04-17] MEDS: DULoxetine 60 MG CAP PO SCH ×2 (08:55→20:50)
[2020-04-17] MEDS: AcetaZOLAMIDE 250 MG TAB PO SCH (08:55)
[2020-04-17] MEDS: Aspirin 81 mg Enteric Coated Tablet PO SCH (08:55)
[2020-04-17] MEDS: Cholecalciferol 1,000 UNITS (25 MCG) TAB PO SCH (08:56)
[2020-04-17] MEDS: Nystatin 500,000 UNITS/5 ML UDCUP SSW SCH ×4 (08:56→20:52)
--- NOTE | 2020-04-17 09:27 | PRG ---
DATE OF SERVICE: 04/17/2020 SUBJECTIVE: The patient remains on mechanical ventilation through a tracheostomy tube. She has been stable overnight. OBJECTIVE: VITAL SIGNS: Temperature 99.6, pulse 69, blood pressure 106/62, O2 saturation 98%. A 24-hour intake 2851, output 1284. HEENT: Unremarkable. NECK: No JVD. CHEST: Clear breath sounds. CARDIAC: S1 and S2. Regular. ABDOMEN: Soft. EXTREMITIES: Edematous throughout. LABORATORY DATA: White blood cell count 4.2, hematocrit 22.8, and platelet count 64. Sodium 139, potassium 3.8, chloride 106, CO2 of 24, BUN 26, creatinine 0.6, glucose 228. ASSESSMENT: 1. Status post tracheostomy. 2. COVID-19 pneumonia. 3. Hypertension. 4. Anxiety. 5. Bleeding around tracheostomy site. PLAN: 1. Hold Eliquis due to the amount of bleeding around the tracheostomy site. 2. Continue IV steroids. 3. T-piece trials as tolerated. 4. Await LTAC placement. Job ID: [id number]
[2020-04-17] MEDS: fentaNYL Citrate/PF 2,000 MCG in Sodium Chloride 0.9% 60 ML IV SCH (09:49)
[2020-04-17] MEDS: methylPREDNISolone Sod Succ 40 MG VIAL IVP SCH (10:28)
[2020-04-17] MEDS: Metoprolol Tartrate 25 MG TAB PER TUBE SCH ×2 (10:28→20:51)
[2020-04-17] MEDS: NEFAZODONE HCL PO SCH ×2 (10:42→20:50)
--- NOTE | 2020-04-17 13:39 | PDOC.HOSPP ---
- Subjective Encounter Date: 04/17/20 Encounter Time: 12:10 Subjective: Vent dependent. Track area still has some oozing around the site. ENT has been notified. Her blood pressure is high around 177/103 in the monitor. She has undergone a T-piece trial. Last 2 blood pressure reading seems to be better around 147/89. She is still tachycardic with a pulse of 109. [place]ashonda has dark urine. -Hemoglobin 7.5 today there is a drop from 8.9 -If it drops further, we may need to do a unit transfusion. - Objective Vital Signs & Weight: Vital Signs (12 hours) Temp Pulse Resp BP Pulse Ox 04/17/20 12:00 99.2 F 04/17/20 08:55 102/69 04/17/20 08:00 12 04/17/20 07:25 96 04/17/20 07:23 66 8 L 97 04/17/20 07:00 99.6 F 04/17/20 06:00 14 04/17/20 04:00 25 H 04/17/20 03:00 98.3 F 04/17/20 02:00 15 Weight Admit Weight 216 lb 11.2 oz Weight 226 lb 6.636 oz Most Recent Monitor Data Heart Rate from ECG 111 NIBP 147/89 NIBP BP-Mean 108 Respiration from ECG 23 SpO2 89 I&O: 04/16/20 04/17/20 04/18/20 06:59 06:59 06:59 Intake Total 2919.1 2851.2 250 Output Total 1260 1284 745 Balance 1659.1 1567.2 -495 Result Diagrams: 04/17/20 03:59 04/17/20 03:59 Additional Labs: Accuchecks 04/17/20 04/17/20 04/16/20 10:37 04:02 21:17 POC Glucose 268 H 230 H 224 H 04/16/20 16:25 POC Glucose 253 H Hospitalist ROS - Medication Medications: Active Medications Generic Name Dose Route Start Last Admin Trade Name Freq PRN Reason Stop Dose Admin Acetazolamide 250 mg 04/08/20 09:00 04/17/20 08:55 Diamox PO 250 mg DAILY IGGY Administration Albuterol/Ipratropium 3 ml 03/29/20 19:00 04/17/20 07:23 Duoneb NEB 3 ml [id number] IGGY Administration Alprazolam 0.5 mg 04/08/20 15:00 04/17/20 08:54 Xanax PO 0.5 mg TID IGGY Administration Anastrozole 1 mg 03/26/20 09:00 04/17/20 08:55 Arimidex PO 1 mg DAILY IGGY Administration Aspirin 81 mg 03/12/20 09:00 04/17/20 08:55 Ecotrin PO 81 mg DAILY GIGY Administration Benzonatate 100 mg 03/26/20 09:01 03/29/20 04:24 Tessalon PO 100 mg Q6H PRN Administration Cough Bisacodyl 10 mg 03/26/20 09:01 04/16/20 10:37 Dulcolax PA 10 mg DAILYPRN PRN Administration Constipation Cholecalciferol 5,000 units 03/12/20 09:00 04/17/20 08:56 Vitamin D3 PO 5,000 units DAILY IGGY Administration Clonidine 0.1 mg 04/08/20 21:00 04/17/20 08:55 Catapres PO 0.1 mg BID IGGY Administration Duloxetine HCl 60 mg 03/11/20 21:00 04/17/20 08:55 Cymbalta PO 60 mg BID IGGY Administration Famotidine 20 mg 03/17/20 09:00 04/17/20 08:54 Pepcid PO 20 mg BID IGGY Administration Guaifenesin 200 mg 03/26/20 09:01 03/27/20 09:40 Robitussin Sf PO 200 mg Q4H PRN Administration Cough Haloperidol Lactate 5 mg 04/14/20 08:59 04/15/20 05:52 Haldol SLOW IVP 5 mg Q4H PRN Administration Agitation Hydralazine HCl 10 mg 03/26/20 09:01 04/13/20 22:10 Apresoline SLOW IVP 10 mg Q4H PRN Administration SBP > 180 and HR < 70 Dexmedetomidine HCl 400 mcg/ 100 mls @ 0 mls/hr 04/07/20 09:45 04/17/20 04:12 Sodium Chloride IVPB 100 mls INF IGGY Administration Protocol Per Protocol Fentanyl Citrate 2,000 mcg/ 100 mls @ 0 mls/hr 04/08/20 15:00 04/17/20 09:49 Sodium Chloride IV 05/08/20 15:01 100 mls INF IGGY Administration Protocol Per Protocol Insulin Human Lispro 0 units 03/17/20 08:46 04/12/20 21:39 Humalog SC 2 unit .BEDTIME SLIDING SC PRN Administration Bedtime Correctional Scale Insulin Human Lispro 0 units 03/26/20 09:01 04/17/20 11:03 Humalog SC 6 unit .MODERATE SLIDING SC PRN Administration Moderate Correctional Scale Iron/Minerals/Multivitamins 1 tab 03/12/20 09:00 04/17/20 08:55 Theragran M PO 1 tab DAILY IGGY Administration Methylprednisolone Sodium Succinate 40 mg 04/15/20 09:00 04/17/20 10:28 Solu-Medrol IVP Not Given DAILY IGGY Metoclopramide HCl 5 mg 03/26/20 09:01 04/09/20 13:41 Reglan IVP 5 mg Q4H PRN Administration Nausea Metoprolol Tartrate 12.5 mg 04/16/20 09:00 04/17/20 10:28 Lopressor PER TUBE Not Given BID IGGY Mometasone Furoate/Formoterol Fumar 2 puff 03/14/20 18:30 04/17/20 07:23 Dulera 200 Mcg/5 Mcg Inhaler INH 2 puff BID-RT IGGY Administration Nystatin 500,000 units 03/21/20 21:00 04/17/20 13:24 Mycostatin SSW 500,000 units QID IGGY Administration (Nefazodone Hcl [ 300 each 03/13/20 09:00 04/17/20 10:42 Nefazodone Hcl] 150 PO 300 each Mg) Tab BID IGGY Administration Polyethylene Glycol 17 gm 03/19/20 08:36 04/07/20 03:46 Miralax PO 17 gm DAILYPRN PRN Administration Constipation Risperidone 0.5 mg 04/05/20 09:00 04/17/20 08:54 Risperidone PO 0.5 mg BID IGGY Administration Rosuvastatin Calcium 20 mg 03/11/20 21:00 04/16/20 21:16 Crestor PO 20 mg HS IGGY Administration Sodium Chloride 10 ml 03/23/20 09:00 04/17/20 10:38 Flush - Normal Saline IVF 10 ml Q12HR IGGY Administration Sodium Chloride 10 ml 03/23/20 08:52 04/15/20 13:33 Flush - Normal Saline IVF 10 ml PRN PRN Administration Saline Flush - Exam General Appearance: ill appearing General - other findings: Trach and PEG Eye: PERRL ENT: normocephalic atraumatic Neck: supple Heart: RRR, normal peripheral pulses Respiratory: CTAB, normal chest expansion Neurological: no focal deficits Psychiatric: A&O x 3 Hosp A/P - Plan #Acute respiratory failure with hypoxia due to COVID-19 infection - remains on ventilator, s/p trach/peg on 04/13/20 #Viral pneumonia due to COVID-19 infection #COVID-19 infection -status post Remdesivir, convalescence plasma #Thrombocytopenia and leukopenia due to COVID-19 infection - resolved #Obesity with BMI 33 #Hypertension #Asthma/COPD #Anxiety and depression #Dyslipidemia #History of right breast cancer #History of pulmonary embolism - on chronic anticoagulation with Eliquis -On Solu-Medrol and Lovenox -We will switch them to prednisone as well as Eliquis -Eliquis for 2-week duration. --Plan for LTAC placement. Last test on March 28 for COVID positive. -I do not see the latest 1. We will swap again for discharge planning. Plan for LTAC. -Eliquis on hold given her trach site has bled. Acute blood loss anemia -Hemoglobin 7.5 today there is a drop from 8.9 -If it drops further, we may need to do a unit transfusion.
[2020-04-17 14:57] LABS: Hemoglobin 7.4 g/dL (12.0-16.0)
[2020-04-17 15:50] LABS: Base Excess (BEa) -0.8 mEq/L (-2.0 to +3.0); CO2 Tension 34.2 mmHg (35.0-45.0); Calcium, Ionized (arterial) 1.35 mmol/L (1.12-1.30); Carboxyhemoglobin (COHb) 0.2 gm% (0.0-3.0); Hemoglobin (Hb) 9.4 g/dL (12.0-16.0); Potassium - ABG Lab 3.46 mmol/L (3.70-5.30); pH, Arterial 7.45 (7.35-7.45)
[2020-04-17 15:58] LABS: O2 Tension (PaO2), arterial 48.8 mmHg (80.0-100.0)
[2020-04-17 15:59] LABS: Puncture Site RRAD
[2020-04-17] MEDS: Haloperidol Lactate 5 MG/ML VIAL SLOW IVP PRN (16:50)
[2020-04-17] MEDS: Rosuvastatin 20 MG TAB PO SCH (20:50)
[2020-04-17] MEDS: Insulin Glargine 12 UNITS in Pre-Filled Syringe 1 EACH SC SCH (20:51)
[2020-04-18 01:28] LABS: #Lymphocytes 0.1 thou/uL (1.20-3.40); #Neutrophils 2.3 thou/uL (1.40-6.50); %Eosinophils 0.1 % (0.0-10.0); %Lymphocytes 3.1 % (21.0-51.0); %Monocytes 0.4 % (0.0-10.0); %Neutrophils 96.4 % (42.0-75.0); Hemoglobin 7.6 g/dL (12.0-16.0); Mean Corpuscular HGB CONC 32.3 g/dL (32.0-36.0); Mean Corpuscular Hemoglobin 31.5 pg (27.0-31.0); Mean Corpuscular Volume 97.6 fL (78.0-98.0); Mean Platelet Volume 9.4 fL (7.4-10.4); Platelet Count 59 thou/uL (130-400); RBC Distribution Width 15.7 % (11.5-14.5); Red Blood Cell (RBC) Count 2.41 mill/uL (4.20-5.40); White Blood Cell (WBC) Count 2.4 thou/uL (4.8-10.8)
[2020-04-18] MEDS ORDERED: Metolazone 5 MG TAB PER TUBE SCH (01:45)
[2020-04-18 01:58] LABS: Anion Gap 11 mmol/L (10-20); BUN (Urea Nitrogen) 25 mg/dL (9.8-20.1); Calc. Creatinine Clearance 166 mL/min (70-130); Calcium 9.3 mg/dL (7.8-10.44); Carbon Dioxide 25 mmol/L (22-29); Chloride 108 mmol/L (98-107); Estimated GFR-MDRD Greater than 90; Glucose 125 mg/dL (70-105); Potassium 3.6 mmol/L (3.5-5.1); Sodium 140 mmol/L (136-145)
[2020-04-18] MEDS: Haloperidol Lactate 5 MG/ML VIAL SLOW IVP PRN ×3 (03:45→23:59)
[2020-04-18] MEDS: Mometasone 200 MCG/Formoterol 5 MCG 120 PUFF INHALER INH SCH ×2 (06:53→18:37)
[2020-04-18 07:09] LABS: Actual Bicarbonate (HCO3a) 23.1 mEq/L (22-28); Base Excess (BEa) -1.1 mEq/L (-2.0 to +3.0); CO2 Tension 36.4 mmHg (35.0-45.0); Calcium, Ionized (arterial) 1.35 mmol/L (1.12-1.30); Carboxyhemoglobin (COHb) 1.2 gm% (0.0-3.0); Hemoglobin (Hb) 7.7 g/dL (12.0-16.0); O2 Tension (PaO2), arterial 78.1 mmHg (80.0-100.0); pH, Arterial 7.42 (7.35-7.45)
[2020-04-18 07:11] LABS: Puncture Site RRA
--- NOTE | 2020-04-18 07:59 | RAD ---
PORTABLE CHEST: INDICATION: CCU followup. Ventilator followup. COMPARISON: 04/13/2020. FINDINGS: Confluent infiltrate seen in the peripheral left mid lung. Hazy infiltrate in the left lower lung. Streaky infiltrate in the right mid and lower lung again noted. Central line and tracheostomy device again noted. IMPRESSION: Bilateral infiltrates, similar to 04/13/2020. POS: [facility]
[2020-04-18] MEDS: Nystatin 500,000 UNITS/5 ML UDCUP SSW SCH ×4 (08:11→21:41)
[2020-04-18] MEDS: Cholecalciferol 1,000 UNITS (25 MCG) TAB PO SCH (08:12)
[2020-04-18] MEDS: Anastrozole 1 MG TAB PO SCH (08:12)
[2020-04-18] MEDS: DULoxetine 60 MG CAP PO SCH ×2 (08:13→21:42)
[2020-04-18] MEDS: AcetaZOLAMIDE 250 MG TAB PO SCH (08:13)
[2020-04-18] MEDS: risperiDONE 0.25 MG TAB PO SCH (08:13)
[2020-04-18] MEDS: ALPRAZolam 0.5 MG TAB PO SCH ×2 (08:13→16:55)
[2020-04-18] MEDS: Multivitamin W/ Minerals 1 TAB PO SCH (08:13)
[2020-04-18] MEDS: Famotidine 20 MG TAB PO SCH ×2 (08:18→21:42)
[2020-04-18] MEDS: Aspirin 81 mg Enteric Coated Tablet PO SCH (08:18)
[2020-04-18] MEDS: Metoprolol Tartrate 25 MG TAB PER TUBE SCH ×2 (09:10→21:42)
[2020-04-18] MEDS: cloNIDine 0.1 MG TAB PO SCH ×2 (09:10→21:42)
[2020-04-18] MEDS: methylPREDNISolone Sod Succ 40 MG VIAL IVP SCH (09:10)
[2020-04-18] MEDS: Insulin Glargine 12 UNITS in Pre-Filled Syringe 1 EACH SC SCH ×2 (09:22→21:41)
[2020-04-18] MEDS: NEFAZODONE HCL PO SCH ×2 (09:47→21:42)
[2020-04-18] MEDS: fentaNYL Citrate/PF 2,000 MCG in Sodium Chloride 0.9% 60 ML IV SCH (10:07)
--- NOTE | 2020-04-18 11:35 | PRG ---
DATE OF SERVICE: 04/18/2020 SUBJECTIVE: This is a 60-year-old female, remains intubated on the vent, sedated. OBJECTIVE: VITAL SIGNS: Pulse 140; blood pressure 120/80; sats 90%, she is now back on 85% FiO2 and 10 of PEEP; respiratory rate . I's and O's have been . CHEST: Decreased breath sounds, rhonchi, crackles. CARDIAC: Normal S1 and S2. No gallops. ABDOMEN: No masses. LABORATORY DATA: White blood cell count is 2000, H and H are 7 and 23, and platelet count is 59. PO2 is 78, pCO2 is 36, pH is 7.42. Lytes are normal. X-ray shows bilateral infiltrates. Urine is now growing Enterococcus faecalis, sensitive to the Zosyn. ASSESSMENT: Urinary tract infection, acute respiratory distress syndrome, bennett positive pneumonia, major encephalopathy, and breast cancer. She is not weanable at this stage. She was on CPAP for a brief period of time. I am concerned that her condition has worsened. We had to discontinue her anticoagulation as she was bleeding from multiple sites including trach site. It is probably from the thrombocytopenia. PLAN: Add Zosyn. Continue supportive care. Continue steroids. Discussed with her . Prognosis is grave. One-half hour of critical care time. Job ID: [id number]
--- NOTE | 2020-04-18 12:41 | PDOC.HOSPP ---
- Subjective Encounter Date: 04/18/20 Encounter Time: 12:30 Subjective: Patient seen and examined. -She is tachypneic; afebrile; she has a good urine output of around 1800 mL for the last 24 hours. Electrolytes looks okay She does have ongoing leak and ooze of blood around the trach. Talk to the RN. They have a family meeting around 2 PM to discuss her CODE STATUS overall she is not doing well. - Objective Vital Signs & Weight: Vital Signs (12 hours) Temp Pulse Resp BP Pulse Ox 04/18/20 12:00 99.5 F 18 04/18/20 10:27 117 H 172/114 H 04/18/20 10:00 33 H 04/18/20 09:10 205/104 H 04/18/20 08:00 42 H 04/18/20 07:26 91 L 04/18/20 06:44 86 93/58 L 04/18/20 06:43 79 16 96 04/18/20 06:00 23 H 04/18/20 04:00 23 H 04/18/20 03:00 99.3 F 04/18/20 02:00 17 Weight Admit Weight 216 lb 11.2 oz Weight 231 lb 4.238 oz Most Recent Monitor Data Heart Rate from ECG 105 NIBP 134/76 NIBP BP-Mean 95 Respiration from ECG 22 SpO2 96 I&O: 04/17/20 04/18/20 04/19/20 06:59 06:59 06:59 Intake Total 2851.2 1173.4 310 Output Total 1284 1795 750 Balance 1567.2 -621.6 -440 Result Diagrams: 04/18/20 00:40 04/18/20 00:40 Additional Labs: Accuchecks 04/18/20 04/18/20 04/17/20 10:02 03:34 20:53 POC Glucose 90 110 145 H 04/17/20 15:44 POC Glucose 205 H Hospitalist ROS - Medication Medications: Active Medications Generic Name Dose Route Start Last Admin Trade Name Freq PRN Reason Stop Dose Admin Acetazolamide 250 mg 04/08/20 09:00 04/18/20 08:13 Diamox PO 250 mg DAILY IGGY Administration Albuterol/Ipratropium 3 ml 03/29/20 19:00 04/18/20 06:43 Duoneb NEB 3 ml [id number] IGGY Administration Alprazolam 0.5 mg 04/08/20 15:00 04/18/20 08:13 Xanax PO 0.5 mg TID IGGY Administration Anastrozole 1 mg 03/26/20 09:00 04/18/20 08:12 Arimidex PO 1 mg DAILY IGGY Administration Benzonatate 100 mg 03/26/20 09:01 03/29/20 04:24 Tessalon PO 100 mg Q6H PRN Administration Cough Bisacodyl 10 mg 03/26/20 09:01 04/16/20 10:37 Dulcolax [place] 10 mg DAILYPRN PRN Administration Constipation Cholecalciferol 5,000 units 03/12/20 09:00 04/18/20 08:12 Vitamin D3 PO 5,000 units DAILY IGGY Administration Clonidine 0.1 mg 04/08/20 21:00 04/18/20 09:10 Catapres PO 0.1 mg BID IGGY Administration Duloxetine HCl 60 mg 03/11/20 21:00 04/18/20 08:13 Cymbalta PO 60 mg BID IGGY Administration Famotidine 20 mg 03/17/20 09:00 04/18/20 08:18 Pepcid PO Not Given BID IGGY Guaifenesin 200 mg 03/26/20 09:01 03/27/20 09:40 Robitussin Sf PO 200 mg Q4H PRN Administration Cough Haloperidol Lactate 5 mg 04/14/20 08:59 04/18/20 09:02 Haldol SLOW IVP 5 mg Q4H PRN Administration Agitation Hydralazine HCl 10 mg 03/26/20 09:01 04/13/20 22:10 Apresoline SLOW IVP 10 mg Q4H PRN Administration SBP > 180 and HR < 70 Dexmedetomidine HCl 400 mcg/ 100 mls @ 0 mls/hr 04/07/20 09:45 04/18/20 10:06 Sodium Chloride IVPB 100 mls INF IGGY Administration Protocol Per Protocol Fentanyl Citrate 2,000 mcg/ 100 mls @ 0 mls/hr 04/08/20 15:00 04/18/20 10:07 Sodium Chloride IV 05/08/20 15:01 100 mls INF IGGY Administration Protocol Per Protocol Insulin Glargine 12 units/ 0.12 mls @ 0 mls/hr 04/17/20 21:00 04/18/20 09:22 Miscellaneous Medication SC 0.12 mls BID IGGY Administration Insulin Human Lispro 0 units 03/17/20 08:46 04/12/20 21:39 Humalog SC 2 unit .BEDTIME SLIDING SC PRN Administration Bedtime Correctional Scale Insulin Human Lispro 0 units 03/26/20 09:01 04/17/20 15:45 Humalog SC 4 unit .MODERATE SLIDING SC PRN Administration Moderate Correctional Scale Iron/Minerals/Multivitamins 1 tab 03/12/20 09:00 04/18/20 08:13 Theragran M PO 1 tab DAILY IGGY Administration Methylprednisolone Sodium Succinate 40 mg 04/15/20 09:00 04/18/20 09:10 Solu-Medrol IVP 40 mg DAILY IGGY Administration Metoclopramide HCl 5 mg 03/26/20 09:01 04/09/20 13:41 Reglan IVP 5 mg Q4H PRN Administration Nausea Metoprolol Tartrate 12.5 mg 04/16/20 09:00 04/18/20 09:10 Lopressor PER TUBE 12.5 mg BID IGGY Administration Mometasone Furoate/Formoterol Fumar 2 puff 03/14/20 18:30 04/18/20 06:53 Dulera 200 Mcg/5 Mcg Inhaler INH 2 puff BID-RT IGGY Administration Nystatin 500,000 units 03/21/20 21:00 04/18/20 08:11 Mycostatin SSW 500,000 units QID IGGY Administration (Nefazodone Hcl [ 300 each 03/13/20 09:00 04/18/20 09:47 Nefazodone Hcl] 150 PO Not Given Mg) Tab BID IGGY Polyethylene Glycol 17 gm 03/19/20 08:36 04/07/20 03:46 Miralax PO 17 gm DAILYPRN PRN Administration Constipation Rosuvastatin Calcium 20 mg 03/11/20 21:00 04/17/20 20:50 Crestor PO 20 mg HS IGGY Administration Sodium Chloride 10 ml 03/23/20 09:00 04/18/20 08:14 Flush - Normal Saline IVF 10 ml Q12HR IGGY Administration Sodium Chloride 10 ml 03/23/20 08:52 04/15/20 13:33 Flush - Normal Saline IVF 10 ml PRN PRN Administration Saline Flush - Exam General Appearance: ill appearing General - other findings: Status post trach and PEG Eye: PERRL ENT: normocephalic atraumatic Neck: supple Heart: RRR Respiratory: normal chest expansion Neurological: no focal deficits Psychiatric: somnolent, lethargic Hosp A/P - Plan #Acute respiratory failure with hypoxia due to COVID-19 infection - remains on ventilator, s/p trach/peg on 04/13/20 #Viral pneumonia due to COVID-19 infection #COVID-19 infection -status post Remdesivir, convalescence plasma #Thrombocytopenia and leukopenia due to COVID-19 infection - resolved #Obesity with BMI 33 #Hypertension #Asthma/COPD #Anxiety and depression #Dyslipidemia #History of right breast cancer #History of pulmonary embolism - on chronic anticoagulation with Eliquis -On Solu-Medrol and Lovenox -We will switch them to prednisone as well as Eliquis -Eliquis for 2-week duration. --Plan for LTAC placement. Last test on March 28 for COVID positive. -I do not see the latest 1. We will swap again for discharge planning. Plan for LTAC. -Eliquis on hold given her trach site has bled. Acute blood loss anemia -Hemoglobin 7.5 today there is a drop from 8.9 -If it drops further, we may need to do a unit transfusion. -She is tachypneic; afebrile; she has a good urine output of around 1800 mL for the last 24 hours. Electrolytes looks okay -Hemoglobin remained the same around 7.6. -family meeting around 2 PM to discuss her CODE STATUS -overall she is not doing well.
[2020-04-18] MEDS: Piperacillin/Tazobactam 3.375 GM in Sodium Chloride 0.9% 100 ML IVPB SCH ×3 (13:02→23:59)
--- NOTE | 2020-04-18 13:12 | PDOC.PALPN ---
Palliative Progress Note - Subjective Mechanical ventilation vial trach, copious bloody secretions via trach. Sedated. - Objective Vital Signs: Vital Signs - Most Recent Temp Pulse Resp BP Pulse Ox 99.5 F 117 H 18 172/114 H 91 L 04/18/20 12:00 04/18/20 10:27 04/18/20 12:00 04/18/20 10:27 04/18/20 07:26 - Physical Exam Constitutional: encephalitic, ill appearing, mild distress HEENT: moist MMs, sclera anicteric Respiratory: diminished lung sound Deviation from normal: Secretions via trach, Adventicious lung sounds bilaterally Cardiovascular: RRR Gastrointestinal: soft, non-tender Genitourinary: carrillo catheter Neurology: moves all 4 limbs Skin: cap refill <2 seconds, fragile Deviation from normal: encephalopathic - Assessment (1) Palliative care encounter Code(s): Z51.5 - ENCOUNTER FOR PALLIATIVE CARE Current Visit: Yes Status: Acute (2) Acute respiratory failure with hypoxia Code(s): J96.01 - ACUTE RESPIRATORY FAILURE WITH HYPOXIA Current Visit: Yes Status: Acute (3) Pneumonia due to COVID-19 virus Code(s): U07.1 - COVID-19; J12.89 - OTHER VIRAL PNEUMONIA Current Visit: Yes Status: Acute (4) H/O malignant neoplasm of breast Code(s): Z85.3 - PERSONAL HISTORY OF MALIGNANT NEOPLASM OF BREAST Current Visit: Yes Status: Chronic (5) Obesity (BMI 30-39.9) Code(s): E66.9 - OBESITY, UNSPECIFIED Current Visit: Yes Status: Chronic - Plan Plan: ABX therapy for pneumonia due to Covid. Hemoglobin remains low. Anticoag discontinued secondary to bleeding from multiple sites, including trach. Continues to require sedation. Not able to tolerated CPAP, not weanable. Continues to decline. and patient son to come to bedside 2pm 04/18 to see patient and further discuss resuscitation status and decline. Patient spouse having difficulty grasping decline and grave condition. Spiritual care aware Emotional support, continued education in relation to poor prognosis and decline. Discussing "Hope for the best, plan for the worst". Please also refer to Palliative Care notes in note section. [35] minutes spent on this encounter with >50% of the time in counseling and coordination of care. - ROS Non Response: due to endotracheal tube, due to mental status
[2020-04-18] MEDS: Enoxaparin Sodium 40 MG/0.4 ML SYRINGE SC SCH ×2 (13:48→23:18)
[2020-04-18 15:10] LABS: Platelet Count 66 thou/uL (130-400)
[2020-04-18 15:12] LABS: Fibrinogen 820 mg/dL (253-463); INR-International Normal Ratio 1.3; Prothrombin Time 16.6 sec (12.0-14.7)
--- NOTE | 2020-04-18 15:17 | PDOC.PALFU ---
Palliative Care Follow-up Note Lengthy conversation at patient bedside revisiting current status. Discussed resuscitation status and poor outcome related to current prognosis, and potential harm. and son listened but spouse states that he continues to desire all resuscitative measures including chest compressions if indicated. Education in relation to multiple morbidities. Emotional support and Therapeutic listening. Conversation included that we were not attempting to diminish his hope for meaningful recovery, but that we were making certain he had all the information related to his 's current health status and guarded prognosis. Spiritual care involved with patient and support of .
[2020-04-18 15:34] LABS: D-Dimer Test Greater than 20.00 *mcg/mL (0.27-0.43)
[2020-04-18 15:41] LABS: FSP-Qualitative ABNORMAL (Normal); FSP-Semiquantitative >=40 & <80 mcg/mL (Less than 5)
[2020-04-18] MEDS: Insulin Glargine 25 UNITS in Pre-Filled Syringe 1 EACH SC SCH (19:14)
[2020-04-18] MEDS: Rosuvastatin 20 MG TAB PO SCH (21:41)
[2020-04-18] MEDS: risperiDONE 1 MG TAB PO SCH (21:42)
[2020-04-19 04:28] LABS: #Lymphocytes 0.1 thou/uL (1.20-3.40); #Neutrophils 3.3 thou/uL (1.40-6.50); %Eosinophils 0.2 % (0.0-10.0); %Lymphocytes 2.3 % (21.0-51.0); %Monocytes 0.9 % (0.0-10.0); %Neutrophils 96.5 % (42.0-75.0); Hemoglobin 7.9 g/dL (12.0-16.0); Mean Corpuscular HGB CONC 31.4 g/dL (32.0-36.0); Mean Corpuscular Volume 95.4 fL (78.0-98.0); Mean Platelet Volume 9.8 fL (7.4-10.4); Platelet Count 70 thou/uL (130-400); RBC Distribution Width 15.8 % (11.5-14.5); Red Blood Cell (RBC) Count 2.63 mill/uL (4.20-5.40); White Blood Cell (WBC) Count 3.4 thou/uL (4.8-10.8)
[2020-04-19 04:49] LABS: Anion Gap 13 mmol/L (10-20); BUN (Urea Nitrogen) 23 mg/dL (9.8-20.1); Calc. Creatinine Clearance 154 mL/min (70-130); Calcium 10.2 mg/dL (7.8-10.44); Carbon Dioxide 26 mmol/L (22-29); Chloride 105 mmol/L (98-107); Estimated GFR-MDRD Greater than 90; Glucose 73 mg/dL (70-105); Sodium 141 mmol/L (136-145)
[2020-04-19 04:59] LABS: Potassium 2.9 mmol/L (3.5-5.1)
[2020-04-19] MEDS: Potassium Chloride 40 MEQ in Premix Bag 1 BAG IVPB SCH ×2 (06:03→10:32)
[2020-04-19] MEDS: Piperacillin/Tazobactam 3.375 GM in Sodium Chloride 0.9% 100 ML IVPB SCH ×3 (06:03→17:14)
[2020-04-19] MEDS: Haloperidol Lactate 5 MG/ML VIAL SLOW IVP PRN ×2 (06:09→13:37)
[2020-04-19] MEDS: Mometasone 200 MCG/Formoterol 5 MCG 120 PUFF INHALER INH SCH ×2 (07:39→18:45)
[2020-04-19] MEDS: Enoxaparin Sodium 40 MG/0.4 ML SYRINGE SC SCH ×3 (09:22→22:08)
--- NOTE | 2020-04-19 09:34 | PRG ---
DATE OF SERVICE: 04/19/2020 SUBJECTIVE: This morning, remains in the ICU, tachypneic, tachycardic. OBJECTIVE: VITAL SIGNS: Pulse 114, blood pressure 213/133, sats 95% on 60%, PEEP of 11. I's and O's are negative. CHEST: Decreased breath sounds. No wheezing. CARDIAC: Normal S1, S2. LABORATORY DATA: Platelet count is 70,000, H and H stable. DIC panel did not show evidence of DIC . Her D-dimer was 200. White count 2.9. ASSESSMENT: Urosepsis, acute respiratory distress syndrome, bennett-positive pneumonia, has been admitted DNR which I agree. She is clearly not weanable at this stage. We tried to assess whether General Surgery can come and address the bleeding from the trach site. A chest x-ray yesterday showed the infiltrates bilateral in the lowers. Multiorgan failure, respiratory failure, encephalopathy, status post trach and PEG, thrombocytopenia. PLAN: Continue nutrition. PT, supportive care. We switched over to Lovenox 40 twice a day. She is still hypercoagulable. Increase the risperidone to a mg twice a day. I will adjust her blood pressure medication. Prognosis is terrible. We will continue to follow. One-half hour of critical time. Job ID: [id number]
[2020-04-19] MEDS: DULoxetine 60 MG CAP PO SCH ×2 (09:42→22:07)
[2020-04-19] MEDS: cloNIDine 0.1 MG TAB PO SCH (09:43)
[2020-04-19] MEDS: Metoprolol Tartrate 25 MG TAB PO SCH ×2 (09:43→22:07)
[2020-04-19] MEDS: risperiDONE 1 MG TAB PO SCH ×2 (09:43→22:06)
[2020-04-19] MEDS: Metoprolol Tartrate 25 MG TAB PER TUBE SCH (09:44)
[2020-04-19] MEDS: Nystatin 500,000 UNITS/5 ML UDCUP SSW SCH ×4 (09:44→22:07)
[2020-04-19] MEDS: AcetaZOLAMIDE 250 MG TAB PO SCH (09:45)
[2020-04-19] MEDS: Famotidine 20 MG TAB PO SCH ×2 (09:45→22:07)
[2020-04-19] MEDS: Cholecalciferol 1,000 UNITS (25 MCG) TAB PO SCH (09:45)
[2020-04-19] MEDS: methylPREDNISolone Sod Succ 40 MG VIAL IVP SCH (09:45)
[2020-04-19] MEDS: Anastrozole 1 MG TAB PO SCH (09:46)
[2020-04-19] MEDS: Insulin Glargine 12 UNITS in Pre-Filled Syringe 1 EACH SC SCH ×2 (09:49→22:08)
[2020-04-19] MEDS: NEFAZODONE HCL PO SCH ×2 (09:54→22:07)
[2020-04-19] MEDS: cloNIDine 0.2 MG TAB PO SCH ×2 (10:00→22:07)
--- NOTE | 2020-04-19 12:38 | PDOC.HOSPP ---
- Subjective Encounter Date: 04/19/20 Encounter Time: 11:20 Subjective: Patient seen and examined. She remains the same no clinical improvement. Her trach site has a significant bleeding. I discussed with RN. CODE STATUS changed to DNR . - Objective Vital Signs & Weight: Vital Signs (12 hours) Temp Pulse Resp BP Pulse Ox 04/19/20 10:48 106 H 168/111 H 04/19/20 10:00 30 H 213/133 H 04/19/20 09:43 213/133 H 04/19/20 08:00 98.8 F 26 H 04/19/20 07:49 94 L 04/19/20 07:40 114 H 213/133 H 04/19/20 06:00 41 H 04/19/20 04:00 98.7 F 37 H 04/19/20 02:21 64 107/72 04/19/20 02:00 29 H Weight Admit Weight 216 lb 11.2 oz Weight 223 lb 1.725 oz Most Recent Monitor Data Heart Rate from ECG 100 NIBP 174/126 NIBP BP-Mean 142 Respiration from ECG 23 SpO2 97 I&O: 04/18/20 04/19/20 04/20/20 06:59 06:59 06:59 Intake Total 1173.4 1218.1 Output Total 1795 3725 1210 [facility]621.6 -2506.9 -1210 Result Diagrams: 04/19/20 04:15 04/19/20 04:15 Additional Labs: Accuchecks 04/19/20 04/19/20 04/18/20 11:06 04:25 21:46 POC Glucose 75 77 108 04/18/20 16:37 POC Glucose 92 Hospitalist ROS - Medication Medications: Active Medications Generic Name Dose Route Start Last Admin Trade Name Freq PRN Reason Stop Dose Admin Acetazolamide 250 mg 04/08/20 09:00 04/19/20 09:45 Diamox PO 250 mg DAILY IGGY Administration Albuterol/Ipratropium 3 ml 03/29/20 19:00 04/19/20 07:38 Duoneb NEB 3 ml [id number] IGGY Administration Anastrozole 1 mg 03/26/20 09:00 04/19/20 09:46 Arimidex PO 1 mg DAILY IGGY Administration Benzonatate 100 mg 03/26/20 09:01 03/29/20 04:24 Tessalon PO 100 mg Q6H PRN Administration Cough Bisacodyl 10 mg 03/26/20 09:01 04/16/20 10:37 Dulcolax [place] 10 mg DAILYPRN PRN Administration Constipation Cholecalciferol 5,000 units 03/12/20 09:00 04/19/20 09:45 Vitamin D3 PO 5,000 units DAILY IGGY Administration Clonidine 0.2 mg 04/19/20 09:00 04/19/20 10:00 Catapres PO 0.2 mg BID IGGY Administration Duloxetine HCl 60 mg 03/11/20 21:00 04/19/20 09:42 Cymbalta PO 60 mg BID IGGY Administration Enoxaparin Sodium 40 mg 04/18/20 09:00 04/19/20 09:22 Lovenox SC Not Given BID IGGY Famotidine 20 mg 03/17/20 09:00 04/19/20 09:45 Pepcid PO 20 mg BID IGGY Administration Guaifenesin 200 mg 03/26/20 09:01 03/27/20 09:40 Robitussin Sf PO 200 mg Q4H PRN Administration Cough Haloperidol Lactate 5 mg 04/14/20 08:59 04/19/20 06:09 Haldol SLOW IVP 5 mg Q4H PRN Administration Agitation Hydralazine HCl 10 mg 03/26/20 09:01 04/13/20 22:10 Apresoline SLOW IVP 10 mg Q4H PRN Administration SBP > 180 and HR < 70 Dexmedetomidine HCl 400 mcg/ 100 mls @ 0 mls/hr 04/07/20 09:45 04/19/20 08:40 Sodium Chloride IVPB 100 mls INF IGGY Administration Protocol Per Protocol Insulin Glargine 12 units/ 0.12 mls @ 0 mls/hr 04/17/20 21:00 04/19/20 09:49 Miscellaneous Medication SC 0.12 mls BID IGGY Administration Piperacillin Sod/Tazobactam 100 mls @ 200 mls/hr 04/18/20 12:00 04/19/20 12: 09 Sod 3.375 gm/ Sodium Chloride IVPB 100 mls Q6HR IGGY Administration Insulin Human Lispro 0 units 03/17/20 08:46 04/12/20 21:39 Humalog SC 2 unit .BEDTIME SLIDING SC PRN Administration Bedtime Correctional Scale Insulin Human Lispro 0 units 03/26/20 09:01 04/17/20 15:45 Humalog SC 4 unit .MODERATE SLIDING SC PRN Administration Moderate Correctional Scale Iron/Minerals/Multivitamins 1 tab 03/12/20 09:00 04/18/20 08:13 Theragran M PO 1 tab DAILY IGGY Administration Methylprednisolone Sodium Succinate 40 mg 04/15/20 09:00 04/19/20 09:45 Solu-Medrol IVP 40 mg DAILY IGGY Administration Metoclopramide HCl 5 mg 03/26/20 09:01 04/09/20 13:41 Reglan IVP 5 mg Q4H PRN Administration Nausea Metoprolol Tartrate 25 mg 04/19/20 09:00 04/19/20 09:43 Lopressor PO 25 mg BID IGGY Administration Mometasone Furoate/Formoterol Fumar 2 puff 03/14/20 18:30 04/19/20 07:39 Dulera 200 Mcg/5 Mcg Inhaler INH 2 puff BID-RT IGGY Administration Nystatin 500,000 units 03/21/20 21:00 04/19/20 09:44 Mycostatin SSW 500,000 units QID IGGY Administration (Nefazodone Hcl [ 300 each 03/13/20 09:00 04/19/20 09:54 Nefazodone Hcl] 150 PO 300 each Mg) Tab BID IGGY Administration Polyethylene Glycol 17 gm 03/19/20 08:36 04/07/20 03:46 Miralax PO 17 gm DAILYPRN PRN Administration Constipation Risperidone 1 mg 04/18/20 21:00 04/19/20 09:43 Risperidone PO 1 mg BID IGGY Administration Rosuvastatin Calcium 20 mg 03/11/20 21:00 04/18/20 21:41 Crestor PO 20 mg HS IGGY Administration Sodium Chloride 10 ml 03/23/20 09:00 04/19/20 09:54 Flush - Normal Saline IVF 10 ml Q12HR IGGY Administration Sodium Chloride 10 ml 03/23/20 08:52 04/15/20 13:33 Flush - Normal Saline IVF 10 ml PRN PRN Administration Saline Flush - Exam General Appearance: ill appearing General - other findings: Track and on vent. Trach site l- significant bleeding around the site ENT: normocephalic atraumatic Neck: supple Heart: RRR Respiratory: normal chest expansion Neurological: no new deficit Psychiatric: not oriented, somnolent, lethargic Hosp A/P - Plan #Acute respiratory failure with hypoxia due to COVID-19 infection - remains on ventilator, s/p trach/peg on 04/13/20 #Viral pneumonia due to COVID-19 infection #COVID-19 infection -status post Remdesivir, convalescence plasma #Thrombocytopenia and leukopenia due to COVID-19 infection - resolved #Obesity with BMI 33 #Hypertension #Asthma/COPD #Anxiety and depression #Dyslipidemia #History of right breast cancer #History of pulmonary embolism - on chronic anticoagulation with Eliquis -On Solu-Medrol and Lovenox -We will switch them to prednisone as well as Eliquis -Eliquis for 2-week duration. --Plan for LTAC placement. Last test on March 28 for COVID positive. -I do not see the latest 1. We will swap again for discharge planning. Plan for LTAC. -Eliquis on hold given her trach site has bled. Acute blood loss anemia -Hemoglobin 7.5 today there is a drop from 8.9 -If it drops further, we may need to do a unit transfusion. -She is tachypneic; afebrile; she has a good urine output of around 1800 mL for the last 24 hours. Electrolytes looks okay -Hemoglobin remained the same around 7.6. -family meeting around 2 PM to discuss her CODE STATUS -overall she is not doing well. Dr. Barroso may visit her today to check the trach site as it is bleeding significantly. CODE STATUS changed to DNR Multiple organ failure secondary to COVID-19 positive test (U07.1, COVID-19) with Acute Pneumonia (J12.89, Other viral pneumonia) Hypertensive urgency Blood pressure is quite high -Clonidine dose increased along with the beta-isaias. -Adding IV Lopressor as needed Overall prognosis remain guarded
[2020-04-19] MEDS: hydrALAZINE 20 MG/ML VIAL SLOW IVP PRN (13:40)
[2020-04-19] MEDS: Rosuvastatin 20 MG TAB PO SCH (22:06)
[2020-04-20] MEDS: Piperacillin/Tazobactam 3.375 GM in Sodium Chloride 0.9% 100 ML IVPB SCH ×5 (00:19→23:58)
[2020-04-20] MEDS: Haloperidol Lactate 5 MG/ML VIAL SLOW IVP PRN ×2 (00:19→05:32)
[2020-04-20] MEDS: Metoprolol Tartrate 5 MG/5 ML VIAL IVP PRN ×2 (02:06→06:03)
[2020-04-20 03:33] LABS: #Lymphocytes 0.1 thou/uL (1.20-3.40); #Monocytes 0.1 thou/uL (0.11-0.59); #Neutrophils 2.8 thou/uL (1.40-6.50); %Eosinophils 0.3 % (0.0-10.0); %Lymphocytes 3.5 % (21.0-51.0); %Neutrophils 94.2 % (42.0-75.0); Hemoglobin 7.3 g/dL (12.0-16.0); Mean Corpuscular HGB CONC 33.3 g/dL (32.0-36.0); Mean Corpuscular Hemoglobin 31.6 pg (27.0-31.0); Mean Corpuscular Volume 94.7 fL (78.0-98.0); Mean Platelet Volume 10.5 fL (7.4-10.4); Platelet Count 65 thou/uL (130-400); RBC Distribution Width 15.8 % (11.5-14.5); Red Blood Cell (RBC) Count 2.31 mill/uL (4.20-5.40)
[2020-04-20 03:37] LABS: Anion Gap 14 mmol/L (10-20); BUN (Urea Nitrogen) 26 mg/dL (9.8-20.1); Calc. Creatinine Clearance 140 mL/min (70-130); Calcium 9.6 mg/dL (7.8-10.44); Carbon Dioxide 24 mmol/L (22-29); Chloride 105 mmol/L (98-107); Estimated GFR-MDRD 87; Glucose 177 mg/dL (70-105); Potassium 3.1 mmol/L (3.5-5.1); Sodium 140 mmol/L (136-145)
[2020-04-20] MEDS: HumaLOG 300 UNITS/3 ML VIAL SC PRN ×2 (05:18→17:18)
[2020-04-20] MEDS: Mometasone 200 MCG/Formoterol 5 MCG 120 PUFF INHALER INH SCH ×2 (07:42→18:26)
[2020-04-20] MEDS: Enoxaparin Sodium 40 MG/0.4 ML SYRINGE SC SCH ×2 (08:54→21:06)
[2020-04-20] MEDS ORDERED: Morphine 10 MG/ML VIAL SLOW IVP PRN (09:11)
[2020-04-20] MEDS: Metoprolol Tartrate 25 MG TAB PO SCH ×2 (09:44→21:05)
[2020-04-20] MEDS: Cholecalciferol 1,000 UNITS (25 MCG) TAB PO SCH (09:45)
[2020-04-20] MEDS: risperiDONE 1 MG TAB PO SCH ×2 (09:47→21:25)
[2020-04-20] MEDS: Famotidine 20 MG TAB PO SCH ×2 (09:47→21:24)
--- NOTE | 2020-04-20 09:47 | PRG ---
DATE OF SERVICE: 04/20/2020 SUBJECTIVE: Day #40 in the ICU. Trach and PEG in place, remains very encephalopathic. OBJECTIVE: VITAL SIGNS: Respiratory drive is 44 per minute, pulse 113, blood pressure 126/86, sats 90%, maximum temperature is 99. CHEST: Bilateral rhonchi. CARDIAC: Sinus tach. ABDOMEN: Soft. LABORATORY DATA: White count 3000, hemoglobin and hematocrit 7 and 21, platelet count 65. Electrolytes are normal. Potassium 3.1. ASSESSMENT: Status post chemotherapy for breast cancer, coronavirus positive pneumonia with severe ARDS, metabolic encephalopathy, pancytopenia. We had a very lengthy discussion with the patient's . She has been made a DNR. Her prognosis is clearly grave. Encephalopathy is not getting any better. She is still on steroids IV and inhaled and broad-spectrum antibiotics for a recent enterococcus faecalis in the urine. PLAN: We will continue supportive care. One-half hour of critical time. Job ID: [id number]
[2020-04-20] MEDS: Multivitamin W/ Minerals 1 TAB PO SCH (09:48)
[2020-04-20] MEDS: Anastrozole 1 MG TAB PO SCH (09:48)
[2020-04-20] MEDS: methylPREDNISolone Sod Succ 40 MG VIAL IVP SCH (09:48)
[2020-04-20] MEDS: AcetaZOLAMIDE 250 MG TAB PO SCH (09:48)
[2020-04-20] MEDS: cloNIDine 0.2 MG TAB PO SCH ×2 (09:48→21:04)
[2020-04-20] MEDS: Nystatin 500,000 UNITS/5 ML UDCUP SSW SCH ×4 (09:48→21:24)
[2020-04-20] MEDS: DULoxetine 60 MG CAP PO SCH ×2 (09:48→21:24)
[2020-04-20] MEDS: Insulin Glargine 12 UNITS in Pre-Filled Syringe 1 EACH SC SCH ×2 (09:49→21:26)
[2020-04-20] MEDS: NEFAZODONE HCL PO SCH ×2 (09:58→21:25)
[2020-04-20] MEDS ORDERED: Sodium Chloride 0.9% 300 ML IV SCH (11:15)
[2020-04-20] MEDS: Sodium Chloride 0.9% 1,000 ML IV SCH (11:18)
[2020-04-20] MEDS: Norepinephrine 8 MG/0.9% NS 250 ML IVPB SCH (11:55)
[2020-04-20 12:53] VITALS: BMI 37.1
--- NOTE | 2020-04-20 13:48 | PDOC.HOSPP ---
- Subjective Encounter Date: 04/20/20 Encounter Time: 11:55 Subjective: Discussed with RN. Patient is not doing well. She got her 300 mL bolus of saline as her blood pressure is dropping. Her sats are 88%. She is visibly tachypneic. Prognosis very grim at this point. - Objective Vital Signs & Weight: Vital Signs (12 hours) Temp Pulse Pulse Pulse Resp BP Pulse Ox 04/20/20 10:17 128 H 04/20/20 10:00 133 H 127 H 37 H 92 L 04/20/20 09:48 147/96 H 04/20/20 08:00 36 H 04/20/20 07:42 113 H 122/86 04/20/20 07:00 100.6 F H 04/20/20 06:00 44 H 04/20/20 04:00 99.0 F 43 H 04/20/20 02:19 73 171/103 H 04/20/20 02:00 39 H Weight Admit Weight 216 lb 11.2 oz Weight 223 lb 1.725 oz Most Recent Monitor Data Heart Rate from ECG 90 NIBP 147/98 NIBP BP-Mean 63 Respiration from ECG 34 SpO2 89 I&O: 04/19/20 04/20/20 04/21/20 06:59 06:59 06:59 Intake Total 1218.1 1781 214 Output Total 3725 3035 234 [facility] -2506.9 -1254 -20 Result Diagrams: 04/20/20 03:00 04/20/20 03:00 Additional Labs: Accuchecks 04/20/20 04/20/20 04/20/20 12:19 09:52 04:31 POC Glucose 205 H 255 H 196 H 04/19/20 04/19/20 22:11 18:12 POC Glucose 136 H 94 Hospitalist ROS - Medication Medications: Active Medications Generic Name Dose Route Start Last Admin Trade Name Freq PRN Reason Stop Dose Admin Acetazolamide 250 mg 04/08/20 09:00 04/20/20 09:48 Diamox PO 250 mg DAILY IGGY Administration Albuterol/Ipratropium 3 ml 03/29/20 19:00 04/20/20 07:41 Duoneb NEB 3 ml [id number] IGGY Administration Anastrozole 1 mg 03/26/20 09:00 04/20/20 09:48 Arimidex PO 1 mg DAILY IGGY Administration Benzonatate 100 mg 03/26/20 09:01 03/29/20 04:24 Tessalon PO 100 mg Q6H PRN Administration Cough Bisacodyl 10 mg 03/26/20 09:01 04/16/20 10:37 Dulcolax [place] 10 mg DAILYPRN PRN Administration Constipation Cholecalciferol 5,000 units 03/12/20 09:00 04/20/20 09:45 Vitamin D3 PO 5,000 units DAILY IGGY Administration Clonidine 0.2 mg 04/19/20 09:00 04/20/20 09:48 Catapres PO 0.2 mg BID IGGY Administration Duloxetine HCl 60 mg 03/11/20 21:00 04/20/20 09:48 Cymbalta PO 60 mg BID IGGY Administration Enoxaparin Sodium 40 mg 04/18/20 09:00 04/20/20 08:54 Lovenox SC Not Given BID IGGY Famotidine 20 mg 03/17/20 09:00 04/20/20 09:47 Pepcid PO 20 mg BID IGGY Administration Guaifenesin 200 mg 03/26/20 09:01 03/27/20 09:40 Robitussin Sf PO 200 mg Q4H PRN Administration Cough Haloperidol Lactate 5 mg 04/14/20 08:59 04/20/20 05:32 Haldol SLOW IVP 5 mg Q4H PRN Administration Agitation Hydralazine HCl 10 mg 03/26/20 09:01 04/19/20 13:40 Apresoline SLOW IVP 10 mg Q4H PRN Administration SBP > 180 and HR < 70 Dexmedetomidine HCl 400 mcg/ 100 mls @ 0 mls/hr 04/07/20 09:45 04/20/20 05:59 Sodium Chloride IVPB 100 mls INF IGGY Administration Protocol Per Protocol Insulin Glargine 12 units/ 0.12 mls @ 0 mls/hr 04/17/20 21:00 04/20/20 09:49 Miscellaneous Medication SC 0.12 mls BID IGGY Administration Norepinephrine Bitartrate 250 mls @ 0 mls/hr 04/18/20 00:35 04/20/20 11:55 Levophed IVPB 250 mls INF IGGY Administration Protocol Titrate Piperacillin Sod/Tazobactam 100 mls @ 200 mls/hr 04/18/20 12:00 04/20/20 11: 20 Sod 3.375 gm/ Sodium Chloride IVPB 100 mls Q6HR IGGY Administration Sodium Chloride 1,000 mls @ 50 mls/hr 04/20/20 11:15 04/20/20 11:18 Normal Saline 0.9% IV 1,000 mls .Q20H IGGY Administration Insulin Human Lispro 0 units 03/17/20 08:46 04/12/20 21:39 Humalog SC 2 unit .BEDTIME SLIDING SC PRN Administration Bedtime Correctional Scale Insulin Human Lispro 0 units 03/26/20 09:01 04/20/20 05:18 Humalog SC 2 unit .MODERATE SLIDING SC PRN Administration Moderate Correctional Scale Iron/Minerals/Multivitamins 1 tab 03/12/20 09:00 04/20/20 09:48 Theragran M PO 1 tab DAILY IGGY Administration Methylprednisolone Sodium Succinate 40 mg 04/15/20 09:00 04/20/20 09:48 Solu-Medrol IVP 40 mg DAILY IGGY Administration Metoclopramide HCl 5 mg 03/26/20 09:01 04/09/20 13:41 Reglan IVP 5 mg Q4H PRN Administration Nausea Metoprolol Tartrate 25 mg 04/19/20 09:00 04/20/20 09:44 Lopressor PO 25 mg BID IGGY Administration Metoprolol Tartrate 5 mg 04/19/20 09:52 04/20/20 06:03 Lopressor IVP 04/22/20 09:53 5 mg Q4H PRN Administration SBP>150 or HR>90 Mometasone Furoate/Formoterol Fumar 2 puff 03/14/20 18:30 04/20/20 07:42 Dulera 200 Mcg/5 Mcg Inhaler INH 2 puff BID-RT IGGY Administration Nystatin 500,000 units 03/21/20 21:00 04/20/20 09:48 Mycostatin SSW 500,000 units QID IGGY Administration (Nefazodone Hcl [ 300 each 03/13/20 09:00 04/20/20 09:58 Nefazodone Hcl] 150 PO 300 each Mg) Tab BID IGGY Administration Polyethylene Glycol 17 gm 03/19/20 08:36 04/07/20 03:46 Miralax PO 17 gm DAILYPRN PRN Administration Constipation Risperidone 1 mg 04/18/20 21:00 04/20/20 09:47 Risperidone PO 1 mg BID IGGY Administration Rosuvastatin Calcium 20 mg 03/11/20 21:00 04/19/20 22:06 Crestor PO 20 mg HS IGGY Administration Sodium Chloride 10 ml 03/23/20 09:00 04/20/20 09:59 Flush - Normal Saline IVF 10 ml Q12HR IGGY Administration Sodium Chloride 10 ml 03/23/20 08:52 04/15/20 13:33 Flush - Normal Saline IVF 10 ml PRN PRN Administration Saline Flush - Exam General Appearance: ill appearing General - other findings: Tachypneic Eye: PERRL ENT: normocephalic atraumatic Neck: supple Heart: irregular Respiratory: tachypneic Gastrointestinal: soft, normal bowel sounds Neurological: no new deficit Psychiatric: not oriented Hosp A/P - Plan #Acute respiratory failure with hypoxia due to COVID-19 infection - remains on ventilator, s/p trach/peg on 04/13/20 #Viral pneumonia due to COVID-19 infection #COVID-19 infection -status post Remdesivir, convalescence plasma #Thrombocytopenia and leukopenia due to COVID-19 infection - resolved #Obesity with BMI 33 #Hypertension #Asthma/COPD #Anxiety and depression #Dyslipidemia #History of right breast cancer #History of pulmonary embolism - on chronic anticoagulation with Eliquis -On Solu-Medrol and Lovenox -We will switch them to prednisone as well as Eliquis -Eliquis for 2-week duration. --Plan for LTAC placement. Last test on March 28 for COVID positive. -I do not see the latest 1. We will swap again for discharge planning. Plan for LTAC. -Eliquis on hold given her trach site has bled. Acute blood loss anemia -Hemoglobin 7.5 today there is a drop from 8.9 -If it drops further, we may need to do a unit transfusion. -She is tachypneic; afebrile; she has a good urine output of around 1800 mL for the last 24 hours. Electrolytes looks okay -Hemoglobin remained the same around 7.6. -family meeting around 2 PM to discuss her CODE STATUS -overall she is not doing well. Dr. Barroso may visit her today to check the trach site as it is bleeding significantly. CODE STATUS changed to DNR Multiple organ failure secondary to COVID-19 positive test (U07.1, COVID-19) with Acute Pneumonia (J12.89, Other viral pneumonia) Hypertensive urgency Blood pressure is quite high -Clonidine dose increased along with the beta-isaias. -Adding IV Lopressor as needed Overall prognosis remain guarded - -Her sats are 88%. She is visibly tachypneic. Prognosis very grim at this point. -Continue mostly the supportive care On Solu-Medrol 40 mg IV daily Enoxaparin 40 twice a day Her prognosis is grossly grim. DNAR
--- NOTE | 2020-04-20 14:30 | PDOC.PALPN ---
Palliative Progress Note - Subjective mechanical ventilation via trach. Continues to be hypotensive requiring significant support. - Objective Vital Signs: Vital Signs - Most Recent Temp Pulse Resp BP Pulse Ox 99.8 F H 113 H 37 H 81/59 L 92 L 04/20/20 12:00 04/20/20 13:59 04/20/20 12:00 04/20/20 13:59 04/20/20 10:00 - Physical Exam Constitutional: encephalitic, ill appearing, mild distress HEENT: moist MMs Respiratory: accessory muscle use, labored respirations, tachypnea Deviation from normal: mechanical ventilation via trach Cardiovascular: irregular Gastrointestinal: soft Deviation from normal: Obese, PEG Genitourinary: carrillo catheter Musculoskeletal: edema present, diffuse muscle atrophy Skin: bruising, fragile Deviation from normal: encephalopathic - Assessment (1) Palliative care encounter Code(s): Z51.5 - ENCOUNTER FOR PALLIATIVE CARE Current Visit: Yes Status: Acute (2) Acute respiratory failure with hypoxia Code(s): J96.01 - ACUTE RESPIRATORY FAILURE WITH HYPOXIA Current Visit: Yes Status: Acute (3) Pneumonia due to COVID-19 virus Code(s): U07.1 - COVID-19; J12.89 - OTHER VIRAL PNEUMONIA Current Visit: Yes Status: Acute (4) H/O malignant neoplasm of breast Code(s): Z85.3 - PERSONAL HISTORY OF MALIGNANT NEOPLASM OF BREAST Current Visit: Yes Status: Chronic (5) Obesity (BMI 30-39.9) Code(s): E66.9 - OBESITY, UNSPECIFIED Current Visit: Yes Status: Chronic - Plan Plan: Palliative Care has provided support to , as well as spiritual care. He has been updated by Dr Reynoso as well as primary RN. Understanding of poor prognosis, continues to remain hopeful. Will continue to support Mr Servin and his son, consideration for visit to bedside tomorrow. Emotional support, education related to continued decline despite aggressive efforts. Please also refer to Palliative Care notes in note section. [25] minutes spent on this encounter with >50% of the time in counseling and coordination of care. - ROS Non Response: due to mental status
[2020-04-20] MEDS: Rosuvastatin 20 MG TAB PO SCH (21:26)
[2020-04-21] MEDS: Norepinephrine 8 MG/0.9% NS 250 ML IVPB SCH ×2 (01:45→14:35)
[2020-04-21] MEDS: HumaLOG 300 UNITS/3 ML VIAL SC PRN (04:12)
[2020-04-21 04:52] LABS: Anion Gap 13 mmol/L (10-20); BUN (Urea Nitrogen) 45 mg/dL (9.8-20.1); Calc. Creatinine Clearance 86 mL/min (70-130); Carbon Dioxide 24 mmol/L (22-29); Chloride 107 mmol/L (98-107); Estimated GFR-MDRD 50; Potassium 3.7 mmol/L (3.5-5.1); Sodium 140 mmol/L (136-145)
[2020-04-21 04:53] LABS: Calcium 9.2 mg/dL (7.8-10.44); Glucose 207 mg/dL (70-105)
[2020-04-21 05:00] LABS: Band 47 % (5-11); Hemoglobin 8.4 g/dL (12.0-16.0); Lymphocytes 1 % (21-51); MDiff Complete? YES; Mean Corpuscular HGB CONC 32.1 g/dL (32.0-36.0); Mean Corpuscular Hemoglobin 30.8 pg (27.0-31.0); Mean Corpuscular Volume 95.9 fL (78.0-98.0); Mean Platelet Volume 11.1 fL (7.4-10.4); Metamyelocyte 2 % (0-0); Monocytes 2 % (0-10); Neutrophil 48 % (42-75); Platelet Count 69 thou/uL (130-400); Platelet Morphology Comment Appears Decreased; Red Blood Cell (RBC) Count 2.72 mill/uL (4.20-5.40); White Blood Cell (WBC) Count 5.6 thou/uL (4.8-10.8)
[2020-04-21] MEDS: Piperacillin/Tazobactam 3.375 GM in Sodium Chloride 0.9% 100 ML IVPB SCH ×3 (05:33→18:33)
[2020-04-21] MEDS: Mometasone 200 MCG/Formoterol 5 MCG 120 PUFF INHALER INH SCH ×2 (07:12→21:22)
[2020-04-21] MEDS: Sodium Chloride 0.9% 1,000 ML IV SCH ×2 (07:15→10:26)
[2020-04-21] MEDS: cloNIDine 0.2 MG TAB PO SCH (08:37)
[2020-04-21] MEDS: DULoxetine 60 MG CAP PO SCH (09:27)
[2020-04-21] MEDS: Anastrozole 1 MG TAB PO SCH (09:27)
[2020-04-21] MEDS: Cholecalciferol 1,000 UNITS (25 MCG) TAB PO SCH (09:27)
[2020-04-21] MEDS: Insulin Glargine 12 UNITS in Pre-Filled Syringe 1 EACH SC SCH (09:28)
[2020-04-21] MEDS: Famotidine 20 MG TAB PO SCH (09:28)
[2020-04-21] MEDS: Enoxaparin Sodium 40 MG/0.4 ML SYRINGE SC SCH (09:28)
[2020-04-21] MEDS: Metoprolol Tartrate 25 MG TAB PO SCH (09:29)
[2020-04-21] MEDS: methylPREDNISolone Sod Succ 40 MG VIAL IVP SCH (09:29)
[2020-04-21] MEDS: Multivitamin W/ Minerals 1 TAB PO SCH (09:29)
[2020-04-21] MEDS: Nystatin 500,000 UNITS/5 ML UDCUP SSW SCH ×3 (09:29→17:00)
[2020-04-21] MEDS: NEFAZODONE HCL PO SCH (09:30)
[2020-04-21] MEDS: risperiDONE 1 MG TAB PO SCH (09:30)
--- NOTE | 2020-04-21 09:31 | PDOC.PALPN ---
Palliative Progress Note - Subjective Mechanical ventilation via trach. Sedated, requiring increased support to maintain pressures. - Objective Vital Signs: Vital Signs - Most Recent Temp Pulse Resp BP Pulse Ox 99.9 F H 99 28 H 78/43 L 100 04/21/20 08:00 04/21/20 07:12 04/21/20 08:00 04/21/20 08:37 04/21/20 08:00 - Physical Exam Constitutional: encephalitic, ill appearing, mild distress HEENT: moist MMs Deviation from normal: mechanical ventilation via trach, bloody secretions via trach Cardiovascular: RRR Gastrointestinal: soft, non-tender Deviation from normal: obese Genitourinary: carrillo catheter Musculoskeletal: edema present, diffuse muscle atrophy Deviation from normal: sedated Skin: bruising, fragile Deviation from normal: encephalopathic - Assessment (1) Palliative care encounter Code(s): Z51.5 - ENCOUNTER FOR PALLIATIVE CARE Current Visit: Yes Status: Acute (2) Acute respiratory failure with hypoxia Code(s): J96.01 - ACUTE RESPIRATORY FAILURE WITH HYPOXIA Current Visit: Yes Status: Acute (3) Pneumonia due to COVID-19 virus Code(s): U07.1 - COVID-19; J12.89 - OTHER VIRAL PNEUMONIA Current Visit: Yes Status: Acute (4) H/O malignant neoplasm of breast Code(s): Z85.3 - PERSONAL HISTORY OF MALIGNANT NEOPLASM OF BREAST Current Visit: Yes Status: Chronic (5) Obesity (BMI 30-39.9) Code(s): E66.9 - OBESITY, UNSPECIFIED Current Visit: Yes Status: Chronic - Plan Plan: Continuous conversation related to patient poor prognosis despite continued interventions. Mr Servin is understanding today and seeking to withdraw aggressive interventions, and allow Mrs Servin to be comfortable. Mr Servin is going to see if his sons desire to come to say good bye to their mother. Spiritual Care present with patient and spouse. Communicated with Dr Reynoso and Dr Welch. Comfort mediations ordered Will continue to offer emotional support and therapeutic listening with Mr Servin [45] minutes spent on this encounter with >50% of the time in counseling and coordination of care. - ROS Non Response: due to mental status
--- NOTE | 2020-04-21 10:38 | PRG ---
DATE OF SERVICE: 04/21/2020 SUBJECTIVE: This morning, she remains in the ICU, pretty much unresponsive. Blood pressure has dropped from 78 to 43, sats 100%, respirations 16. She has trach and PEG in place. at the bedside. Palliative Care has re-notified the about worsening condition. He is here now for comfort care. May consider discontinuing the vent. Otherwise, chest extensive rhonchi. Cardiac, sinus tach. Abdomen is soft. IMPRESSION: 1. Respiratory failure secondary to bennett positive pneumonia. 2. Mild azotemia. 3. Hypotension. PLAN: Comfort care. As per the , Spiritual Care seeing the patient. We will follow. Job ID: [id number]
--- NOTE | 2020-04-21 13:12 | PDOC.FMACP ---
Advance Care Planning - Note Summary: Advanced Care Planning was discussed. The diagnosis, prognosis and goals of care were discussed. Appropriate forms and documentation to accomplish the goals of care were discussed. All questions were answered. The Palliative Care Team will be engaged to assist with completion of any outstanding forms that are needed. Talk to the spouse over 20 minutes. Plan for their sons are visiting. He is also requesting that after withdrawal of the care if that is what they are going to do, he wants his to be in the same room. He does not want her to be moved out of the ICU unit.
--- NOTE | 2020-04-21 13:14 | PDOC.HOSPP ---
- Subjective Encounter Date: 04/21/20 Encounter Time: 10:30 Subjective: Patient remained the same. And no overt more bleed around the trach site. No clinical improvement. Talk to the spouse over 20 minutes. Plan for their sons are visiting. He is also requesting that after withdrawal of the care if that is what they are going to do, he wants his to be in the same room. He does not want her to be moved out of the ICU unit. - Objective Vital Signs & Weight: Vital Signs (12 hours) Temp Pulse Resp BP Pulse Ox 04/21/20 10:35 100 87/58 L 04/21/20 10:00 22 H 04/21/20 08:37 78/43 L 04/21/20 08:00 99.9 F H 28 H 100 04/21/20 07:12 99 108/69 04/21/20 06:00 21 H 04/21/20 04:00 99.8 F H 21 H 04/21/20 02:00 19 Weight Admit Weight 216 lb 11.2 oz Weight 221 lb 5.506 oz Most Recent Monitor Data Heart Rate from ECG 100 NIBP 76/48 NIBP BP-Mean 57 Respiration from ECG 16 SpO2 100 I&O: 04/20/20 04/21/20 04/22/20 06:59 06:59 06:59 Intake Total 1781 3438.2 Output Total 3035 234 0 Balance -1254 3204.2 0 Result Diagrams: 04/21/20 04:09 04/21/20 04:09 Additional Labs: Accuchecks 04/21/20 04/20/20 04/20/20 04:17 21:28 17:20 POC Glucose 212 H 177 H 229 H Hospitalist ROS - Medication Medications: Active Medications Generic Name Dose Route Start Last Admin Trade Name Freq PRN Reason Stop Dose Admin Albuterol/Ipratropium 3 ml 03/29/20 19:00 04/21/20 07:12 Duoneb NEB 3 ml [id number] IGGY Administration Anastrozole 1 mg 03/26/20 09:00 04/21/20 09:27 Arimidex PO Not Given DAILY IGGY Benzonatate 100 mg 03/26/20 09:01 03/29/20 04:24 Tessalon PO 100 mg Q6H PRN Administration Cough Bisacodyl 10 mg 03/26/20 09:01 04/16/20 10:37 Dulcolax [place] 10 mg DAILYPRN PRN Administration Constipation Cholecalciferol 5,000 units 03/12/20 09:00 04/21/20 09:27 Vitamin D3 PO Not Given DAILY [facility] Clonidine 0.2 mg 04/19/20 09:00 04/21/20 08:37 Catapres PO Not Given BID [facility] Duloxetine HCl 60 mg 03/11/20 21:00 04/21/20 09:27 Cymbalta PO Not Given BID [facility] Enoxaparin Sodium 40 mg 04/18/20 09:00 04/21/20 09:28 Lovenox SC Not Given BID [facility] Famotidine 20 mg 03/17/20 09:00 04/21/20 09:28 Pepcid PO Not Given BID [facility] Guaifenesin 200 mg 03/26/20 09:01 03/27/20 09:40 Robitussin Sf PO 200 mg Q4H PRN Administration Cough Haloperidol Lactate 5 mg 04/14/20 08:59 04/20/20 05:32 Haldol SLOW IVP 5 mg Q4H PRN Administration Agitation Hydralazine HCl 10 mg 03/26/20 09:01 04/19/20 13:40 Apresoline SLOW IVP 10 mg Q4H PRN Administration SBP > 180 and HR < 70 Dexmedetomidine HCl 400 mcg/ 100 mls @ 0 mls/hr 04/07/20 09:45 04/20/20 05:59 Sodium Chloride IVPB 100 mls INF IGGY Administration Protocol Per Protocol Insulin Glargine 12 units/ 0.12 mls @ 0 mls/hr 04/17/20 21:00 04/21/20 09:28 Miscellaneous Medication SC Not Given BID [facility] Norepinephrine Bitartrate 250 mls @ 0 mls/hr 04/18/20 00:35 04/21/20 01:45 Levophed IVPB 250 mls INF IGGY Administration Protocol Titrate Piperacillin Sod/Tazobactam 100 mls @ 200 mls/hr 04/18/20 12:00 04/21/20 05: 33 Sod 3.375 gm/ Sodium Chloride IVPB 100 mls Q6HR IGGY Administration Sodium Chloride 1,000 mls @ 50 mls/hr 04/20/20 11:15 04/21/20 10:26 Normal Saline 0.9% IV 1,000 mls .Q20H IGGY Administration Insulin Human Lispro 0 units 03/17/20 08:46 04/12/20 21:39 Humalog SC 2 unit .BEDTIME SLIDING SC PRN Administration Bedtime Correctional Scale Insulin Human Lispro 0 units 03/26/20 09:01 04/21/20 04:12 Humalog SC 4 unit .MODERATE SLIDING SC PRN Administration Moderate Correctional Scale Iron/Minerals/Multivitamins 1 tab 03/12/20 09:00 04/21/20 09:29 Theragran M PO Not Given DAILY [facility] Methylprednisolone Sodium Succinate 40 mg 04/15/20 09:00 04/21/20 09:29 Solu-Medrol IVP Not Given DAILY IGGY Metoclopramide HCl 5 mg 03/26/20 09:01 04/09/20 13:41 Reglan IVP 5 mg Q4H PRN Administration Nausea Metoprolol Tartrate 25 mg 04/19/20 09:00 04/21/20 09:29 Lopressor PO Not Given BID IGGY Metoprolol Tartrate 5 mg 04/19/20 09:52 04/20/20 06:03 Lopressor IVP 04/22/20 09:53 5 mg Q4H PRN Administration SBP>150 or HR>90 Mometasone Furoate/Formoterol Fumar 2 puff 03/14/20 18:30 04/21/20 07:12 Dulera 200 Mcg/5 Mcg Inhaler INH 2 puff BID-RT IGGY Administration Nystatin 500,000 units 03/21/20 21:00 04/21/20 09:29 Mycostatin SSW Not Given QID IGGY (Nefazodone Hcl [ 300 each 03/13/20 09:00 04/21/20 09:30 Nefazodone Hcl] 150 PO Not Given Mg) Tab BID IGGY Polyethylene Glycol 17 gm 03/19/20 08:36 04/07/20 03:46 Miralax PO 17 gm DAILYPRN PRN Administration Constipation Risperidone 1 mg 04/18/20 21:00 04/21/20 09:30 Risperidone PO Not Given BID IGGY Rosuvastatin Calcium 20 mg 03/11/20 21:00 04/20/20 21:26 Crestor PO 20 mg HS IGGY Administration Sodium Chloride 10 ml 03/23/20 09:00 04/21/20 09:30 Flush - Normal Saline IVF Not Given Q12HR IGGY Sodium Chloride 10 ml 03/23/20 08:52 04/15/20 13:33 Flush - Normal Saline IVF 10 ml PRN PRN Administration Saline Flush - Exam General Appearance: ill appearing Eye: PERRL ENT: normocephalic atraumatic Neck: supple Respiratory: normal chest expansion Gastrointestinal: soft, normal bowel sounds Skin - other findings: Very pale looking extremities very cool and clammy on her hands. dept edema Hosp A/P - Plan #Acute respiratory failure with hypoxia due to COVID-19 infection - remains on ventilator, s/p trach/peg on 04/13/20 #Viral pneumonia due to COVID-19 infection #COVID-19 infection -status post Remdesivir, convalescence plasma #Thrombocytopenia and leukopenia due to COVID-19 infection - resolved #Obesity with BMI 33 #Hypertension #Asthma/COPD #Anxiety and depression #Dyslipidemia #History of right breast cancer #History of pulmonary embolism - on chronic anticoagulation with Eliquis -On Solu-Medrol and Lovenox -We will switch them to prednisone as well as Eliquis -Eliquis for 2-week duration. --Plan for LTAC placement. Last test on March 28 for COVID positive. -I do not see the latest 1. We will swap again for discharge planning. Plan for LTAC. -Eliquis on hold given her trach site has bled. Acute blood loss anemia -Hemoglobin 7.5 today there is a drop from 8.9 -If it drops further, we may need to do a unit transfusion. -She is tachypneic; afebrile; she has a good urine output of around 1800 mL for the last 24 hours. Electrolytes looks okay -Hemoglobin remained the same around 7.6. -family meeting around 2 PM to discuss her CODE STATUS -overall she is not doing well. Dr. Barroso may visit her today to check the trach site as it is bleeding significantly. CODE STATUS changed to DNR Multiple organ failure secondary to COVID-19 positive test (U07.1, COVID-19) with Acute Pneumonia (J12.89, Other viral pneumonia) Hypertensive urgency Blood pressure is quite high -Clonidine dose increased along with the beta-isaias. -Adding IV Lopressor as needed Overall prognosis remain guarded - -Her sats are 88%. She is visibly tachypneic. Prognosis very grim at this point. -Continue mostly the supportive care On Solu-Medrol 40 mg IV daily Enoxaparin 40 twice a day Patient remained the same. And no overt more bleed around the trach site. No clinical improvement. Talk to the spouse over 20 minutes. Plan for their sons are visiting. He is also requesting that after withdrawal of the care if that is what they are going to do, he wants his to be in the same room. He does not want her to be moved out of the ICU unit. Her prognosis is grossly grim. DNAR
[2020-04-21 14:12] VITALS: BP 113/72
[2020-04-21] MEDS ORDERED: Morphine 2 MG/ML VIAL SLOW IVP PRN (17:51)
[2020-04-21] MEDS: Morphine 2 MG/ML VIAL SLOW IVP PRN ×3 (21:26→23:46)
[2020-04-22 00:05] VITALS: TEMP 96.9
[2020-04-22] MEDS: Morphine 2 MG/ML VIAL SLOW IVP PRN ×2 (00:58→01:59)
--- NOTE | 2020-04-22 12:44 | DIS ---
DATE OF ADMISSION: 03/11/2020 DATE OF DISCHARGE: 04/22/2020 DISCHARGE DIAGNOSES: 1. Hypertensive urgency. 2. COVID pneumonia. 3. Multiple organ failure secondary to COVID pneumonia. 4. Acute blood loss anemia. 5. Hyperlipidemia. 6. History of right breast cancer. 7. History of pulmonary embolism, on chronic anticoagulation with Eliquis. 8. Thrombocytopenia and leukopenia due to COVID infection. 9. Asthma. 10. Chronic obstructive pulmonary disease. HOSPITAL COURSE: This was a 60-year-old female with history of right breast cancer, admitted with acute respiratory failure and hypoxia secondary to COVID infection. She was intubated due to persistent hypoxia and ongoing respiratory dysfunction. She remained on ventilator, requiring trach and PEG. She was here for almost 4 weeks. Over the time, she received Remdesivir, convalescent plasma. It did not help her better. She had a trach and PEG as well. For some time, at the trach site, she had a bleed that was improved after stopping the Eliquis. She also had acute blood loss anemia with a hemoglobin drop from 8.9 to 7.5. Over the course of the time, she had multiple organ failure including acute kidney injury and hypertensive urgency. Her code status changed to DNR. Her spouse and her 2 sons agreed for withdrawal of care. She had demise at 3:40 a.m. on April 22. 1. Primary cause of her demise was multiple organ failure secondary to COVID pneumonia. 2. Secondary cause of her demise was several comorbidities including history of COPD, right breast cancer, and pulmonary embolism. Job ID: [id number] MTDD
--- NOTE | 2020-04-25 09:05 | PQF ---
CLINICAL DOCUMENTATION CLARIFICATION FORM: Dear : Alli Welch Date / Time: 04/25/2020 09:04 Please exercise your independent, professional judgment in responding to the clarification form. Clinical indicators are provided on the bottom of this form for your review Please check appropriate box(es): [ x ] Sepsis due to Covid 19 infection [ ] Severe sepsis due to Covid 19 infection [ ] Septic Shock due to Covid 19 infection [ ] Localized infection without sepsis [ ] Other diagnosis [ ] Unable to determine In addition, please specify: Present on Admission (POA): [ ] Yes [ ] No [ ] Unable to determine Physician Signature: Date/Time: For continuity of documentation, please document condition throughout progress notes and discharge summary. Thank You. To be completed by CDI/Coding staff for physician review: Present Clinical Indicators - Signs / Symptoms / Labs Results and Location in Medical Record [x] Chest xray: Fairly extensive bilateral aveolar and ground glass opacity .. Findings are certainly consistent with that of bilateral Covid pneumonia Chest Xray 03/11 [x] urgent care due to dyspnea, cough and fever ED notes 03/11 [x] UTI, urine is now growing Enterococcus faecalis PN 04/18 [x] multiorgan failure and encephalopathy PN 04/19 [x] respiratory failure secondary to bennett positive PNA PN 04/21 [x] Hypotension PN 04/21 [x] Temp: 03/11=99.3 03/29=99.8 04/1658=710.8 04/1802=383.1 Vital Signs 03/11 [x] Pulse: 03/20=86 04/1719=757 04/1817=907 04/2063=340 Vital Signs 03/20 [x] BP: 03/1625=628/73 04/1186=864/57 04/1314=352/52 04/21=78/43 Vital Signs 03/16 [x] Respi: 03/16=28 08=28 04/04=38 04/08=40 Vital Signs 03/16 [x] WBC: 03/11=6.7 03/15=4.40 04/11=8.9 04/21=5.6 Labs 03/11 [x] Lactate: 03/11=2.1 Labs 03/11 [x] Blood culture: no growth Collected 03/11 Present Risk Factors Results and Location in Medical Record [x] 60 years old female HP 03/11 [x] History of breast cancer HP 03/11 [x] Covid 19 with PNA PN 03/12 [x] DM type 2 PN 03/12 [x] Immunosuppressed status PN 03/12 [x] Obesity PN 03/12 [x] Malnutrition OP Note 04/13 [x] UTI Present Treatments Results and Location in Medical Record [x] Chest Xray Collected 03/11 [x] BIPAP HP 03/11 [x] Intubation with ventilation PN 03/29 [x] Trancheostomy OP Note 04/13 [x] Urine culture Collected 04/16 [x] Blood culture Collected 03/11 [x] Maxipime 2gm IV OCT 30 [x] Remdesivir 200mg IV OCT 30 [x] Azithromycin 500mg IV OCT 30 [x] IVF OCT 30 [x] Levophed 250 ml IV OCT 31 [x] Isolation Order 03/11 [x] ID consult Consult 03/31 CDS/Rn Occupational Health Signature: Thang De Luna Phone #: [phone] Date/Time: 04/25/2020 09:04 This is a permanent part of the Medical Record [facility]
== END 2020-04-22 03:40 | disposition expired | DRG 4 ==
LOC: ERS 15:41 → ERHOLD 17:40 → IMCU/EMU 22:11 → CCU 03-29 15:29
PROVIDERS: ADMIT Internal Medicine; ATTEND Internal Medicine
PROC: 02HV33Z Insertion of Infusion Device into Superior Vena Cava, Percutaneous Approach (ICD-10-PCS; principal; 2020-03-11)
PROC: XW033E5 Introduction of Remdesivir Anti-infective into Peripheral Vein, Percutaneous Approach, New Technology Group 5 (ICD-10-PCS; 2020-03-11)
PROC: 5A09557 Assistance with Respiratory Ventilation, Greater than 96 Consecutive Hours, Continuous Positive Airway Pressure (ICD-10-PCS; 2020-03-11)
PROC: 8E0ZXY6 Isolation (ICD-10-PCS; 2020-03-11)
PROC: XW033E5 Introduction of Remdesivir Anti-infective into Peripheral Vein, Percutaneous Approach, New Technology Group 5 (ICD-10-PCS; 2020-03-12)
PROC: XW13325 Transfusion of Convalescent Plasma (Nonautologous) into Peripheral Vein, Percutaneous Approach, New Technology Group 5 (ICD-10-PCS; 2020-03-14)
PROC: XW033E5 Introduction of Remdesivir Anti-infective into Peripheral Vein, Percutaneous Approach, New Technology Group 5 (ICD-10-PCS; 2020-03-16)
PROC: XW033E5 Introduction of Remdesivir Anti-infective into Peripheral Vein, Percutaneous Approach, New Technology Group 5 (ICD-10-PCS; 2020-03-19)
PROC: 5A1955Z Respiratory Ventilation, Greater than 96 Consecutive Hours (ICD-10-PCS; 2020-03-29)
PROC: XW13325 Transfusion of Convalescent Plasma (Nonautologous) into Peripheral Vein, Percutaneous Approach, New Technology Group 5 (ICD-10-PCS; 2020-03-29)
PROC: 0BH17EZ Insertion of Endotracheal Airway into Trachea, Via Natural or Artificial Opening (ICD-10-PCS; 2020-03-29)
PROC: 0B113F4 Bypass Trachea to Cutaneous with Tracheostomy Device, Percutaneous Approach (ICD-10-PCS; 2020-04-13)
PROC: 0DH63UZ Insertion of Feeding Device into Stomach, Percutaneous Approach (ICD-10-PCS; 2020-04-13)
PROC: 02HV33Z Insertion of Infusion Device into Superior Vena Cava, Percutaneous Approach (ICD-10-PCS; 2020-04-13)
PROC: 3E033XZ Introduction of Vasopressor into Peripheral Vein, Percutaneous Approach (ICD-10-PCS; 2020-04-18)
DX: A41.89 Other specified sepsis (principal); U07.1 COVID-19; J12.89 Other viral pneumonia; G93.41 Metabolic encephalopathy; J96.21 Acute and chronic respiratory failure with hypoxia; J98.11 Atelectasis; J44.0 Chronic obstructive pulmonary disease with (acute) lower respiratory infection; E46 Unspecified protein-calorie malnutrition; D62 Acute posthemorrhagic anemia; N39.0 Urinary tract infection, site not specified; D61.818 Other pancytopenia; N17.9 Acute kidney failure, unspecified; Z99.11 Dependence on respirator [ventilator] status; Z51.5 Encounter for palliative care; Z66 Do not resuscitate; F32.9 Major depressive disorder, single episode, unspecified; E78.5 Hyperlipidemia, unspecified; I10 Essential (primary) hypertension; M79.7 Fibromyalgia; G47.30 Sleep apnea, unspecified; N95.0 Postmenopausal bleeding; E11.65 Type 2 diabetes mellitus with hyperglycemia; T38.0X5A Adverse effect of glucocorticoids and synthetic analogues, initial encounter; F41.9 Anxiety disorder, unspecified; E66.01 Morbid (severe) obesity due to excess calories; Z68.39 Body mass index [BMI] 39.0-39.9, adult; R13.10 Dysphagia, unspecified; B96.89 Other specified bacterial agents as the cause of diseases classified elsewhere; I16.0 Hypertensive urgency; C50.911 Malignant neoplasm of unspecified site of right female breast; I95.9 Hypotension, unspecified; Z79.51 Long term (current) use of inhaled steroids; Z90.11 Acquired absence of right breast and nipple; Z90.710 Acquired absence of both cervix and uterus; Z86.711 Personal history of pulmonary embolism; Z86.73 Personal history of transient ischemic attack (TIA), and cerebral infarction without residual deficits; Z88.1 Allergy status to other antibiotic agents; Z88.5 Allergy status to narcotic agent; Z88.2 Allergy status to sulfonamides; Z88.8 Allergy status to other drugs, medicaments and biological substances; Z79.82 Long term (current) use of aspirin; Z79.899 Other long term (current) drug therapy
CPT/HCPCS: 36415; 36416; 36430; 51701; 71045; 71275; 77336; 77412; 80048; 80053; 80076; 81003; 81015; 82553; 82728; 82805; 83036; 83605; 83615; 83735; 83880; 84100; 84484; 85025; 85049; 85300; 85362; 85379; 85384; 85610; 85730; 86140; 86850; 86900; 86901; 87040; 87077; 87086; 87186; 87635; 93005; 94002; 94003; 94640; 94660; 94664; 96361; 96365; 99292; J0360; J0456; J0692; J1630; J1642; J1650; J1815; J2060; J2185; J2250; J2270; J2370; J2543; J2704; J2765; J2920; J2930; J3010; J3475; J3480; J3490; J7050; J7512; J7620; J7626; J8540; P9045; P9047; Q9967; S0020; S0028; U0002; U0003